=== PATIENT | male | born 1985 | race African-American/Black ===

== ENCOUNTER 2017-01-29 16:48 | Inpatient (IN) | payer MEDICAID, MEDICARE ==
[2017-01-29] MEDS ORDERED: HYDROcodone/Acetaminophen 10/325 mg Tablet ONE ×2 (17:14→18:02)
[2017-01-29] MEDS ORDERED: Promethazine HCl 25 MG/ML VIAL ONE (17:32)
--- NOTE | 2017-01-29 17:47 | RAD ---
CHEST PA AND LATERAL: HISTORY: A 31-year-old male with sickle cell crisis. COMPARISON: 12/22/2016. FINDINGS: Heart size is upper range of normal. Bronchovascular markings are slightly prominent bilaterally, b ut no confluent pneumonia, overt edema, pleural effusion, or other acute process. IMPRESSION: Borderline heart size and borderline vascular congestion. No other acute process. No evidence for pneumonia. POS: [facility]
[2017-01-29 18:17] LABS: ALT (SGPT) 20 U/L (8-55); AST (SGOT) 21 U/L (5-34); Alkaline Phosphatase 99 U/L (40-150); Anion Gap 11 mmol/L (10-20); BUN (Urea Nitrogen) 6 mg/dL (8.9-20.6); Bilirubin, Total 0.5 mg/dL (0.2-1.2); Calc. Creatinine Clearance 0 mL/min (70-130); Calcium 9.9 mg/dL (7.8-10.44); Carbon Dioxide 29 mmol/L (22-29); Chloride 107 mmol/L (98-107); Estimated GFR-MDRD Greater than 90; Globulin 3.9 g/dL (2.4-3.5); Protein, Total 8.1 g/dL (6.0-8.3)
[2017-01-29 18:32] LABS: IRF 0.192 Ratio (0.163-0.362)
[2017-01-29 18:45] LABS: Hematocrit 28.1 % (42.0-52.0); Red Blood Cell (RBC) Count 3.23 mill/uL (4.70-6.10)
[2017-01-29 19:11] LABS: Anisocytosis SLIGHT = 6-15 cells (100X) (0-5/hpf); Band 1 % (5-11); Neutrophil 57 % (42-75); Nucleated RBC 2 % (0); Polychromasia MODERATE = 3-4 cells (100X) (0-2/hpf); Reactive Lymphocytes 1 % (0-10); Target Cells MODERATE= 6-15 cells (100X) (0-1/hpf); Tear Drops SLIGHT = 2-5 cells (100X) (0-1/hpf); White Blood Cell (WBC) Count 15.1 thou/uL (4.8-10.8)
[2017-01-29] MEDS ORDERED: diphenhydrAMINE HCl 25 MG CAP ONE ×2 (19:48→20:41)
[2017-01-29] MEDS ORDERED: Ondansetron HCl/PF 4 MG/2 ML Vial ONE (20:40)
--- OUTSIDE RECORDS SUMMARY | 2017-01-29 20:51 | XMS | Clinical Summary ---
:1985 Author Organization [facility] Address [address] [place] [address] Phone Care Team Providers Name Role Phone Asked, No Primary Care Provider Unavailable Allergies Active Allergy Reactions Severity Noted Date Comments Fentanyl 10/23/2016 Morphine 10/30/2016 Metoclopramide Hcl 10/23/2016 Sulfa (Sulfonamide Antibiotics) 10/23/2016 Ketorolac 10/23/2016 Current Medications Prescription Sig. Disp. Refills Start Date End Date Status folic acid (FOLVITE) 1 Take 1 mg by mouth Active MG tablet daily. oxyCODone-acetaminophen Take 2 tablets by Active (PERCOCET) 10-325 mg per mouth every 4 (four) tablet hours as needed for moderate pain. hydroxyurea (HYDREA) 500 Take 500 mg by mouth Active mg capsule daily. Active Problems Problem Noted Date Sickle cell pain crisis 10/24/2016 Encounters Date Type Specialty Care Team Description 10/30/2016 - Hospital Encounter General Internal Brusatori, Sickle cell pain 11/03/2016 Medicine Krystyna Reddy MD crisis (Primary Dx) Kade Montejo DO Kosaraju, Nitish, MD 10/29/2016 Emergency Emergency Medicine No Hobbs Vomiting without MD Leena nausea, intractability of vomiting not specified, unspecified vomiting type (Primary Dx) from Last 3 Months Social History Tobacco Use Types Packs/Day Years Used Date Current Every Day Smoker Cigarettes 0.5 Tobacco Cessation:Ready to Quit: No Alcohol Use Drinks/Week oz/Week Comments No Sex Assigned at Date Recorded Not on file Last Filed Vital Signs Vital Sign Reading Time Taken Blood Pressure 93/51 11/03/2016 11:11 AM CDT Pulse 55 11/03/2016 11:11 AM CDT Temperature 36.2 C (97.1 F) 11/03/2016 11:11 AM CDT Respiratory Rate 18 11/03/2016 11:11 AM CDT Oxygen Saturation 95% 11/03/2016 11:11 AM CDT Inhaled Oxygen Concentration - - Weight 68 kg (150 lb) 10/30/2016 9:37 PM CDT Height 175.3 cm (5' 9") 10/30/2016 9:37 PM CDT Body Mass Index 22.15 10/30/2016 9:37 PM CDT Plan of Treatment Health Maintenance Due Date Last Done Comments INFLUENZA VACCINE 11/25/2016 04/30/2016 Results Estimated GFR (11/03/2016 4:10 AM)Only the most recent of4 resultswithin the time period is included. Component Value Ref Range GFR Non Af Amer >90 mL/min/1.73 m2 GFR Af Amer >90 mL/min/1.73 m2 Comment: Chronic kidney disease: <60 mL/min/1.73m2 Kidney failure: <15 mL/min/1.73m2 The estimated GFR is calculated from the IDMS-traceable Modification of Diet in Renal Disease Equation. The accuracy of the calculation is poor when the creatinine is normal. Calculated values >90 mL/min/1.73m2 are not reported. This equation has not been validated in children (<18 years), women, the elderly (>70 years), or ethnic groups other than Caucasians and Americans. Specimen Performing Laboratory Plasma specimen [facility] DEPARTMENT OF PATHOLOGY AND GENOMIC MEDICINE [address] [place] [address]. [address] [place] [address] CBC with platelet and differential (11/03/2016 4:10 AM)Only the most recent of5 resultswithin the time period is included. Component Value Ref Range WBC 9.6 4.5 - 11.0 k/uL RBC 3.50(L) 4.40 - 6.00 M/uL HGB 10.6(L) 14.0 - 18.0 g/dL HCT 28.3(L) 41.0 - 51.0 % MCV 80.9(L) 82.0 - 100.0 fL MCH 30.3 27.0 - 34.0 pg MCHC 37.5(H) 31.0 - 37.0 g/dL RDW - SD 42.3 37.0 - 55.0 fL MPV 9.3 8.8 - 13.2 fL Platelet count 375 150 - 400 K/uL Nucleated RBC 0.50 /100 WBC Neutrophils 46.7 39.0 - 69.0 % Lymphocytes 39.4 25.0 - 45.0 % Monocytes 11.1(H) 0.0 - 10.0 % Eosinophils 2.4 0.0 - 5.0 % Basophils 0.3 0.0 - 1.0 % Immature granulocytes 0.1Comment:"Immature granulocytes" 0.0 - 1.0 % (promyelocytes, myelocytes, metamyelocytes) Specimen Performing Laboratory Blood [facility] DEPARTMENT OF PATHOLOGY AND GENOMIC MEDICINE [address] [place] [address] Basic metabolic panel (11/03/2016 4:10 AM)Only the most recent of4 resultswithin the time period is included. Component Value Ref Range Sodium 139 135 - 148 mEq/L Potassium 4.3 3.5 - 5.0 mEq/L Chloride 99 99 - 109 mEq/L CO2 24 24 - 31 mEq/L Anion gap 16(H) 7 - 15 mEq/L Comment: Starting from July , anion gap calculation no longer incorporates potassium. Please note the change. BUN 9 8 - 24 mg/dL Creatinine 0.7 0.5 - 1.5 mg/dL Glucose 87 65 - 99 mg/dL Calcium 9.5 8.6 - 10.6 mg/dL Specimen Performing Laboratory Plasma specimen [facility] DEPARTMENT OF PATHOLOGY AND GENOMIC MEDICINE [address] [place] [address] Smear review (11/01/2016 3:25 AM)Only the most recent of3 resultswithin the time period is included. Component Value Ref Range Platelet slide review Adequate Schistocytes Slight(A) None Seen Target cells Marked(A) None seen Enlarged platelets Slight Folded RBCs Slight(A) None seen Specimen Performing Laboratory [facility] DEPARTMENT OF PATHOLOGY AND GENOMIC MEDICINE [address] [place] [id number] ECG ED Preliminary Interpretation - NOT AN ORDER (10/31/2016 5:13 AM) Lisa Huerta MD 10/31/20165:13 AM ECG ED Preliminary Interpretation - Not an Order Performed by: KRYSTYNA HUERTA Authorized by: KRYSTYNA HUERTA ECG reviewed by ED Physician in the absence of a ore crusher: yes Rate: ECG rate:59 ECG rate assessment: normal Rhythm: Rhythm: sinus rhythm Ectopy: Ectopy: none ST segments: ST segments:Non-specific T waves: T waves: inverted Inverted:V1 and aVR Comments: 22:23 Urinalysis screen and microscopy, with reflex to culture (10/30/2016 11:26 PM) Component Value Ref Range Specimen site Clean catch Color, UA Yellow YELLOW Appearance, UA Clear Clear Specific gravity, UA 1.015 1.005 - 1.030 pH, UA 6.0 5.0 - 8.0 Protein, UA Negative Negative Glucose, UA Negative Negative Ketones, UA Negative Negative Bilirubin, UA Negative Negative Blood, UA Negative Negative Nitrite, UA Negative NEGATIVE Urobilinogen, UA 2.0 <2.0 E.U./dL Leukocyte esterase, UA Negative Negative Epithelial cells, UA <1 0 - 15 /HPF WBC, UA <1 0 - 5 /Hpf RBC, UA 1 0 - 5 /HPF Bacteria, UA None seen None seen Yeast, UA None seen None Seen Yeast with pseudohyphae, UA None seen Specimen Performing Laboratory Urine [facility] DEPARTMENT OF PATHOLOGY AND GENOMIC MEDICINE [address] [place] [address]. [address] [place] [address] Urine drugs of abuse screen (10/30/2016 11:26 PM) Component Value Ref Range Amphetamine screen, urine Negative Barbiturate screen, urine Negative Benzodiazepine screen, urine Negative Cannabinoid screen, urine Positive(A) Cocaine screen, urine Negative Methadone metabolite (EDDP), urine Negative Opiates screen, urine Positive(A) Oxycodone screen, urine Positive(A) Phencyclidine screen, urine Negative Tricyclic screen, urine Negative Comment: Drug screen minimum concentration of detectability Achborrxdvvk8062 ng/mL Barbiturates 200 ng/mL Uxvxfwaityldqcy221 ng/mL Fiuirrm582 ng/mL Vnvsxwcyf101 ng/mL Oxqhjhz464 ng/mL Bstyqfcyj962 ng/mL Phencyclidine 25 ng/mL Hmgyrdgqmjfn82 ng/mL Bnmmuikdqn8630 ng/mL Negative test results indicates presumptive evidence of lack of clinically significant drug concentration in this urine specimen. Positive test results are presumptive evidence of clinically significant drug concentration in this urine specimen. Testing performed for medical purposes only. Specimen Performing Laboratory Urine [facility] DEPARTMENT OF PATHOLOGY AND GENOMIC MEDICINE [address] [place] [address]. [address] [place] [address] Urine culture (10/30/2016 11:26 PM) Component Value Ref Range Urine culture SEE COMMENTComment:Bacteriuria screen negative. Specimen Performing Laboratory [facility] DEPARTMENT OF PATHOLOGY AND GENOMIC MEDICINE [id number] [place], [place] [address]y. [address] [place] [address] XR Chest 1 Vw Portable (10/30/2016 10:46 PM) Specimen Performing Laboratory [facility] [address] [place] [address] Narrative Examination:XR CHEST 1 VW PORTABLE Clinical History:Respiratory abnormality Comparison: None. Technique: Single frontal view of the chest is obtained. Findings: The lungs are free of infiltrate. The heart size is normal. No pleural effusion is seen. Impression: No active cardiopulmonary disease identified. [id number] Procedure Note Interface, Radiology Results Incoming - 10/30/2016 10:50 PM CDT Examination: XR CHEST 1 VW PORTABLE Clinical History: Respiratory abnormality Comparison: None. Technique: Single frontal view of the chest is obtained. Findings: The lungs are free of infiltrate. The heart size is normal. No pleural effusion is seen. Impression: No active cardiopulmonary disease identified. [id number] ECG 12 lead (10/30/2016 10:23 PM) Component Value Ref Range Ventricular rate 59 Atrial rate 59 SC interval 110 QRSD interval 92 QT interval 422 QTC interval 417 P axis 1 86 QRS axis 1 50 T wave axis 48 EKG impression Sinus bradycardia with short SC-Otherwise normal ECG- Specimen Performing Laboratory [facility] [address] [place] [address] Reticulocyte count (10/30/2016 10:17 PM)Only the most recent of2 resultswithin the time period is included. Component Value Ref Range Retic %, auto 3.4(H) 0.5 - 2.1 % Retic absolute, auto 0.1197 0.0220 - 0.1260 m/uL Specimen Performing Laboratory Blood [facility] DEPARTMENT OF PATHOLOGY AND GENOMIC MEDICINE [address] [place], [place] [address]. [address] [place] [address] Hepatic function panel (10/30/2016 10:17 PM) Component Value Ref Range Albumin 4.4 3.5 - 5.0 g/dL Total bilirubin 0.5 0.2 - 1.2 mg/dL Bilirubin direct <0.2 0.0 - 0.4 mg/dL Alkaline phosphatase 81 30 - 115 U/L Protein 7.8 6.3 - 8.2 g/dL ALT 33 10 - 55 U/L AST 67(H) 15 - 46 U/L Specimen Performing Laboratory Plasma specimen [facility] DEPARTMENT OF PATHOLOGY AND GENOMIC MEDICINE [address] [facility] [address] [place] [address] XR Chest 2 Vw (10/29/2016 6:38 PM) Specimen Performing Laboratory [facility] [address] [place] [address] Narrative EXAMINATION: XR CHEST 2 VW CLINICAL HISTORY: sickle cell COMPARISON: PA and lateral chest, obtained on 09/04/2016. FINDINGS: Cardiac and mediastinal silhouettes are within normal limits. There is no vascular congestion, pleural fluid, infiltrate or pneumothorax. Calcified granulomas are again seen. Skeletal structures are normal. IMPRESSION: Normal chest. [id number] Procedure Note Interface, Radiology Results Incoming - 10/29/2016 6:42 PM CDT EXAMINATION: XR CHEST 2 VW CLINICAL HISTORY: sickle cell COMPARISON: PA and lateral chest, obtained on 09/04/2016. FINDINGS: Cardiac and mediastinal silhouettes are within normal limits. There is novascular congestion, pleural fluid, infiltrate or pneumothorax. Calcifiedgranulomas are again seen. Skeletal structures are normal. IMPRESSION: Normal chest. [id number] from Last 3 Months Insurance Payer Benefit Plan / Group Subscriber ID Type Phone Address MEDICARE MEDICARE PART A AND B [id number] Medicare [place], [place] MEDICAID MEDICAID [id number] Medicaid [facility] [id number] [facility]
[2017-01-29] MEDS ORDERED: Ondansetron HCl/PF 4 MG/2 ML Vial IVP PRN (22:13)
[2017-01-29] MEDS ORDERED: Ondansetron ODT 4 MG TAB SL PRN (22:13)
[2017-01-29 22:30] VITALS: BMI 22.1
[2017-01-29] MEDS ORDERED: Acetaminophen 325 MG TAB PO PRN (22:35)
[2017-01-29] MEDS ORDERED: Morphine Sulfate 2 MG/ML SYRINGE SLOW IVP PRN (22:38)
[2017-01-29] MEDS: Sodium Chloride 0.9% 1,000 ML IV SCH (23:17)
[2017-01-29] MEDS: HYDROcodone/Acetaminophen 10/325 mg Tablet PO PRN (23:32)
--- NOTE | 2017-01-29 23:45 | HP ---
DATE OF ADMISSION: 01/29/2017 CHIEF COMPLAINT: Sickle cell pain. HISTORY OF PRESENT ILLNESS: Mr. Overton is a 31-year-old -[place] male well known to our hospital for multiple recent admissions for sickle cell pain crisis. He presents to the Emergency Department for complaints today of 3-4 hours of bilateral arm and back pain typical for his sickle c risis. He take his [place], but \\\\"was not helping.\\\\" He has had nausea and vomiting x2 today. His son has been sick with upper respiratory tract infection for the last several days. The patient stated at home, he had a 101.8 fever. Prior to presentation, took some Motrin and has been down since. Denie s any current nausea, vomiting, no current fevers or shaking chills or rigors. No diarrhea or const ipation. Chest pain is present when he takes a deep breath. No shortness of breath. In the Emergency Department, he was given IV antibiotics and we were called for admission. PAST MEDICAL HISTORY: 1. Sickle cell disease. 2. Marijuana use. 3. Tobacco abuse. PAST SURGICAL HISTORY: None. MEDICATIONS: 1. Hydrocodone/APAP 10/325 two p.o. q.6 hours p.r.n. 2. Folic acid 1 mg daily. 3. Motrin as needed. ALLERGIES: To FENTANYL, TORADOL, SULFA, AND REGLAN. REGLAN causes blisters. SULFA caused him to h ave a low heart rate and FENTANYL made him feel like his throat was closing up. FAMILY HISTORY: Significant for both parents with sickle cell trait. He has a son with sickle cell trait. SOCIAL HISTORY: Significant for tobacco. He states only 2 cigarettes a day. Uses marijuana when h is pain is as bad and the medicine is not working. Denies any IV drug abuse. Lives at home with geovanny s and his son. REVIEW OF SYSTEMS: A 10-point review of systems was performed and negative for all other systems ex cept as stated as per HPI. PHYSICAL EXAMINATION: VITAL SIGNS: Temperature is 98.1, pulse 62, blood pressure 106/65, respiratory rate 16, satting 95% on room air. Pain on arrival to the ER was 8/10 with a pulse of 62. GENERAL: He is awake. He is alert. He is oriented x3. He is sleepy. A well-developed, well-nour ished -Cong[place]ese male. HEENT: Normocephalic, atraumatic. Pupils equal, round, react to light bilaterally, mucous membrane s moist, he has no visible lesions. No thrush. NECK: Supple with no lymphadenopathy, JVD or thyromegaly. LUNGS: Clear. No wheezes, no rales, no rhonchi. Good air movement and symmetrical chest excursion . CARDIOVASCULAR: Normal S1, S2, no S3, S4. No audible murmurs. ABDOMEN: Soft, nontender, nondistended, no mass, no organomegaly. He has no rebound, rigidity or g uarding with normoactive bowel sounds present in all 4 quadrants. EXTREMITIES: Showed no cyanosis, no clubbing, no edema, 2+ peripheral pulses. His extremities are warm with good cap refill. SKIN: Warm, moist, well perfused without any other rashes or lesions. MUSCULOSKELETAL: Normal to inspection. He has no inflamed joints and no palpable joint effusions. No hemarthrosis. NEUROLOGIC: Cranial nerves II-XII are grossly intact without any focal neurologic deficits. Normal speech. He is sleepy, but awake. LABORATORY DATA: His basic metabolic profile and liver functions are completely normal. White bloo d cell count elevated at 15.1, hemoglobin 9.9 which is improved from his last hospital discharge of 12/26 when it was 9.4, hemoglobin 28.1 and platelets are 500,000. Reticulocyte count was 4%. Calcium was 9.9. Chest x-ray showed no acute cardiopulmonary disease. ASSESSMENT AND PLAN: 1. Sickle cell pain crisis: Place the patient on 2 liters nasal cannula oxygen continuous, we will start him on Hydrea 300 mg p.o. b.i.d., which he has been on previously. We will continue with irina e p.o. [place] with IV morphine 2 mg q.4 hours p.r.n. breakthrough. The patient was requesting IV Wisam adryl, however, due to inability to keep down oral, I have offered him intramuscular and I will have that ordered. If he does not want that, then oral will have to suffice. 2. Polysubstance abuse and marijuana, tobacco, seems to be low level per history. No nicotine repl acement given. 3. Sepsis: Etiology unclear. He had 101.8 fever at home, possible bacterial infection given his h istory of sickle cell disease, white blood cell count of 15.1. I will place him on Levaquin once a day for respiratory coverage. He did have a sick contact in a son, but has no current symptoms of a viral respiratory illness. We will watch him closely. 4. Sickle cell anemia: Hemoglobin is 9.9 on admission. Expect to drop some with hydration. Retic ulocyte count is elevated which is a good sign. We will continue to monitor.
[2017-01-30] MEDS: HYDROcodone/Acetaminophen 10/325 mg Tablet PO PRN ×5 (04:06→21:05)
[2017-01-30] MEDS: Sodium Chloride 0.9% 1,000 ML IV SCH ×4 (05:12→21:04)
[2017-01-30] MEDS: diphenhydrAMINE HCl 50 MG/ML 1 ML VIAL IM PRN ×3 (05:16→21:49)
[2017-01-30 05:54] LABS: Anion Gap 12 mmol/L (10-20); BUN (Urea Nitrogen) 5 mg/dL (8.9-20.6); Calc. Creatinine Clearance 129 mL/min (70-130); Calcium 8.9 mg/dL (7.8-10.44); Carbon Dioxide 23 mmol/L (22-29); Chloride 109 mmol/L (98-107); Estimated GFR-MDRD Greater than 90
[2017-01-30 06:01] LABS: Hematocrit 26.6 % (42.0-52.0); Mean Platelet Volume 6.4 fL (7.4-10.4); Metamyelocyte 2 % (0-0); Neutrophil 45 % (42-75); Red Blood Cell (RBC) Count 3.04 mill/uL (4.70-6.10); White Blood Cell (WBC) Count 11.8 thou/uL (4.8-10.8)
[2017-01-30] MEDS ORDERED: Docusate 100 MG CAP PO PRN (07:46)
[2017-01-30] MEDS ORDERED: Chloraseptic Spray 180 ml Bottle PO PRN (07:46)
[2017-01-30] MEDS ORDERED: Eucerin (Mineral Oil/Petrolatum,White) 30 gm Jar TOP PRN (07:46)
[2017-01-30] MEDS ORDERED: Zolpidem Tartrate 5 MG TAB PO PRN (07:46)
[2017-01-30] MEDS ORDERED: Milk Of Magnesia 30 ML UDCUP PO PRN (07:46)
[2017-01-30] MEDS ORDERED: Loratadine 10 MG TAB PO PRN (07:46)
[2017-01-30] MEDS ORDERED: Artificial Tears 18 DROP/0.9 ML EA EYE PRN (07:46)
[2017-01-30] MEDS ORDERED: Loperamide HCl 2 MG CAP PO PRN (07:46)
[2017-01-30] MEDS ORDERED: Mag-Al 1200 mg/1200 mg/30 ML UDCUP PO PRN (07:46)
[2017-01-30] MEDS ORDERED: Diabetic Tussin 200 MG/10 ML UDCUP PO PRN (07:46)
[2017-01-30] MEDS ORDERED: Sodium Chloride 0.65% Nasal 44 ML BOT EA NARE PRN (07:46)
[2017-01-30] MEDS ORDERED: Bisacodyl 10 MG SUPP PR PRN (07:46)
[2017-01-30] MEDS: Famotidine 20 MG TAB PO SCH ×2 (08:02→20:17)
[2017-01-30] MEDS: Folic Acid 1 MG TAB PO SCH (08:02)
[2017-01-30] MEDS ORDERED: FLU VACC QS2017-18 36 mo. & older 0.5 ML SYRINGE IM ONE (09:00)
[2017-01-30] MEDS ORDERED: HYDROXYUREA 300 MG PO SCH (09:00)
--- NOTE | 2017-01-30 13:23 | PDOC.PN ---
- Subjective Encounter Start Date: 01/30/17 Encounter Start Time: 09:10 -: old records requested/rev pt's pain is not controlled, no fever, no chest pain, no cough - Objective MAR Reviewed: Yes Vital Signs & Weight: Vital Signs (12 hours) Temp Pulse Resp BP Pulse Ox 01/30/17 11:07 97.6 F 65 16 112/70 96 01/30/17 08:00 97.7 F 57 L 16 97 01/30/17 07:31 97.7 F 57 L 16 116/70 97 01/30/17 04:00 97.8 F 68 20 104/64 98 Weight Weight 150 lb I&O: 01/29/17 01/30/17 01/31/17 06:59 06:59 06:59 Intake Total 2385 Balance 2385 Result Diagrams: 01/30/17 04:41 01/30/17 04:41 Phys Exam - Physical Examination Constitutional: NAD HEENT: PERRLA, moist MMs, sclera anicteric Neck: no JVD, supple Respiratory: no wheezing, no rales, no rhonchi Cardiovascular: RRR, no significant murmur, no rub Gastrointestinal: soft, non-tender, no distention, positive bowel sounds Musculoskeletal: no edema, pulses present Neurological: non-focal, normal sensation, moves all 4 limbs Lymphatic: no nodes Psychiatric: normal affect, A&O x 3 Skin: no rash, normal turgor Dx/Plan (1) Sickle cell anemia with crisis Code(s): D57.00 - HB-SS DISEASE WITH CRISIS, UNSPECIFIED Status: Acute (2) Cannabis abuse Code(s): F12.10 - CANNABIS ABUSE, UNCOMPLICATED Status: Chronic (3) Tobacco abuse Code(s): Z72.0 - TOBACCO USE Status: Chronic - Plan cont current plan of care * continue IVF NS at 125 ml per hour * continue oxygen * will increase morphin to 4 mg IV q 4 hourly * [place] for breakthrough pain * medication reviewed as below * symptomatic treatment * add folic acid. Review of Systems - Review of Systems Constitutional: negative: Fever, Chills, Sweats, Weakness, Malaise, Other Respiratory: negative: Cough, Dry, Shortness of Breath, Hemoptysis, SOB with Excertion, Pleuritic Pain, Sputum, Wheezing Cardiovascular: negative: Chest Pain, Palpitations, Orthopnea, Paroxysmal Noc. Dyspnea, Edema, Light Headedness, Other Gastrointestinal: negative: Nausea, Vomiting, Abdominal Pain, Diarrhea, Constipation, Melena, Hematochezia, Other Genitourinary: negative: Dysuria, Frequency, Incontinence, Hematuria, Retention , Other Musculoskeletal: Arm Pain, Back Pain, Leg Pain. negative: Neck Pain, Shoulder Pain, Hand Pain, Foot Pain, Other Skin: negative: Rash, Lesions, Shahram, Bruising, Other - Medications/Allergies Allergies/Adverse Reactions: Allergies Allergy/AdvReac Type Severity Reaction Status Date / Time fentanyl Allergy Verified 12/23/16 02:11 ketorolac tromethamine Allergy Short of Verified 12/23/16 02:11 [From Toradol] Breath metoclopramide [From Reglan] Allergy Verified 01/29/17 22:25 Sulfa (Sulfonamide Allergy Verified 12/23/16 02:11 Antibiotics) Medications: Current Medications Acetaminophen (Tylenol) 650 mg PO Q4H PRN PRN Reason: Headache/Fever or Pain Hydrocodone Bitart/Acetaminophen ([place] 10/325) 2 tab PO Q4H PRN PRN Reason: Moderate to Severe Pain (6-10) Last Admin: 01/30/17 12:02 Dose: 2 tab Al Hydroxide/Mg Hydroxide (Maalox) 15 ml PO Q4H PRN PRN Reason: Heartburn or Indigestion Artificial Tears (Tears Naturale) 0 drop EA EYE PRN PRN PRN Reason: Dry Eyes Bisacodyl (Dulcolax) 10 mg NC DAILYPRN PRN PRN Reason: Constipation Diphenhydramine HCl (Benadryl) 12.5 mg IM Q8H PRN PRN Reason: Itching Last Admin: 01/30/17 13:09 Dose: 12.5 mg Docusate Sodium (Colace) 100 mg PO BIDPRN PRN PRN Reason: Constipation Famotidine (Pepcid) 20 mg PO BID [facility] Last Admin: 01/30/17 08:02 Dose: 20 mg Folic Acid (Folvite) 1 mg PO DAILY [facility] Last Admin: 01/30/17 08:02 Dose: 1 mg Guaifenesin (Robitussin Sf) 200 mg PO Q4H PRN PRN Reason: Cough Hydralazine HCl (Apresoline) 10 mg SLOW IVP Q4H PRN PRN Reason: Systolic BP > 180 Sodium Chloride (Normal Saline 0.9%) 1,000 mls @ 125 mls/hr IV .Q8H [facility] Last Admin: 01/30/17 12:05 Dose: 1,000 mls Levofloxacin (Levaquin) 500 mg PO Q24HR [facility] Last Admin: 01/30/17 05:14 Dose: 500 mg Loperamide HCl (Imodium) 2 mg PO PRN PRN PRN Reason: Diarrhea/Loose Stools Loratadine (Claritin) 10 mg PO DAILYPRN PRN PRN Reason: Sinus Symptoms Magnesium Hydroxide (Milk Of Magnesium) 30 ml PO DAILYPRN PRN PRN Reason: Constipation Mineral Oil/White Petrolatum (Eucerin Cream) 0 gm TOP BIDPRN PRN PRN Reason: Dry Skin Morphine Sulfate (Morphine Sulfate) 4 mg SLOW IVP Q4H PRN PRN Reason: breakthough pain Last Admin: 01/30/17 13:03 Dose: 4 mg Hydroxyurea [Droxia] (300 Mg) 0 each PO BID [facility] Phenol (Chloraseptic [place] 180 Ml Bot) 0 ml PO PRN PRN PRN Reason: Sore Throat Sodium Chloride (Flush - Normal Saline) 10 ml IVF Q12HR [facility] Last Admin: 01/30/17 09:23 Dose: Not Given Sodium Chloride (Flush - Normal Saline) 10 ml IVF PRN PRN PRN Reason: Saline Flush Sodium Chloride (Nye Nasal [place] 0.65%) 0 ml EA NARE QIDPRN PRN PRN Reason: Nasal Congestion Zolpidem Tartrate (Ambien) 5 mg PO HSPRN PRN PRN Reason: Insomnia
[2017-01-30] MEDS ORDERED: Ondansetron ODT 4 MG TAB PO PRN (20:18)
[2017-01-30] MEDS: Ondansetron HCl/PF 4 MG/2 ML Vial SLOW IVP PRN (21:04)
[2017-01-31] MEDS: HYDROcodone/Acetaminophen 10/325 mg Tablet PO PRN ×6 (01:13→21:26)
[2017-01-31] MEDS: hydrOXYzine 25 MG TAB PO PRN ×2 (01:14→17:14)
[2017-01-31] MEDS: Sodium Chloride 0.9% 1,000 ML IV SCH ×3 (05:15→22:43)
[2017-01-31] MEDS: Famotidine 20 MG TAB PO SCH ×2 (08:22→20:04)
[2017-01-31] MEDS: Folic Acid 1 MG TAB PO SCH (08:23)
[2017-01-31] MEDS: Ondansetron HCl/PF 4 MG/2 ML Vial SLOW IVP PRN (08:30)
[2017-01-31] MEDS: diphenhydrAMINE HCl 50 MG/ML 1 ML VIAL IM PRN ×2 (08:33→20:03)
--- NOTE | 2017-01-31 12:23 | EKG ---
Test Reason : Blood Pressure : / mmHG Vent. Rate : 069 BPM Atrial Rate : 069 BPM P-R Int : 106 ms QRS Dur : 086 ms QT Int : 400 ms P-R-T Axes : 087 054 041 degrees QTc Int : 428 ms Sinus rhythm with short FL Otherwise normal ECG No specific ST-T segment abnormalities Normal axis Confirmed by DEANN KLEIN ([id number]), dictionary editor RAMA HOSKINS ([id number]) on 01/31/2017 12:22:32 PM Referred By: Confirmed By:DEANN KLEIN
--- NOTE | 2017-01-31 13:34 | PDOC.PN ---
- Subjective Encounter Start Date: 01/31/17 Encounter Start Time: 11:00 Subjective: pain is better, no sob -: is amb in hallway - Objective MAR Reviewed: Yes Vital Signs & Weight: Vital Signs (12 hours) Temp Pulse Resp BP Pulse Ox 01/31/17 08:00 97.9 F 65 16 97 01/31/17 07:42 97.9 F 65 16 124/77 97 01/31/17 04:00 97.8 F 52 L 16 114/74 97 Weight Weight 150 lb I&O: 01/30/17 01/31/17 02/01/17 06:59 06:59 06:59 Intake Total 2385 2800 Balance 2385 2800 Result Diagrams: 01/30/17 04:41 01/30/17 04:41 Phys Exam - Physical Examination HEENT: PERRLA, moist MMs Neck: no JVD, supple Respiratory: no wheezing, no rales Cardiovascular: RRR, no significant murmur Gastrointestinal: soft, non-tender, positive bowel sounds Musculoskeletal: no edema, pulses present Neurological: non-focal, moves all 4 limbs Psychiatric: A&O x 3 Dx/Plan (1) Sickle cell anemia with crisis Code(s): D57.00 - HB-SS DISEASE WITH CRISIS, UNSPECIFIED Status: Acute (2) Cannabis abuse Code(s): F12.10 - CANNABIS ABUSE, UNCOMPLICATED Status: Chronic (3) Tobacco abuse Code(s): Z72.0 - TOBACCO USE Status: Chronic - Plan continue iv fluids -: morphine prn -: h/h stable * . Review of Systems - Medications/Allergies Allergies/Adverse Reactions: Allergies Allergy/AdvReac Type Severity Reaction Status Date / Time fentanyl Allergy Verified 12/23/16 02:11 ketorolac tromethamine Allergy Short of Verified 12/23/16 02:11 [From Toradol] Breath metoclopramide [From Reglan] Allergy Verified 01/29/17 22:25 Sulfa (Sulfonamide Allergy Verified 12/23/16 02:11 Antibiotics) Medications: Current Medications Acetaminophen (Tylenol) 650 mg PO Q4H PRN PRN Reason: Headache/Fever or Pain Hydrocodone Bitart/Acetaminophen ([place] 10/325) 2 tab PO Q4H PRN PRN Reason: Moderate to Severe Pain (6-10) Last Admin: 01/31/17 12:37 Dose: 2 tab Al Hydroxide/Mg Hydroxide (Maalox) 15 ml PO Q4H PRN PRN Reason: Heartburn or Indigestion Artificial Tears (Tears Naturale) 0 drop EA EYE PRN PRN PRN Reason: Dry Eyes Bisacodyl (Dulcolax) 10 mg [place] DAILYPRN PRN PRN Reason: Constipation Diphenhydramine HCl (Benadryl) 12.5 mg IM Q8H PRN PRN Reason: Itching Last Admin: 01/31/17 08:33 Dose: 12.5 mg Docusate Sodium (Colace) 100 mg PO BIDPRN PRN PRN Reason: Constipation Famotidine (Pepcid) 20 mg PO BID [facility] Last Admin: 01/31/17 08:22 Dose: 20 mg Folic Acid (Folvite) 1 mg PO DAILY [facility] Last Admin: 01/31/17 08:23 Dose: 1 mg Guaifenesin (Robitussin Sf) 200 mg PO Q4H PRN PRN Reason: Cough Hydralazine HCl (Apresoline) 10 mg SLOW IVP Q4H PRN PRN Reason: Systolic BP > 180 Hydroxyzine HCl (Atarax) 25 mg PO Q8H PRN PRN Reason: Itching Last Admin: 01/31/17 01:14 Dose: 25 mg Sodium Chloride (Normal Saline 0.9%) 1,000 mls @ 125 mls/hr IV .Q8H [facility] Last Admin: 01/31/17 05:15 Dose: 1,000 mls Levofloxacin (Levaquin) 500 mg PO Q24HR [facility] Last Admin: 01/31/17 05:16 Dose: 500 mg Loperamide HCl (Imodium) 2 mg PO PRN PRN PRN Reason: Diarrhea/Loose Stools Loratadine (Claritin) 10 mg PO DAILYPRN PRN PRN Reason: Sinus Symptoms Magnesium Hydroxide (Milk Of Magnesium) 30 ml PO DAILYPRN PRN PRN Reason: Constipation Mineral Oil/White Petrolatum (Eucerin Cream) 0 gm TOP BIDPRN PRN PRN Reason: Dry Skin Morphine Sulfate (Morphine Sulfate) 4 mg SLOW IVP Q4H PRN PRN Reason: breakthough pain Last Admin: 01/31/17 09:32 Dose: 4 mg Ondansetron HCl (Zofran Odt) 4 mg PO Q6H PRN PRN Reason: Nausea/Vomiting Ondansetron HCl (Zofran) 4 mg SLOW IVP Q6H PRN PRN Reason: Nausea/Vomiting Last Admin: 01/31/17 08:30 Dose: 4 mg Hydroxyurea [Droxia] (300 Mg) 0 each PO BID [facility] Phenol (Chloraseptic [place] 180 Ml Bot) 0 ml PO PRN PRN PRN Reason: Sore Throat Sodium Chloride (Flush - Normal Saline) 10 ml IVF Q12HR [facility] Last Admin: 01/31/17 08:23 Dose: Not Given Sodium Chloride (Flush - Normal Saline) 10 ml IVF PRN PRN PRN Reason: Saline Flush Sodium Chloride ([place] Nasal [place] 0.65%) 0 ml EA NARE QIDPRN PRN PRN Reason: Nasal Congestion Zolpidem Tartrate (Ambien) 5 mg PO HSPRN PRN PRN Reason: Insomnia
[2017-02-01] MEDS: HYDROcodone/Acetaminophen 10/325 mg Tablet PO PRN ×6 (01:59→23:30)
[2017-02-01 05:28] LABS: Hematocrit 25.5 % (42.0-52.0); Mean Platelet Volume 6.2 fL (7.4-10.4); Neutrophil 37 % (42-75); Nucleated RBC 2 % (0); Red Blood Cell (RBC) Count 2.94 mill/uL (4.70-6.10); White Blood Cell (WBC) Count 9.1 thou/uL (4.8-10.8)
[2017-02-01 05:46] LABS: Anion Gap 10 mmol/L (10-20); BUN (Urea Nitrogen) 5 mg/dL (8.9-20.6); Calc. Creatinine Clearance 142 mL/min (70-130); Calcium 8.9 mg/dL (7.8-10.44); Carbon Dioxide 27 mmol/L (22-29); Chloride 104 mmol/L (98-107); Estimated GFR-MDRD Greater than 90
[2017-02-01] MEDS: Folic Acid 1 MG TAB PO SCH (07:55)
[2017-02-01] MEDS: Famotidine 20 MG TAB PO SCH ×2 (07:56→20:15)
[2017-02-01] MEDS: diphenhydrAMINE HCl 50 MG/ML 1 ML VIAL IM PRN ×2 (07:59→16:43)
[2017-02-01] MEDS: Sodium Chloride 0.9% 1,000 ML IV SCH (10:32)
--- NOTE | 2017-02-01 13:57 | PDOC.PN ---
- Subjective Encounter Start Date: 02/01/17 Encounter Start Time: 12:15 Subjective: pain and aches are getting better - Objective MAR Reviewed: Yes Vital Signs & Weight: Vital Signs (12 hours) Temp Pulse Resp BP Pulse Ox 02/01/17 07:38 98.0 F 66 20 144/84 H 97 02/01/17 05:30 99 02/01/17 05:14 98.3 F 56 L 16 134/84 Weight Weight 150 lb I&O: 01/31/17 02/01/17 02/02/17 06:59 06:59 06:59 Intake Total 2800 3041 Balance 2800 3041 Result Diagrams: 02/01/17 04:26 02/01/17 04:26 Phys Exam - Physical Examination HEENT: PERRLA, moist MMs Neck: no JVD, supple Respiratory: no wheezing, no rales Cardiovascular: RRR, no significant murmur Gastrointestinal: soft, non-tender, positive bowel sounds Musculoskeletal: no edema, pulses present Neurological: non-focal, moves all 4 limbs Psychiatric: A&O x 3 Dx/Plan (1) Sickle cell anemia with crisis Code(s): D57.00 - HB-SS DISEASE WITH CRISIS, UNSPECIFIED Status: Acute (2) Cannabis abuse Code(s): F12.10 - CANNABIS ABUSE, UNCOMPLICATED Status: Chronic (3) Tobacco abuse Code(s): Z72.0 - TOBACCO USE Status: Chronic - Plan reduce iv fluids, has some pedal edema -: morphine prn -: dc plan in 24-36hrs -: to ambulate in hallway * . Review of Systems - Medications/Allergies Allergies/Adverse Reactions: Allergies Allergy/AdvReac Type Severity Reaction Status Date / Time fentanyl Allergy Verified 12/23/16 02:11 ketorolac tromethamine Allergy Short of Verified 12/23/16 02:11 [From Toradol] Breath metoclopramide [From Reglan] Allergy Verified 01/29/17 22:25 Sulfa (Sulfonamide Allergy Verified 12/23/16 02:11 Antibiotics) Medications: Current Medications Acetaminophen (Tylenol) 650 mg PO Q4H PRN PRN Reason: Headache/Fever or Pain Hydrocodone Bitart/Acetaminophen ([place] 10/325) 2 tab PO Q4H PRN PRN Reason: Moderate to Severe Pain (6-10) Last Admin: 02/01/17 10:31 Dose: 2 tab Al Hydroxide/Mg Hydroxide (Maalox) 15 ml PO Q4H PRN PRN Reason: Heartburn or Indigestion Artificial Tears (Tears Naturale) 0 drop EA EYE PRN PRN PRN Reason: Dry Eyes Bisacodyl (Dulcolax) 10 mg [place] DAILYPRN PRN PRN Reason: Constipation Diphenhydramine HCl (Benadryl) 12.5 mg IM Q8H PRN PRN Reason: Itching Last Admin: 02/01/17 07:59 Dose: 12.5 mg Docusate Sodium (Colace) 100 mg PO BIDPRN PRN PRN Reason: Constipation Famotidine (Pepcid) 20 mg PO BID [facility] Last Admin: 02/01/17 07:56 Dose: 20 mg Folic Acid (Folvite) 1 mg PO DAILY [facility] Last Admin: 02/01/17 07:55 Dose: 1 mg Guaifenesin (Robitussin Sf) 200 mg PO Q4H PRN PRN Reason: Cough Hydralazine HCl (Apresoline) 10 mg SLOW IVP Q4H PRN PRN Reason: Systolic BP > 180 Hydroxyzine HCl (Atarax) 25 mg PO Q8H PRN PRN Reason: Itching Last Admin: 01/31/17 17:14 Dose: 25 mg Sodium Chloride (Normal Saline 0.9%) 1,000 mls @ 50 mls/hr IV .Q20H [facility] Last Admin: 02/01/17 10:32 Dose: 1,000 mls Levofloxacin (Levaquin) 500 mg PO Q24HR [facility] Last Admin: 02/01/17 05:53 Dose: 500 mg Loperamide HCl (Imodium) 2 mg PO PRN PRN PRN Reason: Diarrhea/Loose Stools Loratadine (Claritin) 10 mg PO DAILYPRN PRN PRN Reason: Sinus Symptoms Magnesium Hydroxide (Milk Of Magnesium) 30 ml PO DAILYPRN PRN PRN Reason: Constipation Mineral Oil/White Petrolatum (Eucerin Cream) 0 gm TOP BIDPRN PRN PRN Reason: Dry Skin Morphine Sulfate (Morphine Sulfate) 4 mg SLOW IVP Q4H PRN PRN Reason: breakthough pain Last Admin: 02/01/17 12:21 Dose: 4 mg Ondansetron HCl (Zofran Odt) 4 mg PO Q6H PRN PRN Reason: Nausea/Vomiting Ondansetron HCl (Zofran) 4 mg SLOW IVP Q6H PRN PRN Reason: Nausea/Vomiting Last Admin: 01/31/17 08:30 Dose: 4 mg Hydroxyurea [Droxia] (300 Mg) 0 each PO BID [facility] Phenol (Chloraseptic [place] 180 Ml Bot) 0 ml PO PRN PRN PRN Reason: Sore Throat Sodium Chloride (Flush - Normal Saline) 10 ml IVF Q12HR [facility] Last Admin: 02/01/17 08:00 Dose: Not Given Sodium Chloride (Flush - Normal Saline) 10 ml IVF PRN PRN PRN Reason: Saline Flush Sodium Chloride ([place] Nasal [place] 0.65%) 0 ml EA NARE QIDPRN PRN PRN Reason: Nasal Congestion Zolpidem Tartrate (Ambien) 5 mg PO HSPRN PRN PRN Reason: Insomnia
[2017-02-01] MEDS: Ondansetron HCl/PF 4 MG/2 ML Vial SLOW IVP PRN (23:31)
[2017-02-02] MEDS: diphenhydrAMINE HCl 50 MG/ML 1 ML VIAL IM PRN (01:35)
[2017-02-02] MEDS: HYDROcodone/Acetaminophen 10/325 mg Tablet PO PRN ×3 (03:33→20:18)
[2017-02-02] MEDS: Sodium Chloride 0.9% 1,000 ML IV SCH (03:34)
[2017-02-02] MEDS: Famotidine 20 MG TAB PO SCH ×2 (07:35→20:15)
[2017-02-02] MEDS: Folic Acid 1 MG TAB PO SCH (07:35)
--- NOTE | 2017-02-02 10:09 | PQF ---
CLINICAL DOCUMENTATION IMPROVEMENT CLARIFICATION FORM: ICD-10 Updated PLEASE DO AN ADDENDUM TO THE PROGRESS NOTE WITH ANY DOCUMENTATION UPDATES OR ADDITIONS AND CARRY THROUGH TO DC SUMMARY. THANK YOU. DATE: 02/02/17 ATTN: Dr. Akins Please exercise your independent, professional judgment in responding to the clarification form. Clinical indicators are provided on the bottom of this form for your review Please check appropriate box(s) to clarify if the following diagnosis has been ruled in our ruled out:. SEPSIS in H&P. [ ] Ruled in diagnosis [ ] Continue to treat [ ] Resolved [ x ] Ruled out diagnosis [ ] Cannot rule out diagnosis [ ] Other diagnosis [ ] Unable to determine For continuity of documentation, please document condition throughout progress notes and discharge summary. Thank You. CLINICAL INDICATORS - SIGNS / SYMPTOMS / LABS H&P: SEPSIS: ETIOLOGY UNCLEAR. HE HAD 101.8 FEVER AT HOME, POSSIBLE BACTERIAL INFECTION GIVEN HIS HISTORY OF SICKLE CELL DISEASE, WBC 15.1 RISKS: H&P: HX SICKLE CELL DISEASE. TREATMENT: CPOE 01/29: LEVAQUIN 500MG PO Q 24 HR. (This form is maintained as a part of the permanent medical record) 2014 [employer] All Rights Reserved Kristin Velez RN, BSN [email or web address] Office: [phone] [facility]
--- NOTE | 2017-02-02 15:01 | PDOC.PN ---
- Subjective Encounter Start Date: 02/02/17 Encounter Start Time: 07:00 Subjective: feels better -: is amb in hallway - Objective MAR Reviewed: Yes Vital Signs & Weight: Vital Signs (12 hours) Temp Pulse Resp BP Pulse Ox 02/02/17 08:00 97.7 F 68 16 122/77 98 Weight Weight 150 lb I&O: 02/01/17 02/02/17 02/03/17 06:59 06:59 06:59 Intake Total 3041 2900 Balance 3041 2900 Result Diagrams: 02/01/17 04:26 02/01/17 04:26 Phys Exam - Physical Examination HEENT: PERRLA, moist MMs Neck: no JVD, supple Respiratory: no wheezing, no rales Cardiovascular: RRR, no significant murmur Gastrointestinal: soft, non-tender, positive bowel sounds Musculoskeletal: no edema, pulses present Neurological: non-focal, moves all 4 limbs Psychiatric: A&O x 3 Dx/Plan (1) Sickle cell anemia with crisis Code(s): D57.00 - HB-SS DISEASE WITH CRISIS, UNSPECIFIED Status: Acute (2) Cannabis abuse Code(s): F12.10 - CANNABIS ABUSE, UNCOMPLICATED Status: Chronic (3) Tobacco abuse Code(s): Z72.0 - TOBACCO USE Status: Chronic - Plan hemostable -: dc pt home -: to f/u with his pain mgmt doc in [place] -: to f/u with PCP in 1 week * .
--- NOTE | 2017-02-02 20:25 | DIS ---
DATE OF ADMISSION: 01/29/2017 DATE OF DISCHARGE: 02/02/2017 DISCHARGE DISPOSITION: To home. PRIMARY DISCHARGE DIAGNOSIS: Sickle cell crisis. SECONDARY DISCHARGE DIAGNOSES: Chronic sickle cell anemia, cannabis abuse, tobacco abuse. PROCEDURES DONE DURING HOSPITALIZATION: Chest x-ray done on the day of admission showed no acute in filtrate. There is mild cardiomegaly with pulmonary vascular congestion. White count of 15 on the day of admission with discharge numbers of 9. Discharge hemoglobin and hematocrit 8 and 25 with ming telet count of 436. Retic count was 4.0 on the day of admission. DISCHARGE MEDICATIONS: Folic acid 1 mg p.o. daily, Solo p.r.n. for pain, hydroxyurea 300 mg p.o. t wice daily, and Ultram p.r.n. for pain. ALLERGIES: Allergic to FENTANYL, KETOROLAC, REGLAN, and SULFA. DISCHARGE PLAN: Patient to follow up with his pain specialist in [place] and he also needs to follo w up with his primary care physician here in [facility] in 1 week. BRIEF COURSE DURING HOSPITALIZATION: The patient initially came to ER with complaints of bilateral arm and back pain. He apparently took his Solo at home which is not helping. He was essentially a dmitted for sickle cell crisis. He is well known to our service due to multiple hospitalizations he re for sickle cell crisis. Patient had elevated white count of 15 on the day of admission with init ial suspicion for possible infection and sepsis. At the time of discharge, this is deemed to be due to margination and dehydration. His sickle cell crisis has completely resolved. He is ambulating well and will be shortly discharged home. Please see a face to face documentation on [facility] for t he day of discharge.
[2017-02-03] MEDS: Sodium Chloride 0.9% 1,000 ML IV SCH (00:53)
[2017-02-03 07:05] VITALS: BP 122/74; TEMP 99.3
[2017-02-03] MEDS: Famotidine 20 MG TAB PO SCH (07:57)
[2017-02-03] MEDS: Folic Acid 1 MG TAB PO SCH (07:57)
--- NOTE | 2017-02-03 11:50 | PDOC.PN ---
- Subjective Encounter Start Date: 02/03/17 Encounter Start Time: 06:40 Subjective: no sob or weakness - Objective MAR Reviewed: Yes Vital Signs & Weight: Vital Signs (12 hours) Temp Pulse Resp BP Pulse Ox 02/03/17 07:11 99.3 F 86 16 02/03/17 07:02 99.3 F 86 16 122/74 97 Weight Weight 150 lb I&O: 02/02/17 02/03/17 02/04/17 06:59 06:59 06:59 Intake Total 2900 Balance 2900 Result Diagrams: 02/01/17 04:26 02/01/17 04:26 Phys Exam - Physical Examination HEENT: PERRLA, moist MMs Neck: no JVD, supple Respiratory: no wheezing, no rales Cardiovascular: RRR, no significant murmur Gastrointestinal: soft, non-tender, positive bowel sounds Musculoskeletal: no edema, pulses present Neurological: non-focal, moves all 4 limbs Psychiatric: A&O x 3 Dx/Plan (1) Sickle cell anemia with crisis Code(s): D57.00 - HB-SS DISEASE WITH CRISIS, UNSPECIFIED Status: Acute (2) Cannabis abuse Code(s): F12.10 - CANNABIS ABUSE, UNCOMPLICATED Status: Chronic (3) Tobacco abuse Code(s): Z72.0 - TOBACCO USE Status: Chronic - Plan pt did not get a ride to go home yesterday -: may dc anytime -: please see dc summary dictated yesterday -: hemostable * .
== END 2017-02-03 09:58 | disposition home or self-care (01) | DRG 812 ==
LOC: ERS 16:48 → T4-B 22:08
PROVIDERS: ADMIT Internal Medicine Infectious Disease; ATTEND Internal Medicine Infectious Disease
DX: D57.00 Hb-SS disease with crisis, unspecified (principal); F17.210 Nicotine dependence, cigarettes, uncomplicated; F12.10 Cannabis abuse, uncomplicated; F19.10 Other psychoactive substance abuse, uncomplicated; Z88.5 Allergy status to narcotic agent; Z88.2 Allergy status to sulfonamides; Z88.8 Allergy status to other drugs, medicaments and biological substances; Z83.2 Family history of diseases of the blood and blood-forming organs and certain disorders involving the immune mechanism
CPT/HCPCS: 36415; 71020; 80048; 80053; 85025; 85046; 93005; 96361; 96365; 96372; 96375; 96376; A4216; J1170; J1200; J2270; J2405; J2550

== ENCOUNTER 2017-02-03 10:05 | Emergency (ER) | payer MEDICARE ==
[2017-02-03 12:24] LABS: IRF 0.099 Ratio (0.163-0.362); Reticulocyte Count 4.1 % (0.5-1.5)
[2017-02-03] MEDS ORDERED: HYDROcodone/Acetaminophen 5/325 mg Tablet ONE (12:25)
[2017-02-03 12:40] LABS: ALT (SGPT) 28 U/L (8-55); AST (SGOT) 57 U/L (5-34); Alkaline Phosphatase 95 U/L (40-150); Anion Gap 14 mmol/L (10-20); BUN (Urea Nitrogen) 6 mg/dL (8.9-20.6); Bilirubin, Total 0.9 mg/dL (0.2-1.2); CK (CPK) 351 U/L (30-200); Calc. Creatinine Clearance 0 mL/min (70-130); Calcium 10.6 mg/dL (7.8-10.44); Carbon Dioxide 27 mmol/L (22-29); Chloride 100 mmol/L (98-107); Estimated GFR-MDRD Greater than 90; Globulin 4.7 g/dL (2.4-3.5); Protein, Total 9.1 g/dL (6.0-8.3)
[2017-02-03 12:41] LABS: Bilirubin Negative (Negative); Blood, Urine Negative (Negative); Glucose, Urine (Dipstick) Negative (Negative); Ketone, Urine Trace mg/dL (Negative); Nitrite Negative (Negative); Protein, Urine (Dipstick) Negative (Neg-Trace); Urobilinogen 0.2 mg/dL (0.2-1.0)
[2017-02-03 12:59] LABS: Hematocrit 35.6 % (42.0-52.0); Red Blood Cell (RBC) Count 4.16 mill/uL (4.70-6.10); White Blood Cell (WBC) Count 10.4 thou/uL (4.8-10.8)
[2017-02-03 13:00] LABS: Band 1 % (5-11); Hemoglobin C Crystals SLIGHT (None Seen); Metamyelocyte 1 % (0-0); Neutrophil 81 % (42-75); Nucleated RBC 1 % (0); Polychromasia MODERATE = 3-4 cells (100X) (0-2/hpf); Sickle Cells SLIGHT = 1-5 cells (100X) (None Seen); Target Cells MARKED = >16 cells (100X) (0-1/hpf)
--- NOTE | 2017-02-03 13:01 | CT ---
NONCONTRAST HEAD CT: HISTORY: Headache. Sickle cell crisis five days ago. COMPARISON: 02/14/2015 TECHNIQUE: A noncontrast head CT is performed from the skull base to the skull vertex. FINDINGS: Slightly limited evaluation due to motion degradation. No parenchymal hemorrhage. No extraaxial he matoma. No midline shift. Basilar cisterns are patent. Brain volume is age appropriate. Cortical mckeon white matter differentiation is preserved. The ventricles and sulci are patent and symmetric. The calvarium is intact. Adequate aeration of the sinuses and mastoid air cells. IMPRESSION: No acute intracranial process. POS: [facility]
== END 2017-02-03 14:29 | disposition home or self-care (01) ==
LOC: ERS 10:05
DX: D57.00 Hb-SS disease with crisis, unspecified (principal); I10 Essential (primary) hypertension; F17.210 Nicotine dependence, cigarettes, uncomplicated; Z79.899 Other long term (current) drug therapy
CPT/HCPCS: 36415; 70450; 80053; 81003; 82550; 85025; 85046

== ENCOUNTER 2017-02-23 10:52 | Inpatient (IN) | payer MEDICARE ==
--- NOTE | 2017-02-23 11:48 | RAD ---
PORTABLE UPRIGHT FRONTAL CHEST RADIOGRAPH 02/23/2017 COMPARISON: 03/12/2015 HISTORY: Sickle cell anemia, nausea/vomiting, vomiting blood. FINDINGS: No pneumothorax, pleural fluid, focal consolidation, or alveolar edema. Heart and mediastinal conto urs are unremarkable. IMPRESSION: No acute findings. POS: [facility]
--- OUTSIDE RECORDS SUMMARY | 2017-02-23 12:08 | XMS | Clinical Summary ---
:1985 Author Organization [facility] [employer] Address [address] [place] [address] Phone Care Team Providers Name Role Phone [...] Noted Date Sickle cell pain crisis 10/24/2016 Social History Tobacco Use Types Packs/Day Years [...] Done Comments INFLUENZA VACCINE 11/25/2016 04/30/2016 Results Not on filefrom Last 3 Months Insurance Payer Benefit Plan / Group Subscriber ID Type Phone Address MEDICARE MEDICARE PART A AND B [id number] Medicare [place], [place] MEDICAID MEDICAID [id number] Medicaid SUPERIOR - [facility] [id number] [facility]
[2017-02-23] MEDS ORDERED: Morphine 10 MG/ML VIAL ONE ×2 (12:21→14:17)
[2017-02-23] MEDS ORDERED: Ondansetron HCl/PF 4 MG/2 ML Vial ONE ×3 (12:21→15:46)
[2017-02-23 12:34] LABS: Reticulocyte Count 2.1 % (0.5-1.5)
[2017-02-23] MEDS ORDERED: Pantoprazole 80 MG, Admixture Fee 1 EACH in Sodium Chloride 0.9% 100 ML IVP SCH (12:45)
[2017-02-23 13:01] LABS: Hematocrit 36.2 % (42.0-52.0); Mean Platelet Volume 6.9 fL (7.4-10.4); Red Blood Cell (RBC) Count 4.34 mill/uL (4.70-6.10); White Blood Cell (WBC) Count 7.3 thou/uL (4.8-10.8)
[2017-02-23 13:02] LABS: Neutrophil 61 % (42-75)
[2017-02-23 13:03] LABS: Anisocytosis MODERATE=16-30 cells (100X) (0-5/hpf); Reactive Lymphocytes 1 % (0-10); Target Cells MARKED = >16 cells (100X) (0-1/hpf)
[2017-02-23 13:07] LABS: ALT (SGPT) 13 U/L (8-55); AST (SGOT) 36 U/L (5-34); Alkaline Phosphatase 79 U/L (40-150); Anion Gap 15 mmol/L (10-20); BUN (Urea Nitrogen) 5 mg/dL (8.9-20.6); Bilirubin, Total 0.8 mg/dL (0.2-1.2); Calc. Creatinine Clearance 0 mL/min (70-130); Calcium 10.6 mg/dL (7.8-10.44); Carbon Dioxide 23 mmol/L (22-29); Chloride 107 mmol/L (98-107); Estimated GFR-MDRD Greater than 90; Globulin 4.6 g/dL (2.4-3.5); Lipase 19 U/L (8-78); Protein, Total 9.2 g/dL (6.0-8.3)
[2017-02-23 13:13] LABS: Lactic Acid - Sepsis 1.3 mmol/L (0.5-2.2)
[2017-02-23] MEDS ORDERED: diphenhydrAMINE 50 MG CAP ONE (13:13)
[2017-02-23] MEDS ORDERED: diphenhydrAMINE 50 MG/ML VIAL ONE (13:13)
--- NOTE | 2017-02-23 13:24 | CT ---
ABDOMEN AND PELVIC CT SCAN WITH IV CONTRAST: Date: 02/23/17 HISTORY: 31-year-old male with epigastric abdominal pain for 4 days with nausea, vomiting, and diarrhea. Hist ory of sickle cell disease. FINDINGS: The lung bases are clear. The The liver, gallbladder, pancreas, and adrenal glands are unremarkable. 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 There is some air and fluid within minimally dilated small bowel loops, as well a s some air and fluid noted within the colon, evidence for nonspecific enterocolitis or possibly gene ralized ileus. No CT evidence for acute appendicitis. Minimal colonic diverticulosis without diverti culitis. No abscess or abnormal fluid collection. IMPRESSION: Some air and fluid within minimally dilated small bowel, as well as colon. Evidence for nonspecific enterocolitis or diffuse ileus. Very small spleen. No evidence for other significant acute process i n the abdomen or pelvis. POS: [facility]
[2017-02-23] MEDS ORDERED: Pantoprazole 40 MG VIAL ONE ×2 (14:12→14:14)
[2017-02-23] MEDS ORDERED: ISOVUE-370 76%-LOCM 1 ML ONE (15:41)
--- NOTE | 2017-02-23 15:45 | HP ---
PRIMARY CARE PHYSICIAN: City call admission. REASON FOR ADMISSION: Acute abdominal pain, sickle cell crisis. HISTORY OF PRESENT ILLNESS: A 31-year-old -Pakistani male who has sickle cell disease as well as various admission in our hospital for sickle cell crisis who came to the emergency room with inc reasing his pain. The patient reports that lately because of cold weather, he was having typical si ckle cell crisis. He was having diffuse pain in the joints including leg pain, but he was having mo re pain in his right upper extremity as well as right shoulder. He denies any swelling. He denies any trauma. He denies taking any NSAIDs. Patient was trying his own pain medication without any si gnificant relief. The patient also reports that for the last 4 days he was experiencing nausea and diarrhea which was liquid in nature without any pus. The patient was having several times diarrhea at home for the last 4 days and he was also having diffuse abdominal pain predominantly in the epiga stric region. Today, he had episode of vomiting which contained coffee ground vomitus and that is w hy he was concerned about it and decided to come to the emergency room for evaluation. Patient also reported that his pain medication was not taking care of his sickle cell pain and that is why he also came to emergency room for evaluation. In the emergency room, patient had CT of the abdomen and pelvis which showed air fluid level in the dilated small bowel as well as colon. The patient had routine blood test, which was unremarkable. At this point, we are admitting this patient for further evaluation and treatment. PAST MEDICAL HISTORY: Sickle cell anemia with frequent episode of painful crisis, history of cannab is abuse, tobacco dependence, narcotic tolerance. PAST SURGICAL HISTORY: Reviewed and negative. PAST PSYCHIATRIC HISTORY: Reviewed and negative. FAMILY HISTORY: Both parents have sickle cell trait. Patient's son also diagnosed with sickle cell trait. REVIEW OF SYSTEMS: The following complete review of systems was negative, unless otherwise mentione d in the HPI or below: Constitutional: Weight loss or gain, ability to conduct usual activities. Skin: Rash, itching. Eyes: Double vision, pain. ENT/Mouth: Nose bleeding, neck stiffness, pain, tenderness. Cardiovascular: Palpitations, dyspnea on exertion, orthopnea. Respiratory: Shortness of breath, wheezing, cough, hemoptysis, fever or night sweats. Gastrointestinal: Poor appetite, abdominal pain, heartburn, nausea, vomiting, constipation, or diar venessa. Genitourinary: Urgency, frequency, dysuria, nocturia. Musculoskeletal: Pain, swelling. Neurologic/Psychiatric: Anxiety, depression. Allergy/Immunologic: Skin rash, bleeding tendency. Please see my HPI for pertinent positive and negative. All other review of systems reviewed and neg ative except as mentioned in the HPI. SOCIAL HISTORY: Patient is smoking about half pack per day. He intermittently abuses marijuana. Chong byrd denies any alcohol abuse. He denies any other illicit drug abuse. He is and lives with nasreen umanzor. ALLERGIES: Patient is allergic to FENTANYL, TORADOL, REGLAN, SULFA DRUGS. CURRENT HOME MEDICATIONS: Folic acid 1 mg p.o. daily, [place] two tablets q.4 hourly p.r.n., folic ac id 1 mg p.o. daily, tramadol 50 mg t.i.d. p.r.n. EMERGENCY ROOM COURSE: Patient is receiving IV Protonix. Patient is given morphine, Benadryl, IV fl uid, and Zofran. PHYSICAL EXAMINATION: VITAL SIGNS: On arrival, blood pressure 106/69, pulse 69, respiratory rate 16, temperature 98.8, sa turation 100% on room air, and weight 70.7 kilograms. GENERAL: Patient is currently alert, awake, mild distress due to diffuse pain. HEAD: Normocephalic, atraumatic. EYES: Pupils round, reactive to light. Extraocular muscles intact. ENT: Oropharynx within normal limits. Moist mucous membranes. No oral lesions. No pharyngeal duran thema, no exudate. NECK: Supple. Range of motion is normal. No meningeal signs of irritation. LUNGS: Clear to auscultation without any rhonchi or rales. CARDIAC: S1 and S2 regular without any murmur. ABDOMEN: The patient does report diffuse tenderness on deep palpation, but no peritoneal sign. The patient does have voluntary guarding, but no rigidity, no rebound, no organomegaly, no mass, no sup rapubic tenderness. BACK: Examination unremarkable, no CVA tenderness. EXTREMITIES: Upper extremity passive movements of all joints are normal. Lower extremity; no edema . Good peripheral pulsation. SKIN: No skin rash. HEMATOLOGICAL SYSTEM: No lymphadenopathy. PSYCHIATRIC: Normal affect. NEUROLOGIC: Nonfocal examination. SIGNIFICANT LABORATORY DATA: 1. CBC: WBC 7.3, hemoglobin 11.6, platelets 481, reticulocyte count 2.1, ESR 13. 2. BMP: Sodium 140, potassium 4.5, chloride 107, carbon dioxide 23, anion gap 15, BUN 5, creatinin e 0.76, glucose 85, calcium 10.6, lactic acid 1.3. 3. LFT: AST 36, ALT 13, alkaline phosphatase 79, albumin 4.6, lipase 19. ASSESSMENT AND PLAN/IMPRESSION: 1. Acute abdominal pain. Patient has diffuse abdominal pain without any acute peritoneal sign. I am suspecting this patient most likely has underlying gastroenteritis. The patient has air fluid le chalo in both small bowel and colon. He may have underlying mild ileus. At this point, we will treat symptomatically and we will send stool for infection workup. We will give him Bentyl p.r.n. basis. We will also send stool for infection workup and continue with IV fluid. We will avoid antibiotic therapy at this point. 2. Coffee-ground emesis, suspected for upper gastrointestinal bleed. This patient does not have an y nonsteroidal antiinflammatory drug abuse. Etiology uncertain, but we will check stool for guaiac and we will also consult ferryboat ticket taker for upper endoscopic evaluation. Meanwhile, we will con tinue with Protonix 40 mg IV b.i.d. We will also use p.r.n. basis, Maalox and Tums. 3. Sickle cell crisis. This patient has sickle cell crisis that is precipitated by recent change i n cold weather. The patient's pain will be controlled with morphine 4 mg every 4 hourly p.r.n. one[place] g with [place] 10 one tablet q.6 hourly p.r.n. We will monitor clinical response. 4. Sickle cell anemia. Patient will continue folic acid 1 mg p.o. daily, hydroxyurea 500 mg p.o. d aily. 5. Deep venous thrombosis prophylaxis, we will avoid Lovenox because of coffee-ground emesis, only sequential compression device boots. 6. Gastrointestinal prophylaxis. Patient is already on Protonix therapy. 7. Code status: The patient is FULL CODE. The patient's is surrogate decision maker. Disposition plan based on clinical course. We are expecting patient's stay in hospital more than 2 midnights. Plan of care discussed with the patient in detail.
[2017-02-23] MEDS ORDERED: Zolpidem Tartrate 5 MG TAB PO PRN (16:28)
[2017-02-23] MEDS ORDERED: Sodium Chloride 0.65% Nasal 44 ML BOT EA NARE PRN (16:28)
[2017-02-23] MEDS ORDERED: Mag-Al 1200 mg/1200 mg/30 ML UDCUP PO PRN (16:28)
[2017-02-23] MEDS ORDERED: Morphine 4 MG/ML Carpuject SLOW IVP PRN (16:28)
[2017-02-23] MEDS ORDERED: hydrALAZINE 20 MG/ML VIAL SLOW IVP PRN (16:28)
[2017-02-23] MEDS ORDERED: Acetaminophen 325 MG TAB PO PRN (16:28)
[2017-02-23] MEDS ORDERED: Loperamide HCl 2 MG CAP PO PRN (16:28)
[2017-02-23] MEDS ORDERED: Ondansetron HCl/PF 4 MG/2 ML Vial IVP PRN (16:28)
[2017-02-23] MEDS ORDERED: Artificial Tears 18 DROP/0.9 ML EA EYE PRN (16:28)
[2017-02-23] MEDS ORDERED: Diabetic Tussin 200 MG/10 ML UDCUP PO PRN (16:28)
[2017-02-23] MEDS ORDERED: Eucerin (Mineral Oil/Petrolatum,White) 30 gm Jar TOP PRN (16:28)
[2017-02-23] MEDS ORDERED: Ondansetron ODT 4 MG TAB PO PRN (16:28)
[2017-02-23] MEDS ORDERED: Senokot 8.6 MG TAB PO PRN (16:28)
[2017-02-23] MEDS ORDERED: Calcium Carbonate 500 MG ChewTAB PO PRN (16:28)
[2017-02-23] MEDS ORDERED: Milk Of Magnesia 30 ML UDCUP PO PRN (16:28)
[2017-02-23 16:35] VITALS: BMI 23.0
[2017-02-23] MEDS: diphenhydrAMINE 50 MG/ML VIAL IVP PRN ×2 (17:37→22:21)
[2017-02-23] MEDS: Sodium Chloride 0.9% 1,000 ML IV SCH (17:50)
[2017-02-23] MEDS: Morphine 10 MG/ML VIAL SLOW IVP PRN (18:48)
--- NOTE | 2017-02-23 19:55 | CON ---
DATE OF CONSULTATION: 02/23/2017 GI INPATIENT CONSULTATION NOTE: REQUESTING PHYSICIAN: Dr. Gonsalez. REASON FOR CONSULTATION: Hematemesis. HISTORY OF PRESENT ILLNESS: Celso Overton is a 31-year-old -Algerian man who has sickle c ell disease and frequent hospital admissions for sickle cell pain crises. He was admitted to the [facility] this afternoon with worsening pain, but additional gastrointestinal symptoms as well. He sta trevor that typically during sickle cell crises. He will get epigastric burning and stabbing pain as w ell as pain in the arms bilaterally. Over the past 4 days he has been having worsening characterist ic pain, but in addition, he has been having nausea and vomiting as well as loose stools. He report s multiple episodes of generally clear emesis or emesis of recently ingested food, but today in filomena tion, he saw some bright red blood in his emesis. This happened twice. His bowel movements have re mained brown though loose. He has never had hematemesis before. He has never undergone upper or lo wer endoscopy. He does not take any acid suppression. He also denies any NSAID use. Upon admissio n, his hemoglobin is at or above baseline currently at 11.6 and BUN is only 5. Lipase and LFTs are essentially normal as well. He is hemodynamically stable. He was started on IV Protonix. He other you has no complaints at this time. PAST MEDICAL HISTORY: Sickle cell anemia with frequent episodes of pain crises, history of cannabis abuse, tobacco dependence and narcotic tolerance. PAST SURGICAL HISTORY: None. FAMILY HISTORY: Both parents have sickle cell trait. The patient's son was diagnosed with sickle c ell trait. The patient reports both of his parents have had peptic ulcer disease as well as a few g randparents with peptic ulcer disease. He also says his grandfather had gastric cancer. SOCIAL HISTORY: He smokes about half pack per day. He intermittently uses marijuana. No alcohol a buse or other drug abuse. ALLERGIES: FENTANYL, TORADOL, REGLAN, SULFA DRUGS. HOME MEDICATIONS: Folic acid 1 mg p.o. daily, Kathleen 2 tablets every 4 hours as needed, tramadol 50 mg t.i.d. p.r.n. PHYSICAL EXAMINATION: VITAL SIGNS: Temperature 98.1, pulse 81, blood pressure 111/66, 97% oxygen saturation on room air. GENERAL: A 31-year-old -Algerian man, lying in bed comfortably, in no acute distress. SKIN: He is a bit pale, no jaundice, no rash visible or palpable. EYES: No scleral icterus. Extraocular movements intact. ENT: Mucous membranes moist, no oral lesions. LYMPH: No submandibular, supraclavicular lymphadenopathy. THYROID: Nontender to palpation. HEART: Regular rate and rhythm. LUNGS: Clear to auscultation bilaterally. ABDOMEN: Bowel sounds are present, soft, diffuse tenderness to palpation, most prominent in the epi gastrium, but no guarding or rebound tenderness. No masses or organomegaly appreciated. EXTREMITIES: No peripheral edema. VESSELS: Radial pulses 2+ bilaterally. NEUROLOGICAL: Cranial nerves II-XII intact bilaterally. No focal deficits. LABORATORY STUDIES: Sodium 140, potassium 4.5, BUN only 5, creatinine 0.76. Lactic acid only 1.3, calcium 10.6, total bilirubin 0.8, alkaline phosphatase 79, AST 36, ALT 13. CRP 0.81. Lipase is on ly 19, albumin 4.6. WBC 7.3, hemoglobin 11.6, which is stable from last admission a couple of weeks ago, platelets 481. ESR 13. IMAGING STUDIES: The patient had a CT of the abdomen and pelvis performed on admission today. This shows some minimally dilated small bowel loops with some air fluid levels noted within the small berna wel loops in the colon, possibly consistent for nonspecific enterocolitis or generalized ileus. 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 There is no evidence of any other acute process. Chest x-ray shows no acute findings. ASSESSMENT AND PLAN: 1. Hematemesis. 2. Epigastric abdominal pain. 3. Acute gastroenteritis. 4. Sickle cell pain crisis. The patient's symptoms are generally all consistent with typical sickle cell pain crisis. However, this hematemesis is a new development. He has not had any hemodynamically significant bleeding and hemoglobin is at baseline. The patient's with sickle cell disease are indeed at increased risk for severe gastritis or peptic ulcer disease, and further investigation with the EGD is warranted. We w ill plan for EGD tomorrow. In the meantime, I agree with the IV PPI. Further recommendations follo wing endoscopy. Thank you for the consultation. Please call with questions or concerns.
[2017-02-24] MEDS: Sodium Chloride 0.9% 1,000 ML IV SCH ×3 (01:37→13:14)
[2017-02-24] MEDS: Morphine 10 MG/ML VIAL SLOW IVP PRN ×5 (02:24→23:51)
[2017-02-24] MEDS: diphenhydrAMINE 50 MG/ML VIAL IVP PRN ×5 (02:25→23:52)
[2017-02-24 06:12] LABS: Hemoglobin C Crystals SLIGHT (None Seen); Mean Platelet Volume 7.1 fL (7.4-10.4); Neutrophil 33 % (42-75); Reactive Lymphocytes 2 % (0-10); Red Blood Cell (RBC) Count 3.46 mill/uL (4.70-6.10); Target Cells MARKED = >16 cells (100X) (0-1/hpf)
[2017-02-24 06:21] LABS: ALT (SGPT) 7 U/L (8-55); AST (SGOT) 19 U/L (5-34); Alkaline Phosphatase 64 U/L (40-150); Anion Gap 11 mmol/L (10-20); BUN (Urea Nitrogen) 4 mg/dL (8.9-20.6); Bilirubin, Total 0.7 mg/dL (0.2-1.2); Calc. Creatinine Clearance 133 mL/min (70-130); Calcium 8.8 mg/dL (7.8-10.44); Carbon Dioxide 24 mmol/L (22-29); Chloride 105 mmol/L (98-107); Estimated GFR-MDRD Greater than 90; Globulin 3.3 g/dL (2.4-3.5); Protein, Total 6.9 g/dL (6.0-8.3)
[2017-02-24] MEDS: Hydroxyurea 500 MG CAP PO SCH (09:00)
[2017-02-24] MEDS: Folic Acid 1 MG TAB PO SCH (09:00)
[2017-02-24] MEDS: Pantoprazole 40 MG VIAL IVP SCH ×2 (09:05→19:48)
--- NOTE | 2017-02-24 11:15 | PDOC.PN ---
- Subjective Encounter Start Date: 02/24/17 Encounter Start Time: 07:00 -: old records requested/rev Patient seen and examined. No new complaints. No overnight events - Objective Resuscitation Status: Resuscitation Status FULL:Full Resuscitation MAR Reviewed: Yes Vital Signs & Weight: Vital Signs (12 hours) Temp Pulse Resp BP Pulse Ox 02/24/17 10:38 61 18 121/73 98 02/24/17 07:44 97.9 F 49 L 16 96/57 L 98 02/24/17 04:58 97.6 F 49 L 18 96/57 L 98 02/24/17 00:00 97.8 F 58 L 16 108/68 98 I&O: 02/23/17 02/24/17 02/25/17 06:59 06:59 06:59 Intake Total 720 Balance 720 Result Diagrams: 02/24/17 05:00 02/24/17 05:00 Phys Exam - Physical Examination Constitutional: NAD HEENT: PERRLA, moist MMs, sclera anicteric Neck: no nodes, no JVD, supple Respiratory: no wheezing, no rales, no rhonchi Cardiovascular: RRR, no significant murmur, no rub Gastrointestinal: soft, non-tender, no distention, positive bowel sounds Musculoskeletal: no edema, pulses present Neurological: non-focal, normal sensation Psychiatric: normal affect, A&O x 3 Skin: no rash, normal turgor Dx/Plan (1) Gastroenteritis Code(s): K52.9 - NONINFECTIVE GASTROENTERITIS AND COLITIS, UNSPECIFIED Status : Acute (2) Coffee ground emesis Code(s): K92.0 - HEMATEMESIS Status: Acute (3) Sickle cell anemia with crisis Code(s): D57.00 - HB-SS DISEASE WITH CRISIS, UNSPECIFIED Status: Acute (4) Cannabis abuse Code(s): F12.10 - CANNABIS ABUSE, UNCOMPLICATED Status: Chronic (5) Tobacco abuse Code(s): Z72.0 - TOBACCO USE Status: Chronic - Plan cont current plan of care * continue IVF * continue pain control with narcotics * continue protonix * today plan for EGD * medication reviewed as below * symptomatic treatment. Review of Systems - Review of Systems ENT: negative: Ear Pain, Ear Discharge, Nose Pain, Nose Discharge, Nose Congestion, Mouth Pain, Mouth Swelling, Throat Pain, Throat Swelling, Other Respiratory: negative: Cough, Dry, Shortness of Breath, Hemoptysis, SOB with Excertion, Pleuritic Pain, Sputum, Wheezing Cardiovascular: negative: Chest Pain, Palpitations, Orthopnea, Paroxysmal Noc. Dyspnea, Edema, Light Headedness, Other Gastrointestinal: negative: Nausea, Vomiting, Abdominal Pain, Diarrhea, Constipation, Melena, Hematochezia, Other Genitourinary: negative: Dysuria, Frequency, Incontinence, Hematuria, Retention , Other Musculoskeletal: negative: Neck Pain, Shoulder Pain, Arm Pain, Back Pain, Hand Pain, Leg Pain, Foot Pain, Other Skin: negative: Rash, Lesions, Shahram, Bruising, Other - Medications/Allergies Allergies/Adverse Reactions: Allergies Allergy/AdvReac Type Severity Reaction Status Date / Time fentanyl Allergy Verified 12/23/16 02:11 ketorolac tromethamine Allergy Short of Verified 12/23/16 02:11 [From Toradol] Breath metoclopramide [From Reglan] Allergy Verified 01/29/17 22:25 Sulfa (Sulfonamide Allergy Verified 12/23/16 02:11 Antibiotics) Medications: Current Medications Acetaminophen (Tylenol) 650 mg PO Q4H PRN PRN Reason: Headache/Fever or Pain Hydrocodone Bitart/Acetaminophen ([place] 10/325) 2 tab PO Q4H PRN PRN Reason: Severe Pain (7-10) Al Hydroxide/Mg Hydroxide (Maalox) 30 ml PO Q6H PRN PRN Reason: Heartburn or Indigestion Artificial Tears (Tears Naturale) 0 drop EA EYE PRN PRN PRN Reason: Dry Eyes Calcium Carbonate (Tums) 1,000 mg PO Q4H PRN PRN Reason: Heartburn or Indigestion Diphenhydramine HCl (Benadryl) 25 mg IVP Q4H PRN PRN Reason: Itching Last Admin: 02/24/17 10:36 Dose: 25 mg Folic Acid (Folvite) 1 mg PO DAILY [facility] Guaifenesin (Robitussin Sf) 200 mg PO Q4H PRN PRN Reason: Cough Hydralazine HCl (Apresoline) 10 mg SLOW IVP Q4H PRN PRN Reason: Systolic BP > 180 Hydroxyurea (Hydrea) 500 mg PO DAILY [facility] Sodium Chloride (Normal Saline 0.9%) 1,000 mls @ 125 mls/hr IV .Q8H [facility] Last Admin: 02/24/17 06:22 Dose: 1,000 mls Loperamide HCl (Imodium) 2 mg PO PRN PRN PRN Reason: Diarrhea/Loose Stools Magnesium Hydroxide (Milk Of Magnesium) 30 ml PO DAILYPRN PRN PRN Reason: Constipation Mineral Oil/White Petrolatum (Eucerin Cream) 0 gm TOP BIDPRN PRN PRN Reason: Dry Skin Morphine Sulfate (Morphine) 4 mg SLOW IVP Q4H PRN PRN Reason: Pain Last Admin: 02/24/17 10:37 Dose: 4 mg Ondansetron HCl (Zofran Odt) 4 mg PO Q6H PRN PRN Reason: Nausea/Vomiting Ondansetron HCl (Zofran) 4 mg IVP Q6H PRN PRN Reason: Nausea/Vomiting Pantoprazole Sodium (Protonix) 40 mg IVP BID [facility] Last Admin: 02/24/17 09:05 Dose: 40 mg Senna (Senokot) 2 tab PO HSPRN PRN PRN Reason: Constipation Sodium Chloride ([place] Nasal [place] 0.65%) 0 ml EA NARE QIDPRN PRN PRN Reason: Nasal Congestion Sodium Chloride (Flush - Normal Saline) 10 ml IVF Q12HR [facility] Last Admin: 02/24/17 09:06 Dose: 10 ml Sodium Chloride (Flush - Normal Saline) 10 ml IVF PRN PRN PRN Reason: Saline Flush Last Admin: 02/24/17 10:38 Dose: 10 ml Zolpidem Tartrate (Ambien) 5 mg PO HSPRN PRN PRN Reason: Insomnia
[2017-02-24] MEDS ORDERED: Morphine 4 MG/ML Carpuject ONE (15:11)
[2017-02-24] MEDS ORDERED: diphenhydrAMINE 25 MG CAP ONE (15:15)
[2017-02-24] MEDS ORDERED: diphenhydrAMINE 50 MG/ML VIAL ONE (15:15)
[2017-02-24] MEDS ORDERED: Propofol 200 MG/20 ML VIAL ONE (17:36)
--- NOTE | 2017-02-24 19:08 | OP ---
DATE OF PROCEDURE: 02/24/2017 PROCEDURE: Esophagogastroduodenoscopy with biopsy. PREOPERATIVE DIAGNOSES: Abdominal pain and hematemesis. OPERATIVE NOTE: Informed consent was obtained from the patient. He was sedated with total intraven ous anesthesia. The bite block was placed and the endoscope was advanced easily to the second porti on of the duodenum and retroflexion was performed in the stomach. The esophagus was normal. The GE junction was normal. The stomach had slight minimal gastritis in the antrum. Biopsies were obtain ed to rule out H. pylori. Retroflexed views in the stomach were normal. The pylorus and first and second portions of the duodenum were normal. Biopsies were obtained to rule out celiac disease and the air was suctioned from the stomach. The patient tolerated the procedure well. IMPRESSION: 1. Minimal nonerosive gastritis in the antrum of the stomach. Biopsies taken to rule out Helicobac ter pylori. 2. Otherwise normal esophagogastroduodenoscopy. Duodenal biopsies taken to rule out celiac disease . RECOMMENDATIONS: 1. Await histopathology. 2. Advance diet.
[2017-02-25] MEDS: Sodium Chloride 0.9% 1,000 ML IV SCH ×4 (00:28→17:46)
[2017-02-25] MEDS: diphenhydrAMINE 50 MG/ML VIAL IVP PRN ×4 (03:57→16:08)
[2017-02-25] MEDS: Morphine 10 MG/ML VIAL SLOW IVP PRN ×4 (03:57→16:09)
[2017-02-25] MEDS: Folic Acid 1 MG TAB PO SCH (08:06)
[2017-02-25] MEDS: Hydroxyurea 500 MG CAP PO SCH (08:06)
--- NOTE | 2017-02-25 13:22 | PDOC.PN ---
- Subjective Encounter Start Date: 02/25/17 Encounter Start Time: 10:30 Patient seen and examined. No new complaints. No overnight events - Objective Resuscitation Status: Resuscitation Status FULL:Full Resuscitation MAR Reviewed: Yes Vital Signs & Weight: Vital Signs (12 hours) Temp Pulse Resp BP Pulse Ox 02/25/17 08:00 97.8 F 67 18 67 L 02/25/17 07:33 97.8 F 67 18 114/71 97 Weight Admit Weight 156 lb Weight 156 lb I&O: 02/24/17 02/25/17 02/26/17 06:59 06:59 06:59 Intake Total 720 1500 Balance 720 1500 Result Diagrams: 02/24/17 05:00 02/24/17 05:00 Phys Exam - Physical Examination Constitutional: NAD HEENT: PERRLA, moist MMs, sclera anicteric Neck: no JVD, supple Respiratory: no wheezing, no rales, no rhonchi Cardiovascular: RRR, no significant murmur, no rub Gastrointestinal: soft, non-tender, no distention, positive bowel sounds Musculoskeletal: no edema, pulses present Neurological: non-focal, normal sensation Lymphatic: no nodes Psychiatric: normal affect, A&O x 3 Skin: no rash, normal turgor Dx/Plan (1) Gastroenteritis Code(s): K52.9 - NONINFECTIVE GASTROENTERITIS AND COLITIS, UNSPECIFIED Status : Resolved (2) Coffee ground emesis Code(s): K92.0 - HEMATEMESIS Status: Resolved (3) Sickle cell anemia with crisis Code(s): D57.00 - HB-SS DISEASE WITH CRISIS, UNSPECIFIED Status: Acute (4) Cannabis abuse Code(s): F12.10 - CANNABIS ABUSE, UNCOMPLICATED Status: Chronic (5) Tobacco abuse Code(s): Z72.0 - TOBACCO USE Status: Chronic - Plan cont current plan of care * change protonix Po * continue IVF * continue pain control * expecting discharge tomorrow * medication reviewed as below * symptomatic treatment. Review of Systems - Review of Systems ENT: negative: Ear Pain, Ear Discharge, Nose Pain, Nose Discharge, Nose Congestion, Mouth Pain, Mouth Swelling, Throat Pain, Throat Swelling, Other Respiratory: negative: Cough, Dry, Shortness of Breath, Hemoptysis, SOB with Excertion, Pleuritic Pain, Sputum, Wheezing Cardiovascular: negative: Chest Pain, Palpitations, Orthopnea, Paroxysmal Noc. Dyspnea, Edema, Light Headedness, Other Gastrointestinal: negative: Nausea, Vomiting, Abdominal Pain, Diarrhea, Constipation, Melena, Hematochezia, Other Genitourinary: negative: Dysuria, Frequency, Incontinence, Hematuria, Retention , Other Musculoskeletal: negative: Neck Pain, Shoulder Pain, Arm Pain, Back Pain, Hand Pain, Leg Pain, Foot Pain, Other - Medications/Allergies Allergies/Adverse Reactions: Allergies Allergy/AdvReac Type Severity Reaction Status Date / Time fentanyl Allergy Verified 12/23/16 02:11 ketorolac tromethamine Allergy Short of Verified 12/23/16 02:11 [From Toradol] Breath metoclopramide [From Reglan] Allergy Verified 01/29/17 22:25 Sulfa (Sulfonamide Allergy Verified 12/23/16 02:11 Antibiotics) Medications: Current Medications Acetaminophen (Tylenol) 650 mg PO Q4H PRN PRN Reason: Headache/Fever or Pain Hydrocodone Bitart/Acetaminophen ([place] 10/325) 2 tab PO Q4H PRN PRN Reason: Severe Pain (7-10) Al Hydroxide/Mg Hydroxide (Maalox) 30 ml PO Q6H PRN PRN Reason: Heartburn or Indigestion Artificial Tears (Tears Naturale) 0 drop EA EYE PRN PRN PRN Reason: Dry Eyes Calcium Carbonate (Tums) 1,000 mg PO Q4H PRN PRN Reason: Heartburn or Indigestion Diphenhydramine HCl (Benadryl) 25 mg IVP Q4H PRN PRN Reason: Itching Last Admin: 02/25/17 11:58 Dose: 25 mg Folic Acid (Folvite) 1 mg PO DAILY [facility] Last Admin: 02/25/17 08:06 Dose: 1 mg Guaifenesin (Robitussin Sf) 200 mg PO Q4H PRN PRN Reason: Cough Hydralazine HCl (Apresoline) 10 mg SLOW IVP Q4H PRN PRN Reason: Systolic BP > 180 Hydroxyurea (Hydrea) 500 mg PO DAILY [facility] Last Admin: 02/25/17 08:06 Dose: 500 mg Sodium Chloride (Normal Saline 0.9%) 1,000 mls @ 125 mls/hr IV .Q8H [facility] Last Admin: 02/25/17 11:58 Dose: 1,000 mls Loperamide HCl (Imodium) 2 mg PO PRN PRN PRN Reason: Diarrhea/Loose Stools Magnesium Hydroxide (Milk Of Magnesium) 30 ml PO DAILYPRN PRN PRN Reason: Constipation Mineral Oil/White Petrolatum (Eucerin Cream) 0 gm TOP BIDPRN PRN PRN Reason: Dry Skin Morphine Sulfate (Morphine) 4 mg SLOW IVP Q4H PRN PRN Reason: Pain Last Admin: 02/25/17 12:09 Dose: 4 mg Ondansetron HCl (Zofran Odt) 4 mg PO Q6H PRN PRN Reason: Nausea/Vomiting Ondansetron HCl (Zofran) 4 mg IVP Q6H PRN PRN Reason: Nausea/Vomiting Pantoprazole Sodium (Protonix) 40 mg PO DAILY [facility] Last Admin: 02/25/17 08:07 Dose: 40 mg Senna (Senokot) 2 tab PO HSPRN PRN PRN Reason: Constipation Sodium Chloride ([place] Nasal [place] 0.65%) 0 ml EA NARE QIDPRN PRN PRN Reason: Nasal Congestion Sodium Chloride (Flush - Normal Saline) 10 ml IVF Q12HR [facility] Last Admin: 02/25/17 08:07 Dose: Not Given Sodium Chloride (Flush - Normal Saline) 10 ml IVF PRN PRN PRN Reason: Saline Flush Last Admin: 02/24/17 10:38 Dose: 10 ml Zolpidem Tartrate (Ambien) 5 mg PO HSPRN PRN PRN Reason: Insomnia
--- NOTE | 2017-02-25 14:02 | PRG ---
GI INPATIENT DAILY PROGRESS NOTE DATE OF SERVICE: 02/25/2017 SUBJECTIVE: Mr. Overton is feeling a bit better today; some epigastric discomfort persists, but no further nausea at this time. He is tolerating his diet okay, currently eating lunch. No further hematemesis. OBJECTIVE: VITAL SIGNS: Temperature 97.8, pulse 67, blood pressure 114/71 and 97% oxygen saturation on room ai r. GENERAL: No acute distress. HEART: Regular rate and rhythm. LUNGS: Clear to auscultation bilaterally. ABDOMEN: Bowel sounds present. Soft. Some tenderness to palpation in the epigastrium. EXTREMITIES: No peripheral edema. LABORATORY STUDIES: No new labs from this morning. Labs from yesterday showed BUN only 4, creatini ne 0.80. Normal LFTs. Hemoglobin 9.9, WBC 8.0 and platelets 365. ASSESSMENT AND PLAN: 1. Hematemesis, resolved. 2. Epigastric abdominal pain, somewhat improved. 3. Sickle cell pain crisis. The patient's EGD yesterday was essentially normal. There was some mi ld gastric erythema, which is likely not significant. Biopsies are pending, but expect these will b e normal. I expect the patient probably had a small Carey-Small tear, which can often heal very q uickly. GI will sign off at this time, but please call back with any questions or concerns.
[2017-02-25] MEDS: HYDROcodone/Acetaminophen 10/325 mg Tablet PO PRN ×2 (18:43→22:49)
[2017-02-26] MEDS: HYDROcodone/Acetaminophen 10/325 mg Tablet PO PRN ×2 (02:45→07:15)
[2017-02-26 08:03] VITALS: BP 118/74; TEMP 98
[2017-02-26] MEDS: Hydroxyurea 500 MG CAP PO SCH (09:19)
[2017-02-26] MEDS: Folic Acid 1 MG TAB PO SCH (09:20)
--- NOTE | 2017-02-26 12:08 | DIS ---
DATE OF ADMISSION: 02/23/2017 DATE OF DISCHARGE: 02/26/2017 PRIMARY CARE PHYSICIAN: [facility]. DISCHARGE DISPOSITION: Home. PRIMARY DISCHARGE DIAGNOSES: 1. Coffee ground emesis, resolved. 2. Gastroenteritis, resolved. 3. Sickle cell anemia with crisis, resolved. SECONDARY DISCHARGE DIAGNOSES: Cannabis abuse, tobacco abuse, sickle cell anemia. PRIMARY PROCEDURE/OPERATION: Upper endoscopy, which showed mild gastritis. RADIOLOGICAL INVESTIGATION: Abdomen and pelvis CT scan and chest x-ray. SIGNIFICANT LABORATORY DATA: WBC 8.0, hemoglobin 9.9, platelets 365, creatinine 0.80. Stool for gu aiac negative. DISCHARGE MEDICATIONS: Protonix 40 mg p.o. daily, folic acid 1 mg p.o. daily, [place] 10 two tablets q.4 hourly p.r.n., hydroxyurea 500 mg p.o. b.i.d., tramadol 50 mg t.i.d. p.r.n. CONTRAINDICATIONS: None. CODE STATUS: FULL CODE. INPATIENT CONSULTANTS: Dr. Banegas was consulted while in hospital. ALLERGIES: FENTANYL, TORADOL, and REGLAN. DISCHARGE PLAN: Post hospital, the patient will follow up with primary care physician. HOSPITAL COURSE: This is a 31-year-old male, who has a sickle cell disease, who was admitted for ep igastric abdominal pain. He had 1 episode of scant coffee ground emesis and he was having diarrhea that is why we admitted him in the hospital. He had CT of the abdomen and pelvis, which showed peter roenteritis. He was admitted to medical floor. He was treated with IV fluids. His pain was contro lled with narcotics. We consulted GI and they did upper endoscopy. His upper endoscopy was unremar kable. Overall, this patient did very well. He did not have any further vomiting or diarrhea. His pain wa s controlled and he was tolerating p.o. well. He was ambulatory. PHYSICAL EXAMINATION: The patient is seen and examined at bedside today. VITAL SIGNS: Currently, temperature 98.0, pulse 73, respiratory rate 16, O2 saturation 98%, blood p ressure 118/74, weight 156 pounds. GENERAL: The patient is currently alert, awake, in no acute distress. HEAD: Normocephalic, atraumatic. LUNGS: Clear. CARDIAC: S1, S2 regular without any murmur. ABDOMEN: Soft and benign. EXTREMITIES: No edema. NEUROLOGIC: Nonfocal examination. The patient is medically stable for discharge today.
--- NOTE | 2017-02-26 13:09 | PDOC.PN ---
- Subjective Encounter Start Date: 02/26/17 Encounter Start Time: 11:15 Patient seen and examined. No new complaints. No overnight events - Objective Resuscitation Status: Resuscitation Status FULL:Full Resuscitation MAR Reviewed: Yes Vital Signs & Weight: Vital Signs (12 hours) Temp Pulse Resp BP Pulse Ox 02/26/17 08:00 98.0 F 73 16 118/74 98 02/26/17 04:00 97.7 F 64 16 103/63 97 Weight Admit Weight 156 lb Weight 156 lb I&O: 02/25/17 02/26/17 02/27/17 06:59 06:59 06:59 Intake Total 1500 3520 360 Balance 1500 3520 360 Result Diagrams: 02/24/17 05:00 02/24/17 05:00 Phys Exam - Physical Examination Constitutional: NAD HEENT: PERRLA, moist MMs, sclera anicteric Neck: no JVD, supple Respiratory: no wheezing, no rales, no rhonchi Cardiovascular: RRR, no significant murmur, no rub Gastrointestinal: soft, non-tender, no distention, positive bowel sounds Musculoskeletal: no edema, pulses present Neurological: non-focal, normal sensation, moves all 4 limbs Psychiatric: normal affect, A&O x 3 Skin: no rash, normal turgor Dx/Plan (1) Gastroenteritis Code(s): K52.9 - NONINFECTIVE GASTROENTERITIS AND COLITIS, UNSPECIFIED Status : Resolved (2) Coffee ground emesis Code(s): K92.0 - HEMATEMESIS Status: Resolved (3) Sickle cell anemia with crisis Code(s): D57.00 - HB-SS DISEASE WITH CRISIS, UNSPECIFIED Status: Resolved (4) Cannabis abuse Code(s): F12.10 - CANNABIS ABUSE, UNCOMPLICATED Status: Chronic (5) Tobacco abuse Code(s): Z72.0 - TOBACCO USE Status: Chronic - Plan cont current plan of care * medication reviewed as below * symptomatic treatment * stable for discharge * see discharge jerzy. Review of Systems - Review of Systems ENT: negative: Ear Pain, Ear Discharge, Nose Pain, Nose Discharge, Nose Congestion, Mouth Pain, Mouth Swelling, Throat Pain, Throat Swelling, Other Respiratory: negative: Cough, Dry, Shortness of Breath, Hemoptysis, SOB with Excertion, Pleuritic Pain, Sputum, Wheezing Cardiovascular: negative: Chest Pain, Palpitations, Orthopnea, Paroxysmal Noc. Dyspnea, Edema, Light Headedness, Other Gastrointestinal: negative: Nausea, Vomiting, Abdominal Pain, Diarrhea, Constipation, Melena, Hematochezia, Other Genitourinary: negative: Dysuria, Frequency, Incontinence, Hematuria, Retention , Other Musculoskeletal: negative: Neck Pain, Shoulder Pain, Arm Pain, Back Pain, Hand Pain, Leg Pain, Foot Pain, Other Skin: negative: Rash, Lesions, Shahram, Bruising, Other - Medications/Allergies Allergies/Adverse Reactions: Allergies Allergy/AdvReac Type Severity Reaction Status Date / Time fentanyl Allergy Verified 12/23/16 02:11 ketorolac tromethamine Allergy Short of Verified 12/23/16 02:11 [From Toradol] Breath metoclopramide [From Reglan] Allergy Verified 01/29/17 22:25 Sulfa (Sulfonamide Allergy Verified 12/23/16 02:11 Antibiotics) Medications: Current Medications Acetaminophen (Tylenol) 650 mg PO Q4H PRN PRN Reason: Headache/Fever or Pain Hydrocodone Bitart/Acetaminophen ([place] 10/325) 2 tab PO Q4H PRN PRN Reason: Severe Pain (7-10) Last Admin: 02/26/17 07:15 Dose: 2 tab Al Hydroxide/Mg Hydroxide (Maalox) 30 ml PO Q6H PRN PRN Reason: Heartburn or Indigestion Artificial Tears (Tears Naturale) 0 drop EA EYE PRN PRN PRN Reason: Dry Eyes Calcium Carbonate (Tums) 1,000 mg PO Q4H PRN PRN Reason: Heartburn or Indigestion Folic Acid (Folvite) 1 mg PO DAILY [facility] Last Admin: 02/26/17 09:20 Dose: 1 mg Guaifenesin (Robitussin Sf) 200 mg PO Q4H PRN PRN Reason: Cough Hydralazine HCl (Apresoline) 10 mg SLOW IVP Q4H PRN PRN Reason: Systolic BP > 180 Hydroxyurea (Hydrea) 500 mg PO DAILY [facility] Last Admin: 02/26/17 09:19 Dose: 500 mg Loperamide HCl (Imodium) 2 mg PO PRN PRN PRN Reason: Diarrhea/Loose Stools Magnesium Hydroxide (Milk Of Magnesium) 30 ml PO DAILYPRN PRN PRN Reason: Constipation Mineral Oil/White Petrolatum (Eucerin Cream) 0 gm TOP BIDPRN PRN PRN Reason: Dry Skin Ondansetron HCl (Zofran Odt) 4 mg PO Q6H PRN PRN Reason: Nausea/Vomiting Last Admin: 02/25/17 18:01 Dose: 4 mg Ondansetron HCl (Zofran) 4 mg IVP Q6H PRN PRN Reason: Nausea/Vomiting Pantoprazole Sodium (Protonix) 40 mg PO DAILY [facility] Last Admin: 02/26/17 09:20 Dose: 40 mg Senna (Senokot) 2 tab PO HSPRN PRN PRN Reason: Constipation Sodium Chloride ([place] Nasal [place] 0.65%) 0 ml EA NARE QIDPRN PRN PRN Reason: Nasal Congestion Sodium Chloride (Flush - Normal Saline) 10 ml IVF Q12HR [facility] Last Admin: 02/26/17 07:58 Dose: Not Given Sodium Chloride (Flush - Normal Saline) 10 ml IVF PRN PRN PRN Reason: Saline Flush Last Admin: 02/24/17 10:38 Dose: 10 ml Zolpidem Tartrate (Ambien) 5 mg PO HSPRN PRN PRN Reason: Insomnia
== END 2017-02-26 18:42 | disposition home or self-care (01) | DRG 391 ==
LOC: ERS 10:52 → T4-B 14:27
PROVIDERS: ADMIT Internal Medicine; ATTEND Internal Medicine
PROC: 0DB68ZX Excision of Stomach, Via Natural or Artificial Opening Endoscopic, Diagnostic (ICD-10-PCS; principal; 2017-02-24)
DX: K52.9 Noninfective gastroenteritis and colitis, unspecified (principal); D57.00 Hb-SS disease with crisis, unspecified; F17.210 Nicotine dependence, cigarettes, uncomplicated; F12.10 Cannabis abuse, uncomplicated; K29.70 Gastritis, unspecified, without bleeding
CPT/HCPCS: 36415; 71010; 74177; 80053; 82274; 83605; 83690; 85025; 85046; 85652; 86140; 86850; 86900; 86901; 88305; 88312; 96365; 96366; 96367; 96375; 96376; A4216; C9113; J1200; J2270; J2405; J2704; J7050; Q0162

== ENCOUNTER 2017-03-05 13:59 | Emergency (ER) | payer MEDICARE ==
[2017-03-05 15:22] LABS: IRF 0.126 Ratio (0.163-0.362); Reticulocyte Count 3.1 % (0.5-1.5)
[2017-03-05] MEDS ORDERED: HYDROcodone/Acetaminophen 5/325 mg Tablet ONE (15:35)
[2017-03-05 15:56] LABS: Hematocrit 34.9 % (42.0-52.0); Mean Platelet Volume 6.5 fL (7.4-10.4); Red Blood Cell (RBC) Count 4.16 mill/uL (4.70-6.10); White Blood Cell (WBC) Count 13.7 thou/uL (4.8-10.8)
[2017-03-05 16:21] LABS: Anisocytosis SLIGHT = 6-15 cells (100X) (0-5/hpf); Neutrophil 81 % (42-75); Polychromasia SLIGHT = 2-3 cells (100X) (0-2/hpf); Schistocytes SLIGHT = 2-5 cells (100X) (0-1/hpf); Target Cells SLIGHT = 2-5 cells (100X) (0-1/hpf)
--- NOTE | 2017-03-05 16:32 | RAD ---
AP VIEW OF CHEST: Date: 03/05/17 INDICATION: Chest pain. History of sickle cell crisis. FINDINGS: No parenchymal opacity is evident. Heart size is upper limits of normal. Pulmonary vasculature is wi thin normal limits. No acute osseous abnormality is evident. IMPRESSION: No acute cardiopulmonary abnormality. No appreciable change from comparison dated 02/23/17. POS: [facility]
== END 2017-03-05 19:38 | disposition home or self-care (01) ==
LOC: ERS 13:59
DX: D57.1 Sickle-cell disease without crisis (principal); I10 Essential (primary) hypertension; F17.210 Nicotine dependence, cigarettes, uncomplicated; Z79.899 Other long term (current) drug therapy
CPT/HCPCS: 71010; 85025; 85046; 99406

== ENCOUNTER 2017-03-19 10:48 | Emergency (ER) | payer MEDICAID, MEDICARE ==
[2017-03-19] MEDS ORDERED: Ondansetron HCl/PF 4 MG/2 ML Vial ONE (11:29)
[2017-03-19 11:58] LABS: Anisocytosis SLIGHT = 6-15 cells (100X) (0-5/hpf); Band 2 % (5-11); Hematocrit 36.1 % (42.0-52.0); Mean Platelet Volume 6.6 fL (7.4-10.4); Neutrophil 48 % (42-75); Polychromasia SLIGHT = 2-3 cells (100X) (0-2/hpf); Red Blood Cell (RBC) Count 4.21 mill/uL (4.70-6.10); Schistocytes SLIGHT = 2-5 cells (100X) (0-1/hpf); Target Cells MODERATE= 6-15 cells (100X) (0-1/hpf); White Blood Cell (WBC) Count 9.2 thou/uL (4.8-10.8)
[2017-03-19 11:59] LABS: ALT (SGPT) 16 U/L (8-55); AST (SGOT) 26 U/L (5-34); Alkaline Phosphatase 83 U/L (40-150); Anion Gap 16 mmol/L (10-20); BUN (Urea Nitrogen) 6 mg/dL (8.9-20.6); Bilirubin, Total 0.9 mg/dL (0.2-1.2); Calc. Creatinine Clearance 0 mL/min (70-130); Calcium 10.4 mg/dL (7.8-10.44); Carbon Dioxide 23 mmol/L (22-29); Chloride 107 mmol/L (98-107); Estimated GFR-MDRD Greater than 90; Globulin 4.4 g/dL (2.4-3.5); Protein, Total 9.3 g/dL (6.0-8.3)
[2017-03-19 12:03] LABS: Troponin I Less than 0.010 ng/mL (< 0.028)
--- NOTE | 2017-03-19 12:57 | RAD ---
CHEST: Date: 03/19/17 COMPARISON: 01/29/17. HISTORY: Sickle cell anemia, chest pain. FINDINGS: No pneumothorax, pleural fluid, lobar consolidation, or alveolar edema. Heart and mediastinal contour s are stable. IMPRESSION: No radiographic evidence of acute cardiopulmonary disease. POS: [facility]
[2017-03-19 13:59] LABS: IRF 0.142 Ratio (0.163-0.362)
[2017-03-19 14:02] LABS: Hemoglobin C Crystals SLIGHT (None Seen); Sickle Cells SLIGHT = 1-5 cells (100X) (None Seen)
[2017-03-19] MEDS ORDERED: HYDROcodone/Acetaminophen 10/325 mg Tablet ONE (15:29)
== END 2017-03-19 15:34 | disposition home or self-care (01) ==
LOC: ERS 10:48
DX: D57.00 Hb-SS disease with crisis, unspecified (principal); F17.210 Nicotine dependence, cigarettes, uncomplicated; Z79.891 Long term (current) use of opiate analgesic; Z79.899 Other long term (current) drug therapy
CPT/HCPCS: 36415; 71020; 80053; 82553; 84484; 85025; 85046; 93005; 96360; 96361; 96374; 99406; J2405

== ENCOUNTER 2017-05-01 05:05 | Emergency (ER) | payer MEDICARE, MEDICAID ==
[2017-05-01 06:09] LABS: Reticulocyte Count 3.5 % (0.5-1.5)
[2017-05-01 06:15] LABS: ALT (SGPT) 37 U/L (8-55); AST (SGOT) 29 U/L (5-34); Alkaline Phosphatase 77 U/L (40-150); Anion Gap 18 mmol/L (10-20); BUN (Urea Nitrogen) 7 mg/dL (8.9-20.6); Bilirubin, Total 1.3 mg/dL (0.2-1.2); Calc. Creatinine Clearance 0 mL/min (70-130); Carbon Dioxide 26 mmol/L (22-29); Chloride 96 mmol/L (98-107); Estimated GFR-MDRD Greater than 90; Globulin 4.5 g/dL (2.4-3.5); Glucose 103 mg/dL (70-105); Potassium 3.7 mmol/L (3.5-5.1); Protein, Total 9.5 g/dL (6.0-8.3); Sodium 136 mmol/L (136-145)
[2017-05-01 06:34] LABS: Hemoglobin 13.3 g/dL (14.0-18.0); Lymphocytes 15 % (21-51); MDiff Complete? YES; Mean Corpuscular HGB CONC 35.8 g/dL (32.0-36.0); Mean Corpuscular Volume 86.6 fl (80.0-94.0); Mean Platelet Volume 6.6 fL (7.4-10.4); Monocytes 13 % (0-10); Neutrophil 72 % (42-75); Platelet Count 468 thou/uL (130-400); RBC Distribution Width 16.7 % (11.5-14.5); Red Blood Cell (RBC) Count 4.28 mill/uL (4.70-6.10); Target Cells MODERATE= 6-15 cells (100X) (0-1/hpf); White Blood Cell (WBC) Count 13.4 thou/uL (4.8-10.8)
[2017-05-01] MEDS ORDERED: HYDROcodone/Acetaminophen 10/325 mg Tablet ONE (07:17)
[2017-05-01] MEDS ORDERED: Ondansetron ODT 4 MG TAB ONE (07:20)
--- NOTE | 2017-05-01 07:57 | RAD ---
RADIOGRAPH CHEST 1 VIEW: HISTORY: A 31-year-old male with chest pain. FINDINGS: The visualized lung cooper are clear. The cardiomediastinal silhouette and hilar shadows are normal. The lateral costophrenic angles are sharp. The osseous structures appear normal. There is no pneu mothorax. IMPRESSION: Negative. shira [] POS: [facility]
== END 2017-05-01 07:40 | disposition home or self-care (01) ==
LOC: ERS 05:05
DX: D57.00 Hb-SS disease with crisis, unspecified (principal); K08.89 Other specified disorders of teeth and supporting structures
CPT/HCPCS: 36415; 71045; 80053; 85025; 85046; 93005; Q0162

== ENCOUNTER 2017-06-04 17:11 | Inpatient (IN) | payer MEDICARE, MEDICAID ==
[2017-06-04] MEDS ORDERED: HYDROcodone/Acetaminophen 10/325 mg Tablet ONE (18:40)
[2017-06-04 18:42] LABS: Reticulocyte Count 4.5 % (0.5-1.5)
[2017-06-04 18:47] LABS: Hemoglobin 10.7 g/dL (14.0-18.0); Mean Corpuscular HGB CONC 34.4 g/dL (32.0-36.0); Mean Corpuscular Hemoglobin 30.5 pg (27.0-31.0); Mean Corpuscular Volume 88.6 fl (80.0-94.0); Mean Platelet Volume 6.5 fL (7.4-10.4); Platelet Count 469 thou/uL (130-400); RBC Distribution Width 16.8 % (11.5-14.5); Red Blood Cell (RBC) Count 3.52 mill/uL (4.70-6.10)
--- NOTE | 2017-06-04 18:56 | RAD ---
PORTABLE CHEST: 06/04/17 HISTORY: Chest pain. COMPARISON: 05/01/17. The lungs are clear. No evidence of infiltrate or vascular congestion. Heart and mediastinum unremark able. IMPRESSION: No acute finding or interval change. POS: [facility]
[2017-06-04 18:59] LABS: ALT (SGPT) 12 U/L (8-55); AST (SGOT) 15 U/L (5-34); Albumin 4.1 g/dL (3.5-5.0); Alkaline Phosphatase 76 U/L (40-150); Anion Gap 14 mmol/L (10-20); BUN (Urea Nitrogen) 6 mg/dL (8.9-20.6); Bilirubin, Total 0.7 mg/dL (0.2-1.2); Calc. Creatinine Clearance 0 mL/min (70-130); Calcium 9.4 mg/dL (7.8-10.44); Carbon Dioxide 22 mmol/L (22-29); Chloride 109 mmol/L (98-107); Estimated GFR-MDRD Greater than 90; Globulin 3.7 g/dL (2.4-3.5); Glucose 91 mg/dL (70-105); Potassium 3.8 mmol/L (3.5-5.1); Protein, Total 7.8 g/dL (6.0-8.3); Sodium 141 mmol/L (136-145)
[2017-06-04 19:00] LABS: White Blood Cell (WBC) Count 21.7 thou/uL (4.8-10.8)
[2017-06-04 19:01] LABS: Anisocytosis SLIGHT = 6-15 cells (100X) (0-5/hpf); Large Platelets SLIGHT; Lymphocytes 21 % (21-51); MDiff Complete? YES; Monocytes 8 % (0-10); Neutrophil 67 % (42-75); Ovalocytes SLIGHT = 2-5 cells (100X) (0-1/hpf); PLT Morphology Comment Appears Increased; Poikilocytosis SLIGHT = 6-15 cells (100X) (0-5/hpf); Polychromasia SLIGHT = 2-3 cells (100X) (0-2/hpf); Reactive Lymphocytes 3 % (0-10); Sickle Cells SLIGHT = 1-5 cells (100X) (None Seen); Target Cells SLIGHT = 2-5 cells (100X) (0-1/hpf); Tear Drops SLIGHT = 2-5 cells (100X) (0-1/hpf)
[2017-06-04] MEDS ORDERED: diphenhydrAMINE 12.5 MG/5 ML UDCUP ONE (19:53)
[2017-06-04] MEDS ORDERED: diphenhydrAMINE 50 MG/ML VIAL ONE (19:54)
[2017-06-04 20:40] LABS: CKMB 0.2 ng/mL (0-6.6); Troponin I Less than 0.010 ng/mL (< 0.028)
[2017-06-04] MEDS ORDERED: diphenhydrAMINE 25 MG CAP PO PRN (21:58)
[2017-06-04] MEDS ORDERED: Morphine 4 MG/ML Carpuject SLOW IVP PRN (21:58)
[2017-06-04 22:39] VITALS: BMI 20.6
[2017-06-04] MEDS: HYDROcodone/Acetaminophen 10/325 mg Tablet PO PRN (22:47)
[2017-06-04] MEDS: Sodium Chloride 0.9% 1,000 ML IV SCH (22:47)
[2017-06-04] MEDS ORDERED: FLU VACC QS2017-18 36 mo. & older 0.5 ML SYRINGE IM ONE (23:15)
[2017-06-05] MEDS: Morphine 5 MG/ML SYRINGE SLOW IVP PRN ×5 (00:18→20:08)
[2017-06-05] MEDS ORDERED: Nitroglycerin 0.4 MG TAB (25 Tab Bottle) PO PRN (00:40)
[2017-06-05] MEDS ORDERED: Ondansetron ODT 4 MG TAB PO PRN (00:40)
[2017-06-05] MEDS ORDERED: Bisacodyl 10 MG SUPP PR PRN (00:40)
[2017-06-05] MEDS ORDERED: Milk Of Magnesia 30 ML UDCUP PO PRN (00:40)
[2017-06-05] MEDS ORDERED: Senokot 8.6 MG TAB PO PRN (00:40)
[2017-06-05] MEDS ORDERED: Ondansetron HCl/PF 4 MG/2 ML Vial IVP PRN (00:40)
--- NOTE | 2017-06-05 02:13 | HP ---
DATE OF ADMISSION: 06/04/2017 The patient was seen and examined on 06/04/2017. CHIEF COMPLAINT: Generalized pain. HISTORY OF PRESENT ILLNESS: The patient is a 31-year-old -[place] male with sickle cell anem ia with multiple episodes of acute painful episodes, presented to the emergency room with generalized aches and pains that started yesterday morning. He also felt nauseous with one episode of vomiting. His vomitus was dark and he thinks it was bloody. He denies any abdominal pain. His pain was main ly in the joints. The pain was 10/10, throbbing, worse with movement. He denies any fevers, chills, chest pain, shortness of breath, or palpitations. He tried increasing his fluid intake as well as t aking his pain meds without much relief. He then presented to the emergency room. In the emergency room, initial vital signs showed temperature 99.6, respiration of 16, pulse rate of 88, blood pressure of 115/64 with O2 saturation of 100% on room air. His reticulocyte was 4.5 with W BC of 21.7. Troponin was negative. He received morphine 6 mg IV push with Benadryl, IV fluid, and N orco in the emergency room. His pain is somewhat improved with the above measures. PAST MEDICAL HISTORY: 1. Sickle cell anemia with several episodes of acute painful crisis. 2. History of cannabis abuse. 3. Tobacco dependence. PAST SURGICAL HISTORY: Reviewed with the patient and none. CURRENT HOME MEDICATIONS: Cymbalta 30 mg daily, Kirk as needed, tramadol as needed. SOCIAL HISTORY: Patient currently lives at home, continues to smoke on and off. Denies any other dr ug use. He has history of cannabis abuse with the recent urine drug screen positive for cannabis. FAMILY HISTORY: Both parents with sickle cell trait. He has a son with sickle cell trait. REVIEW OF SYSTEMS: The following complete review of systems was negative, unless otherwise mentioned in the HPI or below: Constitutional: Weight loss or gain, ability to conduct usual activities. Sk in: Rash, itching. Eyes: Double vision, pain. ENT/Mouth: Nose bleeding, neck stiffness, pain, te nderness. Cardiovascular: Palpitations, dyspnea on exertion, orthopnea. Respiratory: Shortness of breath, wheezing, cough, hemoptysis, fever or night sweats. Gastrointestinal: Poor appetite, abdom inal pain, heartburn, nausea, vomiting, constipation, or diarrhea. Genitourinary: Urgency, frequenc y, dysuria, nocturia. Musculoskeletal: Pain, swelling. Neurologic/Psychiatric: Anxiety, depressio n. Allergy/Immunologic: Skin rash, bleeding tendency. PHYSICAL EXAMINATION: VITAL SIGNS: As discussed above. GENERAL: A 31-year-old male in mild distress due to pain mainly in bilateral shoulders and knees. HEENT: Head: Atraumatic, normocephalic. Sclerae are anicteric. Moist mucous membranes. No oral l esion. NECK: Supple, no JVD appreciated. No carotid bruit. LUNGS: Essentially clear to auscultation bilaterally. No wheezing or rales. HEART: S1, S2 present. Regular rate and rhythm. No murmurs, rubs, or gallops appreciated. ABDOMEN: Soft, nontender, bowel sounds present. EXTREMITIES: No edema or calf tenderness. NEUROLOGIC: Grossly nonfocal, moves all four extremities. PSYCHIATRY: Alert, awake, oriented x3. MUSCULOSKELETAL: Generalize tenderness on joint palpation. Especially, the knees and shoulders with out any erythema. SKIN: Warm and dry. LYMPH NODES: No palpable lymph nodes in the neck. LABORATORY FINDINGS: As discussed above. Hemoglobin was 10.7, platelet count 469. Troponin was neg ative. Stool for occult blood was negative. Chest x-ray by my review was negative for infiltrate. IMPRESSION: 1. Sickle cell crisis/acute painful episode. Precipitant could be dehydration from nausea, vomiting . 2. Ongoing tobacco abuse. The patient was counseled. 3. History of cannabis abuse. Patient was counseled. 4. Depression without any suicidal ideation. PLAN: The patient is currently admitted to telemetry unit. We will continue IV fluids, oxygen, pain control. We will repeat reticulocyte in a.m. We will add folic acid. Acute chest syndrome has bee n ruled out. Disposition based his hospital course. Plan of care was discussed with the patient in detail. He stated understanding.
[2017-06-05] MEDS: HYDROcodone/Acetaminophen 10/325 mg Tablet PO PRN ×4 (02:57→22:29)
[2017-06-05] MEDS: Sodium Chloride 0.9% 1,000 ML IV SCH ×3 (04:39→20:09)
[2017-06-05 04:47] LABS: Reticulocyte Count 4.3 % (0.5-1.5)
[2017-06-05 04:55] LABS: Anion Gap 11 mmol/L (10-20); BUN (Urea Nitrogen) 5 mg/dL (8.9-20.6); Calc. Creatinine Clearance 138 mL/min (70-130); Calcium 8.6 mg/dL (7.8-10.44); Carbon Dioxide 24 mmol/L (22-29); Chloride 108 mmol/L (98-107); Estimated GFR-MDRD Greater than 90; Glucose 112 mg/dL (70-105); Potassium 3.6 mmol/L (3.5-5.1); Sodium 139 mmol/L (136-145)
[2017-06-05 05:00] LABS: Anisocytosis MODERATE=16-30 cells (100X) (0-5/hpf); Eosinophils 2 % (0-10); Hemoglobin 9.5 g/dL (14.0-18.0); Hemoglobin C Crystals SLIGHT (None Seen); Lymphocytes 50 % (21-51); MDiff Complete? YES; Mean Corpuscular HGB CONC 34.5 g/dL (32.0-36.0); Mean Corpuscular Hemoglobin 30.5 pg (27.0-31.0); Mean Corpuscular Volume 88.5 fl (80.0-94.0); Mean Platelet Volume 6.6 fL (7.4-10.4); Monocytes 7 % (0-10); Neutrophil 41 % (42-75); PLT Morphology Comment Appears Adequate; Platelet Count 395 thou/uL (130-400); Polychromasia SLIGHT = 2-3 cells (100X) (0-2/hpf); RBC Distribution Width 16.7 % (11.5-14.5); Red Blood Cell (RBC) Count 3.12 mill/uL (4.70-6.10); Schistocytes SLIGHT = 2-5 cells (100X) (0-1/hpf); Sickle Cells SLIGHT = 1-5 cells (100X) (None Seen); Target Cells SLIGHT = 2-5 cells (100X) (0-1/hpf); White Blood Cell (WBC) Count 11.4 thou/uL (4.8-10.8)
[2017-06-05 05:01] LABS: Spherocytes SLIGHT = 1-5 cells (100X) (None Seen)
[2017-06-05] MEDS ORDERED: Temazepam 15 MG CAP PO PRN (07:24)
[2017-06-05] MEDS ORDERED: Sodium Chloride 0.65% Nasal 44 ML BOT EA NARE PRN (07:24)
[2017-06-05] MEDS ORDERED: Diabetic Tussin 200 MG/10 ML UDCUP PO PRN (07:24)
[2017-06-05] MEDS ORDERED: diphenhydrAMINE 50 MG/ML VIAL IVP PRN (07:24)
[2017-06-05] MEDS ORDERED: Mag-Al 1200 mg/1200 mg/30 ML UDCUP PO PRN (07:24)
[2017-06-05] MEDS ORDERED: Acetaminophen 325 MG TAB PO PRN (07:24)
[2017-06-05] MEDS ORDERED: Artificial Tears 18 DROP/0.9 ML EA EYE PRN (07:24)
[2017-06-05] MEDS ORDERED: Eucerin (Mineral Oil/Petrolatum,White) 30 gm Jar TOP PRN (07:24)
[2017-06-05] MEDS ORDERED: Chloraseptic Spray 180 ml Bottle PO PRN (07:24)
[2017-06-05] MEDS ORDERED: hydrALAZINE 20 MG/ML VIAL SLOW IVP PRN (07:24)
[2017-06-05] MEDS ORDERED: FLU VACC QS2017-18 36 mo. & older 0.5 ML SYRINGE IM ONE (09:00)
--- NOTE | 2017-06-05 09:02 | PDOC.PN ---
- Subjective Encounter Start Date: 06/05/17 Encounter Start Time: 07:10 -: old records requested/rev pt has knee pain, leg pain, bodyache, no fever, feels sorethroat Patient seen and examined. No overnight events - Objective Resuscitation Status: Resuscitation Status FULL:Full Resuscitation MAR Reviewed: Yes Vital Signs & Weight: Vital Signs (12 hours) Temp Pulse Resp BP Pulse Ox 06/05/17 04:37 97.8 F 72 16 100/62 97 06/04/17 22:40 98.1 F 72 16 06/04/17 22:39 98.1 F 72 16 112/68 97 Weight Weight 139 lb 14.4 oz I&O: 06/04/17 06/05/17 06/06/17 06:59 06:59 06:59 Intake Total 1603 Output Total 300 Balance 1303 Result Diagrams: 06/05/17 04:18 06/05/17 04:18 Radiology Reviewed by me: Yes (Chest xray-normal) EKG Reviewed by me: Yes (NSR) Phys Exam - Physical Examination Constitutional: NAD HEENT: PERRLA, moist MMs, sclera anicteric Neck: no JVD, supple Respiratory: no wheezing, no rales, no rhonchi Cardiovascular: RRR, no significant murmur, no rub Gastrointestinal: soft, non-tender, no distention, positive bowel sounds Musculoskeletal: no edema, pulses present Neurological: non-focal, normal sensation Lymphatic: no nodes Psychiatric: normal affect Skin: no rash, normal turgor Dx/Plan (1) Sickle cell anemia with crisis Code(s): D57.00 - HB-SS DISEASE WITH CRISIS, UNSPECIFIED Status: Acute (2) Cannabis abuse Code(s): F12.10 - CANNABIS ABUSE, UNCOMPLICATED Status: Chronic (3) Tobacco abuse Code(s): Z72.0 - TOBACCO USE Status: Chronic - Plan cont current plan of care * continue his home medication * continue oxygen * continue IVF for hydration * pain control with narcotics * medication reviewed as below * symptomatic treatment. Review of Systems - Review of Systems Constitutional: negative: fever, chills, sweats, weakness, malaise, other Eyes: negative: Pain, Vision Change, Conjunctivae Inflammation, Eyelid Inflammation, Redness, Other ENT: Throat Pain. negative: Ear Pain, Ear Discharge, Nose Pain, Nose Discharge , Nose Congestion, Mouth Pain, Mouth Swelling, Throat Swelling, Other Respiratory: negative: Cough, Dry, Shortness of Breath, Hemoptysis, SOB with Excertion, Pleuritic Pain, Sputum, Wheezing Cardiovascular: negative: chest pain, palpitations, orthopnea, paroxysmal nocturnal dyspnea, edema, light headedness, other Gastrointestinal: negative: Nausea, Vomiting, Abdominal Pain, Diarrhea, Constipation, Melena, Hematochezia, Other Genitourinary: negative: Dysuria, Frequency, Incontinence, Hematuria, Retention , Other Musculoskeletal: Arm Pain, Back Pain, Leg Pain. negative: Neck Pain, Shoulder Pain, Hand Pain, Foot Pain, Other - Medications/Allergies Allergies/Adverse Reactions: Allergies Allergy/AdvReac Type Severity Reaction Status Date / Time fentanyl Allergy Verified 12/23/16 02:11 ketorolac tromethamine Allergy Short of Verified 12/23/16 02:11 [From Toradol] Breath metoclopramide [From Reglan] Allergy Verified 01/29/17 22:25 Sulfa (Sulfonamide Allergy Verified 12/23/16 02:11 Antibiotics) Medications: Current Medications Acetaminophen (Tylenol) 650 mg PO Q4H PRN PRN Reason: Headache/Fever or Mild Pain Hydrocodone Bitart/Acetaminophen ([place] 10/325) 1 tab PO Q4H PRN PRN Reason: Mild-Moderate Pain (1-5) Last Admin: 06/05/17 02:57 Dose: 1 tab Al Hydroxide/Mg Hydroxide (Maalox) 15 ml PO Q4H PRN PRN Reason: Heartburn or Indigestion Artificial Tears (Tears Naturale) 0 drop EA EYE PRN PRN PRN Reason: Dry Eyes Bisacodyl (Dulcolax) 10 mg [place] Q24H PRN PRN Reason: Constipation Cyanocobalamin (Vitamin B-12) 1,000 mcg PO DAILY [facility] Diphenhydramine HCl (Benadryl) 25 mg PO Q6H PRN PRN Reason: Itching & Insomnia Last Admin: 06/04/17 22:50 Dose: 25 mg Diphenhydramine HCl (Benadryl) 25 mg IVP Q4H PRN PRN Reason: Itching Docusate Sodium (Colace) 100 mg PO BID [facility] Duloxetine HCl (Cymbalta) 30 mg PO DAILY [facility] Famotidine (Pepcid) 20 mg PO BID [facility] Folic Acid (Folvite) 1 mg PO BID [facility] Guaifenesin (Robitussin Sf) 200 mg PO Q4H PRN PRN Reason: Cough Hydralazine HCl (Apresoline) 10 mg SLOW IVP Q4H PRN PRN Reason: Systolic BP > 180 Sodium Chloride (Normal Saline 0.9%) 1,000 mls @ 150 mls/hr IV .Q6H40M [facility] Last Admin: 06/05/17 04:39 Dose: 1,000 mls Lactulose (Lactulose) 20 gm PO DAILYPRN PRN PRN Reason: Constipation Magnesium Hydroxide (Milk Of Magnesium) 30 ml PO DAILYPRN PRN PRN Reason: Constipation Mineral Oil/White Petrolatum (Eucerin Cream) 0 gm TOP BIDPRN PRN PRN Reason: Dry Skin Morphine Sulfate (Morphine) 4 mg SLOW IVP Q4H PRN PRN Reason: Severe Pain (7-10) Stop: 06/05/17 10:00 Last Admin: 06/05/17 07:55 Dose: 4 mg Multivitamins (Theragran) 1 tab PO DAILY [facility] Ondansetron HCl (Zofran Odt) 4 mg PO Q6H PRN PRN Reason: Nausea/Vomiting Ondansetron HCl (Zofran) 4 mg IVP Q6H PRN PRN Reason: Nausea/Vomiting Phenol (Chloraseptic [place] 180 Ml Bot) 0 ml PO PRN PRN PRN Reason: Sore Throat Senna (Senokot) 2 tab PO HSPRN PRN PRN Reason: Constipation Sodium Chloride (Flush - Normal Saline) 10 ml IVF Q12HR [facility] Sodium Chloride (Flush - Normal Saline) 10 ml IVF PRN PRN PRN Reason: Saline Flush Sodium Chloride ([place] Nasal [place] 0.65%) 0 ml EA NARE QIDPRN PRN PRN Reason: Nasal Congestion Temazepam (Restoril) 15 mg PO HSPRN PRN PRN Reason: Insomnia
[2017-06-05] MEDS: Famotidine 20 MG TAB PO SCH ×2 (09:45→21:07)
[2017-06-05] MEDS: DULoxetine 30 MG CAP PO SCH (09:45)
[2017-06-05] MEDS: Cyanocobalamin (Vitamin B-12) 1,000 MCG TAB PO SCH (09:45)
[2017-06-05] MEDS: Docusate 100 MG CAP PO SCH ×2 (09:45→21:07)
[2017-06-05] MEDS: Folic Acid 1 MG TAB PO SCH ×2 (09:45→21:07)
[2017-06-05] MEDS: Multivit, Therapeutic 1 TAB PO SCH (09:45)
[2017-06-06] MEDS: Morphine 5 MG/ML SYRINGE SLOW IVP PRN ×6 (00:33→23:41)
[2017-06-06] MEDS: Sodium Chloride 0.9% 1,000 ML IV SCH ×4 (02:15→17:06)
[2017-06-06] MEDS: HYDROcodone/Acetaminophen 10/325 mg Tablet PO PRN ×5 (02:16→21:43)
[2017-06-06 05:39] LABS: Band 2 % (5-11); Hemoglobin 9.9 g/dL (14.0-18.0); Hypochromia SLIGHT = 6-15 cells (100X) (0-5/hpf); Lymphocytes 41 % (21-51); MDiff Complete? YES; Mean Corpuscular HGB CONC 34.7 g/dL (32.0-36.0); Mean Corpuscular Hemoglobin 30.9 pg (27.0-31.0); Mean Platelet Volume 6.6 fL (7.4-10.4); Microcytosis SLIGHT = 6-15 cells (100X) (0-5/hpf); Monocytes 6 % (0-10); Neutrophil 51 % (42-75); PLT Morphology Comment Appears Increased; Platelet Count 422 thou/uL (130-400); RBC Distribution Width 16.6 % (11.5-14.5); Target Cells SLIGHT = 2-5 cells (100X) (0-1/hpf); White Blood Cell (WBC) Count 8.2 thou/uL (4.8-10.8)
[2017-06-06 05:54] LABS: Anion Gap 9 mmol/L (10-20); BUN (Urea Nitrogen) 5 mg/dL (8.9-20.6); Calc. Creatinine Clearance 146 mL/min (70-130); Calcium 8.9 mg/dL (7.8-10.44); Carbon Dioxide 27 mmol/L (22-29); Chloride 107 mmol/L (98-107); Estimated GFR-MDRD Greater than 90; Glucose 76 mg/dL (70-105); Sodium 139 mmol/L (136-145)
[2017-06-06] MEDS: DULoxetine 30 MG CAP PO SCH (08:13)
[2017-06-06] MEDS: Multivit, Therapeutic 1 TAB PO SCH (08:13)
[2017-06-06] MEDS: Famotidine 20 MG TAB PO SCH ×2 (08:13→20:49)
[2017-06-06] MEDS: Folic Acid 1 MG TAB PO SCH ×2 (08:13→20:49)
[2017-06-06] MEDS: Docusate 100 MG CAP PO SCH ×2 (08:13→20:49)
[2017-06-06] MEDS: Cyanocobalamin (Vitamin B-12) 1,000 MCG TAB PO SCH (08:14)
[2017-06-06] MEDS ORDERED: diphenhydrAMINE 25 MG CAP PO PRN (16:52)
--- NOTE | 2017-06-06 16:56 | PDOC.PN ---
- Subjective Encounter Start Date: 06/06/17 Encounter Start Time: 09:30 Patient seen and examined. Joint pains 11/03. No overnight events - Objective Resuscitation Status: Resuscitation Status FULL:Full Resuscitation MAR Reviewed: Yes Vital Signs & Weight: Vital Signs (12 hours) Temp Pulse Resp BP Pulse Ox 06/06/17 16:00 97.8 F 64 18 100/54 L 99 06/06/17 11:27 98.2 F 62 16 111/68 97 06/06/17 08:00 98.3 F 77 20 96 06/06/17 07:34 98.3 F 77 20 123/80 96 Weight Weight 139 lb 14.4 oz I&O: 06/05/17 06/06/17 06/07/17 06:59 06:59 06:59 Intake Total 1603 3266 960 Output Total 300 2925 Balance 1303 341 960 Result Diagrams: 06/06/17 05:05 06/06/17 05:05 EKG Reviewed by me: Yes (Tele SR) Phys Exam - Physical Examination Constitutional: NAD Respiratory: no wheezing, no rhonchi Cardiovascular: RRR, no rub Gastrointestinal: soft, non-tender, positive bowel sounds Musculoskeletal: no edema Dx/Plan - Plan out of bed/ambulate, DVT proph w/SCDs IMPRESSION: 1. Sickle cell crisis/acute painful episode. 2. Ongoing tobacco abuse. The patient was counseled. 3. History of cannabis abuse. Patient was counseled. 4. Depression without any suicidal ideation. PLAN: * Still has significant pain. * Will reduce IVF * Cont current pain regimen. * Transfer to medical. * Possible DC in AM if stable. * WBC/Reti ct improving Review of Systems - Review of Systems Respiratory: negative: Cough, Dry, Shortness of Breath, Hemoptysis, SOB with Excertion, Pleuritic Pain, Sputum, Wheezing Cardiovascular: negative: chest pain, palpitations, orthopnea, paroxysmal nocturnal dyspnea, edema, light headedness - Medications/Allergies Allergies/Adverse Reactions: Allergies Allergy/AdvReac Type Severity Reaction Status Date / Time fentanyl Allergy Verified 12/23/16 02:11 ketorolac tromethamine Allergy Short of Verified 12/23/16 02:11 [From Toradol] Breath metoclopramide [From Reglan] Allergy Verified 01/29/17 22:25 Sulfa (Sulfonamide Allergy Verified 12/23/16 02:11 Antibiotics) Medications: Current Medications Acetaminophen (Tylenol) 650 mg PO Q4H PRN PRN Reason: Headache/Fever or Mild Pain Hydrocodone Bitart/Acetaminophen ([place] 10/325) 1 tab PO Q4H PRN PRN Reason: Mild-Moderate Pain (1-5) Last Admin: 06/06/17 13:21 Dose: 1 tab Al Hydroxide/Mg Hydroxide (Maalox) 15 ml PO Q4H PRN PRN Reason: Heartburn or Indigestion Artificial Tears (Tears Naturale) 0 drop EA EYE PRN PRN PRN Reason: Dry Eyes Bisacodyl (Dulcolax) 10 mg [place] Q24H PRN PRN Reason: Constipation Cyanocobalamin (Vitamin B-12) 1,000 mcg PO DAILY [facility] Last Admin: 06/06/17 08:14 Dose: 1,000 mcg Diphenhydramine HCl (Benadryl) 25 mg IVP Q4H PRN PRN Reason: Itching Diphenhydramine HCl (Benadryl) 25 mg PO Q4H PRN PRN Reason: Itching & Insomnia Docusate Sodium (Colace) 100 mg PO BID [facility] Last Admin: 06/06/17 08:13 Dose: 100 mg Duloxetine HCl (Cymbalta) 30 mg PO DAILY [facility] Last Admin: 06/06/17 08:13 Dose: 30 mg Famotidine (Pepcid) 20 mg PO BID [facility] Last Admin: 06/06/17 08:13 Dose: 20 mg Folic Acid (Folvite) 1 mg PO BID [facility] Last Admin: 06/06/17 08:13 Dose: 1 mg Guaifenesin (Robitussin Sf) 200 mg PO Q4H PRN PRN Reason: Cough Guaifenesin (Mucinex) 600 mg PO Q12HR [facility] Hydralazine HCl (Apresoline) 10 mg SLOW IVP Q4H PRN PRN Reason: Systolic BP > 180 Sodium Chloride (Normal Saline 0.9%) 1,000 mls @ 100 mls/hr IV .Q10H [facility] Lactulose (Lactulose) 20 gm PO DAILYPRN PRN PRN Reason: Constipation Magnesium Hydroxide (Milk Of Magnesium) 30 ml PO DAILYPRN PRN PRN Reason: Constipation Mineral Oil/White Petrolatum (Eucerin Cream) 0 gm TOP BIDPRN PRN PRN Reason: Dry Skin Morphine Sulfate (Morphine) 4 mg SLOW IVP Q4H PRN PRN Reason: Severe Pain (7-10) Last Admin: 06/06/17 14:45 Dose: 4 mg Multivitamins (Theragran) 1 tab PO DAILY [facility] Last Admin: 06/06/17 08:13 Dose: 1 tab Ondansetron HCl (Zofran Odt) 4 mg PO Q6H PRN PRN Reason: Nausea/Vomiting Ondansetron HCl (Zofran) 4 mg IVP Q6H PRN PRN Reason: Nausea/Vomiting Phenol (Chloraseptic [place] 180 Ml Bot) 0 ml PO PRN PRN PRN Reason: Sore Throat Last Admin: 06/05/17 12:38 Dose: 2 spray Senna (Senokot) 2 tab PO HSPRN PRN PRN Reason: Constipation Sodium Chloride (Flush - Normal Saline) 10 ml IVF Q12HR [facility] Last Admin: 06/06/17 08:15 Dose: Not Given Sodium Chloride (Flush - Normal Saline) 10 ml IVF PRN PRN PRN Reason: Saline Flush Sodium Chloride ([place] Nasal [place] 0.65%) 0 ml EA NARE QIDPRN PRN PRN Reason: Nasal Congestion Temazepam (Restoril) 15 mg PO HSPRN PRN PRN Reason: Insomnia
[2017-06-06] MEDS: guaiFENesin ER 600 MG TAB PO SCH (20:49)
[2017-06-07] MEDS: HYDROcodone/Acetaminophen 10/325 mg Tablet PO PRN ×5 (02:03→20:15)
[2017-06-07] MEDS: Sodium Chloride 0.9% 1,000 ML IV SCH ×3 (02:06→22:50)
[2017-06-07] MEDS: Morphine 5 MG/ML SYRINGE SLOW IVP PRN ×4 (04:18→17:03)
[2017-06-07] MEDS: Folic Acid 1 MG TAB PO SCH ×2 (08:43→20:16)
[2017-06-07] MEDS: Docusate 100 MG CAP PO SCH ×2 (08:43→20:16)
[2017-06-07] MEDS: Famotidine 20 MG TAB PO SCH ×2 (08:43→20:15)
[2017-06-07] MEDS: DULoxetine 30 MG CAP PO SCH (08:43)
[2017-06-07] MEDS: Cyanocobalamin (Vitamin B-12) 1,000 MCG TAB PO SCH (08:43)
[2017-06-07] MEDS: guaiFENesin ER 600 MG TAB PO SCH ×2 (08:43→20:15)
[2017-06-07] MEDS: Multivit, Therapeutic 1 TAB PO SCH (08:43)
[2017-06-07] MEDS ORDERED: Diabetic Tussin 200 MG/10 ML UDCUP PO PRN (11:52)
[2017-06-07] MEDS ORDERED: Cepastat Lozenges 1 LOZ PO PRN (11:52)
--- NOTE | 2017-06-07 21:41 | PDOC.PN ---
- Subjective Encounter Start Date: 06/07/17 Encounter Start Time: 10:00 Patient seen and examined. Still has significant pain - Pain controlled with current pain meds. No overnight events - Objective Resuscitation Status: Resuscitation Status FULL:Full Resuscitation MAR Reviewed: Yes Vital Signs & Weight: Vital Signs (12 hours) Temp Pulse Resp BP Pulse Ox 06/07/17 20:25 98.4 F 70 20 130/76 98 06/07/17 15:49 98.2 F 64 20 103/60 98 06/07/17 12:00 98.4 F 54 L 16 102/52 L 98 Weight Weight 139 lb 14.4 oz I&O: 06/06/17 06/07/17 06/08/17 06:59 06:59 06:59 Intake Total 3266 3178 Output Total 2921 1950 Balance 341 3178 -1950 Result Diagrams: 06/06/17 05:05 06/06/17 05:05 Phys Exam - Physical Examination Mild distress due to gen pain Respiratory: no wheezing, no rhonchi Cardiovascular: RRR, no rub Gastrointestinal: soft, non-tender, positive bowel sounds Musculoskeletal: no edema Neurological: moves all 4 limbs Dx/Plan - Plan DVT proph w/SCDs IMPRESSION: 1. Sickle cell crisis/acute painful episode. Still has significant pain. 2. Ongoing tobacco abuse. counseled. 3. History of cannabis abuse. counseled. 4. Depression without any suicidal ideation. PLAN: * CBC/Reti in AM * Cont IVF * Cont current pain regimen. * Possible DC in AM if stable. Review of Systems - Review of Systems Respiratory: negative: Cough, Dry, Shortness of Breath, Hemoptysis, SOB with Excertion, Pleuritic Pain, Sputum, Wheezing Cardiovascular: negative: chest pain, palpitations, orthopnea, paroxysmal nocturnal dyspnea, edema, light headedness - Medications/Allergies Allergies/Adverse Reactions: Allergies Allergy/AdvReac Type Severity Reaction Status Date / Time fentanyl Allergy Verified 12/23/16 02:11 ketorolac tromethamine Allergy Short of Verified 12/23/16 02:11 [From Toradol] Breath metoclopramide [From Reglan] Allergy Verified 01/29/17 22:25 Sulfa (Sulfonamide Allergy Verified 12/23/16 02:11 Antibiotics) Medications: Current Medications Acetaminophen (Tylenol) 650 mg PO Q4H PRN PRN Reason: Headache/Fever or Mild Pain Hydrocodone Bitart/Acetaminophen ([place] 10/325) 1 tab PO Q4H PRN PRN Reason: Mild-Moderate Pain (1-5) Last Admin: 06/07/17 20:15 Dose: 1 tab Al Hydroxide/Mg Hydroxide (Maalox) 15 ml PO Q4H PRN PRN Reason: Heartburn or Indigestion Artificial Tears (Tears Naturale) 0 drop EA EYE PRN PRN PRN Reason: Dry Eyes Bisacodyl (Dulcolax) 10 mg [place] Q24H PRN PRN Reason: Constipation Cyanocobalamin (Vitamin B-12) 1,000 mcg PO DAILY [facility] Last Admin: 06/07/17 08:43 Dose: 1,000 mcg Diphenhydramine HCl (Benadryl) 25 mg IVP Q4H PRN PRN Reason: Itching Diphenhydramine HCl (Benadryl) 25 mg PO Q4H PRN PRN Reason: Itching & Insomnia Docusate Sodium (Colace) 100 mg PO BID [facility] Last Admin: 06/07/17 20:16 Dose: 100 mg Duloxetine HCl (Cymbalta) 30 mg PO DAILY [facility] Last Admin: 06/07/17 08:43 Dose: 30 mg Famotidine (Pepcid) 20 mg PO BID [facility] Last Admin: 06/07/17 20:15 Dose: 20 mg Folic Acid (Folvite) 1 mg PO BID [facility] Last Admin: 06/07/17 20:16 Dose: 1 mg Guaifenesin (Mucinex) 600 mg PO Q12HR [facility] Last Admin: 06/07/17 20:15 Dose: 600 mg Guaifenesin (Robitussin Sf) 200 mg PO Q4H PRN PRN Reason: Cough Hydralazine HCl (Apresoline) 10 mg SLOW IVP Q4H PRN PRN Reason: Systolic BP > 180 Sodium Chloride (Normal Saline 0.9%) 1,000 mls @ 100 mls/hr IV .Q10H [facility] Last Admin: 06/07/17 12:19 Dose: 1,000 mls Lactulose (Lactulose) 20 gm PO DAILYPRN PRN PRN Reason: Constipation Magnesium Hydroxide (Milk Of Magnesium) 30 ml PO DAILYPRN PRN PRN Reason: Constipation Mineral Oil/White Petrolatum (Eucerin Cream) 0 gm TOP BIDPRN PRN PRN Reason: Dry Skin Morphine Sulfate (Morphine) 4 mg SLOW IVP Q4H PRN PRN Reason: Severe Pain (7-10) Last Admin: 06/07/17 17:03 Dose: 4 mg Multivitamins (Theragran) 1 tab PO DAILY [facility] Last Admin: 06/07/17 08:43 Dose: 1 tab Ondansetron HCl (Zofran Odt) 4 mg PO Q6H PRN PRN Reason: Nausea/Vomiting Ondansetron HCl (Zofran) 4 mg IVP Q6H PRN PRN Reason: Nausea/Vomiting Phenol (Chloraseptic [place] 180 Ml Bot) 0 ml PO PRN PRN PRN Reason: Sore Throat Last Admin: 06/05/17 12:38 Dose: 2 spray Senna (Senokot) 2 tab PO HSPRN PRN PRN Reason: Constipation Sodium Chloride (Flush - Normal Saline) 10 ml IVF Q12HR [facility] Last Admin: 06/07/17 20:16 Dose: Not Given Sodium Chloride (Flush - Normal Saline) 10 ml IVF PRN PRN PRN Reason: Saline Flush Sodium Chloride ([place] Nasal [place] 0.65%) 0 ml EA NARE QIDPRN PRN PRN Reason: Nasal Congestion Temazepam (Restoril) 15 mg PO HSPRN PRN PRN Reason: Insomnia Throat Lozenges (Cepastat Lozenges) 1 jose martin PO Q2H PRN PRN Reason: Sore Throat
[2017-06-08] MEDS: HYDROcodone/Acetaminophen 10/325 mg Tablet PO PRN ×2 (01:17→08:22)
[2017-06-08 06:03] LABS: Reticulocyte Count 2.2 % (0.5-1.5)
[2017-06-08 06:07] LABS: Eosinophils 5 % (0-10); Hemoglobin 10.4 g/dL (14.0-18.0); Lymphocytes 30 % (21-51); MDiff Complete? YES; Mean Corpuscular Hemoglobin 30.9 pg (27.0-31.0); Mean Corpuscular Volume 88.5 fl (80.0-94.0); Mean Platelet Volume 6.8 fL (7.4-10.4); Monocytes 1 % (0-10); Neutrophil 64 % (42-75); PLT Morphology Comment Appears Increased; Platelet Count 457 thou/uL (130-400); RBC Distribution Width 16.3 % (11.5-14.5); Red Blood Cell (RBC) Count 3.37 mill/uL (4.70-6.10); White Blood Cell (WBC) Count 9.4 thou/uL (4.8-10.8)
[2017-06-08] MEDS: Famotidine 20 MG TAB PO SCH (08:23)
[2017-06-08] MEDS: Cyanocobalamin (Vitamin B-12) 1,000 MCG TAB PO SCH (08:23)
[2017-06-08] MEDS: Multivit, Therapeutic 1 TAB PO SCH (08:23)
[2017-06-08] MEDS: Folic Acid 1 MG TAB PO SCH (08:23)
[2017-06-08] MEDS: Docusate 100 MG CAP PO SCH (08:24)
[2017-06-08] MEDS: guaiFENesin ER 600 MG TAB PO SCH (08:24)
[2017-06-08] MEDS: Sodium Chloride 0.9% 1,000 ML IV SCH (08:26)
[2017-06-08] MEDS: DULoxetine 30 MG CAP PO SCH (08:56)
[2017-06-08 11:50] VITALS: BP 121/62; TEMP 99.1
--- NOTE | 2017-06-08 15:02 | DIS ---
DATE OF DISCHARGE: 06/08/2017 DISCHARGE DISPOSITION: Home. FOLLOWUP: Follow up with primary care physician, Dr. Hernandez, at [facility] in 1 week. The patient was seen on the day of discharge. Denies any new complaints, generalized pain has improv ed. DISCHARGE MEDICATIONS: Folic acid 1 mg twice a day. Other home medications were resumed including Cymbalta, tramadol and Whitt. BRIEF HOSPITAL COURSE: The patient is a 31-year-old -[place] male with sickle cell anemia, w ho presented to the hospital with generalized aches and pains of 1-day duration. He also had nausea and vomiting on admission. Please refer to the history and physical dated 06/04/2017 for further det ails. The patient was admitted to the hospital with the diagnosis of sickle cell crisis/acute painful episo de. He showed good improvement with oxygen, IV fluids, and pain control. He was extensively insurance counsel ed to quit tobacco and cannabis. His reticulocyte on admission was 4.5, on the day of discharge is 2 .2. His hemoglobin is stable at 10.4. He appears stable for discharge. FINAL DIAGNOSES: 1. Sickle cell crisis/acute painful episode. 2. Ongoing tobacco abuse. 3. Cannabis abuse. 4. Depression without any suicidal ideation. 5. Chronic pain syndrome, on chronic narcotics. Plan of care was discussed with the patient and he stated understanding.
== END 2017-06-08 12:51 | disposition home or self-care (01) | DRG 812 ==
LOC: ERS 17:11 → 2SE 22:30 → ONC 06-08 08:01
PROVIDERS: ADMIT Internal Medicine; ATTEND Internal Medicine
DX: D57.00 Hb-SS disease with crisis, unspecified (principal); E86.0 Dehydration; F17.210 Nicotine dependence, cigarettes, uncomplicated; F12.10 Cannabis abuse, uncomplicated; F32.9 Major depressive disorder, single episode, unspecified; R11.2 Nausea with vomiting, unspecified; G89.4 Chronic pain syndrome; Z79.891 Long term (current) use of opiate analgesic
CPT/HCPCS: 36415; 71045; 80048; 80053; 82274; 82553; 84484; 85007; 85025; 85027; 85046; 90471; 90682; 93005; 94760; 96361; 96374; 96375; J2270; A4216; G0008; J1200; Q2036

== ENCOUNTER 2017-06-09 17:18 | Emergency (ER) | payer MEDICARE, MEDICAID ==
[2017-06-09 18:24] LABS: Reticulocyte Count 3.6 % (0.5-1.5)
[2017-06-09] MEDS ORDERED: HYDROcodone/Acetaminophen 10/325 mg Tablet ONE (18:27)
[2017-06-09] MEDS ORDERED: diphenhydrAMINE 12.5 MG/5 ML UDCUP ONE ×2 (18:27→19:37)
[2017-06-09] MEDS ORDERED: diphenhydrAMINE 50 MG/ML VIAL ONE ×2 (18:28→19:38)
[2017-06-09 18:31] LABS: Hemoglobin 11.8 g/dL (14.0-18.0); Mean Corpuscular HGB CONC 34.4 g/dL (32.0-36.0); Mean Corpuscular Hemoglobin 30.2 pg (27.0-31.0); Mean Platelet Volume 6.7 fL (7.4-10.4); Platelet Count 569 thou/uL (130-400); RBC Distribution Width 17.2 % (11.5-14.5); White Blood Cell (WBC) Count 10.9 thou/uL (4.8-10.8)
[2017-06-09 18:40] LABS: ALT (SGPT) 46 U/L (8-55); AST (SGOT) 74 U/L (5-34); Albumin 4.7 g/dL (3.5-5.0); Alkaline Phosphatase 78 U/L (40-150); Anion Gap 15 mmol/L (10-20); BUN (Urea Nitrogen) 11 mg/dL (8.9-20.6); Calc. Creatinine Clearance 0 mL/min (70-130); Calcium 10.2 mg/dL (7.8-10.44); Carbon Dioxide 25 mmol/L (22-29); Chloride 107 mmol/L (98-107); Estimated GFR-MDRD Greater than 90; Globulin 4.2 g/dL (2.4-3.5); Glucose 98 mg/dL (70-105); Protein, Total 8.9 g/dL (6.0-8.3); Sodium 143 mmol/L (136-145)
[2017-06-09 18:44] LABS: Anisocytosis SLIGHT = 6-15 cells (100X) (0-5/hpf); Lymphocytes 18 % (21-51); MDiff Complete? YES; Monocytes 4 % (0-10); Neutrophil 78 % (42-75); Nucleated RBC 2 % (0); Ovalocytes SLIGHT = 2-5 cells (100X) (0-1/hpf); PLT Morphology Comment Appears Increased; Pappenheimer Bodies SLIGHT = 1-2 cells (100X) (None Seen); Polychromasia SLIGHT = 2-3 cells (100X) (0-2/hpf); Sickle Cells SLIGHT = 1-5 cells (100X) (None Seen); Target Cells MODERATE= 6-15 cells (100X) (0-1/hpf)
--- NOTE | 2017-06-09 19:06 | RAD ---
PORTABLE AP CHEST X-RAY: 06/09/17 HISTORY: Knee pain, sickle cell crisis. COMPARISON: 06/04/17. FINDINGS: The cardiac silhouette and pulmonary vasculature are within normal limits. The lungs remain clear. Th ere has been no interval change from the prior exam. IMPRESSION: No acute cardiopulmonary process. POS: [facility]
== END 2017-06-09 20:04 | disposition home or self-care (01) ==
LOC: ERS 17:18
DX: D57.1 Sickle-cell disease without crisis (principal); F32.9 Major depressive disorder, single episode, unspecified; F17.210 Nicotine dependence, cigarettes, uncomplicated; Z79.899 Other long term (current) drug therapy
CPT/HCPCS: 71045; 80053; 85025; 85046; 85652; 93005; 94760; 96361; 96374; 96375; 96376; J1200; J2270

== ENCOUNTER 2017-06-26 19:27 | Inpatient (IN) | payer MEDICARE, MEDICAID ==
[2017-06-26 20:03] LABS: Albumin 2.3 g/dL (3.5-5.0); Calcium 9.6 mg/dL (7.8-10.44); Chloride 102 mmol/L (98-107); Sodium 135 mmol/L (136-145)
[2017-06-26 20:04] LABS: Protein, Total 5.3 g/dL (6.0-8.3)
[2017-06-26 20:05] LABS: Bilirubin, Total 9.4 mg/dL (0.2-1.2)
[2017-06-26 20:07] LABS: BUN (Urea Nitrogen) 75 mg/dL (8.9-20.6); Calc. Creatinine Clearance 0 mL/min (70-130); Estimated GFR-MDRD 26
[2017-06-26 20:08] LABS: Hemoglobin 12.3 g/dL (14.0-18.0); Mean Corpuscular HGB CONC 36.3 g/dL (32.0-36.0); Mean Corpuscular Volume 88.3 fl (80.0-94.0); Mean Platelet Volume 6.2 fL (7.4-10.4); Platelet Count 478 thou/uL (130-400); RBC Distribution Width 17.2 % (11.5-14.5); Red Blood Cell (RBC) Count 3.85 mill/uL (4.70-6.10); Reticulocyte Count 3.1 % (0.5-1.5); White Blood Cell (WBC) Count 8.9 thou/uL (4.8-10.8)
[2017-06-26 20:09] LABS: ALT (SGPT) 986 U/L (8-55)
--- NOTE | 2017-06-26 20:20 | RAD ---
PORTABLE AP CHEST X-RAY 06/26/17 HISTORY: Shortness of breath and chest pain with left arm pain. COMPARISON: 04/27/14. FINDINGS: The cardiac silhouette and pulmonary vasculature are within normal limits. The lungs are clear. There has been no interval change from prior exam. IMPRESSION: No acute cardiopulmonary process. POS: [facility]
[2017-06-26 20:24] LABS: Alkaline Phosphatase 576 U/L (40-150)
[2017-06-26 20:28] LABS: Potassium 3.9 mmol/L (3.5-5.1)
[2017-06-26 20:29] LABS: Glucose 87 mg/dL (70-105)
[2017-06-26 20:30] LABS: Anisocytosis SLIGHT = 6-15 cells (100X) (0-5/hpf); Eosinophils 2 % (0-10); Lymphocytes 19 % (21-51); MDiff Complete? YES; Monocytes 4 % (0-10); Neutrophil 75 % (42-75); PLT Morphology Comment Appears Increased; Target Cells SLIGHT = 2-5 cells (100X) (0-1/hpf)
[2017-06-26 20:30] LABS: Anion Gap 13 mmol/L (10-20); Carbon Dioxide 24 mmol/L (22-29)
[2017-06-26 20:34] LABS: AST (SGOT) 21 U/L (5-34)
[2017-06-26 22:30] LABS: Bilirubin Negative (Negative); Blood, Urine Negative (Negative); Clarity CLEAR (Clear); Glucose, Urine (Dipstick) Negative (Negative); Leukocyte Negative (Negative); Nitrite Negative (Negative); Protein, Urine (Dipstick) Negative (Neg-Trace); Specific Gravity, Urine 1.015 (1.002-1.036)
[2017-06-26] MEDS ORDERED: HYDROmorphone 0.5 MG/0.5 ML SYRINGE ONE (22:53)
[2017-06-26 23:33] LABS: LDH 293 U/L (125-220); Lipase 35 U/L (8-78)
[2017-06-26] MEDS ORDERED: diphenhydrAMINE 50 MG/ML VIAL ONE (23:35)
[2017-06-26 23:37] LABS: CKMB 0.2 ng/mL (0-6.6); Troponin I Less than 0.010 ng/mL (< 0.028)
--- NOTE | 2017-06-27 00:05 | CT ---
NONCONTRAST CT HEAD: 06/26/2017 HISTORY: The patient was inadvertently scanned in error. COMPARISON: 02/03/2017 FINDINGS: There is no evidence of a hemorrhage, acute infarction, mass effect, or midline shift. The ventricul ar system is normal in size, shape, and position. There is suggestion of low-lying cerebellar tonsil s, but this is stable when compared to multiple prior exams. The visualized paranasal sinuses and mastoid air cells are clear. Calvarial structures are intact. IMPRESSION: 1. No acute intracranial abnormality is demonstrated. 2. 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 Chiari I malformation could not be entirely excl uded, but these findings are stable when compared to multiple prior CTs of the head including the mos t recent study on 02/03/2017 as well as prior study on 06/03/2014. POS: [facility]
--- NOTE | 2017-06-27 00:13 | CT ---
NONCONTRAST CT ABDOMEN AND PELVIS: 06/26/2017 HISTORY: Left-sided abdominal pain and chest pain. Shortness of breath. Blood in stool. History of sickle c ell disease. COMPARISON: 02/23/2017 FINDINGS: Lack of intravenous contrast limits evaluation of the parenchymal organs. 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 This is a stable finding. There is minimal atelectasis at each lung base. The lung bases are otherwise clear. The liver, pancreas, bilateral adrenal glands, kidneys, and urinary bladder demonstrate a grossly no rmal non-enhanced CT appearance. No renal or ureteral calculi are seen bilaterally. The appendix is normal in caliber without evidence of appendicitis. There is fusion of the lateral masses of L5 and S1 on the right. This is a stable finding. No free fluid is seen on this non-enhanced CT scan exam. IMPRESSION: 1. Limited exam due to lack of intravenous contrast, but no acute findings are seen on this non-enhan raina CT scan of the abdomen and pelvis. 2. No renal or ureteral calculi are seen bilaterally. 3. No CT evidence of appendicitis. 4. Findings likely related to autosplenectomy. POS: KODAK
[2017-06-27] MEDS ORDERED: HYDROmorphone 0.5 MG/0.5 ML SYRINGE ONE (00:56)
[2017-06-27] MEDS ORDERED: Ondansetron HCl/PF 4 MG/2 ML Vial ONE (00:56)
[2017-06-27] MEDS ORDERED: diphenhydrAMINE 12.5 MG/5 ML UDCUP ONE (01:44)
[2017-06-27] MEDS ORDERED: Pantoprazole 40 MG VIAL ONE (01:44)
[2017-06-27] MEDS ORDERED: diphenhydrAMINE 50 MG/ML VIAL ONE (02:16)
[2017-06-27] MEDS ORDERED: Morphine 2 MG/ML SYRINGE SLOW IVP PRN (02:27)
[2017-06-27] MEDS ORDERED: Acetaminophen 325 MG TAB PO PRN ×2 (02:29→03:44)
[2017-06-27] MEDS ORDERED: Ondansetron HCl/PF 4 MG/2 ML Vial IVP PRN (02:29)
[2017-06-27] MEDS ORDERED: HYDROcodone/Acetaminophen 5/325 mg Tablet PO PRN ×2 (02:29)
[2017-06-27] MEDS ORDERED: Ondansetron ODT 4 MG TAB SL PRN (02:29)
[2017-06-27] MEDS ORDERED: Dextrose 5 %-0.45 % NaCl 1,000 ML IV SCH (02:30)
[2017-06-27 03:08] VITALS: BMI 20.6
[2017-06-27] MEDS ORDERED: Zolpidem Tartrate 5 MG TAB PO PRN (03:44)
[2017-06-27] MEDS ORDERED: Ondansetron ODT 4 MG TAB PO PRN (03:44)
[2017-06-27] MEDS ORDERED: Loperamide HCl 2 MG CAP PO PRN (03:44)
[2017-06-27] MEDS ORDERED: Milk Of Magnesia 30 ML UDCUP PO PRN (03:44)
[2017-06-27] MEDS ORDERED: HYDROcodone/Acetaminophen 10/325 mg Tablet PO PRN (03:44)
[2017-06-27] MEDS ORDERED: Senokot 8.6 MG TAB PO PRN (03:44)
[2017-06-27] MEDS ORDERED: Mag-Al 1200 mg/1200 mg/30 ML UDCUP PO PRN (03:44)
[2017-06-27] MEDS ORDERED: cefTRIAXone\\ROCEPHIN 1 GM in Sodium Chloride 0.9% 100 ML IVPB SCH (03:45)
--- NOTE | 2017-06-27 04:17 | HP ---
PRIMARY CARE PHYSICIAN: Jefe Hernandez M.D. REASON FOR ADMISSION: Acute kidney failure, dehydration, generalized body pain, sickle cell anemia w ith crisis. HISTORY OF PRESENT ILLNESS: A 31-year-old -[place] male who has history of sickle cell anemi a and he has multiple admissions in our hospital for sickle cell crisis, who came to emergency room w ith a complaint of diffuse abdominal pain. He has predominantly abdominal pain on the right side. H e denies any fever, but he does report poor appetite, nausea. He feels fullness in his stomach. He denies any hematemesis, melena, or hematochezia. He denies any constipation, diarrhea. For the last few days, the patient was not able to eat anything because of abdominal pain, which he d escribes as 10. Along with abdominal pain, he has diffuse bony pain as well and he attributes his routine sickle cell crisis. He denies any chest pain. He does feel mild shortness of breath. He denies any pleurisy. He denies any cough. He denies any sore throat, flu-like illness. He denies any hematemesis. He denies any melena. He denies any orthopnea, PND, or leg swelling. ALLERGIES: FENTANYL, TORADOL, REGLAN, SULFA DRUGS. CURRENT HOME MEDICATIONS: Percocet one tablet q.6 hourly p.r.n., folic acid 1 mg p.o. daily, [place] 1 0 one or two tablets q.6 hourly p.r.n., Cymbalta 20 mg p.o. daily. REVIEW OF SYSTEMS: The following complete review of systems was negative, unless otherwise mentioned in the HPI or below: Constitutional: Weight loss or gain, ability to conduct usual activities. Skin: Rash, itching. Eyes: Double vision, pain. ENT/Mouth: Nose bleeding, neck stiffness, pain, tenderness. Cardiovascular: Palpitations, dyspnea on exertion, orthopnea. Respiratory: Shortness of breath, wheezing, cough, hemoptysis, fever or night sweats. Gastrointestinal: Poor appetite, abdominal pain, heartburn, nausea, vomiting, constipation, or diarr hea. Genitourinary: Urgency, frequency, dysuria, nocturia. Musculoskeletal: Pain, swelling. Neurologic/Psychiatric: Anxiety, depression. Allergy/Immunologic: Skin rash, bleeding tendency. Please see my HPI for pertinent positive and negative. All other review of systems reviewed and nega tive except as mentioned in the HPI. PAST MEDICAL HISTORY: Sickle cell disease with multiple admissions for sickle cell pain crisis. PAST SURGICAL HISTORY: Reviewed and negative. PAST PSYCHIATRIC HISTORY: Anxiety and depression. SOCIAL HISTORY: Patient drinks alcohol socially. Patient smokes cigarette on a daily basis about torres lf pack per day. He also abuses marijuana periodically. He denies any other illicit drug abuse. FAMILY HISTORY: No strong family history of premature coronary artery disease, stroke or cancer. Marky th parents had sickle cell trait. His son also has sickle cell trait. EMERGENCY ROOM COURSE: Patient is given IV fluid 2 liter, Dilaudid 0.5 mg x2, Protonix 80 mg, Zofran 4 mg x2, Benadryl 25 mg x2. PHYSICAL EXAMINATION: VITAL SIGNS: On arrival, blood pressure 122/76, pulse 90, respiratory rate 16, temperature 99.6, sat uration 97% on room air, weight 68.04 kilograms. GENERAL: The patient is currently alert, awake, no obvious acute distress. HEAD: Normocephalic, atraumatic. EYES: Pupils round, reactive to light. Icterus present. No nystagmus. ENT: Oropharynx within normal limits. Moist mucous membranes. No oral lesion, no pharyngeal erythe ma, no exudate. NECK: Supple, no JVD, no thyromegaly, no carotid bruit, no jugular venous distention. LUNGS: Clear to auscultation without any rhonchi or rales. CARDIAC: S1, S2 regular. No murmur, no gallop, no rub. ABDOMEN: Soft, mild discomfort noted in the right epigastric region as well as right upper quadrant region. No peritoneal sign, no Grewal sign, no suprapubic tenderness. No organomegaly, no mass. Marky wel sounds present. BACK: Unremarkable, no CVA tenderness. EXTREMITIES: Upper extremity, passive movement of all joints are normal. Lower extremities, no rene a. Good peripheral pulsation. SKIN: No skin rash. HEMATOLOGICAL: No lymphadenopathy. PSYCHIATRIC: Normal affect. SIGNIFICANT LABS: CBC: WBC 8.9, hemoglobin 12.3, platelet 478. BMP: Sodium 135, potassium 3.9, chloride 102, carbon dioxide 24, anion gap 13, BUN 75, creatinine 3.36, glucose 87, calcium 9.6. LFT, total bilirubin 9.4 , AST 21, ALT 986, alkaline phosphatase 576, albumin 2.3, LDH 293. CK 70, CK-MB 0.2, troponin I less than 0.010. Lipase 35. Urinalysis unremarkable. Stool for guaiac negative. CT of the abdomen and pelvis showing atelectasis of lung base. CT brain based on my review, no acute intracranial process . Chest x-ray based on my review, no acute cardiopulmonary process. ASSESSMENT AND PLAN: 1. Acute kidney failure. The patient will need IV fluid with dextrose half NS at 125 mL per hour. We will repeat BMP tomorrow. Avoid nephrotoxin agent. 2. Abnormal liver function tests (obstructive jaundice, cholestatic pattern). The patient does have elevated alkaline phosphatase as well as ALT and bilirubin is very high given sickle cell anemia and recurrent crisis. He might have underlying cholelithiasis. This patient will need HIDA scan and if HIDA scan is positive, then we will consider General Surgery consultation during this admission for splenectomy. 3. Sickle cell disease with crisis. We will control his pain with morphine 4 mg q.4 hourly along [place] p.r.n. basis. 4. Tobacco abuse disorder. Smoking cessation counseling given. Healthy lifestyle measures discusse d with the patient. 5. Deep venous thrombosis prophylaxis, heparin 5000 units subcu twice daily. 6. Gastrointestinal prophylaxis. Pepcid 20 mg IV daily. 7. Code status: The patient is FULL CODE. The patient's is surrogate decision maker. Disposition and plan based on clinical course. We are expecting patient's stay in hospital more than 2 midnights. Plan of care discussed with the patient in detail.
[2017-06-27] MEDS: Dextrose 5 %-0.45 % NaCl 1,000 ML IV SCH ×3 (04:34→23:00)
[2017-06-27] MEDS: HYDROcodone/Acetaminophen 10/325 mg Tablet PO PRN ×3 (04:44→20:36)
[2017-06-27] MEDS: cefTRIAXone\\ROCEPHIN 1 GM, Syringe 0.4 ML in Sterile Water 9.6 ML SLOW IVP SCH (04:45)
[2017-06-27 05:06] LABS: Creatinine, Urine 142.72 mg/dL (63-166)
[2017-06-27] MEDS: Morphine 5 MG/ML SYRINGE SLOW IVP PRN ×4 (05:45→23:33)
[2017-06-27] MEDS: Ondansetron HCl/PF 4 MG/2 ML Vial IVP PRN ×2 (05:49→15:46)
[2017-06-27] MEDS: Heparin 5,000 UNITS/ML VIAL SC SCH ×2 (08:01→20:22)
[2017-06-27] MEDS: Famotidine/PF 20 mg/2ml Vial SLOW IVP SCH (08:01)
--- NOTE | 2017-06-27 08:24 | ULT ---
PRELIMINARY REPORT/[facility]/EMERGENCY AFTER HOURS PROCEDURE: EXAM: US Abdomen Limited, Right Upper Quadrant EXAM DATE/TIME: Exam ordered 06/27/2017 1:04 AM CLINICAL HISTORY: 72 years old, male; Pain; Other: Upper abd TECHNIQUE: Real-time ultrasound of the right upper quadrant with image documentation. COMPARISON: No relevant prior studies available. FINDINGS: Liver: Unremarkable. No mass. No intrahepatic bile duct dilation. Gallbladder: Unremarkable. No gallstones. Common bile duct: Unremarkable as visualized. No stones. No dilation. Pancreas: Unremarkable as visualized. Right kidney: Unremarkable. No stones. No solid mass. No hydronephrosis. IMPRESSION: Normal right upper quadrant ultrasound. Thank you for allowing us to participate in the care of your patient. Dictated and Authenticated by: Jm Soriano MD 06/27/2017 3:19 AM Central Time ([place] & [place]) FINAL REPORT EMERGENCY AFTER HOURS STUDY ULTRASOUND ABDOMEN LIMITED: (RIGHT UPPER QUADRANT) HISTORY: A 31-year-old male with upper abdominal pain. FINDINGS: The gallbladder has normal wall thickness and has no evidence of gallstones or sludge. The hepatic e chogenicity is normal. The right kidney has normal echogenicity and has no hydronephrosis. The panc reas is obscured by shadowing from bowel gas. There is no biliary dilation. The common duct caliber is 3 mm. This study was mistakenly scanned under Celso Overton, a 72 year old male, hence the wr buffy age in the history on the preliminary report by [facility]. This report otherwise agrees with prelimin jami report by [facility]. IMPRESSION: 1) No pathology identified. 2) Pancreas not visualized. shira [] POS: MAYKEL
[2017-06-27 08:31] LABS: Albumin 3.6 g/dL (3.5-5.0)
[2017-06-27 08:33] LABS: Calcium 8.8 mg/dL (7.8-10.44); Chloride 107 mmol/L (98-107); Sodium 137 mmol/L (136-145)
[2017-06-27 08:34] LABS: Globulin 2.9 g/dL (2.4-3.5); Glucose 117 mg/dL (70-105); Protein, Total 6.5 g/dL (6.0-8.3)
[2017-06-27 08:35] LABS: Anion Gap 12 mmol/L (10-20); Carbon Dioxide 22 mmol/L (22-29)
[2017-06-27 08:37] LABS: Alkaline Phosphatase 59 U/L (40-150)
[2017-06-27 08:38] LABS: BUN (Urea Nitrogen) 7 mg/dL (8.9-20.6)
[2017-06-27 08:39] LABS: AST (SGOT) 17 U/L (5-34); Bilirubin, Total 0.5 mg/dL (0.2-1.2); Calc. Creatinine Clearance 125 mL/min (70-130); Estimated GFR-MDRD Greater than 90
[2017-06-27 08:40] LABS: ALT (SGPT) 7 U/L (8-55)
--- NOTE | 2017-06-27 13:24 | PDOC.EVN ---
Event Note - Event Note Event Note: Chart reviewed, Pt seen. Awaiting HIDA. PRECIOUS has resolved. LFTs normal, ? passed gall stone.
--- NOTE | 2017-06-27 16:38 | NM ---
NUCLEAR MEDICINE HEPATOBILIARY SCAN: 06/27/17 HISTORY: 31-year-old male with elevated liver function tests, and upper abdominal pain. TECHNIQUE: [id number] dose: 5.0 mCi Ensure (fatty meal) dose: 8 oz. [id number] injected IV. Dynamic anterior scintigraphy of abdomen for 1 hour. Ensure administere d. Additional dynamic anterior scintigraphy of abdomen. Counts obtained over gallbladder. Time-activ ity curve generated. FINDINGS: There is normal uptake and washout of radiopharmaceutical agent from the liver. The gallbladder fill s normally. Bowel activity is visualized at an appropriate time. The gallbladder ejection fraction is normal: 70%. IMPRESSION: Normal. shira [] POS: MAYKEL
[2017-06-27] MEDS: diphenhydrAMINE 50 MG/ML VIAL IVP PRN (17:38)
[2017-06-28] MEDS: Morphine 5 MG/ML SYRINGE SLOW IVP PRN ×5 (03:01→22:16)
[2017-06-28] MEDS: diphenhydrAMINE 50 MG/ML VIAL IVP PRN ×3 (03:02→20:20)
[2017-06-28] MEDS: cefTRIAXone\\ROCEPHIN 1 GM, Syringe 0.4 ML in Sterile Water 9.6 ML SLOW IVP SCH (03:06)
[2017-06-28 06:08] LABS: Eosinophils 3 % (0-10); Hemoglobin 10.1 g/dL (14.0-18.0); Lymphocytes 54 % (21-51); MDiff Complete? YES; Mean Corpuscular HGB CONC 35.8 g/dL (32.0-36.0); Mean Corpuscular Hemoglobin 31.7 pg (27.0-31.0); Mean Corpuscular Volume 88.5 fl (80.0-94.0); Mean Platelet Volume 7.1 fL (7.4-10.4); Monocytes 10 % (0-10); Neutrophil 33 % (42-75); Platelet Count 320 thou/uL (130-400); RBC Distribution Width 17.1 % (11.5-14.5); Red Blood Cell (RBC) Count 3.17 mill/uL (4.70-6.10); Schistocytes SLIGHT = 2-5 cells (100X) (0-1/hpf); Target Cells SLIGHT = 2-5 cells (100X) (0-1/hpf); White Blood Cell (WBC) Count 9.7 thou/uL (4.8-10.8)
[2017-06-28] MEDS: Dextrose 5 %-0.45 % NaCl 1,000 ML IV SCH ×4 (06:11→18:08)
[2017-06-28] MEDS: Famotidine/PF 20 mg/2ml Vial SLOW IVP SCH (08:02)
[2017-06-28] MEDS: Heparin 5,000 UNITS/ML VIAL SC SCH ×2 (08:02→20:19)
[2017-06-28] MEDS: HYDROcodone/Acetaminophen 10/325 mg Tablet PO PRN ×2 (09:30→15:02)
--- NOTE | 2017-06-28 11:32 | PDOC.PN ---
- Subjective Encounter Start Date: 06/28/17 Encounter Start Time: 09:00 -: old records requested/rev Patient seen and examined. No new complaints. No overnight events still has his typical sickle cell pain - Objective Resuscitation Status: Resuscitation Status FULL:Full Resuscitation MAR Reviewed: Yes Vital Signs & Weight: Vital Signs (12 hours) Temp Pulse Resp BP Pulse Ox 06/28/17 08:00 97.8 F 63 16 100 06/28/17 04:00 97.8 F 63 16 110/68 100 Weight Weight 139 lb 8 oz I&O: 06/27/17 06/28/17 06/29/17 06:59 06:59 06:59 Intake Total 1345 4241 Output Total 675 700 Balance 670 3541 Result Diagrams: 06/28/17 03:39 06/27/17 07:23 Phys Exam - Physical Examination Constitutional: NAD HEENT: PERRLA, moist MMs, sclera anicteric Neck: no JVD, supple Respiratory: no wheezing, no rales, no rhonchi Cardiovascular: RRR, no significant murmur, no rub Gastrointestinal: soft, non-tender, no distention, positive bowel sounds Musculoskeletal: no edema, pulses present Neurological: non-focal, normal sensation, moves all 4 limbs Psychiatric: normal affect, A&O x 3 Skin: no rash, normal turgor Dx/Plan (1) Abnormal LFTs Code(s): R94.5 - ABNORMAL RESULTS OF LIVER FUNCTION STUDIES Status: Acute (2) Acute kidney failure Status: Acute (3) Anxiety and depression Code(s): F41.8 - OTHER SPECIFIED ANXIETY DISORDERS Status: Chronic (4) Tobacco abuse Code(s): Z72.0 - TOBACCO USE Status: Chronic (5) Sickle cell anemia with crisis Code(s): D57.00 - HB-SS DISEASE WITH CRISIS, UNSPECIFIED Status: Acute - Plan cont current plan of care, continue antibiotics * reduce IVF * continue rocephin today * continue pain control * resume selected home meds. * medication reviewed as below * symptomatic treatment Review of Systems - Review of Systems ENT: negative: Ear Pain, Ear Discharge, Nose Pain, Nose Discharge, Nose Congestion, Mouth Pain, Mouth Swelling, Throat Pain, Throat Swelling, Other Respiratory: negative: Cough, Dry, Shortness of Breath, Hemoptysis, SOB with Excertion, Pleuritic Pain, Sputum, Wheezing Cardiovascular: negative: chest pain, palpitations, orthopnea, paroxysmal nocturnal dyspnea, edema, light headedness, other Gastrointestinal: negative: Nausea, Vomiting, Abdominal Pain, Diarrhea, Constipation, Melena, Hematochezia, Other Genitourinary: negative: Dysuria, Frequency, Incontinence, Hematuria, Retention , Other Musculoskeletal: Leg Pain. negative: Neck Pain, Shoulder Pain, Arm Pain, Back Pain, Hand Pain, Foot Pain, Other Skin: negative: Rash, Lesions, Shahram, Bruising, Other - Medications/Allergies Allergies/Adverse Reactions: Allergies Allergy/AdvReac Type Severity Reaction Status Date / Time fentanyl Allergy Verified 06/27/17 03:48 ketorolac tromethamine Allergy Short of Verified 06/27/17 03:48 [From Toradol] Breath metoclopramide [From Reglan] Allergy Verified 06/27/17 03:48 Sulfa (Sulfonamide Allergy Verified 06/27/17 03:48 Antibiotics) Medications: Current Medications Acetaminophen (Tylenol) 650 mg PO Q4H PRN PRN Reason: Headache/Fever or Pain Hydrocodone Bitart/Acetaminophen ([place] 10/325) 1 tab PO Q4H PRN PRN Reason: Moderate Pain (4-6) Hydrocodone Bitart/Acetaminophen ([place] 10/325) 2 tab PO Q4H PRN PRN Reason: Severe Pain (7-10) Last Admin: 06/28/17 09:30 Dose: 2 tab Al Hydroxide/Mg Hydroxide (Maalox) 30 ml PO Q6H PRN PRN Reason: Heartburn or Indigestion Diphenhydramine HCl (Benadryl) 25 mg IVP Q8H PRN PRN Reason: Itching & Insomnia Last Admin: 06/28/17 03:02 Dose: 25 mg Duloxetine HCl (Cymbalta) 30 mg PO DAILY [facility] Folic Acid (Folvite) 1 mg PO BID [facility] Heparin Sodium (Porcine) (Heparin) 5,000 units SC BID [facility] Last Admin: 06/28/17 08:02 Dose: 5,000 units Ceftriaxone Sodium 1 gm/ (Syringe 0.4 ml/ Sterile Water) 10 mls @ 120 mls/hr SLOW IVP 0400 [facility] Last Admin: 06/28/17 03:06 Dose: 10 mls Dextrose/Sodium Chloride (D5 1/2 Ns) 1,000 mls @ 75 mls/hr IV .[id number] GRI[facility] Loperamide HCl (Imodium) 2 mg PO PRN PRN PRN Reason: Diarrhea/Loose Stools Magnesium Hydroxide (Milk Of Magnesium) 30 ml PO DAILYPRN PRN PRN Reason: Constipation Morphine Sulfate (Morphine) 4 mg SLOW IVP Q4H PRN PRN Reason: Pain Last Admin: 06/28/17 06:48 Dose: 4 mg Ondansetron HCl (Zofran Odt) 4 mg PO Q6H PRN PRN Reason: Nausea/Vomiting Ondansetron HCl (Zofran) 4 mg IVP Q6H PRN PRN Reason: Nausea/Vomiting Last Admin: 06/27/17 15:46 Dose: 4 mg Senna (Senokot) 2 tab PO HSPRN PRN PRN Reason: Constipation Zolpidem Tartrate (Ambien) 5 mg PO HSPRN PRN PRN Reason: Insomnia
[2017-06-28] MEDS: Ondansetron HCl/PF 4 MG/2 ML Vial IVP PRN (18:05)
[2017-06-28] MEDS: Folic Acid 1 MG TAB PO SCH (20:18)
[2017-06-29] MEDS: Morphine 5 MG/ML SYRINGE SLOW IVP PRN ×6 (02:06→23:05)
[2017-06-29] MEDS: diphenhydrAMINE 50 MG/ML VIAL IVP PRN ×3 (04:13→23:59)
[2017-06-29] MEDS: cefTRIAXone\\ROCEPHIN 1 GM, Syringe 0.4 ML in Sterile Water 9.6 ML SLOW IVP SCH (04:14)
[2017-06-29] MEDS: Folic Acid 1 MG TAB PO SCH ×2 (08:14→20:19)
[2017-06-29] MEDS: Dextrose 5 %-0.45 % NaCl 1,000 ML IV SCH ×2 (08:14→20:22)
[2017-06-29] MEDS: DULoxetine 30 MG CAP PO SCH (08:14)
[2017-06-29] MEDS: Heparin 5,000 UNITS/ML VIAL SC SCH ×2 (08:15→20:19)
--- NOTE | 2017-06-29 10:25 | PDOC.PN ---
- Subjective Encounter Start Date: 06/29/17 Encounter Start Time: 08:40 Patient seen and examined. No new complaints. No overnight events still pain has not controlled - Objective Resuscitation Status: Resuscitation Status FULL:Full Resuscitation MAR Reviewed: Yes Vital Signs & Weight: Vital Signs (12 hours) Temp Pulse Resp BP Pulse Ox 06/29/17 08:00 98.2 F 63 16 98 06/29/17 07:57 98.2 F 63 16 102/57 L 98 06/29/17 04:00 98.4 F 90 16 92/50 L 97 06/29/17 00:00 98.6 F 88 16 105/61 97 Weight Weight 139 lb 8 oz I&O: 06/28/17 06/29/17 06/30/17 06:59 06:59 06:59 Intake Total 4241 4351 Output Total 700 1375 Balance 3541 2976 Result Diagrams: 06/28/17 03:39 06/27/17 07:23 Phys Exam - Physical Examination Constitutional: NAD HEENT: PERRLA, moist MMs, sclera anicteric Neck: no JVD, supple Respiratory: no wheezing, no rales, no rhonchi Cardiovascular: RRR, no significant murmur, no rub Gastrointestinal: soft, non-tender, no distention, positive bowel sounds Musculoskeletal: no edema, pulses present Neurological: non-focal, normal sensation, moves all 4 limbs Psychiatric: normal affect, A&O x 3 Skin: no rash, normal turgor Dx/Plan (1) Abnormal LFTs Code(s): R94.5 - ABNORMAL RESULTS OF LIVER FUNCTION STUDIES Status: Acute (2) Acute kidney failure Status: Acute (3) Anxiety and depression Code(s): F41.8 - OTHER SPECIFIED ANXIETY DISORDERS Status: Chronic (4) Tobacco abuse Code(s): Z72.0 - TOBACCO USE Status: Chronic (5) Sickle cell anemia with crisis Code(s): D57.00 - HB-SS DISEASE WITH CRISIS, UNSPECIFIED Status: Acute - Plan cont current plan of care * medication reviewed as below * Symptomatic treatment * continue IVF * continue pain control with morphin * expecting discharge by tomorrow. Review of Systems - Review of Systems Constitutional: negative: fever, chills, sweats, weakness, malaise, other ENT: negative: Ear Pain, Ear Discharge, Nose Pain, Nose Discharge, Nose Congestion, Mouth Pain, Mouth Swelling, Throat Pain, Throat Swelling, Other Respiratory: negative: Cough, Dry, Shortness of Breath, Hemoptysis, SOB with Excertion, Pleuritic Pain, Sputum, Wheezing Cardiovascular: negative: chest pain, palpitations, orthopnea, paroxysmal nocturnal dyspnea, edema, light headedness, other Gastrointestinal: negative: Nausea, Vomiting, Abdominal Pain, Diarrhea, Constipation, Melena, Hematochezia, Other Genitourinary: negative: Dysuria, Frequency, Incontinence, Hematuria, Retention , Other Skin: negative: Rash, Lesions, Shahram, Bruising, Other Neurological: negative: Weakness, Numbness, Incoordination, Change in Speech, Confusion, Seizures, Other - Medications/Allergies Allergies/Adverse Reactions: Allergies Allergy/AdvReac Type Severity Reaction Status Date / Time fentanyl Allergy Verified 06/27/17 03:48 ketorolac tromethamine Allergy Short of Verified 06/27/17 03:48 [From Toradol] Breath metoclopramide [From Reglan] Allergy Verified 06/27/17 03:48 Sulfa (Sulfonamide Allergy Verified 06/27/17 03:48 Antibiotics) Medications: Current Medications Acetaminophen (Tylenol) 650 mg PO Q4H PRN PRN Reason: Headache/Fever or Pain Hydrocodone Bitart/Acetaminophen ([place] 10/325) 1 tab PO Q4H PRN PRN Reason: Moderate Pain (4-6) Hydrocodone Bitart/Acetaminophen ([place] 10/325) 2 tab PO Q4H PRN PRN Reason: Severe Pain (7-10) Last Admin: 06/28/17 15:02 Dose: 2 tab Al Hydroxide/Mg Hydroxide (Maalox) 30 ml PO Q6H PRN PRN Reason: Heartburn or Indigestion Diphenhydramine HCl (Benadryl) 25 mg IVP Q8H PRN PRN Reason: Itching & Insomnia Last Admin: 06/29/17 04:13 Dose: 25 mg Duloxetine HCl (Cymbalta) 30 mg PO DAILY [facility] Last Admin: 06/29/17 08:14 Dose: 30 mg Folic Acid (Folvite) 1 mg PO BID [facility] Last Admin: 06/29/17 08:14 Dose: 1 mg Heparin Sodium (Porcine) (Heparin) 5,000 units SC BID [facility] Last Admin: 06/29/17 08:15 Dose: 5,000 units Ceftriaxone Sodium 1 gm/ (Syringe 0.4 ml/ Sterile Water) 10 mls @ 120 mls/hr SLOW IVP 0400 [facility] Last Admin: 06/29/17 04:14 Dose: 10 mls Dextrose/Sodium Chloride (D5 1/2 Ns) 1,000 mls @ 75 mls/hr IV .[id number] [facility] Last Admin: 06/29/17 08:14 Dose: 1,000 mls Loperamide HCl (Imodium) 2 mg PO PRN PRN PRN Reason: Diarrhea/Loose Stools Magnesium Hydroxide (Milk Of Magnesium) 30 ml PO DAILYPRN PRN PRN Reason: Constipation Morphine Sulfate (Morphine) 4 mg SLOW IVP Q4H PRN PRN Reason: Pain Last Admin: 06/29/17 06:04 Dose: 4 mg Ondansetron HCl (Zofran Odt) 4 mg PO Q6H PRN PRN Reason: Nausea/Vomiting Ondansetron HCl (Zofran) 4 mg IVP Q6H PRN PRN Reason: Nausea/Vomiting Last Admin: 06/28/17 18:05 Dose: 4 mg Senna (Senokot) 2 tab PO HSPRN PRN PRN Reason: Constipation Zolpidem Tartrate (Ambien) 5 mg PO HSPRN PRN PRN Reason: Insomnia
[2017-06-29] MEDS: Ondansetron HCl/PF 4 MG/2 ML Vial IVP PRN (14:28)
[2017-06-30] MEDS: Morphine 5 MG/ML SYRINGE SLOW IVP PRN ×6 (03:06→23:53)
[2017-06-30] MEDS: cefTRIAXone\\ROCEPHIN 1 GM, Syringe 0.4 ML in Sterile Water 9.6 ML SLOW IVP SCH (04:22)
[2017-06-30] MEDS: Folic Acid 1 MG TAB PO SCH ×2 (07:02→19:36)
[2017-06-30] MEDS: Heparin 5,000 UNITS/ML VIAL SC SCH ×2 (07:02→19:36)
[2017-06-30] MEDS: DULoxetine 30 MG CAP PO SCH (07:02)
--- NOTE | 2017-06-30 11:44 | PDOC.PN ---
- Subjective Encounter Start Date: 06/30/17 Encounter Start Time: 07:45 Patient seen and examined. No new complaints. No overnight events still pt does not feel to go home with this pain - Objective Resuscitation Status: Resuscitation Status FULL:Full Resuscitation MAR Reviewed: Yes Vital Signs & Weight: Vital Signs (12 hours) Temp Pulse Resp BP Pulse Ox 06/30/17 11:35 98.4 F 76 18 99/64 99 06/30/17 08:00 98.0 F 58 L 14 100/54 L 98 06/30/17 07:25 98.0 F 57 L 18 06/30/17 05:27 98.4 F 55 L 18 100/62 97 06/30/17 01:19 98.6 F 60 18 106/63 96 Weight Weight 139 lb 8 oz I&O: 06/29/17 06/30/17 07/01/17 06:59 06:59 06:59 Intake Total 4351 660 Output Total 1375 2255 Balance 2976 -1595 Result Diagrams: 06/28/17 03:39 06/27/17 07:23 Phys Exam - Physical Examination Constitutional: NAD HEENT: PERRLA, moist MMs, sclera anicteric Neck: no JVD, supple Respiratory: no wheezing, no rales, no rhonchi Cardiovascular: RRR, no significant murmur, no rub Gastrointestinal: soft, non-tender, no distention, positive bowel sounds Musculoskeletal: no edema, pulses present Neurological: non-focal, normal sensation Psychiatric: normal affect, A&O x 3 Skin: no rash, normal turgor Dx/Plan (1) Abnormal LFTs Code(s): R94.5 - ABNORMAL RESULTS OF LIVER FUNCTION STUDIES Status: Acute (2) Acute kidney failure Status: Acute (3) Anxiety and depression Code(s): F41.8 - OTHER SPECIFIED ANXIETY DISORDERS Status: Chronic (4) Tobacco abuse Code(s): Z72.0 - TOBACCO USE Status: Chronic (5) Sickle cell anemia with crisis Code(s): D57.00 - HB-SS DISEASE WITH CRISIS, UNSPECIFIED Status: Acute - Plan cont current plan of care * medication reviewed as below * symptomatic treatment * continue pain control. Review of Systems - Review of Systems ENT: negative: Ear Pain, Ear Discharge, Nose Pain, Nose Discharge, Nose Congestion, Mouth Pain, Mouth Swelling, Throat Pain, Throat Swelling, Other Respiratory: negative: Cough, Dry, Shortness of Breath, Hemoptysis, SOB with Excertion, Pleuritic Pain, Sputum, Wheezing Cardiovascular: negative: chest pain, palpitations, orthopnea, paroxysmal nocturnal dyspnea, edema, light headedness, other Gastrointestinal: negative: Nausea, Vomiting, Abdominal Pain, Diarrhea, Constipation, Melena, Hematochezia, Other Genitourinary: negative: Dysuria, Frequency, Incontinence, Hematuria, Retention , Other Skin: negative: Rash, Lesions, Shahram, Bruising, Other - Medications/Allergies Allergies/Adverse Reactions: Allergies Allergy/AdvReac Type Severity Reaction Status Date / Time fentanyl Allergy Verified 06/27/17 03:48 ketorolac tromethamine Allergy Short of Verified 06/27/17 03:48 [From Toradol] Breath metoclopramide [From Reglan] Allergy Verified 06/27/17 03:48 Sulfa (Sulfonamide Allergy Verified 06/27/17 03:48 Antibiotics) Medications: Current Medications Acetaminophen (Tylenol) 650 mg PO Q4H PRN PRN Reason: Headache/Fever or Pain Hydrocodone Bitart/Acetaminophen ([place] 10/325) 1 tab PO Q4H PRN PRN Reason: Moderate Pain (4-6) Hydrocodone Bitart/Acetaminophen ([place] 10/325) 2 tab PO Q4H PRN PRN Reason: Severe Pain (7-10) Last Admin: 06/28/17 15:02 Dose: 2 tab Al Hydroxide/Mg Hydroxide (Maalox) 30 ml PO Q6H PRN PRN Reason: Heartburn or Indigestion Diphenhydramine HCl (Benadryl) 25 mg IVP Q8H PRN PRN Reason: Itching & Insomnia Last Admin: 06/29/17 23:59 Dose: 25 mg Duloxetine HCl (Cymbalta) 30 mg PO DAILY [facility] Last Admin: 06/30/17 07:02 Dose: 30 mg Folic Acid (Folvite) 1 mg PO BID [facility] Last Admin: 06/30/17 07:02 Dose: 1 mg Heparin Sodium (Porcine) (Heparin) 5,000 units SC BID [facility] Last Admin: 06/30/17 07:02 Dose: 5,000 units Ceftriaxone Sodium 1 gm/ (Syringe 0.4 ml/ Sterile Water) 10 mls @ 120 mls/hr SLOW IVP 0400 [facility] Last Admin: 06/30/17 04:22 Dose: 10 mls Dextrose/Sodium Chloride (D5 1/2 Ns) 1,000 mls @ 75 mls/hr IV .[id number] [facility] Last Admin: 06/29/17 20:22 Dose: 1,000 mls Loperamide HCl (Imodium) 2 mg PO PRN PRN PRN Reason: Diarrhea/Loose Stools Magnesium Hydroxide (Milk Of Magnesium) 30 ml PO DAILYPRN PRN PRN Reason: Constipation Morphine Sulfate (Morphine) 4 mg SLOW IVP Q4H PRN PRN Reason: Pain Last Admin: 06/30/17 11:20 Dose: 4 mg Ondansetron HCl (Zofran Odt) 4 mg PO Q6H PRN PRN Reason: Nausea/Vomiting Ondansetron HCl (Zofran) 4 mg IVP Q6H PRN PRN Reason: Nausea/Vomiting Last Admin: 06/29/17 14:28 Dose: 4 mg Senna (Senokot) 2 tab PO HSPRN PRN PRN Reason: Constipation Zolpidem Tartrate (Ambien) 5 mg PO HSPRN PRN PRN Reason: Insomnia
[2017-06-30] MEDS: Ondansetron HCl/PF 4 MG/2 ML Vial IVP PRN (12:40)
[2017-06-30] MEDS: diphenhydrAMINE 50 MG/ML VIAL IVP PRN ×2 (12:40→23:53)
[2017-06-30] MEDS: Dextrose 5 %-0.45 % NaCl 1,000 ML IV SCH ×2 (15:38→22:17)
[2017-07-01] MEDS: Morphine 5 MG/ML SYRINGE SLOW IVP PRN ×4 (04:03→16:50)
[2017-07-01] MEDS: cefTRIAXone\\ROCEPHIN 1 GM, Syringe 0.4 ML in Sterile Water 9.6 ML SLOW IVP SCH (04:03)
[2017-07-01] MEDS: Heparin 5,000 UNITS/ML VIAL SC SCH (08:26)
[2017-07-01] MEDS: Folic Acid 1 MG TAB PO SCH (08:26)
[2017-07-01] MEDS: diphenhydrAMINE 50 MG/ML VIAL IVP PRN ×2 (08:27→16:50)
[2017-07-01] MEDS: DULoxetine 30 MG CAP PO SCH (08:27)
--- NOTE | 2017-07-01 10:42 | PDOC.PN ---
- Subjective Encounter Start Date: 07/01/17 Encounter Start Time: 08:30 Patient seen and examined. No new complaints. No overnight events pt is comfortable, resting well, he always gives some excuse to stay in hospital , this he is doing for last 2 days I do not feel or see any evidence of his acute pain but he has baseline chronic pain and seeks meds - Objective Resuscitation Status: Resuscitation Status FULL:Full Resuscitation MAR Reviewed: Yes Vital Signs & Weight: Vital Signs (12 hours) Temp Pulse Resp BP Pulse Ox 07/01/17 08:01 98.4 F 60 16 94/56 L 98 07/01/17 08:00 98.4 F 60 16 94/56 L 98 Weight Weight 139 lb 8 oz I&O: 06/30/17 07/01/17 07/02/17 06:59 06:59 06:59 Intake Total 660 1860 Output Total 2255 1450 Balance -1595 410 Result Diagrams: 06/28/17 03:39 06/27/17 07:23 Phys Exam - Physical Examination Constitutional: NAD HEENT: PERRLA, moist MMs, sclera anicteric Neck: no JVD, supple Respiratory: no wheezing, no rales, no rhonchi, clear to auscultation bilateral Cardiovascular: RRR, no significant murmur, no rub Gastrointestinal: soft, non-tender, no distention, positive bowel sounds Musculoskeletal: no edema, pulses present Neurological: non-focal, normal sensation, moves all 4 limbs Psychiatric: normal affect, A&O x 3 Skin: no rash, normal turgor Dx/Plan (1) Abnormal LFTs Code(s): R94.5 - ABNORMAL RESULTS OF LIVER FUNCTION STUDIES Status: Acute (2) Acute kidney failure Status: Acute (3) Anxiety and depression Code(s): F41.8 - OTHER SPECIFIED ANXIETY DISORDERS Status: Chronic (4) Tobacco abuse Code(s): Z72.0 - TOBACCO USE Status: Chronic (5) Sickle cell anemia with crisis Code(s): D57.00 - HB-SS DISEASE WITH CRISIS, UNSPECIFIED Status: Acute - Plan cont current plan of care * medication reviewed as below * symptomatic treatment * he is medically stable for discharge * his pain crises is resolved. Review of Systems - Review of Systems Eyes: negative: Pain, Vision Change, Conjunctivae Inflammation, Eyelid Inflammation, Redness, Other ENT: negative: Ear Pain, Ear Discharge, Nose Pain, Nose Discharge, Nose Congestion, Mouth Pain, Mouth Swelling, Throat Pain, Throat Swelling, Other Respiratory: negative: Cough, Dry, Shortness of Breath, Hemoptysis, SOB with Excertion, Pleuritic Pain, Sputum, Wheezing Cardiovascular: negative: chest pain, palpitations, orthopnea, paroxysmal nocturnal dyspnea, edema, light headedness, other Gastrointestinal: negative: Nausea, Vomiting, Abdominal Pain, Diarrhea, Constipation, Melena, Hematochezia, Other Genitourinary: negative: Dysuria, Frequency, Incontinence, Hematuria, Retention , Other Musculoskeletal: negative: Neck Pain, Shoulder Pain, Arm Pain, Back Pain, Hand Pain, Leg Pain, Foot Pain, Other Skin: negative: Rash, Lesions, Shahram, Bruising, Other - Medications/Allergies Allergies/Adverse Reactions: Allergies Allergy/AdvReac Type Severity Reaction Status Date / Time fentanyl Allergy Verified 06/27/17 03:48 ketorolac tromethamine Allergy Short of Verified 06/27/17 03:48 [From Toradol] Breath metoclopramide [From Reglan] Allergy Verified 06/27/17 03:48 Sulfa (Sulfonamide Allergy Verified 06/27/17 03:48 Antibiotics) Medications: Current Medications Acetaminophen (Tylenol) 650 mg PO Q4H PRN PRN Reason: Headache/Fever or Pain Hydrocodone Bitart/Acetaminophen ([place] 10/325) 1 tab PO Q4H PRN PRN Reason: Moderate Pain (4-6) Hydrocodone Bitart/Acetaminophen ([place] 10/325) 2 tab PO Q4H PRN PRN Reason: Severe Pain (7-10) Last Admin: 06/28/17 15:02 Dose: 2 tab Al Hydroxide/Mg Hydroxide (Maalox) 30 ml PO Q6H PRN PRN Reason: Heartburn or Indigestion Diphenhydramine HCl (Benadryl) 25 mg IVP Q8H PRN PRN Reason: Itching & Insomnia Last Admin: 07/01/17 08:27 Dose: 25 mg Duloxetine HCl (Cymbalta) 30 mg PO DAILY [facility] Last Admin: 07/01/17 08:27 Dose: 30 mg Folic Acid (Folvite) 1 mg PO BID [facility] Last Admin: 07/01/17 08:26 Dose: 1 mg Heparin Sodium (Porcine) (Heparin) 5,000 units SC BID [facility] Last Admin: 07/01/17 08:26 Dose: 5,000 units Ceftriaxone Sodium 1 gm/ (Syringe 0.4 ml/ Sterile Water) 10 mls @ 120 mls/hr SLOW IVP 0400 [facility] Last Admin: 07/01/17 04:03 Dose: 10 mls Dextrose/Sodium Chloride (D5 1/2 Ns) 1,000 mls @ 75 mls/hr IV .[id number] [facility] Last Admin: 06/30/17 22:17 Dose: 1,000 mls Loperamide HCl (Imodium) 2 mg PO PRN PRN PRN Reason: Diarrhea/Loose Stools Magnesium Hydroxide (Milk Of Magnesium) 30 ml PO DAILYPRN PRN PRN Reason: Constipation Morphine Sulfate (Morphine) 4 mg SLOW IVP Q4H PRN PRN Reason: Pain Last Admin: 07/01/17 08:28 Dose: 4 mg Ondansetron HCl (Zofran Odt) 4 mg PO Q6H PRN PRN Reason: Nausea/Vomiting Ondansetron HCl (Zofran) 4 mg IVP Q6H PRN PRN Reason: Nausea/Vomiting Last Admin: 06/30/17 12:40 Dose: 4 mg Senna (Senokot) 2 tab PO HSPRN PRN PRN Reason: Constipation Zolpidem Tartrate (Ambien) 5 mg PO HSPRN PRN PRN Reason: Insomnia
--- NOTE | 2017-07-01 11:09 | DIS ---
DATE OF ADMISSION: 06/27/2017 DATE OF DISCHARGE: 07/01/2017 PRIMARY CARE PHYSICIAN: Jefe Hernandez M.D. DISCHARGE DISPOSITION: Home. PRIMARY DISCHARGE DIAGNOSES: 1. Sickle cell crisis with painful crisis, resolved. 2. Acute kidney failure, improved. 3. Abnormal liver function tests, improved. SECONDARY DISCHARGE DIAGNOSES: Sickle cell anemia, tobacco abuse disorder, anxiety and depression, n arcotic dependence. PRIMARY PROCEDURES/OPERATIONS: None. RADIOLOGICAL INVESTIGATION: Chest, abdomen, and pelvis CT scan was unremarkable. CT brain was ye l. Chest x-ray was normal. Abdomen ultrasound was also unremarkable. HIDA scan was normal. SIGNIFICANT LABORATORY DATA: WBC 9.7, hemoglobin 10.1, platelet 320. Sodium 137, creatinine 0.76. LFT normal. Cardiac enzymes negative. Urinalysis normal. Stool for guaiac negative. DISCHARGE MEDICATIONS: Cymbalta 30 mg p.o. daily, folic acid 1 mg p.o. b.i.d., [place] 10 one tablet q .4 hourly p.r.n., tramadol 50 mg 1 or 2 tablets q.8 hourly p.r.n. CONTRAINDICATIONS: None. CODE STATUS: FULL CODE. INPATIENT CONSULTANTS: None. ALLERGIES: FENTANYL, TORADOL, REGLAN. DISCHARGE PLAN: Post hospital, patient is instructed to follow with primary care physician. HOSPITAL COURSE: A 31-year-old -[place] male with a sickle cell trait who has multiple admis sions in our hospital for sickle cell painful crises. This patient was admitted for painful crises. At the same time when he had routine blood test in the emergency room, he was found with acute kidne y failure with creatinine 3.36 and abnormal LFT. The patient had IV fluid and with the IV fluid, his renal function improved. Regarding abnormal LFT, we did abdomen and pelvis CT scan which was unrema rkable. Subsequently, we did abdominal ultrasound which was also normal, and patient also had HIDA s can that also came back normal. Surprisingly, his kidney function and liver function completely impr virgilio to normal. This patient was always trying to get excuse to stay in hospital, but based on my me dical assessment, this patient is completely comfortable to go home. He should continue all his prev ious medication and he is hemodynamically stable, tolerating p.o. well, ambulatory and saturating nor mal. The patient is seen and examined at bedside today. Please see my progress note from today for furthe r detail.
[2017-07-01] MEDS: Dextrose 5 %-0.45 % NaCl 1,000 ML IV SCH ×2 (12:31→17:54)
[2017-07-01] MEDS: Ondansetron HCl/PF 4 MG/2 ML Vial IVP PRN (13:23)
[2017-07-01 16:57] VITALS: BP 100/60; TEMP 99.1
--- NOTE | 2017-07-04 15:13 | EKG ---
Test Reason : Blood Pressure : / mmHG Vent. Rate : 078 BPM Atrial Rate : 078 BPM P-R Int : 116 ms QRS Dur : 084 ms QT Int : 372 ms P-R-T Axes : 063 059 038 degrees QTc Int : 424 ms Normal sinus rhythm Normal ECG Confirmed by HILLARY GIBBONS ([id number]), department editor ELI DOMINGUEZ ([id number]) on 07/04/2017 3:12:44 PM Referred By: Confirmed By:HILLARY GIBBONS
== END 2017-07-01 18:46 | disposition home or self-care (01) | DRG 682 ==
LOC: ERS 19:27 → T4-A 06-27 01:17
PROVIDERS: ADMIT Internal Medicine; ATTEND Internal Medicine
DX: N17.9 Acute kidney failure, unspecified (principal); D57.00 Hb-SS disease with crisis, unspecified; E86.0 Dehydration; F32.9 Major depressive disorder, single episode, unspecified; F41.9 Anxiety disorder, unspecified; F17.210 Nicotine dependence, cigarettes, uncomplicated; F12.10 Cannabis abuse, uncomplicated; Z79.891 Long term (current) use of opiate analgesic; R79.89 Other specified abnormal findings of blood chemistry
CPT/HCPCS: 36415; 70450; 71045; 74176; 76705; 78227; 80053; 81003; 82274; 82550; 82553; 82570; 83010; 83605; 83615; 83690; 84300; 84484; 85025; 85046; 93005; 96361; 96374; 96375; 96376; J2270; A4216; A9537; C9113; J0696; J1170; J1200; J1644; J2405; Q0162; S0028

== ENCOUNTER 2017-07-02 13:52 | Emergency (ER) | payer MEDICARE, OTHER ==
[2017-07-02] MEDS ORDERED: HYDROcodone/Acetaminophen 10/325 mg Tablet ONE (14:14)
[2017-07-02 14:46] LABS: Reticulocyte Count 4.7 % (0.5-1.5)
[2017-07-02 14:47] LABS: Hemoglobin 12.8 g/dL (14.0-18.0); Mean Corpuscular HGB CONC 35.8 g/dL (32.0-36.0); Mean Corpuscular Hemoglobin 31.4 pg (27.0-31.0); Mean Corpuscular Volume 87.8 fl (80.0-94.0); Mean Platelet Volume 6.5 fL (7.4-10.4); Platelet Count 514 thou/uL (130-400); Red Blood Cell (RBC) Count 4.09 mill/uL (4.70-6.10)
[2017-07-02 15:00] LABS: ALT (SGPT) 33 U/L (8-55); AST (SGOT) 38 U/L (5-34); Albumin 4.9 g/dL (3.5-5.0); Alkaline Phosphatase 88 U/L (40-150); Anion Gap 15 mmol/L (10-20); BUN (Urea Nitrogen) 8 mg/dL (8.9-20.6); Calc. Creatinine Clearance 0 mL/min (70-130); Calcium 10.8 mg/dL (7.8-10.44); Carbon Dioxide 25 mmol/L (22-29); Chloride 101 mmol/L (98-107); Estimated GFR-MDRD Greater than 90; Globulin 4.5 g/dL (2.4-3.5); Glucose 79 mg/dL (70-105); Potassium 4.1 mmol/L (3.5-5.1); Protein, Total 9.4 g/dL (6.0-8.3); Sodium 137 mmol/L (136-145)
[2017-07-02 15:06] LABS: #Eosinphils 0.1 thou/uL (0.0-0.7); #Neutrophils 7.7 thou/uL (1.40-6.50); %Basophils 0.1 % (0.0-1.0); %Eosinophils 0.8 % (0.0-10.0); %Lymphocytes 18.1 % (21.0-51.0); %Monocytes 9.7 % (0.0-10.0); %Neutrophils 71.4 % (42.0-75.0); Anisocytosis SLIGHT = 6-15 cells (100X) (0-5/hpf); MDiff Complete? YES; PLT Morphology Comment Appears Increased; Pappenheimer Bodies SLIGHT = 1-2 cells (100X) (None Seen); Polychromasia SLIGHT = 2-3 cells (100X) (0-2/hpf); Sickle Cells SLIGHT = 1-5 cells (100X) (None Seen); Target Cells MODERATE= 6-15 cells (100X) (0-1/hpf); Tear Drops SLIGHT = 2-5 cells (100X) (0-1/hpf); White Blood Cell (WBC) Count 10.8 thou/uL (4.8-10.8)
--- NOTE | 2017-07-02 15:14 | RAD ---
CHEST 1 VIEW: HISTORY: Chest pain. COMPARISON: 06/09/17. FINDINGS: Cardiac silhouette is magnified by projection. Pulmonary vasculature is unremarkable. Mediastinum i s midline. There is no lobar consolidation or evidence of pneumothorax. library monitor leads overl ie the chest. IMPRESSION: No active cardiopulmonary abnormalities are demonstrated. POS: [facility]
--- NOTE | 2017-07-04 17:35 | EKG ---
Test Reason : Blood Pressure : / mmHG Vent. Rate : 088 BPM Atrial Rate : 088 BPM P-R Int : 108 ms QRS Dur : 088 ms QT Int : 358 ms P-R-T Axes : 040 055 031 degrees QTc Int : 433 ms Sinus rhythm with short VA Nonspecific T wave abnormality Abnormal ECG Confirmed by SHYANNE KAYE, BRI ([id number]), multimedia editor ELI DOMINGUEZ ([id number]) on 07/04/2017 5:33:53 PM Referred By: Confirmed By:BRI KIMBLE MD
== END 2017-07-02 15:45 | disposition home or self-care (01) ==
LOC: ERS 13:52
DX: D57.20 Sickle-cell/Hb-C disease without crisis (principal); F32.9 Major depressive disorder, single episode, unspecified; Z87.891 Personal history of nicotine dependence; Z79.899 Other long term (current) drug therapy
CPT/HCPCS: 36415; 71045; 80053; 85025; 85046; 93005

== ENCOUNTER 2017-07-02 16:05 | Emergency (ER) | payer MEDICARE, MEDICAID ==
[2017-07-02 19:21] LABS: #Eosinphils 0.1 thou/uL (0.0-0.7); #Lymphocytes 3.2 thou/uL (1.20-3.40); #Monocytes 1.2 thou/uL (0.11-0.59); #Neutrophils 6.4 thou/uL (1.40-6.50); %Basophils 0.4 % (0.0-1.0); %Eosinophils 0.8 % (0.0-10.0); %Neutrophils 58.8 % (42.0-75.0); Hemoglobin 12.2 g/dL (14.0-18.0); Mean Corpuscular HGB CONC 35.3 g/dL (32.0-36.0); Mean Corpuscular Hemoglobin 31.9 pg (27.0-31.0); Mean Corpuscular Volume 90.3 fl (80.0-94.0); Mean Platelet Volume 6.7 fL (7.4-10.4); Platelet Count 487 thou/uL (130-400); Red Blood Cell (RBC) Count 3.83 mill/uL (4.70-6.10); White Blood Cell (WBC) Count 10.9 thou/uL (4.8-10.8)
[2017-07-02 19:22] LABS: Reticulocyte Count 4.5 % (0.5-1.5)
--- NOTE | 2017-07-02 19:28 | RAD ---
CHEST ONE VIEW 07/02/17 HISTORY: Bloody emesis. COMPARISON: None. FINDINGS: The lungs are clear. No pneumothorax or effusion. The cardiac silhouette and mediastinal contours ar e within normal limits. IMPRESSION: No acute intrathoracic abnormality. POS: [facility]
[2017-07-02 19:43] LABS: ALT (SGPT) 35 U/L (8-55); AST (SGOT) 41 U/L (5-34); Albumin 4.8 g/dL (3.5-5.0); Alkaline Phosphatase 87 U/L (40-150); Anion Gap 17 mmol/L (10-20); BUN (Urea Nitrogen) 8 mg/dL (8.9-20.6); Bilirubin, Total 0.9 mg/dL (0.2-1.2); Calc. Creatinine Clearance 0 mL/min (70-130); Calcium 10.5 mg/dL (7.8-10.44); Carbon Dioxide 24 mmol/L (22-29); Chloride 101 mmol/L (98-107); Estimated GFR-MDRD Greater than 90; Glucose 73 mg/dL (70-105); Potassium 4.4 mmol/L (3.5-5.1); Protein, Total 8.8 g/dL (6.0-8.3); Sodium 138 mmol/L (136-145)
[2017-07-02 19:46] LABS: CKMB 0.2 ng/mL (0-6.6); Troponin I Less than 0.010 ng/mL (< 0.028)
[2017-07-02] MEDS ORDERED: Ondansetron HCl/PF 4 MG/2 ML Vial ONE (20:18)
[2017-07-02] MEDS ORDERED: diphenhydrAMINE 50 MG/ML VIAL ONE (20:18)
[2017-07-02] MEDS ORDERED: HYDROmorphone 0.5 MG/0.5 ML SYRINGE ONE (21:30)
--- NOTE | 2017-07-02 21:42 | CT ---
CT ABDOMEN AND PELVIS WITH CONTRAST 07/02/17 HISTORY: Upper abdominal pain, left chest pain, vomiting feculent material. COMPARISON: CT stone protocol, 06/26/17. Without contrast. FINDINGS: Lung bases are clear. No pericardial effusion. Contrast is seen throughout the larger and small bowel. There is mild mucosal thickening of the jejun um. The appendix is visualized as normal. No hydroureteronephrosis or nephroureterolithiasis. The pancreas is unremarkable. The gallbladder and liver also appear unremarkable. There is a streak artifact at the first portion of the duodenum of u nknown reason. Aortoiliac contour is normal. Pancreas and adrenal glands are also normal. IMPRESSION: 1. Somewhat rectangular shaped radiolucency within a second portion of the duodenum creating a a rtifact. This has density greater than air although much less than ingested contrast and soft tissue. 2. Normal appendix. 3. Mildly thickened proximal small bowel loops can be seen with enteritis. Code CR - Dr. Lehman 9:05 p.m. POS: [facility]
--- NOTE | 2017-07-02 22:02 | RAD ---
ABDOMEN ONE VIEW 07/02/17 HISTORY: Foreign body. COMPARISON: CT same day. FINDINGS: Contrast is seen throughout the small and large bowel. There is contrast within the renal collecting systems and urinary bladder. IMPRESSION: No foreign body seen on this examination. POS: [facility]
== END 2017-07-02 22:16 | disposition home or self-care (01) ==
LOC: ERS 16:05
DX: R10.10 Upper abdominal pain, unspecified (principal); F32.9 Major depressive disorder, single episode, unspecified; F17.210 Nicotine dependence, cigarettes, uncomplicated
CPT/HCPCS: 36415; 71045; 74018; 74177; 80053; 82553; 84484; 85025; 85046; 93005; 96361; 96374; 96375; J1170; J1200; J2405

== ENCOUNTER 2017-07-07 04:29 | Emergency (ER) | payer MEDICARE, MEDICAID ==
[2017-07-07] MEDS ORDERED: Acetaminophen 500 MG TAB ONE (04:59)
[2017-07-07 05:13] LABS: ALT (SGPT) 20 U/L (8-55); AST (SGOT) 29 U/L (5-34); Albumin 4.4 g/dL (3.5-5.0); Alkaline Phosphatase 76 U/L (40-150); Anion Gap 13 mmol/L (10-20); BUN (Urea Nitrogen) 9 mg/dL (8.9-20.6); Bilirubin, Total 0.5 mg/dL (0.2-1.2); Calc. Creatinine Clearance 0 mL/min (70-130); Carbon Dioxide 24 mmol/L (22-29); Chloride 105 mmol/L (98-107); Estimated GFR-MDRD Greater than 90; Globulin 3.8 g/dL (2.4-3.5); Glucose 90 mg/dL (70-105); Lipase 48 U/L (8-78); Potassium 3.8 mmol/L (3.5-5.1); Protein, Total 8.2 g/dL (6.0-8.3); Sodium 138 mmol/L (136-145)
[2017-07-07 05:37] LABS: Anisocytosis MODERATE=16-30 cells (100X) (0-5/hpf); Band 1 % (5-11); Eosinophils 1 % (0-10); Hemoglobin 11.2 g/dL (14.0-18.0); Lymphocytes 49 % (21-51); MDiff Complete? YES; Mean Corpuscular HGB CONC 35.2 g/dL (32.0-36.0); Mean Corpuscular Hemoglobin 31.9 pg (27.0-31.0); Mean Corpuscular Volume 90.5 fl (80.0-94.0); Mean Platelet Volume 6.5 fL (7.4-10.4); Metamyelocyte 1 % (0-0); Monocytes 9 % (0-10); Neutrophil 35 % (42-75); PLT Morphology Comment Appears Increased; Platelet Count 495 thou/uL (130-400); Reactive Lymphocytes 4 % (0-10); Red Blood Cell (RBC) Count 3.52 mill/uL (4.70-6.10); Spherocytes SLIGHT = 1-5 cells (100X) (None Seen); Target Cells SLIGHT = 2-5 cells (100X) (0-1/hpf); White Blood Cell (WBC) Count 8.8 thou/uL (4.8-10.8)
[2017-07-07 05:42] LABS: Reticulocyte Count 4.4 % (0.5-1.5)
[2017-07-07] MEDS ORDERED: Ondansetron ODT 4 MG TAB ONE (06:08)
--- NOTE | 2017-07-07 08:05 | RAD ---
CHEST ONE VIEW: History: Chest pain. Comparison: 07-02-17 FINDINGS: Cardiac silhouette is magnified by projection. Pulmonary vasculature is unremarkable. Mediastinum is midline. There is no lobar consolidation or evidence of pneumothorax. court monitor leads overlie t he chest. IMPRESSION: No active cardiopulmonary abnormalities are demonstrated. POS: [facility]
--- NOTE | 2017-08-20 15:03 | EKG ---
Test Reason : Blood Pressure : / mmHG Vent. Rate : 073 BPM Atrial Rate : 073 BPM P-R Int : 112 ms QRS Dur : 090 ms QT Int : 382 ms P-R-T Axes : 048 049 036 degrees QTc Int : 420 ms Normal sinus rhythm with sinus arrhythmia Normal ECG Confirmed by SRIKANTH PATEL ([id number]), general expeditor ELI DOMINGUEZ ([id number]) on 08/20/2017 3:03:23 PM Referred By: Confirmed By:SRIKANTH PATEL
== END 2017-07-07 07:30 | disposition home or self-care (01) ==
LOC: ERS 04:29
DX: D57.00 Hb-SS disease with crisis, unspecified (principal); F17.210 Nicotine dependence, cigarettes, uncomplicated; Z79.899 Other long term (current) drug therapy
CPT/HCPCS: 36415; 71045; 80053; 83690; 85025; 85046; 85652; 93005; 96360; 96361; 99406; Q0162

== ENCOUNTER 2017-07-17 16:33 | Emergency (ER) | payer MEDICARE, MEDICAID ==
--- NOTE | 2017-07-17 17:55 | RAD ---
PA AND LATERAL CHEST X-RAY: 07/17/17 HISTORY: Chest pain COMPARISON: 03/19/17 FINDINGS: The cardiac silhouette and pulmonary vasculature are within normal limits. The lungs remain clear. Th ere has been no interval change compared to the prior exam. IMPRESSION: No acute cardiopulmonary process. POS: [facility]
[2017-07-17 18:15] LABS: Hemoglobin 12.5 g/dL (14.0-18.0); Mean Corpuscular HGB CONC 35.5 g/dL (32.0-36.0); Mean Corpuscular Volume 87.3 fl (80.0-94.0); Platelet Count 572 thou/uL (130-400); RBC Distribution Width 16.3 % (11.5-14.5); Red Blood Cell (RBC) Count 4.04 mill/uL (4.70-6.10)
[2017-07-17 18:27] LABS: ALT (SGPT) 14 U/L (8-55); AST (SGOT) 25 U/L (5-34); Albumin 4.9 g/dL (3.5-5.0); Alkaline Phosphatase 85 U/L (40-150); Anion Gap 14 mmol/L (10-20); BUN (Urea Nitrogen) 6 mg/dL (8.9-20.6); Bilirubin, Total 0.7 mg/dL (0.2-1.2); CK (CPK) 115 U/L (30-200); Calc. Creatinine Clearance 0 mL/min (70-130); Calcium 10.6 mg/dL (7.8-10.44); Carbon Dioxide 23 mmol/L (22-29); Chloride 109 mmol/L (98-107); Estimated GFR-MDRD Greater than 90; Globulin 3.9 g/dL (2.4-3.5); Glucose 94 mg/dL (70-105); Potassium 4.6 mmol/L (3.5-5.1); Protein, Total 8.8 g/dL (6.0-8.3); Sodium 141 mmol/L (136-145)
[2017-07-17] MEDS ORDERED: HYDROcodone/Acetaminophen 5/325 mg Tablet ONE ×2 (18:38→20:15)
[2017-07-17 18:39] LABS: CKMB 0.3 ng/mL (0-6.6); Troponin I Less than 0.010 ng/mL (< 0.028)
[2017-07-17 18:54] LABS: Reticulocyte Count 3.3 % (0.5-1.5)
[2017-07-17 19:00] LABS: White Blood Cell (WBC) Count 16.3 thou/uL (4.8-10.8)
[2017-07-17 19:02] LABS: Anisocytosis SLIGHT = 6-15 cells (100X) (0-5/hpf); Band 1 % (5-11); Eosinophils 2 % (0-10); Large Platelets SLIGHT; Lymphocytes 14 % (21-51); MDiff Complete? YES; Monocytes 5 % (0-10); Neutrophil 76 % (42-75); PLT Morphology Comment Appears Increased; Polychromasia SLIGHT = 2-3 cells (100X) (0-2/hpf); Reactive Lymphocytes 2 % (0-10); Sickle Cells SLIGHT = 1-5 cells (100X) (None Seen); Target Cells MODERATE= 6-15 cells (100X) (0-1/hpf)
== END 2017-07-17 20:53 | disposition home or self-care (01) ==
LOC: ERS 16:33
DX: D57.00 Hb-SS disease with crisis, unspecified (principal); F17.210 Nicotine dependence, cigarettes, uncomplicated; Z71.6 Tobacco abuse counseling; Z79.899 Other long term (current) drug therapy
CPT/HCPCS: 36415; 71046; 80053; 82553; 84484; 85025; 85046; 93005; 96360; 96361; 99406

== ENCOUNTER 2017-07-31 20:30 | Emergency (ER) | payer MEDICARE, OTHER ==
--- NOTE | 2017-07-31 21:11 | RAD ---
PA AND LATERAL CHEST X-RAY: 07/31/17 HISTORY: Sickle cell disease. Patient has chest and neck pain. COMPARISON: 07/17/17 FINDINGS: Cardiac silhouette and pulmonary vasculature are within normal limits. Lungs remain clear. There has been no interval change from prior study. IMPRESSION: No acute cardiopulmonary process. POS: [facility]
[2017-07-31] MEDS ORDERED: Mag-Al 1200 mg/1200 mg/30 ML UDCUP ONE (21:16)
[2017-07-31] MEDS ORDERED: Pantoprazole 40 MG VIAL ONE (21:16)
[2017-07-31] MEDS ORDERED: Lidocaine Viscous Sol 2% 15 ml UD Cup ONE (21:16)
[2017-07-31 21:19] LABS: Reticulocyte Count 3.4 % (0.5-1.5)
[2017-07-31 21:24] LABS: INR-International Normal Ratio 1.1; PTT 32.1 SEC (22.9-36.1); Prothrombin Time 13.9 SEC (12.0-14.7)
[2017-07-31 21:28] LABS: ALT (SGPT) 13 U/L (8-55); AST (SGOT) 30 U/L (5-34); Albumin 4.9 g/dL (3.5-5.0); Alkaline Phosphatase 81 U/L (40-150); Anion Gap 18 mmol/L (10-20); BUN (Urea Nitrogen) 8 mg/dL (8.9-20.6); Bilirubin, Total 0.7 mg/dL (0.2-1.2); CK (CPK) 204 U/L (30-200); Calc. Creatinine Clearance 0 mL/min (70-130); Calcium 10.3 mg/dL (7.8-10.44); Carbon Dioxide 23 mmol/L (22-29); Chloride 101 mmol/L (98-107); Estimated GFR-MDRD Greater than 90; Globulin 4.6 g/dL (2.4-3.5); Glucose 78 mg/dL (70-105); Lipase 14 U/L (8-78); Potassium 3.9 mmol/L (3.5-5.1); Protein, Total 9.5 g/dL (6.0-8.3); Sodium 138 mmol/L (136-145)
[2017-07-31] MEDS ORDERED: Sucralfate 1 GM TAB PO SCH (21:30)
[2017-07-31 21:33] LABS: CKMB 0.3 ng/mL (0-6.6); Troponin I Less than 0.010 ng/mL (< 0.028)
[2017-07-31 21:44] LABS: Eosinophils 1 % (0-10); Hemoglobin 12.3 g/dL (14.0-18.0); Lymphocytes 39 % (21-51); MDiff Complete? YES; Mean Corpuscular HGB CONC 35.4 g/dL (32.0-36.0); Mean Corpuscular Volume 87.5 fl (80.0-94.0); Mean Platelet Volume 6.4 fL (7.4-10.4); Monocytes 13 % (0-10); Neutrophil 47 % (42-75); PLT Morphology Comment Appears Increased; Platelet Count 491 thou/uL (130-400); RBC Distribution Width 15.9 % (11.5-14.5); Red Blood Cell (RBC) Count 3.97 mill/uL (4.70-6.10); White Blood Cell (WBC) Count 9.4 thou/uL (4.8-10.8)
[2017-07-31] MEDS ORDERED: Ondansetron ODT 4 MG TAB ONE (22:15)
== END 2017-07-31 23:10 | disposition home or self-care (01) ==
LOC: ERS 20:30
DX: K22.6 Gastro-esophageal laceration-hemorrhage syndrome (principal); R07.9 Chest pain, unspecified; Z79.899 Other long term (current) drug therapy; D57.20 Sickle-cell/Hb-C disease without crisis
CPT/HCPCS: 71046; 80053; 82274; 82553; 83690; 84484; 85025; 85046; 85610; 85730; 93005; 94760; 96361; 96374; 99406; C9113; Q0162

== ENCOUNTER 2017-08-22 14:01 | Emergency (ER) | payer MEDICARE, MEDICAID ==
[2017-08-22] MEDS ORDERED: HYDROcodone/Acetaminophen 10/325 mg Tablet ONE (14:15)
[2017-08-22 14:41] LABS: Hemoglobin 10.8 g/dL (14.0-18.0); Mean Corpuscular HGB CONC 37.1 g/dL (32.0-36.0); Mean Corpuscular Hemoglobin 32.4 pg (27.0-31.0); Mean Corpuscular Volume 87.3 fl (80.0-94.0); Mean Platelet Volume 6.1 fL (7.4-10.4); Platelet Count 401 thou/uL (130-400); RBC Distribution Width 15.9 % (11.5-14.5); Red Blood Cell (RBC) Count 3.32 mill/uL (4.70-6.10)
[2017-08-22 14:42] LABS: Reticulocyte Count 3.6 % (0.5-1.5)
[2017-08-22 14:52] LABS: Anion Gap 13 mmol/L (10-20); BUN (Urea Nitrogen) 6 mg/dL (8.9-20.6); Calc. Creatinine Clearance 0 mL/min (70-130); Calcium 9.1 mg/dL (7.8-10.44); Carbon Dioxide 22 mmol/L (22-29); Chloride 107 mmol/L (98-107); Estimated GFR-MDRD Greater than 90; Glucose 109 mg/dL (70-105); Potassium 3.7 mmol/L (3.5-5.1); Sodium 138 mmol/L (136-145)
[2017-08-22 15:17] LABS: Anisocytosis SLIGHT = 6-15 cells (100X) (0-5/hpf); Lymphocytes 25 % (21-51); MDiff Complete? YES; Monocytes 7 % (0-10); Neutrophil 68 % (42-75); PLT Morphology Comment Appears Increased; Target Cells SLIGHT = 2-5 cells (100X) (0-1/hpf)
--- NOTE | 2017-08-22 16:19 | RAD ---
PORTABLE CHEST 08/22/17 PROVIDED CLINICAL HISTORY: Chest pain. FINDINGS: Comparison 07/31/17. Cardiac and mediastinal silhouette is within normal limits. The lungs appear clear. No pleural fluid or pneumothorax apparent. IMPRESSION: No evidence for an acute cardiopulmonary process. POS: [facility]
== END 2017-08-22 16:58 | disposition home or self-care (01) ==
LOC: EEVIPCON 14:01 → ERS 14:01
DX: D57.00 Hb-SS disease with crisis, unspecified (principal); G35 Multiple sclerosis; F17.210 Nicotine dependence, cigarettes, uncomplicated; Z79.891 Long term (current) use of opiate analgesic; Z79.899 Other long term (current) drug therapy
CPT/HCPCS: 36415; 71045; 80048; 85025; 85046; 93005

== ENCOUNTER 2017-09-18 16:10 | Emergency (ER) | payer MEDICARE, MEDICAID ==
[2017-09-18 16:57] LABS: Hemoglobin 12.3 g/dL (14.0-18.0); Mean Corpuscular HGB CONC 35.3 g/dL (32.0-36.0); Mean Corpuscular Hemoglobin 31.3 pg (27.0-31.0); Mean Corpuscular Volume 88.8 fl (80.0-94.0); Mean Platelet Volume 6.5 fL (7.4-10.4); Platelet Count 403 thou/uL (130-400); RBC Distribution Width 16.3 % (11.5-14.5); Red Blood Cell (RBC) Count 3.93 mill/uL (4.70-6.10); Reticulocyte Count 4.5 % (0.5-1.5)
[2017-09-18 17:11] LABS: Anisocytosis SLIGHT = 6-15 cells (100X) (0-5/hpf); Band 1 % (5-11); Lymphocytes 33 % (21-51); MDiff Complete? YES; Monocytes 7 % (0-10); Neutrophil 59 % (42-75); PLT Morphology Comment Appears Increased; Target Cells SLIGHT = 2-5 cells (100X) (0-1/hpf); White Blood Cell (WBC) Count 11.2 thou/uL (4.8-10.8)
[2017-09-18 17:15] LABS: ALT (SGPT) 8 U/L (8-55); AST (SGOT) 28 U/L (5-34); Alkaline Phosphatase 81 U/L (40-150); Anion Gap 16 mmol/L (10-20); BUN (Urea Nitrogen) 7 mg/dL (8.9-20.6); Bilirubin, Total 1.6 mg/dL (0.2-1.2); Calc. Creatinine Clearance 0 mL/min (70-130); Calcium 10.4 mg/dL (7.8-10.44); Carbon Dioxide 22 mmol/L (22-29); Chloride 105 mmol/L (98-107); Estimated GFR-MDRD Greater than 90; Globulin 4.6 g/dL (2.4-3.5); Glucose 93 mg/dL (70-105); Potassium 6.2 mmol/L (3.5-5.1); Protein, Total 9.6 g/dL (6.0-8.3); Sodium 137 mmol/L (136-145)
[2017-09-18] MEDS ORDERED: HYDROcodone/Acetaminophen 10/325 mg Tablet ONE (18:20)
--- NOTE | 2017-09-18 18:54 | RAD ---
LUMBAR SPINE THREE VIEW SERIES: INDICATIONS: Posttraumatic back pain. COMPARISON: Reference made to a 10/05/2014 exam. FINDINGS: The lumbar spine vertebral body heights are maintained without evidence of subluxation. Disk space h eights are preserved. IMPRESSION: No acute osseous abnormality of the lumbar spine. POS: [facility]
== END 2017-09-18 18:50 | disposition home or self-care (01) ==
LOC: ERS 16:10
DX: M79.1 Myalgia (principal); R53.83 Other fatigue; F17.210 Nicotine dependence, cigarettes, uncomplicated; Z71.6 Tobacco abuse counseling
CPT/HCPCS: 36415; 72100; 80053; 85025; 85046; 93005; 99406

== ENCOUNTER 2017-09-21 14:23 | Inpatient (IN) | payer MEDICARE, MEDICAID ==
[2017-09-21 15:37] LABS: Reticulocyte Count 3.1 % (0.5-1.5)
[2017-09-21 15:46] LABS: Hemoglobin 10.8 g/dL (14.0-18.0); Mean Corpuscular HGB CONC 36.4 g/dL (32.0-36.0); Mean Corpuscular Hemoglobin 31.9 pg (27.0-31.0); Mean Corpuscular Volume 87.5 fl (80.0-94.0); Mean Platelet Volume 6.3 fL (7.4-10.4); Platelet Count 375 thou/uL (130-400); RBC Distribution Width 15.9 % (11.5-14.5)
[2017-09-21] MEDS ORDERED: HYDROcodone/Acetaminophen 10/325 mg Tablet ONE (15:46)
[2017-09-21 15:58] LABS: ALT (SGPT) 15 U/L (8-55); AST (SGOT) 26 U/L (5-34); Albumin 4.5 g/dL (3.5-5.0); Alkaline Phosphatase 66 U/L (40-150); Anion Gap 13 mmol/L (10-20); BUN (Urea Nitrogen) 6 mg/dL (8.9-20.6); Bilirubin, Total 1.2 mg/dL (0.2-1.2); Calc. Creatinine Clearance 0 mL/min (70-130); Calcium 9.8 mg/dL (7.8-10.44); Carbon Dioxide 24 mmol/L (22-29); Chloride 105 mmol/L (98-107); Estimated GFR-MDRD Greater than 90; Globulin 3.7 g/dL (2.4-3.5); Glucose 79 mg/dL (70-105); Potassium 3.8 mmol/L (3.5-5.1); Protein, Total 8.2 g/dL (6.0-8.3); Sodium 138 mmol/L (136-145)
[2017-09-21 16:05] LABS: Anisocytosis SLIGHT = 6-15 cells (100X) (0-5/hpf); Band 4 % (5-11); Lymphocytes 7 % (21-51); MDiff Complete? YES; Monocytes 6 % (0-10); Neutrophil 83 % (42-75); PLT Morphology Comment Appears Adequate; Poikilocytosis SLIGHT = 6-15 cells (100X) (0-5/hpf); Sickle Cells SLIGHT = 1-5 cells (100X) (None Seen); White Blood Cell (WBC) Count 10.5 thou/uL (4.8-10.8)
--- NOTE | 2017-09-21 16:25 | RAD ---
CHEST 2 VIEWS: History Pain. COMPARISON: 07/31/17. FINDINGS: Normal cardiac silhouette. Pulmonary vessels and hilum are normal. Costophrenic angles are clear. No consolidation or mass. No pneumothorax or osseous abnormalities. IMPRESSION: No acute cardiopulmonary process. POS: [facility]
[2017-09-21 17:28] LABS: Bilirubin Negative (Negative); Blood, Urine Negative (Negative); Clarity CLEAR (Clear); Glucose, Urine (Dipstick) Negative (Negative); Leukocyte Negative (Negative); Nitrite Negative (Negative); Protein, Urine (Dipstick) Negative (Neg-Trace); Urobilinogen 0.2 mg/dL (0.2-1.0)
[2017-09-21] MEDS ORDERED: SODIUM CHLORIDE 0.9% IVPB ONE (17:30)
[2017-09-21] MEDS ORDERED: HYDROMORPHONE IVPB ONE (17:30)
[2017-09-21] MEDS ORDERED: diphenhydrAMINE 50 MG/ML VIAL ONE (18:53)
[2017-09-21] MEDS ORDERED: Ondansetron ODT 4 MG TAB SL PRN (21:33)
[2017-09-21] MEDS ORDERED: HYDROcodone/Acetaminophen 5/325 mg Tablet PO PRN ×2 (21:33)
[2017-09-21] MEDS ORDERED: Acetaminophen 325 MG TAB PO PRN (21:33)
[2017-09-21] MEDS ORDERED: Ondansetron HCl/PF 4 MG/2 ML Vial IVP PRN (21:33)
[2017-09-21] MEDS ORDERED: diphenhydrAMINE 25 MG CAP PO PRN (22:05)
[2017-09-21] MEDS: Morphine 4 MG/ML VIAL SLOW IVP PRN (22:32)
[2017-09-21] MEDS ORDERED: Calcium Carbonate 500 MG ChewTAB PO PRN (22:36)
[2017-09-21] MEDS ORDERED: Guaifenesin DM 100-10/5 ML UDCUP PO PRN (22:36)
[2017-09-21] MEDS ORDERED: Mag-Al 1200 mg/1200 mg/30 ML UDCUP PO PRN (22:36)
[2017-09-21] MEDS ORDERED: diphenhydrAMINE 25 MG in Sodium Chloride 0.9% 50 ML IVPB SCH (22:45)
[2017-09-21 23:34] VITALS: BMI 20.7
[2017-09-21] MEDS: Levofloxacin 750 mg/D5W 500 MG in Premix Bag 1 BAG IVPB SCH (23:45)
[2017-09-21] MEDS: Sodium Chloride 0.9% 1,000 ML IV SCH (23:45)
[2017-09-22] MEDS: Morphine 4 MG/ML VIAL SLOW IVP PRN ×6 (02:21→22:48)
--- NOTE | 2017-09-22 06:04 | HP ---
REASON FOR ADMISSION: Sickle cell crisis with pain, acute bronchitis. HISTORY OF PRESENT ILLNESS: The patient gives history of left lower back pain, bilateral elbow pain and both knee pains. He says he has got his sickle cell crisis back. The patient also complains of throat pain with expectoration of dark green colored sputum. He had a fever of 100 degrees in the ER. The patient says he has gotten all these symptoms from yesterday evening. PAST MEDICAL AND SURGICAL HISTORY: History of sickle cell disease with anemia, chronic tobacco abuse, chronic pain syndrome. CURRENT MEDICATIONS: The patient takes folic acid 1 mg p.o. daily, [place] 10/ 325 mg p.o. q.6 hourly p.r.n., Ultram p.r.n. for pain. ALLERGIES: FENTANYL, REGLAN, SULFA and TORADOL. PERSONAL HISTORY: Patient smokes 1-2 cigarettes a day, does not abuse alcohol or drugs. FAMILY HISTORY: Both parents have sickle cell trait and his son has sickle cell trait as well. REVIEW OF SYSTEMS: The following complete review of systems was negative, unless otherwise mentioned in the HPI or below: Constitutional: Weight loss or gain, ability to conduct usual activities. Skin: Rash, itching. Eyes: Double vision, pain. ENT/Mouth: Nose bleeding, neck stiffness, pain, tenderness. Cardiovascular: Palpitations, dyspnea on exertion, orthopnea. Respiratory: Shortness of breath, wheezing, cough, hemoptysis, fever or night sweats. Gastrointestinal: Poor appetite, abdominal pain, heartburn, nausea, vomiting, constipation, or diarrhea. Genitourinary: Urgency, frequency, dysuria, nocturia. Musculoskeletal: Pain, swelling. Neurologic/Psychiatric: Anxiety, depression. Allergy/Immunologic: Skin rash, bleeding tendency. PHYSICAL EXAMINATION: GENERAL: The patient is a 31-year-old male who is in moderate distress from aches and pains. VITAL SIGNS: Blood pressure 114/62, pulse 90 per minute, respiratory rate 20 per minute, temperature 100.4 degrees Fahrenheit, saturating 97% on room air. NECK: Supple, no elevated JVD. HEENT: Eyes; extraocular muscles intact. Pupils reacting to light. Oral cavity, mucous membranes are dry. No exudates or congestion. CARDIOVASCULAR: S1, S2 heard. Regular rhythm. RESPIRATORY: Air entry 1+ bilateral. No scattered rhonchi plus no wheezes. ABDOMEN: Soft, bowel sounds heard. No tenderness, rigidity or guarding. EXTREMITIES: No peripheral edema or calf tenderness. VASCULAR SYSTEM: Peripheral pulses 1+ bilateral, no ischemic ulcerations or gangrene. CENTRAL NERVOUS SYSTEM: No gross focal deficits seen. The patient is alert, awake, oriented well. PSYCHIATRIC: The patient's mood is euthymic. No hallucinations or delusions. LABORATORY AND X-RAY FINDINGS: EKG done shows normal sinus rhythm at 83 beats per minute. There are signs of LVH seen. Urinalysis shows no evidence of UTI. Chest x-ray done shows no acute cardiopulmonary process. Electrolytes stable. BUN 6, creatinine 0.8, glucose 79, albumin 4.5. Liver enzymes within normal limits. White count of 10, H&H 10 and 29, platelet count 375 with 83% neutrophils. Retic count is 3.1. CLINICAL IMPRESSION AND PLAN: The patient will be admitted to medical floor for sickle cell crisis and acute bronchitis. We will obtain sputum cultures. The patient will be on normal saline at 100 mL per hour. Morphine for pain relief. We will place him empirically on Levaquin. He will also be on DuoNebs q.6 hourly p.r.n. The patient is requesting Benadryl and will be closely monitored for respiratory depression. We will continue to closely monitor him. He has had blood and urine cultures obtained in the ER. We will follow up on that. Code status was discussed with patient and he is a full code. Please note I have seen and examined patient on 09/21/2017. TREY
[2017-09-22] MEDS: diphenhydrAMINE 25 MG CAP PO PRN ×2 (06:17→19:57)
[2017-09-22 07:33] LABS: Hemoglobin 9.6 g/dL (14.0-18.0); Mean Corpuscular HGB CONC 36.5 g/dL (32.0-36.0); Mean Corpuscular Volume 87.8 fl (80.0-94.0); Mean Platelet Volume 6.4 fL (7.4-10.4); Platelet Count 321 thou/uL (130-400); Red Blood Cell (RBC) Count 2.99 mill/uL (4.70-6.10); White Blood Cell (WBC) Count 9.8 thou/uL (4.8-10.8)
[2017-09-22 07:40] LABS: Anion Gap 12 mmol/L (10-20); BUN (Urea Nitrogen) 6 mg/dL (8.9-20.6); Calc. Creatinine Clearance 119 mL/min (70-130); Calcium 8.7 mg/dL (7.8-10.44); Carbon Dioxide 22 mmol/L (22-29); Chloride 105 mmol/L (98-107); Estimated GFR-MDRD Greater than 90; Glucose 136 mg/dL (70-105); Potassium 4.4 mmol/L (3.5-5.1); Sodium 135 mmol/L (136-145)
[2017-09-22 08:14] LABS: Band 8 % (5-11); Eosinophils 1 % (0-10); Hemoglobin C Crystals MODERATE (None Seen); Lymphocytes 40 % (21-51); MDiff Complete? YES; Monocytes 12 % (0-10); Neutrophil 32 % (42-75); Polychromasia MODERATE = 3-4 cells (100X) (0-2/hpf); Reactive Lymphocytes 7 % (0-10); Reflex for Review?? NO; Target Cells SLIGHT = 2-5 cells (100X) (0-1/hpf)
[2017-09-22] MEDS: Enoxaparin Sodium 40 MG/0.4 ML SYRINGE SC SCH (08:15)
[2017-09-22] MEDS: Docusate 100 MG CAP PO SCH ×2 (08:15→20:52)
[2017-09-22] MEDS: Famotidine 20 MG TAB PO SCH ×2 (08:15→20:52)
[2017-09-22] MEDS: Sodium Chloride 0.9% 1,000 ML IV SCH ×2 (08:16→17:51)
[2017-09-22] MEDS: Acetaminophen 325 MG TAB PO PRN ×3 (10:41→23:00)
[2017-09-22] MEDS: HYDROcodone/Acetaminophen 10/325 mg Tablet PO PRN ×3 (12:19→20:52)
--- NOTE | 2017-09-22 13:23 | PDOC.PN ---
- Subjective Encounter Start Date: 09/22/17 Encounter Start Time: 12:00 States he continues to have pain. He requests something for pain in between the morphine doses. He also requests IV Benadryl rather than p.o. Continues to have some cough. - Objective Resuscitation Status: Resuscitation Status FULL:Full Resuscitation Vital Signs & Weight: Vital Signs (12 hours) Temp Pulse Resp BP BP Pulse Ox 09/22/17 11:47 100.9 F H 85 16 101/63 95 09/22/17 10:37 101.2 F H 93 14 97 09/22/17 08:00 99.5 F 105 H 16 97 09/22/17 07:21 99.5 F 105 H 16 98/57 L 97 09/22/17 07:15 96.9 F L 87 16 105/73 96 09/22/17 06:55 80 12 09/22/17 04:00 99.8 F H 89 20 97/64 94 L Weight Weight 139 lb 15.896 oz I&O: 09/21/17 09/22/17 09/23/17 06:59 06:59 06:59 Intake Total 3200 Balance 3200 Result Diagrams: 09/22/17 07:11 09/22/17 07:11 Phys Exam - Physical Examination Constitutional: NAD HEENT: PERRLA, moist MMs, oral pharynx no lesions Neck: no nodes, no JVD Respiratory: clear to auscultation bilateral Cardiovascular: RRR, no significant murmur Gastrointestinal: soft, non-tender, no distention Musculoskeletal: no edema Psychiatric: normal affect Dx/Plan (1) Sickle cell anemia with crisis Code(s): D57.00 - HB-SS DISEASE WITH CRISIS, UNSPECIFIED Status: Acute Plan: Continue with Oxygen, hydration, pain management. His retic count is elevated, but not terribly high. His hemoglobin level in fairly high though. May be a candidate for hydroxyurea given the repeated occurences, but his counts are pretty good. (2) Bronchitis Code(s): J40 - BRONCHITIS, NOT SPECIFIED ACUTE OR CHRONIC Status: Acute Plan: On Levaquin to treat the bronchitis simply because it may be a trigger for the pain crisis. - Plan * Continue with current meds. He is tolerating po's and no indication to change the benadryl to IV.
[2017-09-22] MEDS: Ondansetron HCl/PF 4 MG/2 ML Vial IVP PRN ×2 (14:28→18:24)
[2017-09-22] MEDS: Levofloxacin 750 mg/D5W 500 MG in Premix Bag 1 BAG IVPB SCH (22:50)
[2017-09-23] MEDS: HYDROcodone/Acetaminophen 10/325 mg Tablet PO PRN ×2 (01:10→17:50)
[2017-09-23] MEDS: Acetaminophen 325 MG TAB PO PRN (04:29)
[2017-09-23] MEDS: Morphine 4 MG/ML VIAL SLOW IVP PRN ×4 (04:36→20:33)
[2017-09-23] MEDS ORDERED: Ibuprofen 200 MG TAB PO SCH (04:41)
[2017-09-23 05:04] LABS: Band 4 % (5-11); Hemoglobin C Crystals MODERATE (None Seen); Lymphocytes 38 % (21-51); MDiff Complete? YES; Mean Corpuscular HGB CONC 36.3 g/dL (32.0-36.0); Mean Corpuscular Hemoglobin 31.6 pg (27.0-31.0); Mean Corpuscular Volume 87.1 fl (80.0-94.0); Mean Platelet Volume 6.7 fL (7.4-10.4); Monocytes 17 % (0-10); Neutrophil 41 % (42-75); Platelet Count 337 thou/uL (130-400); RBC Distribution Width 16.4 % (11.5-14.5); Red Blood Cell (RBC) Count 3.15 mill/uL (4.70-6.10); Target Cells SLIGHT = 2-5 cells (100X) (0-1/hpf); White Blood Cell (WBC) Count 7.9 thou/uL (4.8-10.8)
[2017-09-23] MEDS: Sodium Chloride 0.9% 1,000 ML IV SCH ×3 (06:40→22:31)
[2017-09-23] MEDS: Docusate 100 MG CAP PO SCH ×2 (08:53→22:31)
[2017-09-23] MEDS: Saccharomyces boulardii 250 MG CAP PO SCH (08:55)
[2017-09-23] MEDS: Famotidine 20 MG TAB PO SCH ×2 (08:55→22:31)
[2017-09-23] MEDS: Enoxaparin Sodium 40 MG/0.4 ML SYRINGE SC SCH (08:56)
--- NOTE | 2017-09-23 11:20 | PDOC.PN ---
- Subjective Encounter Start Date: 09/23/17 Encounter Start Time: 11:18 Continues to have some pain. Primarily right elbow and right knee. Still has a bit of a cough and minimal ARORA. Denies any other problems. - Objective Resuscitation Status: Resuscitation Status FULL:Full Resuscitation Vital Signs & Weight: Vital Signs (12 hours) Temp Pulse Resp BP BP Pulse Ox 09/23/17 11:00 98.0 F 78 18 97/58 L 98 09/23/17 08:00 98.1 F 71 16 83/51 L 95 09/23/17 06:55 98.8 F 09/23/17 05:52 101.5 F H 09/23/17 04:14 102.9 F H 95 16 101/61 95 09/23/17 02:30 100.4 F H 09/23/17 00:09 90 18 96 09/23/17 00:00 100.4 F H 104 H 20 101/62 95 Weight Weight 139 lb 15.896 oz I&O: 09/22/17 09/23/17 09/24/17 06:59 06:59 06:59 Intake Total 3200 4310 Output Total 4150 Balance 3200 160 Result Diagrams: 09/23/17 03:43 09/22/17 07:11 Phys Exam - Physical Examination Constitutional: NAD HEENT: PERRLA, moist MMs, oral pharynx no lesions Neck: no nodes Respiratory: no wheezing, no rales, no rhonchi, clear to auscultation bilateral Cardiovascular: RRR 2/6 Murmur Gastrointestinal: soft, no distention Resistant to exam and flexes, but denies TTP Musculoskeletal: no edema, pulses present Symptomatic joints appear normal with no inflam. Neurological: non-focal Psychiatric: normal affect Skin: no rash Deviation from normal: No lesions suggestive of infection. Dx/Plan (1) Sickle cell anemia with crisis Code(s): D57.00 - HB-SS DISEASE WITH CRISIS, UNSPECIFIED Status: Acute Plan: Continue pain management with morphine. Maintain oral benadryl. Patient is non -compliant with oxygen. Encouraged use. Continue hydration. (2) Bronchitis Code(s): J40 - BRONCHITIS, NOT SPECIFIED ACUTE OR CHRONIC Status: Acute Plan: Had significant fever. Greater than 102. Repeat CXR. Exam is normal. Continue Levaquin. (3) Fever Code(s): R50.9 - FEVER, UNSPECIFIED Status: Acute Plan: Fairly high for SSC or bronchitis. Will repeat CXR, check UA. No evidence of infection on exam. All cultures negative. - Plan * Above.
--- NOTE | 2017-09-23 13:17 | RAD ---
CHEST TWO VIEWS: HISTORY: Cough. Fever. Sickle cell pain. FINDINGS: Normal cardiac silhouette. Pulmonary vessels and hilum are normal. Costophrenic angles are clear. No consolidation or mass. No pneumothorax or osseous abnormalities. IMPRESSION: No acute cardiopulmonary process. POS: [facility]
[2017-09-23] MEDS ORDERED: Ibuprofen 200 MG TAB PO PRN (18:24)
[2017-09-23 18:28] LABS: Bilirubin Negative (Negative); Blood, Urine Negative (Negative); Clarity CLEAR (Clear); Glucose, Urine (Dipstick) Negative (Negative); Leukocyte Negative (Negative); Nitrite Negative (Negative); Protein, Urine (Dipstick) Negative (Neg-Trace); Specific Gravity, Urine 1.006 (1.002-1.036); pH, Urine 7.5 (5.0-9.0)
--- NOTE | 2017-09-23 19:42 | CON ---
DATE OF CONSULTATION: 09/23/2017 REASON FOR CONSULTATION: Sickle cell crisis with concern for infection. HISTORY OF PRESENT ILLNESS: A 31-year-old who has had numerous admissions for management of sickle cell crisis and is admitted with new onset of pain in the limbs and chest, some diarrhea, temperature 100.4, some dyspnea, some headaches , no sore throat, odynophagia, dysphagia, no toothache, no back pain, no genitourinary symptoms or diarrhea, no bleeding. PAST MEDICAL HISTORY: Sickle cell C disease with numerous admissions for management, has had numerous blood cultures and other cultures always have been negative. No surgical treatment in the past. SOCIAL HISTORY: Drinks occasionally, smokes daily. No IV drug use. FAMILY HISTORY: Noncontributory except for sickle cell trait. ALLERGIES: FENTANYL with hives, REGLAN and reaction to HYDROXYUREA with headaches. MEDICATIONS: Folic acid, Percocet, [place], tramadol. PHYSICAL EXAMINATION: VITAL SIGNS: T-max 102.9 today at 4:00 a.m. He is afebrile at this time. BP 111/65, pulse 77, respirations 14-18, O2 sat 98%. GENERAL: Appears in some distress, being treated with nebulization. SKIN: Not remarkable. Peripheral IV access noted. No Downey catheter. No lymphadenopathy. HEENT: Ocular movements are conjugate. Sclerae white. Pupils are equal. Oral cavity moist, quite a few teeth in place, some missing, some periodontal disease. NECK: Supple, jugular vein distention. LUNGS: With symmetric air entry, few faint crackles in scattered areas. HEART: S1, S2, regular rate without murmurs. ABDOMEN: Soft, not distended. No ascites. No bladder distention, some pain in the appendicular structures, shoulders, knees, but no evidence of knee inflammatory process or shoulder inflammatory process. Pulses 1+ in dorsalis pedis. He is able to move extremities, but he assumes antalgic positioning and tries not to move too much. NEUROLOGIC: Cognitive function appears to be intact. LABORATORY DATA: White cell count 10.5 and 7.9, hemoglobin 10, MCV 87, platelets 337, 41% neutrophils, 4% bands, 70% monocytes. Sodium 135, creatinine 0.82. Liver profile normal, globulin 3.7. Urinalysis normal. Microbiology with 4 sets of blood cultures thus far negative. Urine culture negative. Chest x-ray with no infiltrates. ASSESSMENT: Sickle cell/C disease with what appears to be another episode of crisis with associated fever, probably due to sickling and areas of necrosis with cytokine production in bone. No evidence to suggest acute lung syndrome at this point in time. We will submit respiratory virus PCR panel from nasopharyngeal secretions. If the blood cultures remain negative, then I would discontinue antimicrobial therapy and manage as a sickle cell crisis alone. MTDD
[2017-09-23] MEDS: Levofloxacin 750 mg/D5W 500 MG in Premix Bag 1 BAG IVPB SCH (23:30)
[2017-09-24] MEDS: HYDROcodone/Acetaminophen 10/325 mg Tablet PO PRN ×3 (02:38→17:28)
[2017-09-24] MEDS: Morphine 4 MG/ML VIAL SLOW IVP PRN ×4 (04:23→18:28)
[2017-09-24 05:05] LABS: Eosinophils 1 % (0-10); Hemoglobin 9.5 g/dL (14.0-18.0); Lymphocytes 64 % (21-51); MDiff Complete? YES; Mean Corpuscular HGB CONC 35.5 g/dL (32.0-36.0); Mean Corpuscular Hemoglobin 31.1 pg (27.0-31.0); Mean Corpuscular Volume 87.6 fl (80.0-94.0); Mean Platelet Volume 6.8 fL (7.4-10.4); Monocytes 12 % (0-10); Neutrophil 23 % (42-75); Nucleated RBC 5 % (0); PLT Morphology Comment Appears Adequate; Platelet Count 347 thou/uL (130-400); RBC Distribution Width 16.6 % (11.5-14.5); Red Blood Cell (RBC) Count 3.05 mill/uL (4.70-6.10); Target Cells SLIGHT = 2-5 cells (100X) (0-1/hpf); White Blood Cell (WBC) Count 4.5 thou/uL (4.8-10.8)
[2017-09-24] MEDS: Enoxaparin Sodium 40 MG/0.4 ML SYRINGE SC SCH (08:56)
[2017-09-24] MEDS: Saccharomyces boulardii 250 MG CAP PO SCH (08:57)
[2017-09-24] MEDS: Docusate 100 MG CAP PO SCH ×2 (08:57→20:41)
[2017-09-24] MEDS: Famotidine 20 MG TAB PO SCH ×2 (08:58→20:40)
[2017-09-24] MEDS: Sodium Chloride 0.9% 1,000 ML IV SCH ×2 (12:04→20:44)
--- NOTE | 2017-09-24 14:02 | PDOC.PN ---
- Subjective Encounter Start Date: 09/24/17 Encounter Start Time: 13:45 Patient reports continued pain. Developed right lower chest pain last evening. Denies respiratory symptoms. - Objective Resuscitation Status: Resuscitation Status FULL:Full Resuscitation Vital Signs & Weight: Vital Signs (12 hours) Temp Pulse Resp BP Pulse Ox 09/24/17 11:00 98.8 F 75 18 95/53 L 96 09/24/17 08:00 98.8 F 75 18 107/64 98 09/24/17 07:53 66 12 09/24/17 05:15 98.3 F 66 18 95/58 L 95 09/24/17 03:56 103/66 Weight Weight 139 lb 15.896 oz I&O: 09/23/17 09/24/17 09/25/17 06:59 06:59 06:59 Intake Total 4310 1919 1500 Output Total 4150 1300 900 Balance 160 619 600 Result Diagrams: 09/24/17 04:14 09/22/17 07:11 Phys Exam - Physical Examination Crying in discomfort. HEENT: oral pharynx no lesions Respiratory: no wheezing, no rales, no rhonchi, clear to auscultation bilateral Cardiovascular: RRR, no significant murmur Gastrointestinal: soft, non-tender, no distention TTP over the right chest area. 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 Continue with fluids and pain meds. Strongly encouraged him to wear his oxygen as instructed. He has not been wearing it at any point when I have entered his room. 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 This is consistent with hemoglobin C disease which is often inherited with the SS gene. This increases the risk for bone infarction. This also explains the lesser degree of anemia and the preponderance of target cells. (3) Bronchitis Code(s): J40 - BRONCHITIS, NOT SPECIFIED ACUTE OR CHRONIC Status: Acute Plan: Minimal symptoms. Sputum culture negative. Will DC the antibiotics. (4) Chest pain Code(s): R07.9 - CHEST PAIN, UNSPECIFIED Status: Acute Plan: TTP in the chest wall are and he is not reporting any pulmonary symptoms. I have asked the Fermentation Operator to see him as well, but I think the likelihood of chest syndrome is fairly low. (5) Fever Code(s): R50.9 - FEVER, UNSPECIFIED Status: Acute Plan: Likely related to bone infarct. Has been seen by ID and no evidence of infection exists. - Plan * .
[2017-09-24] MEDS: Morphine 10 MG/ML VIAL SLOW IVP PRN (23:20)
[2017-09-25] MEDS: HYDROcodone/Acetaminophen 10/325 mg Tablet PO PRN ×5 (01:32→21:56)
[2017-09-25] MEDS: Morphine 10 MG/ML VIAL SLOW IVP PRN ×6 (03:54→23:59)
[2017-09-25 06:17] LABS: Anisocytosis SLIGHT = 6-15 cells (100X) (0-5/hpf); Eosinophils 2 % (0-10); Hemoglobin 9.6 g/dL (14.0-18.0); Hemoglobin C Crystals MODERATE (None Seen); Lymphocytes 62 % (21-51); MDiff Complete? YES; Mean Corpuscular HGB CONC 35.8 g/dL (32.0-36.0); Mean Corpuscular Volume 86.7 fl (80.0-94.0); Monocytes 4 % (0-10); Neutrophil 31 % (42-75); Nucleated RBC 2 % (0); PLT Morphology Comment Appears Adequate; Platelet Count 333 thou/uL (130-400); Polychromasia SLIGHT = 2-3 cells (100X) (0-2/hpf); RBC Distribution Width 16.5 % (11.5-14.5); Reactive Lymphocytes 1 % (0-10); Red Blood Cell (RBC) Count 3.11 mill/uL (4.70-6.10); Schistocytes SLIGHT = 2-5 cells (100X) (0-1/hpf); Sickle Cells SLIGHT = 1-5 cells (100X) (None Seen); White Blood Cell (WBC) Count 6.1 thou/uL (4.8-10.8)
[2017-09-25] MEDS: Enoxaparin Sodium 40 MG/0.4 ML SYRINGE SC SCH (08:22)
[2017-09-25] MEDS: Famotidine 20 MG TAB PO SCH ×2 (08:22→20:06)
[2017-09-25] MEDS: Saccharomyces boulardii 250 MG CAP PO SCH (08:22)
[2017-09-25] MEDS: Docusate 100 MG CAP PO SCH ×2 (08:27→20:06)
[2017-09-25] MEDS: Sodium Chloride 0.9% 1,000 ML IV SCH ×2 (08:28→17:25)
--- NOTE | 2017-09-25 15:15 | PDOC.PN ---
- Subjective Encounter Start Date: 09/25/17 Encounter Start Time: 01:15 Still having some pain in the right elbow, knee and chest. Feels a little better today. - Objective Resuscitation Status: Resuscitation Status FULL:Full Resuscitation MAR Reviewed: Yes Vital Signs & Weight: Vital Signs (12 hours) Temp Pulse Resp BP Pulse Ox 09/25/17 12:47 70 12 09/25/17 11:39 115/67 09/25/17 08:00 97.9 F 72 16 98 09/25/17 07:27 97.9 F 72 16 98/55 L 98 09/25/17 06:56 70 12 09/25/17 04:00 98.0 F 76 16 108/70 97 Weight Weight 139 lb 15.896 oz I&O: 09/24/17 09/25/17 09/26/17 06:59 06:59 06:59 Intake Total 1919 1500 Output Total 1300 900 Balance 619 600 Result Diagrams: 09/25/17 03:57 09/22/17 07:11 Phys Exam - Physical Examination Constitutional: NAD HEENT: PERRLA, moist MMs, oral pharynx no lesions Neck: no nodes, no JVD Respiratory: no wheezing, no rales, no rhonchi, clear to auscultation bilateral Cardiovascular: RRR, no significant murmur, no rub Gastrointestinal: soft, non-tender, no distention TTP in right ribs, elbow. No erythema. 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 He had significant pain and fevers. ID did not feel there was any infection and the fever was due to probable bone infarction. Continue to manage with IVF, oxygen and pain management. 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 Stable VS and no pulmonary symptoms to suggest such. Likely bone. (5) Fever Code(s): R50.9 - FEVER, UNSPECIFIED Status: Resolved - Plan * As above. * Looks like he may be starting to get some relief of the bone pain.
[2017-09-25] MEDS: diphenhydrAMINE 25 MG CAP PO PRN (20:06)
--- NOTE | 2017-09-25 21:10 | PRG ---
DATE OF SERVICE: 09/25/2017 SERVICE: PULMONARY MEDICINE. REASON FOR CONSULT: Possible acute chest syndrome. HISTORY OF PRESENT ILLNESS: The patient is a 31-year-old -Al[place] male. He did carries this diagnosis of sickle cell disease. That being said, we have never done a hemoglobin electrophoresis on him. His hemoglobins are typically around 10. He has only required one transfusion in his life. He presented to the hospital with pain in his chest. He indicates having a little bit of shortness of breath, but was refusing to wear his oxygen for a significant duration of his hospital stay. He does not have any nausea, vomiting, or diarrhea. He is tolerating p.o. just fine. He is able to get up and walk around the unit. PAST MEDICAL HISTORY: 1. Abnormal hemoglobin, possible sickle cell disease versus SC disease or some other combination. 2. Chronic tobacco abuse. 3. Chronic pain. PAST SURGICAL HISTORY: None. ALLERGIES: FENTANYL, REGLAN, SULFA, TORADOL. MEDICATIONS: List of his inpatient medications were reviewed. No specific updates were made. FAMILY HISTORY: Both parents have sickle cell trait apparently. His son has sickle cell trait as well. Otherwise, noncontributory. SOCIAL HISTORY: Negative for alcohol or illicit drug use. He smokes a couple of cigarettes on a daily basis. He denies any exposure to chemicals, dust asbestos or tuberculosis. He does not currently work. REVIEW OF SYSTEMS: General head, ears, eyes, nose, throat, cardiovascular, respiratory, GI, , musculoskeletal, neurologic and skin is negative except as mentioned in the HPI. PHYSICAL EXAMINATION: VITAL SIGNS: Afebrile, pulse 72, blood pressure 115/67, respirations 16, and saturation 98% on room air. GENERAL: The patient is awake, alert, no apparent distress. LUNGS: Excellent air entry. There is no prolonged expiratory phase, wheezing, rhonchi, or crackles present. HEART: Normal rate, regular. ABDOMEN: Soft, nontender, nondistended. Bowel sounds are positive. MUSCULOSKELETAL: No cyanosis or clubbing. No pitting in the bilateral lower extremities. NEUROLOGIC: Grossly nonfocal. LABORATORY DATA: WBC 6.1, hemoglobin 9.6, platelets 333,000. Neutrophils are 31%, lymphocytes 62%. Retic fraction is only 3% with an immature retic fraction is 0.099. MCV is always normal. Basic metabolic profile, liver function studies are completely unremarkable. Urinalysis is negative x2. Blood cultures x4, urine culture, respiratory culture are all unremarkable. IMAGING: Chest x-ray demonstrates no acute cardiopulmonary abnormality. He had a previous chest x-ray that was also unremarkable. ASSESSMENT: 1. Hemoglobinopathy. 3. Chronic pain syndrome. PLAN: The patient does not appear to have any onset of acute chest syndrome. Furthermore, he really does not behave like sick, I will send hemoglobin electrophoresis, so we can confirm his underlying pathology. At this point, he has no further requirements for inpatient Pulmonary or Critical Care opinion. If he develops increasing hypoxemia, or increasing shortness of breath, please give us a phone call. From a purely lung perspective, the patient is stable for transition out of the hospital once his pain is under control. 70 minutes have been devoted to this patient in various activities. I personally reviewed all imaging studies and laboratory data noted within this document. For fifty percent of this time, I was interacting with the patient at the bedside or coordinating care with the care team. For the remainder of the time I was immediately available to the patient in the hospital unit. TREY
[2017-09-26] MEDS: HYDROcodone/Acetaminophen 10/325 mg Tablet PO PRN ×6 (01:47→23:04)
[2017-09-26] MEDS: Sodium Chloride 0.9% 1,000 ML IV SCH ×3 (01:51→21:41)
[2017-09-26] MEDS: Morphine 10 MG/ML VIAL SLOW IVP PRN ×3 (03:59→13:44)
[2017-09-26] MEDS: Docusate 100 MG CAP PO SCH ×2 (09:33→20:16)
[2017-09-26] MEDS: Enoxaparin Sodium 40 MG/0.4 ML SYRINGE SC SCH (09:33)
[2017-09-26] MEDS: Famotidine 20 MG TAB PO SCH ×2 (09:33→20:19)
[2017-09-26] MEDS: diphenhydrAMINE 25 MG CAP PO PRN ×2 (11:52→16:23)
[2017-09-26] MEDS: Morphine 4 MG/ML VIAL SLOW IVP PRN ×2 (17:46→21:38)
--- NOTE | 2017-09-26 22:54 | PDOC.PN ---
- Subjective Encounter Start Date: 09/26/17 Encounter Start Time: 09:00 Patient seen and examined for sickle cell crisis. No new complaints. No overnight events. Pain controlled on current meds. - Objective Resuscitation Status: Resuscitation Status FULL:Full Resuscitation MAR Reviewed: Yes Vital Signs & Weight: Vital Signs (12 hours) Temp Pulse Resp BP Pulse Ox 09/26/17 19:49 97.8 F 76 16 150/75 H 96 09/26/17 18:14 66 18 97 Weight Weight 139 lb 15.896 oz I&O: 09/25/17 09/26/17 09/27/17 06:59 06:59 06:59 Intake Total 1500 3579 2113 Output Total 900 2550 500 Balance 600 1029 1613 Result Diagrams: 09/27/17 03:29 09/27/17 03:29 Phys Exam - Physical Examination Constitutional: NAD Respiratory: no wheezing, no rhonchi Cardiovascular: RRR, no rub Gastrointestinal: soft, non-tender, positive bowel sounds Musculoskeletal: no edema Neurological: moves all 4 limbs Dx/Plan (1) Sickle cell anemia with crisis Code(s): D57.00 - HB-SS DISEASE WITH CRISIS, UNSPECIFIED Status: Acute (2) Fever Code(s): R50.9 - FEVER, UNSPECIFIED Status: Acute Comment: prob due to URTI ?viral (3) Anxiety and depression Code(s): F41.8 - OTHER SPECIFIED ANXIETY DISORDERS Status: Chronic (4) Tobacco abuse Code(s): Z72.0 - TOBACCO USE Status: Chronic - Plan cont current plan of care, out of bed/ambulate, DVT proph w/SCDs Cont IVF/pain meds/O2. Check AM labs. DC Lovenox - Patient is ambulating. -: Prob dc in AM if afebrile -: Add folic acid Review of Systems - Review of Systems Respiratory: negative: Cough, Dry, Shortness of Breath, Hemoptysis, SOB with Excertion, Pleuritic Pain, Sputum, Wheezing Cardiovascular: negative: chest pain, palpitations, orthopnea, paroxysmal nocturnal dyspnea, edema, light headedness, other Gastrointestinal: negative: Nausea, Vomiting, Abdominal Pain, Diarrhea, Constipation, Melena, Hematochezia, Other - Medications/Allergies Allergies/Adverse Reactions: Allergies Allergy/AdvReac Type Severity Reaction Status Date / Time fentanyl Allergy Verified 06/27/17 03:48 ketorolac tromethamine Allergy Short of Verified 06/27/17 03:48 [From Toradol] Breath metoclopramide [From Reglan] Allergy Verified 06/27/17 03:48 Sulfa (Sulfonamide Allergy Verified 06/27/17 03:48 Antibiotics) Medications: Current Medications Acetaminophen (Tylenol) 650 mg PO Q4H PRN PRN Reason: Headache/Fever or Pain 1-3 Last Admin: 09/23/17 04:29 Dose: 650 mg Hydrocodone Bitart/Acetaminophen ([place] 10/325) 1 tab PO Q4H PRN PRN Reason: Moderate Pain (4-6) Last Admin: 09/26/17 18:39 Dose: 1 tab Al Hydroxide/Mg Hydroxide (Maalox) 30 ml PO Q6H PRN PRN Reason: Heartburn or Indigestion Albuterol/Ipratropium (Duoneb) 3 ml NEB [id number]-CO [facility] Last Admin: 09/26/17 18:14 Dose: 3 ml Calcium Carbonate (Tums) 1,000 mg PO Q4H PRN PRN Reason: Heartburn or Indigestion Diphenhydramine HCl (Benadryl) 25 mg PO Q4H PRN PRN Reason: Itching & Insomnia Last Admin: 09/26/17 16:23 Dose: 25 mg Docusate Sodium (Colace) 100 mg PO BID [facility] Last Admin: 09/26/17 20:16 Dose: Not Given Famotidine (Pepcid) 20 mg PO BID [facility] Last Admin: 09/26/17 20:19 Dose: 20 mg Guaifenesin/Dextromethorphan (Robitussin Dm) 15 ml PO Q4H PRN PRN Reason: Cough Sodium Chloride (Normal Saline 0.9%) 1,000 mls @ 100 mls/hr IV .Q10H [facility] Last Admin: 09/26/17 21:41 Dose: 1,000 mls Ibuprofen (Motrin) 400 mg PO Q6H PRN PRN Reason: breakthrough fever Last Admin: 09/23/17 18:46 Dose: 400 mg Morphine Sulfate (Morphine) 4 mg SLOW IVP Q4H PRN PRN Reason: FOR PAIN 7-10 Last Admin: 09/26/17 21:38 Dose: 4 mg Ondansetron HCl (Zofran) 4 mg IVP Q4H PRN PRN Reason: Nausea/Vomiting Last Admin: 09/22/17 18:24 Dose: 4 mg Sodium Chloride (Flush - Normal Saline) 10 ml IVF Q12HR [facility] Last Admin: 09/26/17 20:21 Dose: Not Given Sodium Chloride (Flush - Normal Saline) 10 ml IVF PRN PRN PRN Reason: Saline Flush
[2017-09-27] MEDS: Morphine 4 MG/ML VIAL SLOW IVP PRN ×5 (01:43→17:52)
[2017-09-27 04:29] LABS: Anion Gap 9 mmol/L (10-20); BUN (Urea Nitrogen) 7 mg/dL (8.9-20.6); Calc. Creatinine Clearance 140 mL/min (70-130); Calcium 8.9 mg/dL (7.8-10.44); Carbon Dioxide 27 mmol/L (22-29); Chloride 106 mmol/L (98-107); Estimated GFR-MDRD Greater than 90; Glucose 111 mg/dL (70-105); Sodium 138 mmol/L (136-145)
[2017-09-27 04:46] LABS: Acanthocytes SLIGHT = 1-5 cells (100X) (None Seen); Anisocytosis SLIGHT = 6-15 cells (100X) (0-5/hpf); Hemoglobin 9.1 g/dL (14.0-18.0); Lymphocytes 58 % (21-51); MDiff Complete? YES; Mean Corpuscular HGB CONC 35.4 g/dL (32.0-36.0); Mean Corpuscular Hemoglobin 30.8 pg (27.0-31.0); Mean Corpuscular Volume 87.2 fl (80.0-94.0); Mean Platelet Volume 6.8 fL (7.4-10.4); Monocytes 12 % (0-10); Neutrophil 29 % (42-75); Nucleated RBC 1 % (0); PLT Morphology Comment Appears Adequate; Platelet Count 339 thou/uL (130-400); Polychromasia SLIGHT = 2-3 cells (100X) (0-2/hpf); RBC Distribution Width 16.3 % (11.5-14.5); Reactive Lymphocytes 1 % (0-10); Red Blood Cell (RBC) Count 2.94 mill/uL (4.70-6.10); Sickle Cells SLIGHT = 1-5 cells (100X) (None Seen); Target Cells MODERATE= 6-15 cells (100X) (0-1/hpf); White Blood Cell (WBC) Count 9.7 thou/uL (4.8-10.8)
[2017-09-27] MEDS: HYDROcodone/Acetaminophen 10/325 mg Tablet PO PRN ×4 (05:05→20:24)
[2017-09-27] MEDS: Famotidine 20 MG TAB PO SCH ×2 (08:13→20:24)
[2017-09-27] MEDS: Docusate 100 MG CAP PO SCH ×2 (08:13→20:24)
[2017-09-27] MEDS: Folic Acid 1 MG TAB PO SCH ×2 (08:13→20:24)
--- NOTE | 2017-09-27 21:52 | PDOC.PN ---
- Subjective Encounter Start Date: 09/27/17 Encounter Start Time: 11:30 Patient seen and examined for sickle cell crisis. Still has generalized pain . No febrile No overnight events - Objective Resuscitation Status: Resuscitation Status FULL:Full Resuscitation MAR Reviewed: Yes Vital Signs & Weight: Vital Signs (12 hours) Temp Pulse Resp BP BP Pulse Ox 09/27/17 20:39 98.0 F 75 20 97 09/27/17 20:01 98.0 F 75 20 107/65 97 09/27/17 17:56 81 20 110/63 95 09/27/17 14:23 76 20 97 Weight Weight 139 lb 15.896 oz I&O: 09/26/17 09/27/17 09/28/17 06:59 06:59 06:59 Intake Total 3579 3913 900 Output Total 2550 500 Balance 1029 3413 900 Result Diagrams: 09/27/17 03:29 09/27/17 03:29 Phys Exam - Physical Examination Constitutional: NAD Respiratory: no wheezing, no rhonchi Cardiovascular: RRR, no rub Gastrointestinal: soft, non-tender, positive bowel sounds Musculoskeletal: no edema Dx/Plan (1) Sickle cell anemia with crisis Code(s): D57.00 - HB-SS DISEASE WITH CRISIS, UNSPECIFIED Status: Acute (2) Fever Code(s): R50.9 - FEVER, UNSPECIFIED Status: Acute Comment: prob due to URTI ?viral, Afebrile, Cultures negative (3) Anxiety and depression Code(s): F41.8 - OTHER SPECIFIED ANXIETY DISORDERS Status: Chronic (4) Tobacco abuse Code(s): Z72.0 - TOBACCO USE Status: Chronic Comment: Counselled. - Plan DVT proph w/SCDs Reduce IV Morphine dose -: Cont [place] PRN for pain -: Cont IVF/O2/Folic acid -: Prob dc in AM if pain controlled. Review of Systems - Review of Systems Respiratory: negative: Cough, Dry, Shortness of Breath, Hemoptysis, SOB with Excertion, Pleuritic Pain, Sputum, Wheezing Cardiovascular: negative: chest pain, palpitations, orthopnea, paroxysmal nocturnal dyspnea, edema, light headedness, other - Medications/Allergies Allergies/Adverse Reactions: Allergies Allergy/AdvReac Type Severity Reaction Status Date / Time fentanyl Allergy Verified 06/27/17 03:48 ketorolac tromethamine Allergy Short of Verified 06/27/17 03:48 [From Toradol] Breath metoclopramide [From Reglan] Allergy Verified 06/27/17 03:48 Sulfa (Sulfonamide Allergy Verified 06/27/17 03:48 Antibiotics) Medications: Current Medications Acetaminophen (Tylenol) 650 mg PO Q4H PRN PRN Reason: Headache/Fever or Pain 1-3 Last Admin: 09/23/17 04:29 Dose: 650 mg Hydrocodone Bitart/Acetaminophen ([place] 10/325) 1 tab PO Q4H PRN PRN Reason: Moderate Pain (4-6) Last Admin: 09/27/17 20:24 Dose: 1 tab Al Hydroxide/Mg Hydroxide (Maalox) 30 ml PO Q6H PRN PRN Reason: Heartburn or Indigestion Albuterol/Ipratropium (Duoneb) 3 ml NEB [id number] [facility] Last Admin: 09/27/17 19:05 Dose: Not Given Calcium Carbonate (Tums) 1,000 mg PO Q4H PRN PRN Reason: Heartburn or Indigestion Diphenhydramine HCl (Benadryl) 25 mg PO Q4H PRN PRN Reason: Itching & Insomnia Last Admin: 09/26/17 16:23 Dose: 25 mg Docusate Sodium (Colace) 100 mg PO BID [facility] Last Admin: 09/27/17 20:24 Dose: Not Given Famotidine (Pepcid) 20 mg PO BID [facility] Last Admin: 09/27/17 20:24 Dose: 20 mg Folic Acid (Folvite) 1 mg PO BID [facility] Last Admin: 09/27/17 20:24 Dose: 1 mg Guaifenesin/Dextromethorphan (Robitussin Dm) 15 ml PO Q4H PRN PRN Reason: Cough Ibuprofen (Motrin) 400 mg PO Q6H PRN PRN Reason: breakthrough fever Last Admin: 09/23/17 18:46 Dose: 400 mg Morphine Sulfate (Morphine) 2 mg SLOW IVP Q4H PRN PRN Reason: Pain Stop: 09/28/17 21:50 Ondansetron HCl (Zofran) 4 mg IVP Q4H PRN PRN Reason: Nausea/Vomiting Last Admin: 09/22/17 18:24 Dose: 4 mg Sodium Chloride (Flush - Normal Saline) 10 ml IVF Q12HR [facility] Last Admin: 09/27/17 20:26 Dose: 10 ml Sodium Chloride (Flush - Normal Saline) 10 ml IVF PRN PRN PRN Reason: Saline Flush
[2017-09-28] MEDS: HYDROcodone/Acetaminophen 10/325 mg Tablet PO PRN ×4 (01:53→20:01)
--- NOTE | 2017-09-28 03:23 | PRG ---
DATE OF SERVICE: 09/27/2017 SUBJECTIVE: Mr. Overton is still with pain in the appendicular structures and some chest pain. No abdominal pain or diarrhea. No genitourinary symptoms. OBJECTIVE: VITAL SIGNS: His temperature has been normal with T-max of 98.4. Other vital signs with blood pressure 97/53, pulse 76, O2 sat 97% on 2 liters nasal cannula. GENERAL: Awake, alert, oriented. LUNGS: Clear. CARDIOVASCULAR: S1, S2, regular rate. ABDOMEN: Soft and not distended. EXTREMITIES: Moves all extremities equally. LABORATORY DATA: White cell count at 9.7, hemoglobin 9.1, MCV 87, platelets 329 , neutrophils 29%, lymphocytes 58% and creatinine 0.68. Microbiology with all cultures negative. No new reports. ASSESSMENT AND DISCUSSION: Sickle cell/C disease with another crisis improving , low-grade fever probably secondary to sickling and cytokine production. Likely early necrosis of bone. Probably another 2 or 3 days before the patient can be discharged home. MTDD
[2017-09-28] MEDS: Famotidine 20 MG TAB PO SCH ×2 (08:27→20:00)
[2017-09-28] MEDS: Docusate 100 MG CAP PO SCH ×2 (08:27→20:02)
[2017-09-28] MEDS: Folic Acid 1 MG TAB PO SCH ×2 (08:27→20:00)
--- NOTE | 2017-09-28 16:02 | PRG ---
DATE OF SERVICE: 09/28/2017 SERVICE: Pulmonary Medicine. INTERVAL HISTORY: Patient is doing fine from a respiratory standpoint. He does not have any difficu lty with breathing. Otherwise, he is resting comfortably. Denies any chest pain, nausea, vomiting, fevers or chills. PHYSICAL EXAMINATION: VITAL SIGNS: Afebrile, pulse 73, blood pressure 112/68, respirations 20, saturation 98% on room air. GENERAL: Patient is awake, alert, no apparent distress. LUNGS: Excellent air entry with no prolonged expiratory phase, wheezing, rhonchi or crackles. HEART: Normal rate, regular. ABDOMEN: Soft, nontender, nondistended. Bowel sounds are positive. MUSCULOSKELETAL: No cyanosis or clubbing. There is no pitting in the bilateral lower extremities. NEUROLOGIC: Grossly nonfocal. ASSESSMENT: 1. Hemoglobinopathy. 2. Chronic pain syndrome. PLAN: At this point, the patient is not demonstrating any features consistent with acute chest syndr ome. If oxygen requirements go up, or he develops a pulmonary infiltrate, please give me a phone reginald l. At this point, however, he has no further requirements for inpatient Pulmonary Critical Care opin ion and I will sign off.
--- NOTE | 2017-09-28 23:35 | PDOC.PN ---
- Subjective Encounter Start Date: 09/28/17 Encounter Start Time: 12:00 Patient seen and examined for sickler cell crisis. Still has 9/10 generalized pain. No fever. No overnight events - Objective Resuscitation Status: Resuscitation Status FULL:Full Resuscitation MAR Reviewed: Yes Vital Signs & Weight: Vital Signs (12 hours) Temp Pulse Resp BP Pulse Ox 09/28/17 20:00 98.3 F 74 18 117/56 L 98 09/28/17 19:25 98.3 F 80 18 98 09/28/17 18:38 80 20 108/62 99 09/28/17 13:40 73 20 112/68 99 09/28/17 11:48 69 14 96 Weight Weight 139 lb 15.896 oz I&O: 09/27/17 09/28/17 09/29/17 06:59 06:59 06:59 Intake Total 3913 1600 750 Output Total 500 Balance 3413 1600 750 Result Diagrams: 09/27/17 03:29 09/27/17 03:29 Phys Exam - Physical Examination Mild distress due to pain Respiratory: no wheezing, no rales, no rhonchi Cardiovascular: RRR, no rub Gastrointestinal: soft, non-tender, positive bowel sounds Musculoskeletal: no edema Neurological: moves all 4 limbs Dx/Plan (1) Sickle cell anemia with crisis Code(s): D57.00 - HB-SS DISEASE WITH CRISIS, UNSPECIFIED Status: Acute (2) Fever Code(s): R50.9 - FEVER, UNSPECIFIED Status: Acute Comment: prob due to URTI ?viral, Afebrile, Cultures negative (3) Anxiety and depression Code(s): F41.8 - OTHER SPECIFIED ANXIETY DISORDERS Status: Chronic (4) Tobacco abuse Code(s): Z72.0 - TOBACCO USE Status: Chronic Comment: Counselled. - Plan out of bed/ambulate, DVT proph w/SCDs Monitor for 1-2 days per ID recom -: Cont pain meds/O2/IVF -: Cont current meds as below -: AM labs * . Review of Systems - Review of Systems Cardiovascular: negative: chest pain, palpitations, orthopnea, paroxysmal nocturnal dyspnea, edema, light headedness, other Gastrointestinal: negative: Nausea, Vomiting, Abdominal Pain, Diarrhea, Constipation, Melena, Hematochezia, Other - Medications/Allergies Allergies/Adverse Reactions: Allergies Allergy/AdvReac Type Severity Reaction Status Date / Time fentanyl Allergy Verified 06/27/17 03:48 ketorolac tromethamine Allergy Short of Verified 06/27/17 03:48 [From Toradol] Breath metoclopramide [From Reglan] Allergy Verified 06/27/17 03:48 Sulfa (Sulfonamide Allergy Verified 06/27/17 03:48 Antibiotics) Medications: Current Medications Acetaminophen (Tylenol) 650 mg PO Q4H PRN PRN Reason: Headache/Fever or Pain 1-3 Last Admin: 09/23/17 04:29 Dose: 650 mg Hydrocodone Bitart/Acetaminophen ([place] 10/325) 1 tab PO Q4H PRN PRN Reason: Moderate Pain (4-6) Last Admin: 09/28/17 01:53 Dose: 1 tab Hydrocodone Bitart/Acetaminophen ([place] 10/325) 2 tab PO Q4H PRN PRN Reason: Severe Pain (7-10) Last Admin: 09/28/17 20:01 Dose: 2 tab Al Hydroxide/Mg Hydroxide (Maalox) 30 ml PO Q6H PRN PRN Reason: Heartburn or Indigestion Albuterol/Ipratropium (Duoneb) 3 ml NEB [id number] [facility] Last Admin: 09/28/17 20:02 Dose: Not Given Calcium Carbonate (Tums) 1,000 mg PO Q4H PRN PRN Reason: Heartburn or Indigestion Diphenhydramine HCl (Benadryl) 25 mg PO Q4H PRN PRN Reason: Itching & Insomnia Last Admin: 09/26/17 16:23 Dose: 25 mg Docusate Sodium (Colace) 100 mg PO BID [facility] Last Admin: 09/28/17 20:02 Dose: Not Given Famotidine (Pepcid) 20 mg PO BID [facility] Last Admin: 09/28/17 20:00 Dose: 20 mg Folic Acid (Folvite) 1 mg PO BID [facility] Last Admin: 09/28/17 20:00 Dose: 1 mg Guaifenesin/Dextromethorphan (Robitussin Dm) 15 ml PO Q4H PRN PRN Reason: Cough Ibuprofen (Motrin) 400 mg PO Q6H PRN PRN Reason: breakthrough fever Last Admin: 09/23/17 18:46 Dose: 400 mg Ondansetron HCl (Zofran) 4 mg IVP Q4H PRN PRN Reason: Nausea/Vomiting Last Admin: 09/22/17 18:24 Dose: 4 mg Sodium Chloride (Flush - Normal Saline) 10 ml IVF Q12HR [facility] Last Admin: 09/28/17 20:05 Dose: 10 ml Sodium Chloride (Flush - Normal Saline) 10 ml IVF PRN PRN PRN Reason: Saline Flush
[2017-09-29] MEDS: HYDROcodone/Acetaminophen 10/325 mg Tablet PO PRN ×6 (00:48→22:28)
[2017-09-29 07:33] LABS: Reticulocyte Count 4.6 % (0.5-1.5)
[2017-09-29 07:59] LABS: Anion Gap 11 mmol/L (10-20); BUN (Urea Nitrogen) 8 mg/dL (8.9-20.6); Calc. Creatinine Clearance 142 mL/min (70-130); Calcium 9.3 mg/dL (7.8-10.44); Carbon Dioxide 26 mmol/L (22-29); Chloride 104 mmol/L (98-107); Estimated GFR-MDRD Greater than 90; Glucose 108 mg/dL (70-105); Potassium 3.7 mmol/L (3.5-5.1); Sodium 137 mmol/L (136-145)
[2017-09-29 09:15] LABS: Anisocytosis SLIGHT = 6-15 cells (100X) (0-5/hpf); Eosinophils 4 % (0-10); Hemoglobin 9.5 g/dL (14.0-18.0); Hemoglobin C Crystals SLIGHT (None Seen); Lymphocytes 32 % (21-51); MDiff Complete? YES; Mean Corpuscular HGB CONC 34.4 g/dL (32.0-36.0); Mean Corpuscular Hemoglobin 30.2 pg (27.0-31.0); Mean Corpuscular Volume 87.8 fl (80.0-94.0); Mean Platelet Volume 6.5 fL (7.4-10.4); Monocytes 15 % (0-10); Neutrophil 40 % (42-75); Nucleated RBC 2 % (0); PLT Morphology Comment Appears Increased; Platelet Count 413 thou/uL (130-400); Polychromasia MODERATE = 3-4 cells (100X) (0-2/hpf); RBC Distribution Width 16.5 % (11.5-14.5); Reactive Lymphocytes 9 % (0-10); Red Blood Cell (RBC) Count 3.13 mill/uL (4.70-6.10); Target Cells MODERATE= 6-15 cells (100X) (0-1/hpf); White Blood Cell (WBC) Count 11.8 thou/uL (4.8-10.8)
[2017-09-29] MEDS: Famotidine 20 MG TAB PO SCH ×2 (09:24→20:09)
[2017-09-29] MEDS: Folic Acid 1 MG TAB PO SCH ×2 (09:25→20:09)
[2017-09-29] MEDS: Docusate 100 MG CAP PO SCH ×2 (09:27→20:11)
[2017-09-29] MEDS: Sodium Chloride 0.9% 1,000 ML IV SCH ×2 (11:09→17:53)
--- NOTE | 2017-09-29 11:31 | RAD ---
TWO VIEWS OF THE CHEST: DATE: 09/29/17. COMPARISON: 09/23/17. HISTORY: Sickle cell crisis, chest pain, assess for pneumonia. FINDINGS: Here is no pneumothorax or pleural fluid. No focal consolidation or alveolar edema. Heart and media stinal contours are unremarkable. IMPRESSION: No acute findings. POS: [facility]
[2017-09-29 15:24] LABS: Hemoglobin A 0 % (96.4-98.8); Hemoglobin A2 4.2 % (1.8-3.2); Hemoglobin F 0.6 % (0.0-2.0); Hemoglobin S 49.8 % (0.0); Hemoglonin C Window 45.4 % (0.0); Interpretation Note: (.)
--- NOTE | 2017-09-29 23:13 | PDOC.PN ---
- Subjective Encounter Start Date: 09/29/17 Encounter Start Time: 10:30 Patient seen and examined for sickle cell crisis. Pain still uncontrolled. No overnight events - Objective Resuscitation Status: Resuscitation Status FULL:Full Resuscitation MAR Reviewed: Yes Vital Signs & Weight: Vital Signs (12 hours) Temp Pulse Resp BP Pulse Ox 09/29/17 20:00 98.2 F 84 16 110/60 99 09/29/17 15:50 68 16 101/55 L 98 09/29/17 13:18 97.9 F 64 16 95/55 L 97 Weight Weight 139 lb 15.896 oz I&O: 09/28/17 09/29/17 09/30/17 06:59 06:59 06:59 Intake Total 4020 405 6703 Balance 6010 948 0224 Result Diagrams: 09/30/17 03:51 09/30/17 03:51 Phys Exam - Physical Examination Constitutional: NAD Respiratory: no wheezing, no rhonchi Cardiovascular: RRR, no rub Gastrointestinal: soft, non-tender Musculoskeletal: no edema Neurological: moves all 4 limbs Dx/Plan (1) Sickle cell anemia with crisis Code(s): D57.00 - HB-SS DISEASE WITH CRISIS, UNSPECIFIED Status: Acute Comment: uncontrolled. Reticulocyte elevated (2) Fever Code(s): R50.9 - FEVER, UNSPECIFIED Status: Acute Comment: prob due to URTI ?viral, Afebrile, Cultures negative (3) Anxiety and depression Code(s): F41.8 - OTHER SPECIFIED ANXIETY DISORDERS Status: Chronic (4) Tobacco abuse Code(s): Z72.0 - TOBACCO USE Status: Chronic Comment: Counselled. - Plan DVT proph w/SCDs Increase IVF to 125 ml/hr -: Cont Morphine alternating with [place] for pain -: O2/Folic acid -: CXR today -: Probably dc in 1-2 days if reticulocyte improves Review of Systems - Review of Systems Respiratory: SOB with Excertion, Pleuritic Pain (left) Cardiovascular: negative: chest pain, palpitations, orthopnea, paroxysmal nocturnal dyspnea, edema, light headedness, other - Medications/Allergies Allergies/Adverse Reactions: Allergies Allergy/AdvReac Type Severity Reaction Status Date / Time fentanyl Allergy Verified 06/27/17 03:48 ketorolac tromethamine Allergy Short of Verified 06/27/17 03:48 [From Toradol] Breath metoclopramide [From Reglan] Allergy Verified 06/27/17 03:48 Sulfa (Sulfonamide Allergy Verified 06/27/17 03:48 Antibiotics) Medications: Current Medications Acetaminophen (Tylenol) 650 mg PO Q4H PRN PRN Reason: Headache/Fever or Pain 1-3 Last Admin: 09/23/17 04:29 Dose: 650 mg Hydrocodone Bitart/Acetaminophen ([place] 10/325) 1 tab PO Q4H PRN PRN Reason: Moderate Pain (4-6) Last Admin: 09/29/17 09:25 Dose: 1 tab Hydrocodone Bitart/Acetaminophen ([place] 10/325) 2 tab PO Q4H PRN PRN Reason: Severe Pain (7-10) Last Admin: 09/29/17 22:28 Dose: 2 tab Al Hydroxide/Mg Hydroxide (Maalox) 30 ml PO Q6H PRN PRN Reason: Heartburn or Indigestion Albuterol/Ipratropium (Duoneb) 3 ml NEB [id number] PRN PRN Reason: SOB &/or Wheezing Calcium Carbonate (Tums) 1,000 mg PO Q4H PRN PRN Reason: Heartburn or Indigestion Diphenhydramine HCl (Benadryl) 25 mg PO Q4H PRN PRN Reason: Itching & Insomnia Last Admin: 09/26/17 16:23 Dose: 25 mg Docusate Sodium (Colace) 100 mg PO BID [facility] Last Admin: 09/29/17 20:11 Dose: Not Given Famotidine (Pepcid) 20 mg PO BID [facility] Last Admin: 09/29/17 20:09 Dose: 20 mg Folic Acid (Folvite) 1 mg PO BID [facility] Last Admin: 09/29/17 20:09 Dose: 1 mg Guaifenesin/Dextromethorphan (Robitussin Dm) 15 ml PO Q4H PRN PRN Reason: Cough Sodium Chloride (Normal Saline 0.9%) 1,000 mls @ 125 mls/hr IV .Q8H [facility] Last Admin: 09/29/17 17:53 Dose: 1,000 mls Ibuprofen (Motrin) 400 mg PO Q6H PRN PRN Reason: breakthrough fever Last Admin: 09/23/17 18:46 Dose: 400 mg Morphine Sulfate (Morphine) 2 mg SLOW IVP Q4H PRN PRN Reason: severe breakthrough pain Stop: 10/01/17 10:16 Last Admin: 09/29/17 20:08 Dose: 2 mg Ondansetron HCl (Zofran) 4 mg IVP Q4H PRN PRN Reason: Nausea/Vomiting Last Admin: 09/22/17 18:24 Dose: 4 mg Sodium Chloride (Flush - Normal Saline) 10 ml IVF Q12HR [facility] Last Admin: 09/29/17 20:08 Dose: 10 ml Sodium Chloride (Flush - Normal Saline) 10 ml IVF PRN PRN PRN Reason: Saline Flush
[2017-09-30] MEDS: Sodium Chloride 0.9% 1,000 ML IV SCH ×5 (02:38→23:56)
[2017-09-30] MEDS: HYDROcodone/Acetaminophen 10/325 mg Tablet PO PRN ×4 (04:41→20:29)
[2017-09-30 05:14] LABS: Reticulocyte Count 5.1 % (0.5-1.5)
[2017-09-30 05:20] LABS: Anion Gap 13 mmol/L (10-20); BUN (Urea Nitrogen) 6 mg/dL (8.9-20.6); Calc. Creatinine Clearance 129 mL/min (70-130); Calcium 9.1 mg/dL (7.8-10.44); Carbon Dioxide 24 mmol/L (22-29); Chloride 107 mmol/L (98-107); Estimated GFR-MDRD Greater than 90; Glucose 93 mg/dL (70-105); Potassium 4.3 mmol/L (3.5-5.1); Sodium 140 mmol/L (136-145)
[2017-09-30 05:24] LABS: Eosinophils 2 % (0-10); Hemoglobin 8.8 g/dL (14.0-18.0); Lymphocytes 51 % (21-51); MDiff Complete? YES; Mean Corpuscular HGB CONC 35.9 g/dL (32.0-36.0); Mean Corpuscular Hemoglobin 32.2 pg (27.0-31.0); Mean Corpuscular Volume 89.7 fl (80.0-94.0); Mean Platelet Volume 6.9 fL (7.4-10.4); Microcytosis SLIGHT = 6-15 cells (100X) (0-5/hpf); Monocytes 10 % (0-10); Neutrophil 37 % (42-75); Nucleated RBC 1 % (0); PLT Morphology Comment Appears Increased; Platelet Count 414 thou/uL (130-400); RBC Distribution Width 16.6 % (11.5-14.5); Red Blood Cell (RBC) Count 2.74 mill/uL (4.70-6.10); Target Cells SLIGHT = 2-5 cells (100X) (0-1/hpf); White Blood Cell (WBC) Count 11.5 thou/uL (4.8-10.8)
[2017-09-30] MEDS: Folic Acid 1 MG TAB PO SCH ×2 (08:52→20:29)
[2017-09-30] MEDS: Famotidine 20 MG TAB PO SCH ×2 (08:52→20:29)
[2017-09-30] MEDS: Docusate 100 MG CAP PO SCH ×2 (08:52→20:31)
--- NOTE | 2017-09-30 16:28 | PDOC.PN ---
- Subjective Encounter Start Date: 09/30/17 Encounter Start Time: 11:30 Patient seen and examined for sickle cell crisis. Pain still uncontrolled. No new complaints. No overnight events - Objective Resuscitation Status: Resuscitation Status FULL:Full Resuscitation MAR Reviewed: Yes Vital Signs & Weight: Vital Signs (12 hours) Temp Pulse Resp BP BP Pulse Ox 09/30/17 11:00 97.6 F 78 18 119/71 99 09/30/17 08:50 98.1 F 78 20 98 09/30/17 07:55 98.1 F 78 20 94/59 L 98 Weight Weight 139 lb 15.896 oz I&O: 09/29/17 09/30/17 10/01/17 06:59 06:59 06:59 Intake Total 750 2500 Balance 750 2500 Result Diagrams: 09/30/17 03:51 09/30/17 03:51 Additional Labs: Laboratory Tests 09/30/17 03:51 Retic Count 5.1 H Phys Exam - Physical Examination Pt in mild distress due to pain Respiratory: no wheezing, no rhonchi Cardiovascular: RRR, no rub Gastrointestinal: soft, non-tender, positive bowel sounds Musculoskeletal: no edema Neurological: moves all 4 limbs Dx/Plan (1) Sickle cell anemia with crisis Code(s): D57.00 - HB-SS DISEASE WITH CRISIS, UNSPECIFIED Status: Acute Comment: uncontrolled. Reticulocyte elevated (2) Fever Code(s): R50.9 - FEVER, UNSPECIFIED Status: Acute Comment: prob due to URTI ?viral, Afebrile, Cultures negative (3) Anxiety and depression Code(s): F41.8 - OTHER SPECIFIED ANXIETY DISORDERS Status: Chronic (4) Tobacco abuse Code(s): Z72.0 - TOBACCO USE Status: Chronic Comment: Counselled. - Plan DVT proph w/SCDs CBC/Reti count in AM -: Increase IV fluid to 150 ml/hr -: Cont Morpine/[place] for pain control -: Prob dc in AM if reti ct & pain controlled. Review of Systems - Review of Systems Respiratory: negative: Cough, Dry, Shortness of Breath, Hemoptysis, SOB with Excertion, Pleuritic Pain, Sputum, Wheezing Cardiovascular: negative: chest pain, palpitations, orthopnea, paroxysmal nocturnal dyspnea, edema, light headedness, other - Medications/Allergies Allergies/Adverse Reactions: Allergies Allergy/AdvReac Type Severity Reaction Status Date / Time fentanyl Allergy Verified 06/27/17 03:48 ketorolac tromethamine Allergy Short of Verified 06/27/17 03:48 [From Toradol] Breath metoclopramide [From Reglan] Allergy Verified 06/27/17 03:48 Sulfa (Sulfonamide Allergy Verified 06/27/17 03:48 Antibiotics) Medications: Current Medications Acetaminophen (Tylenol) 650 mg PO Q4H PRN PRN Reason: Headache/Fever or Pain 1-3 Last Admin: 09/23/17 04:29 Dose: 650 mg Hydrocodone Bitart/Acetaminophen ([place] 10/325) 1 tab PO Q4H PRN PRN Reason: Moderate Pain (4-6) Last Admin: 09/29/17 09:25 Dose: 1 tab Hydrocodone Bitart/Acetaminophen ([place] 10/325) 2 tab PO Q4H PRN PRN Reason: Severe Pain (7-10) Last Admin: 09/30/17 16:18 Dose: 2 tab Al Hydroxide/Mg Hydroxide (Maalox) 30 ml PO Q6H PRN PRN Reason: Heartburn or Indigestion Albuterol/Ipratropium (Duoneb) 3 ml NEB [id number] PRN PRN Reason: SOB &/or Wheezing Calcium Carbonate (Tums) 1,000 mg PO Q4H PRN PRN Reason: Heartburn or Indigestion Diphenhydramine HCl (Benadryl) 25 mg PO Q4H PRN PRN Reason: Itching & Insomnia Last Admin: 09/26/17 16:23 Dose: 25 mg Docusate Sodium (Colace) 100 mg PO BID [facility] Last Admin: 09/30/17 08:52 Dose: Not Given Famotidine (Pepcid) 20 mg PO BID [facility] Last Admin: 09/30/17 08:52 Dose: 20 mg Folic Acid (Folvite) 1 mg PO BID [facility] Last Admin: 09/30/17 08:52 Dose: 1 mg Guaifenesin/Dextromethorphan (Robitussin Dm) 15 ml PO Q4H PRN PRN Reason: Cough Sodium Chloride (Normal Saline 0.9%) 1,000 mls @ 150 mls/hr IV .Q6H40M [facility] Last Admin: 09/30/17 10:33 Dose: 1,000 mls Ibuprofen (Motrin) 400 mg PO Q6H PRN PRN Reason: breakthrough fever Last Admin: 09/23/17 18:46 Dose: 400 mg Morphine Sulfate (Morphine) 2 mg SLOW IVP Q4H PRN PRN Reason: severe breakthrough pain Stop: 10/01/17 10:16 Last Admin: 09/30/17 12:56 Dose: 2 mg Ondansetron HCl (Zofran) 4 mg IVP Q4H PRN PRN Reason: Nausea/Vomiting Last Admin: 09/22/17 18:24 Dose: 4 mg Sodium Chloride (Flush - Normal Saline) 10 ml IVF Q12HR [facility] Last Admin: 09/30/17 08:54 Dose: Not Given Sodium Chloride (Flush - Normal Saline) 10 ml IVF PRN PRN PRN Reason: Saline Flush
[2017-10-01] MEDS: HYDROcodone/Acetaminophen 10/325 mg Tablet PO PRN ×3 (00:43→09:09)
[2017-10-01] MEDS: Sodium Chloride 0.9% 1,000 ML IV SCH ×3 (04:25→13:31)
[2017-10-01 06:04] LABS: Anisocytosis SLIGHT = 6-15 cells (100X) (0-5/hpf); Eosinophils 2 % (0-10); Hemoglobin 8.6 g/dL (14.0-18.0); Lymphocytes 48 % (21-51); MDiff Complete? YES; Mean Corpuscular HGB CONC 34.1 g/dL (32.0-36.0); Mean Corpuscular Hemoglobin 30.3 pg (27.0-31.0); Mean Corpuscular Volume 88.9 fl (80.0-94.0); Mean Platelet Volume 7.1 fL (7.4-10.4); Monocytes 20 % (0-10); Neutrophil 30 % (42-75); Nucleated RBC 1 % (0); Platelet Count 423 thou/uL (130-400); RBC Distribution Width 16.3 % (11.5-14.5); Red Blood Cell (RBC) Count 2.85 mill/uL (4.70-6.10); Target Cells SLIGHT = 2-5 cells (100X) (0-1/hpf); White Blood Cell (WBC) Count 10.6 thou/uL (4.8-10.8)
[2017-10-01 06:22] LABS: Reticulocyte Count 5.3 % (0.5-1.5)
[2017-10-01] MEDS: Famotidine 20 MG TAB PO SCH ×2 (07:00→20:39)
[2017-10-01] MEDS: Folic Acid 1 MG TAB PO SCH ×2 (07:00→20:39)
[2017-10-01] MEDS: Docusate 100 MG CAP PO SCH ×2 (07:36→20:39)
--- NOTE | 2017-10-01 13:44 | PDOC.PN ---
- Subjective Encounter Start Date: 10/01/17 Encounter Start Time: 11:00 Subjective: pt up in bed complains of pain to his left elbow - Objective Resuscitation Status: Resuscitation Status FULL:Full Resuscitation Vital Signs & Weight: Vital Signs (12 hours) Temp Pulse Resp BP BP Pulse Ox 10/01/17 08:00 98.1 F 66 14 10/01/17 07:49 98.1 F 66 14 109/61 97 10/01/17 04:52 98.2 F 61 20 105/67 99 Weight Weight 139 lb 15.896 oz I&O: 09/30/17 10/01/17 10/02/17 06:59 06:59 06:59 Intake Total 2500 4152 Balance 2500 4152 Result Diagrams: 10/01/17 04:07 09/30/17 03:51 Phys Exam - Physical Examination HEENT: PERRLA, moist MMs, sclera anicteric, TM's clear, oral pharynx no lesions , 2+ tonsils Neck: no nodes, no JVD, supple, full ROM Respiratory: no wheezing, no rales, no rhonchi, wheezing present, clear to auscultation bilateral Cardiovascular: RRR, no significant murmur, no rub, gallop, irregular Gastrointestinal: soft, non-tender, no distention, positive bowel sounds bilateral elbow joint are warm to touch,no erythema noted Dx/Plan (1) Sickle cell anemia with crisis Code(s): D57.00 - HB-SS DISEASE WITH CRISIS, UNSPECIFIED Status: Acute Comment: uncontrolled. Reticulocyte elevated (2) Fever Code(s): R50.9 - FEVER, UNSPECIFIED Status: Acute Comment: prob due to URTI ?viral, Afebrile, Cultures negative (3) Anxiety and depression Code(s): F41.8 - OTHER SPECIFIED ANXIETY DISORDERS Status: Chronic - Plan * . plan: pt states that he moved from [place] to [place] and now back to [place]. He does not take hydroxyurea since he gets headaches. Encouraged ambulation. will change pt's po from norco to percocet which he takes at home. will discontinue iv morphine in anticipation of discharge. Pt has not had a fever all cx negative. possible discharge in 24-48hr. Review of Systems - Review of Systems ENT: negative: Ear Pain, Ear Discharge, Nose Pain, Nose Discharge, Nose Congestion, Mouth Pain, Mouth Swelling, Throat Pain, Throat Swelling, Other Cardiovascular: negative: chest pain, palpitations, orthopnea, paroxysmal nocturnal dyspnea, edema, light headedness, other Gastrointestinal: negative: Nausea, Vomiting, Abdominal Pain, Diarrhea, Constipation, Melena, Hematochezia, Other Genitourinary: negative: Dysuria, Frequency, Incontinence, Hematuria, Retention , Other Musculoskeletal: Arm Pain - Medications/Allergies Allergies/Adverse Reactions: Allergies Allergy/AdvReac Type Severity Reaction Status Date / Time fentanyl Allergy Verified 06/27/17 03:48 ketorolac tromethamine Allergy Short of Verified 06/27/17 03:48 [From Toradol] Breath metoclopramide [From Reglan] Allergy Verified 06/27/17 03:48 Sulfa (Sulfonamide Allergy Verified 06/27/17 03:48 Antibiotics) Medications: Current Medications Acetaminophen (Tylenol) 650 mg PO Q4H PRN PRN Reason: Headache/Fever or Pain 1-3 Last Admin: 09/23/17 04:29 Dose: 650 mg Al Hydroxide/Mg Hydroxide (Maalox) 30 ml PO Q6H PRN PRN Reason: Heartburn or Indigestion Albuterol/Ipratropium (Duoneb) 3 ml NEB [id number]-SH PRN PRN Reason: SOB &/or Wheezing Calcium Carbonate (Tums) 1,000 mg PO Q4H PRN PRN Reason: Heartburn or Indigestion Diphenhydramine HCl (Benadryl) 25 mg PO Q4H PRN PRN Reason: Itching & Insomnia Last Admin: 09/26/17 16:23 Dose: 25 mg Docusate Sodium (Colace) 100 mg PO BID [facility] Last Admin: 10/01/17 07:36 Dose: Not Given Famotidine (Pepcid) 20 mg PO BID [facility] Last Admin: 10/01/17 07:00 Dose: 20 mg Folic Acid (Folvite) 1 mg PO BID [facility] Last Admin: 10/01/17 07:00 Dose: 1 mg Guaifenesin/Dextromethorphan (Robitussin Dm) 15 ml PO Q4H PRN PRN Reason: Cough Sodium Chloride (Normal Saline 0.9%) 1,000 mls @ 75 mls/hr IV .[id number] [facility] Last Admin: 10/01/17 13:31 Dose: 1,000 mls Ibuprofen (Motrin) 400 mg PO Q6H PRN PRN Reason: breakthrough fever Last Admin: 09/23/17 18:46 Dose: 400 mg Morphine Sulfate (Morphine) 2 mg SLOW IVP ONE PRN PRN Reason: . NEEDED Stop: 10/02/17 12:56 Last Admin: 10/01/17 13:29 Dose: 2 mg Ondansetron HCl (Zofran) 4 mg IVP Q4H PRN PRN Reason: Nausea/Vomiting Last Admin: 09/22/17 18:24 Dose: 4 mg Oxycodone/Acetaminophen (Percocet 5/325) 2 tab PO Q4H PRN PRN Reason: Pain 4TH LINE Sodium Chloride (Flush - Normal Saline) 10 ml IVF Q12HR [facility] Last Admin: 10/01/17 07:36 Dose: Not Given Sodium Chloride (Flush - Normal Saline) 10 ml IVF PRN PRN PRN Reason: Saline Flush
[2017-10-01] MEDS: oxyCODONE/Acetaminophen 5 mg/325 mg Tablet PO PRN ×3 (15:29→23:43)
[2017-10-02] MEDS: Sodium Chloride 0.9% 1,000 ML IV SCH (01:45)
[2017-10-02] MEDS: oxyCODONE/Acetaminophen 5 mg/325 mg Tablet PO PRN ×5 (03:23→20:12)
[2017-10-02 04:59] LABS: Reticulocyte Count 5.2 % (0.5-1.5)
[2017-10-02 05:11] LABS: Anion Gap 8 mmol/L (10-20); BUN (Urea Nitrogen) 6 mg/dL (8.9-20.6); Calc. Creatinine Clearance 138 mL/min (70-130); Calcium 9.3 mg/dL (7.8-10.44); Carbon Dioxide 30 mmol/L (22-29); Chloride 106 mmol/L (98-107); Estimated GFR-MDRD Greater than 90; Glucose 81 mg/dL (70-105); Potassium 4.2 mmol/L (3.5-5.1); Sodium 140 mmol/L (136-145)
[2017-10-02 05:38] LABS: Anisocytosis SLIGHT = 6-15 cells (100X) (0-5/hpf); Eosinophils 1 % (0-10); Hemoglobin 8.8 g/dL (14.0-18.0); Hemoglobin C Crystals SLIGHT (None Seen); Lymphocytes 39 % (21-51); MDiff Complete? YES; Mean Corpuscular HGB CONC 34.9 g/dL (32.0-36.0); Mean Corpuscular Hemoglobin 31.2 pg (27.0-31.0); Mean Corpuscular Volume 89.4 fl (80.0-94.0); Mean Platelet Volume 6.6 fL (7.4-10.4); Monocytes 17 % (0-10); Neutrophil 43 % (42-75); Nucleated RBC 2 % (0); Platelet Count 429 thou/uL (130-400); Polychromasia SLIGHT = 2-3 cells (100X) (0-2/hpf); RBC Distribution Width 16.2 % (11.5-14.5); Sickle Cells SLIGHT = 1-5 cells (100X) (None Seen); Target Cells MODERATE= 6-15 cells (100X) (0-1/hpf); White Blood Cell (WBC) Count 10.1 thou/uL (4.8-10.8)
[2017-10-02] MEDS: Docusate 100 MG CAP PO SCH ×2 (08:30→20:13)
[2017-10-02] MEDS: Famotidine 20 MG TAB PO SCH ×2 (08:30→20:12)
[2017-10-02] MEDS: Folic Acid 1 MG TAB PO SCH ×2 (08:30→20:12)
--- NOTE | 2017-10-02 09:49 | PDOC.PN ---
- Subjective Encounter Start Date: 10/02/17 Encounter Start Time: 07:50 -: old records requested/rev Patient seen and examined for sickle cell crises. No new complaints. No overnight events - Objective Resuscitation Status: Resuscitation Status FULL:Full Resuscitation MAR Reviewed: Yes Vital Signs & Weight: Vital Signs (12 hours) Temp Pulse Resp BP BP Pulse Ox 10/02/17 08:04 98.2 F 56 L 12 99/60 98 10/02/17 08:00 98.2 F 56 L 12 98 10/02/17 04:50 97.9 F 57 L 20 93/57 L 98 10/02/17 00:29 98.2 F 61 20 105/68 100 Weight Admit Weight 139 lb 15.896 oz Weight 139 lb 15.896 oz I&O: 10/01/17 10/02/17 10/03/17 06:59 06:59 06:59 Intake Total 4152 1000 Balance 4152 1000 Result Diagrams: 10/02/17 04:30 10/02/17 04:30 Phys Exam - Physical Examination Constitutional: NAD HEENT: PERRLA, moist MMs, sclera anicteric Neck: no JVD, supple Respiratory: no wheezing, no rales, no rhonchi Cardiovascular: RRR, no significant murmur, no rub Gastrointestinal: soft, non-tender, no distention, positive bowel sounds Musculoskeletal: no edema, pulses present Neurological: non-focal, normal sensation, moves all 4 limbs Psychiatric: normal affect, A&O x 3 Skin: no rash, normal turgor Dx/Plan (1) Fever Code(s): R50.9 - FEVER, UNSPECIFIED Status: Resolved Comment: prob due to URTI ?viral, Afebrile, Cultures negative (2) Sickle cell anemia with crisis Code(s): D57.00 - HB-SS DISEASE WITH CRISIS, UNSPECIFIED Status: Acute Comment: uncontrolled. Reticulocyte elevated (3) Anxiety and depression Code(s): F41.8 - OTHER SPECIFIED ANXIETY DISORDERS Status: Chronic (4) Chronic pain disorder Code(s): G89.4 - CHRONIC PAIN SYNDROME Status: Chronic (5) Tobacco abuse Code(s): Z72.0 - TOBACCO USE Status: Chronic Comment: Counselled. - Plan cont current plan of care, plan discussed w/ family * medication reviewed as below * symptomatic treatment * will try to control pain with oral medication * expecting discharge tomorrow * DC IVF. Review of Systems - Review of Systems Eyes: negative: Pain, Vision Change, Conjunctivae Inflammation, Eyelid Inflammation, Redness, Other ENT: negative: Ear Pain, Ear Discharge, Nose Pain, Nose Discharge, Nose Congestion, Mouth Pain, Mouth Swelling, Throat Pain, Throat Swelling, Other Respiratory: negative: Cough, Dry, Shortness of Breath, Hemoptysis, SOB with Excertion, Pleuritic Pain, Sputum, Wheezing Cardiovascular: negative: chest pain, palpitations, orthopnea, paroxysmal nocturnal dyspnea, edema, light headedness, other Gastrointestinal: negative: Nausea, Vomiting, Abdominal Pain, Diarrhea, Constipation, Melena, Hematochezia, Other Genitourinary: negative: Dysuria, Frequency, Incontinence, Hematuria, Retention , Other Musculoskeletal: negative: Neck Pain, Shoulder Pain, Arm Pain, Back Pain, Hand Pain, Leg Pain, Foot Pain, Other Skin: negative: Rash, Lesions, Shahram, Bruising, Other - Medications/Allergies Allergies/Adverse Reactions: Allergies Allergy/AdvReac Type Severity Reaction Status Date / Time fentanyl Allergy Verified 06/27/17 03:48 ketorolac tromethamine Allergy Short of Verified 06/27/17 03:48 [From Toradol] Breath metoclopramide [From Reglan] Allergy Verified 06/27/17 03:48 Sulfa (Sulfonamide Allergy Verified 06/27/17 03:48 Antibiotics) Medications: Current Medications Acetaminophen (Tylenol) 650 mg PO Q4H PRN PRN Reason: Headache/Fever or Pain 1-3 Last Admin: 09/23/17 04:29 Dose: 650 mg Al Hydroxide/Mg Hydroxide (Maalox) 30 ml PO Q6H PRN PRN Reason: Heartburn or Indigestion Albuterol/Ipratropium (Duoneb) 3 ml NEB [id number] PRN PRN Reason: SOB &/or Wheezing Calcium Carbonate (Tums) 1,000 mg PO Q4H PRN PRN Reason: Heartburn or Indigestion Diphenhydramine HCl (Benadryl) 25 mg PO Q4H PRN PRN Reason: Itching & Insomnia Last Admin: 09/26/17 16:23 Dose: 25 mg Docusate Sodium (Colace) 100 mg PO BID [facility] Last Admin: 10/02/17 08:30 Dose: Not Given Famotidine (Pepcid) 20 mg PO BID [facility] Last Admin: 10/02/17 08:30 Dose: 20 mg Folic Acid (Folvite) 1 mg PO BID [facility] Last Admin: 10/02/17 08:30 Dose: 1 mg Guaifenesin/Dextromethorphan (Robitussin Dm) 15 ml PO Q4H PRN PRN Reason: Cough Sodium Chloride (Normal Saline 0.9%) 1,000 mls @ 75 mls/hr IV .[id number] [facility] Last Admin: 10/02/17 01:45 Dose: 1,000 mls Ibuprofen (Motrin) 400 mg PO Q6H PRN PRN Reason: breakthrough fever Last Admin: 09/23/17 18:46 Dose: 400 mg Morphine Sulfate (Morphine) 2 mg SLOW IVP ONE PRN PRN Reason: . NEEDED Stop: 10/02/17 12:56 Last Admin: 10/01/17 13:29 Dose: 2 mg Ondansetron HCl (Zofran) 4 mg IVP Q4H PRN PRN Reason: Nausea/Vomiting Last Admin: 09/22/17 18:24 Dose: 4 mg Oxycodone/Acetaminophen (Percocet 5/325) 2 tab PO Q4H PRN PRN Reason: Pain 4TH LINE Last Admin: 10/02/17 08:34 Dose: 2 tab Sodium Chloride (Flush - Normal Saline) 10 ml IVF Q12HR [facility] Last Admin: 10/02/17 08:31 Dose: Not Given Sodium Chloride (Flush - Normal Saline) 10 ml IVF PRN PRN PRN Reason: Saline Flush
[2017-10-03] MEDS: oxyCODONE/Acetaminophen 5 mg/325 mg Tablet PO PRN ×3 (00:16→09:15)
[2017-10-03] MEDS: Folic Acid 1 MG TAB PO SCH (09:13)
[2017-10-03] MEDS: Docusate 100 MG CAP PO SCH (09:14)
[2017-10-03] MEDS: Famotidine 20 MG TAB PO SCH (09:14)
--- NOTE | 2017-10-03 09:36 | PDOC.PN ---
- Subjective Encounter Start Date: 10/03/17 Encounter Start Time: 08:40 pt is resting in bed with his and entire family, he is pretending to have pain in chest, he is stable and when I entered he was comfortable - Objective Resuscitation Status: Resuscitation Status FULL:Full Resuscitation MAR Reviewed: Yes Vital Signs & Weight: Vital Signs (12 hours) Temp Pulse Resp BP Pulse Ox 10/03/17 08:00 98.0 F 59 L 16 100/58 L 97 Weight Admit Weight 139 lb 15.896 oz Weight 139 lb 15.896 oz I&O: 10/02/17 10/03/17 10/04/17 06:59 06:59 06:59 Intake Total 1000 3700 Balance 1000 3700 Result Diagrams: 10/02/17 04:30 10/02/17 04:30 Phys Exam - Physical Examination Constitutional: NAD HEENT: PERRLA, moist MMs, sclera anicteric Neck: no JVD, supple Respiratory: no wheezing, no rales, no rhonchi Cardiovascular: RRR, no significant murmur, no rub Gastrointestinal: soft, non-tender, no distention, positive bowel sounds Musculoskeletal: no edema, pulses present Neurological: non-focal, normal sensation, moves all 4 limbs Lymphatic: no nodes Psychiatric: normal affect, A&O x 3 Skin: no rash, normal turgor Dx/Plan (1) Sickle cell anemia with crisis Code(s): D57.00 - HB-SS DISEASE WITH CRISIS, UNSPECIFIED Status: Acute Comment: uncontrolled. Reticulocyte elevated (2) Anxiety and depression Code(s): F41.8 - OTHER SPECIFIED ANXIETY DISORDERS Status: Chronic (3) Chronic pain disorder Code(s): G89.4 - CHRONIC PAIN SYNDROME Status: Chronic (4) Tobacco abuse Code(s): Z72.0 - TOBACCO USE Status: Chronic Comment: Counselled. (5) Fever Code(s): R50.9 - FEVER, UNSPECIFIED Status: Resolved Comment: prob due to URTI ?viral, Afebrile, Cultures negative - Plan cont current plan of care * I think he is ok for discharge as he will never say that he has no pain, and he never says that he is ready for discharge based on his previous visit * he stayed this time more than expected in hospital * he is at his baseline * medication reviewed as below * symptomatic treatment Review of Systems - Review of Systems Eyes: negative: Pain, Vision Change, Conjunctivae Inflammation, Eyelid Inflammation, Redness, Other ENT: negative: Ear Pain, Ear Discharge, Nose Pain, Nose Discharge, Nose Congestion, Mouth Pain, Mouth Swelling, Throat Pain, Throat Swelling, Other Respiratory: negative: Cough, Dry, Shortness of Breath, Hemoptysis, SOB with Excertion, Pleuritic Pain, Sputum, Wheezing Cardiovascular: negative: chest pain, palpitations, orthopnea, paroxysmal nocturnal dyspnea, edema, light headedness, other Gastrointestinal: negative: Nausea, Vomiting, Abdominal Pain, Diarrhea, Constipation, Melena, Hematochezia, Other Genitourinary: negative: Dysuria, Frequency, Incontinence, Hematuria, Retention , Other Musculoskeletal: negative: Neck Pain, Shoulder Pain, Arm Pain, Back Pain, Hand Pain, Leg Pain, Foot Pain, Other Skin: negative: Rash, Lesions, Shahram, Bruising, Other - Medications/Allergies Allergies/Adverse Reactions: Allergies Allergy/AdvReac Type Severity Reaction Status Date / Time fentanyl Allergy Verified 06/27/17 03:48 ketorolac tromethamine Allergy Short of Verified 06/27/17 03:48 [From Toradol] Breath metoclopramide [From Reglan] Allergy Verified 06/27/17 03:48 Sulfa (Sulfonamide Allergy Verified 06/27/17 03:48 Antibiotics) Medications: Current Medications Acetaminophen (Tylenol) 650 mg PO Q4H PRN PRN Reason: Headache/Fever or Pain 1-3 Last Admin: 09/23/17 04:29 Dose: 650 mg Al Hydroxide/Mg Hydroxide (Maalox) 30 ml PO Q6H PRN PRN Reason: Heartburn or Indigestion Albuterol/Ipratropium (Duoneb) 3 ml NEB [id number] PRN PRN Reason: SOB &/or Wheezing Calcium Carbonate (Tums) 1,000 mg PO Q4H PRN PRN Reason: Heartburn or Indigestion Diphenhydramine HCl (Benadryl) 25 mg PO Q4H PRN PRN Reason: Itching & Insomnia Last Admin: 09/26/17 16:23 Dose: 25 mg Docusate Sodium (Colace) 100 mg PO BID [facility] Last Admin: 10/03/17 09:14 Dose: Not Given Famotidine (Pepcid) 20 mg PO BID [facility] Last Admin: 10/03/17 09:14 Dose: 20 mg Folic Acid (Folvite) 1 mg PO BID [facility] Last Admin: 10/03/17 09:13 Dose: 1 mg Guaifenesin/Dextromethorphan (Robitussin Dm) 15 ml PO Q4H PRN PRN Reason: Cough Ibuprofen (Motrin) 400 mg PO Q6H PRN PRN Reason: breakthrough fever Last Admin: 09/23/17 18:46 Dose: 400 mg Ondansetron HCl (Zofran) 4 mg IVP Q4H PRN PRN Reason: Nausea/Vomiting Last Admin: 09/22/17 18:24 Dose: 4 mg Oxycodone/Acetaminophen (Percocet 5/325) 2 tab PO Q4H PRN PRN Reason: Pain 4TH LINE Last Admin: 10/03/17 09:15 Dose: 2 tab Sodium Chloride (Flush - Normal Saline) 10 ml IVF Q12HR [facility] Last Admin: 10/03/17 09:14 Dose: 10 ml Sodium Chloride (Flush - Normal Saline) 10 ml IVF PRN PRN PRN Reason: Saline Flush
--- NOTE | 2017-10-03 10:50 | DIS ---
DATE OF ADMISSION: 09/21/2017 DATE OF DISCHARGE: 10/03/2017 PRIMARY CARE PHYSICIAN: None. DISCHARGE DISPOSITION: Home. PRIMARY DISCHARGE DIAGNOSES: Sickle cell anemia with painful crises, acute febrile illness, resolved . SECONDARY DISCHARGE DIAGNOSES: Tobacco abuse disorder, chronic pain disorder, anxiety and depression , sickle cell anemia. PRIMARY PROCEDURE AND OPERATION: None. RADIOLOGICAL INVESTIGATION: Chest x-ray was normal. SIGNIFICANT LABORATORY DATA: WBC 10.1, hemoglobin 8.8, platelet 429. Sodium 140, potassium 4.2, BUN 6, creatinine 0.69, calcium 9.3. Urinalysis normal. Blood culture, urine culture negative. Respir atory culture negative. DISCHARGE MEDICATIONS: Cymbalta 30 mg p.o. daily, folic acid 1 mg p.o. b.i.d., [place] 10 one tablet q .4 hourly p.r.n., tramadol 50 mg 1 or 2 tablets q.8 hourly p.r.n. CONTRAINDICATIONS: None. CODE STATUS: FULL CODE. INPATIENT CONSULTANTS: Dr. Lopes was consulted while in hospital. Dr. Bach was consulted while i hospital. TEST RESULTS PENDING ON DISCHARGE: None. ALLERGIES: FENTANYL, TORADOL, REGLAN. DISCHARGE PLAN: Post hospital, the patient will follow up with primary care physician as instructed. HOSPITAL COURSE: A 31-year-old male who was admitted by Dr. Akins on 09/22/2017. Please see h is H&P for further details. On admission, he was having sickle cell painful crisis as well as acute febrile illness. He was evaluated during this admission by Dr. Lopes. The patient was suspected for bronchitis. His respiratory virus panel came back negative. All cultures remain negative. He did not have any further fever while in hospital. He stayed in hospital for his painful crisis subsequen tly. This patient has chronic pain disorder and he appears to be baseline status. He always has ten dency for drug seeking behavior. Today, he was completely comfortable and he was in his room with hi s entire family sleeping in bed. He is also ambulatory while in hospital, tolerating p.o. well. At this point, he is completely hemodynamically stable for discharge and he will continue his chronic pa in medication for his chronic pain control. The patient is seen and examined at bedside today. Please see my progress note from today for furthe r detail.
[2017-10-03 12:32] VITALS: BP 108/67; TEMP 98.1
== END 2017-10-03 12:05 | disposition home or self-care (01) | DRG 812 ==
LOC: ERS 14:23 → T4-B 20:02
PROVIDERS: ADMIT Emergency Medicine; ATTEND Emergency Medicine
DX: D57.00 Hb-SS disease with crisis, unspecified (principal); R50.9 Fever, unspecified; G89.4 Chronic pain syndrome; F17.210 Nicotine dependence, cigarettes, uncomplicated; F32.9 Major depressive disorder, single episode, unspecified; F41.9 Anxiety disorder, unspecified; Z88.5 Allergy status to narcotic agent; Z88.2 Allergy status to sulfonamides; Z88.8 Allergy status to other drugs, medicaments and biological substances; Z79.891 Long term (current) use of opiate analgesic; Z79.899 Other long term (current) drug therapy
CPT/HCPCS: 36415; 71046; 72100; 80048; 80053; 81003; 83021; 85007; 85025; 85027; 85046; 87040; 87070; 87086; 87205; 93005; 94640; 96361; 96365; 96366; 96375; 99406; A4216; J1170; J1200; J1650; J1956; J2270; J2405; J7050; J7620

== ENCOUNTER 2017-10-03 21:36 | Observation (INO) | payer MEDICARE, MEDICAID ==
[2017-10-03 22:22] LABS: Hemoglobin 10.9 g/dL (14.0-18.0); Mean Corpuscular HGB CONC 35.6 g/dL (32.0-36.0); Mean Corpuscular Hemoglobin 31.8 pg (27.0-31.0); Mean Corpuscular Volume 89.5 fl (80.0-94.0); Mean Platelet Volume 6.9 fL (7.4-10.4); Platelet Count 515 thou/uL (130-400); Red Blood Cell (RBC) Count 3.41 mill/uL (4.70-6.10); White Blood Cell (WBC) Count 10.3 thou/uL (4.8-10.8)
--- NOTE | 2017-10-03 22:25 | RAD ---
CHEST ONE VIEW: 10/03/17 HISTORY: Chest pain. COMPARISON: Radiograph 09/29/17. FINDINGS: The lungs are clear. No pneumothorax or effusion. The cardiac silhouette and mediastinal contours are within normal limits. IMPRESSION: No acute intrathoracic abnormality. POS: [facility]
[2017-10-03 22:26] LABS: Band 1 % (5-11); Hemoglobin C Crystals SLIGHT (None Seen); Lymphocytes 33 % (21-51); MDiff Complete? YES; Monocytes 18 % (0-10); Neutrophil 48 % (42-75); Nucleated RBC 1 % (0); Target Cells MODERATE= 6-15 cells (100X) (0-1/hpf)
[2017-10-03 22:32] LABS: CKMB 0.1 ng/mL (0-6.6); Troponin I Less than 0.010 ng/mL (< 0.028)
[2017-10-03 23:04] LABS: Reticulocyte Count 5.8 % (0.5-1.5)
[2017-10-03] MEDS ORDERED: diphenhydrAMINE 25 MG CAP ONE (23:05)
[2017-10-03] MEDS ORDERED: Ondansetron ODT 4 MG TAB ONE (23:05)
[2017-10-03 23:46] LABS: Albumin 4.2 g/dL (3.5-5.0)
[2017-10-03 23:47] LABS: Chloride 105 mmol/L (98-107); Potassium 3.9 mmol/L (3.5-5.1); Sodium 139 mmol/L (136-145)
[2017-10-03 23:48] LABS: Calcium 9.8 mg/dL (7.8-10.44)
[2017-10-03 23:49] LABS: Globulin 3.8 g/dL (2.4-3.5); Glucose 84 mg/dL (70-105)
[2017-10-03 23:50] LABS: Anion Gap 15 mmol/L (10-20); Carbon Dioxide 23 mmol/L (22-29)
[2017-10-03 23:51] LABS: Bilirubin, Total 0.8 mg/dL (0.2-1.2)
[2017-10-03 23:52] LABS: Alkaline Phosphatase 80 U/L (40-150); Calc. Creatinine Clearance 0 mL/min (70-130); Estimated GFR-MDRD Greater than 90
[2017-10-03 23:53] LABS: BUN (Urea Nitrogen) 7 mg/dL (8.9-20.6)
[2017-10-03 23:54] LABS: AST (SGOT) 25 U/L (5-34)
[2017-10-03 23:55] LABS: ALT (SGPT) 23 U/L (8-55)
[2017-10-04] MEDS ORDERED: Sodium Chloride 0.9% 1,000 ML IV SCH ×2 (00:45→03:00)
[2017-10-04 02:36] VITALS: BMI 20.5
[2017-10-04 05:01] LABS: Reticulocyte Count 5.4 % (0.5-1.5)
[2017-10-04 05:13] LABS: Anion Gap 13 mmol/L (10-20); BUN (Urea Nitrogen) 6 mg/dL (8.9-20.6); Calc. Creatinine Clearance 146 mL/min (70-130); Calcium 9.1 mg/dL (7.8-10.44); Carbon Dioxide 24 mmol/L (22-29); Chloride 108 mmol/L (98-107); Estimated GFR-MDRD Greater than 90; Glucose 97 mg/dL (70-105); Potassium 3.9 mmol/L (3.5-5.1); Sodium 141 mmol/L (136-145)
[2017-10-04 05:52] LABS: Hemoglobin 8.8 g/dL (14.0-18.0); Hemoglobin C Crystals SLIGHT (None Seen); Lymphocytes 37 % (21-51); MDiff Complete? YES; Mean Corpuscular HGB CONC 36.1 g/dL (32.0-36.0); Mean Corpuscular Volume 88.7 fl (80.0-94.0); Mean Platelet Volume 6.7 fL (7.4-10.4); Monocytes 12 % (0-10); Neutrophil 51 % (42-75); Nucleated RBC 1 % (0); PLT Morphology Comment Appears Increased; Platelet Count 435 thou/uL (130-400); RBC Distribution Width 16.3 % (11.5-14.5); Red Blood Cell (RBC) Count 2.74 mill/uL (4.70-6.10); Target Cells MODERATE= 6-15 cells (100X) (0-1/hpf); White Blood Cell (WBC) Count 11.5 thou/uL (4.8-10.8)
[2017-10-04] MEDS ORDERED: Acetaminophen 325 MG TAB PO PRN (07:27)
[2017-10-04] MEDS ORDERED: Ondansetron ODT 4 MG TAB PO PRN (07:27)
[2017-10-04] MEDS: diphenhydrAMINE 25 MG CAP PO PRN (07:59)
[2017-10-04] MEDS: Folic Acid 1 MG TAB PO SCH (07:59)
[2017-10-04] MEDS: NS 0.9% w/ 20 MEQ KCL 1,000 ML/1,000 ML BAG IV SCH ×2 (08:41→17:13)
[2017-10-04] MEDS: Nicotine 7 MG PATCH TD SCH (08:41)
[2017-10-04] MEDS ORDERED: Folic Acid 1 MG TAB PO SCH (09:00)
[2017-10-04] MEDS ORDERED: Venlafaxine XR 37.5 MG CAP PO SCH (09:00)
--- NOTE | 2017-10-04 09:12 | HP ---
DATE OF SERVICE: 10/04/2017 CHIEF COMPLAINT: Pain. HISTORY OF PRESENT ILLNESS: This is a 31-year-old male with known sickle cell disease. He was hospitalized here from 09/21/2017, discharged yesterday, who returns to the hospital with intractable pain. The patient reports about 50% of the time he is pain free, when he does have pain, he rates it a 3 out of 10 in severity and states that it is managed either with Percocet or hydrocodone at home. He reports discharge around noon yesterday and states around 7:30 that he had an increase in overall pain specifically in his chest. He denies any precipitants of this, reports some nausea, but no vomiting. About an hour prior to this, he does report a temperature of 101.8. He noted that with taking deeper breaths that the pain worsened and he felt short of breath, although was able to breathe. He was unable to eat, overall felt weak and itchy , and 911 was called by his uncle. There were no relieving factors at home. In the emergency room, the patient received 4 mg morphine x3, 25 mg of oral Benadryl, 4 mg of oral Zofran, 1 liter of normal saline and hospitalist called for admission. PAST MEDICAL HISTORY: 1. Sickle cell disease with pain crises, patient reports he is hospitalized on average every 4-6 months. 2. Tobacco abuse. 3. Chronic pain. PAST SURGICAL HISTORY: Denies. MEDICATIONS: Reconciled with the patient, 1. Folic acid 1 mg daily. 2. [place] 10/325 1-2 tablets every 6 hours as needed. 3. Percocet 10/325 two tablets every 4 hours as needed. He reports Percocet is his first choice for pain, and hydrocodone is his second choice. ALLERGIES TO MEDICATIONS: 1. FENTANYL. 2. REGLAN. 3. SULFA. 4. TORADOL. SOCIAL HISTORY: The patient lives with his and son, his Janine is his surrogate decision maker. He smokes 1-2 cigarettes per day. FAMILY HISTORY: Significant for sickle cell trait. REVIEW OF SYSTEMS: Positive for a cough productive of dark green fluid, chills , diarrhea 3-4 loose stools yesterday. All remaining review of systems are reviewed and negative. PHYSICAL EXAMINATION: VITAL SIGNS: Blood pressure 89/54, of note, in the emergency room, it was 121/ 80 at 21:39 last night, pulse 63, respirations 16, saturation 98% on room air, temperature 98.4, and afebrile as recorded here. GENERAL: Awake, alert, responsive, answering questions appropriately. Appears uncomfortable, especially with changing positions, in no acute distress. HEENT: His pupils are equal and round. No scleral icterus. Oral mucosa is pink. NECK: Supple, nontender. LYMPHATICS: No palpable cervical or supraclavicular lymphadenopathy. LUNGS: Clear to auscultation bilateral. No audible wheezing, rhonchi or rales. HEART: Normal S1, S2, regular rate and rhythm, no audible murmurs. ABDOMEN: Soft. Present bowel sounds. Tenderness to palpation. No focal abnormalities, no rebound or guarding. SKIN: No rashes. EXTREMITIES: No edema. Pulses 2+ dorsalis pedis pulses. NEUROLOGIC: No focal deficits noted. PSYCHIATRIC: Mood is congruent with situation, alert and responsive x4. LABORATORY DATA AND X-RAY FINDINGS: Reviewed. 1. CBC: 11.5, 8.8, 23.4, 435, and baseline hemoglobin for the patient ranges from 8-12. 2. Chemistry: 141, 3.9, 108, 24, 6, 0.65, 97, calcium 9.1. Lactate dehydrogenase 266. 3. LFTs are normal. 4. Chest x-ray is personally reviewed, no acute process. 5. EKG personally reviewed, sinus rhythm, normal axis, normal intervals, no ST changes. IMPRESSION: 1. Sickle cell pain crisis, no precipitants noted. 2. Recent hospitalization with antibiotics, and reported diarrhea. 3. Chronic anemia secondary to sickle cell disease. 4. Productive cough. 5. Tobacco abuse. 6. Chronic pain. PLAN: 1. Patient's blood pressure is low, we will bolus some IV fluids and continue maintenance rate IV fluids. 2. Manage pain. We will use morphine as long as his blood pressure can tolerate it, otherwise, we will use oral medications. The patient has been in the hospital for quite some time, may need a pain medicine consult to look for other ways to manage pain. 3. We will request stool studies and sputum culture to evaluate for infection. 4. We will monitor on telemetry for 24 hours to ensure that the patient remains normal. Given the IV narcotics, we will be on alert for over sedation. 5. Manage itching with Benadryl, oral for now, IV so long as mental status and hemodynamics are normal. 6. Nicotine patch 7. Deep venous thrombosis prophylaxis. Encourage ambulation and sequential compression devices. We will have patient on fall precautions for now given the slightly lower blood pressure. 8. Gastrointestinal prophylaxis not indicated, liquid diet as tolerated and advance as tolerated. CODE STATUS: FULL. Surrogate decision maker is his . The patient is at high risk given current presentation. I reviewed the plan of care with the patient. No questions or further needs at end of evaluation. MTDD
--- NOTE | 2017-10-04 09:52 | PDOC.EVN ---
Event Note - Event Note Event Note: pt c/o pain being unrelieved with morphine - current systolic pressure 115. Will add 1 tab of percocet and monitor.
[2017-10-04] MEDS: oxyCODONE/Acetaminophen 5 mg/325 mg Tablet PO PRN ×4 (10:10→22:27)
[2017-10-04] MEDS: diphenhydrAMINE 25 MG in Sodium Chloride 0.9% 50 ML IVPB PRN ×2 (12:52→19:06)
[2017-10-05] MEDS: NS 0.9% w/ 20 MEQ KCL 1,000 ML/1,000 ML BAG IV SCH ×3 (01:19→15:51)
[2017-10-05] MEDS: diphenhydrAMINE 25 MG in Sodium Chloride 0.9% 50 ML IVPB PRN ×3 (01:19→17:44)
[2017-10-05] MEDS: oxyCODONE/Acetaminophen 5 mg/325 mg Tablet PO PRN ×6 (02:30→22:58)
[2017-10-05 05:04] LABS: Anion Gap 9 mmol/L (10-20); BUN (Urea Nitrogen) 4 mg/dL (8.9-20.6); Calc. Creatinine Clearance 148 mL/min (70-130); Calcium 8.9 mg/dL (7.8-10.44); Carbon Dioxide 25 mmol/L (22-29); Chloride 107 mmol/L (98-107); Estimated GFR-MDRD Greater than 90; Glucose 82 mg/dL (70-105); Potassium 4.3 mmol/L (3.5-5.1); Sodium 137 mmol/L (136-145)
[2017-10-05 07:07] LABS: Anisocytosis SLIGHT = 6-15 cells (100X) (0-5/hpf); Band 1 % (5-11); Eosinophils 2 % (0-10); Hemoglobin 8.5 g/dL (14.0-18.0); Hemoglobin C Crystals SLIGHT (None Seen); Lymphocytes 57 % (21-51); MDiff Complete? YES; Mean Corpuscular HGB CONC 35.5 g/dL (32.0-36.0); Mean Corpuscular Hemoglobin 31.4 pg (27.0-31.0); Mean Corpuscular Volume 88.2 fl (80.0-94.0); Mean Platelet Volume 6.8 fL (7.4-10.4); Neutrophil 40 % (42-75); PLT Morphology Comment Appears Adequate; Platelet Count 446 thou/uL (130-400); Polychromasia SLIGHT = 2-3 cells (100X) (0-2/hpf); RBC Distribution Width 15.8 % (11.5-14.5); Red Blood Cell (RBC) Count 2.71 mill/uL (4.70-6.10); Target Cells SLIGHT = 2-5 cells (100X) (0-1/hpf); White Blood Cell (WBC) Count 12.5 thou/uL (4.8-10.8)
--- NOTE | 2017-10-05 08:17 | PDOC.PN ---
- Subjective Encounter Start Date: 10/05/17 Encounter Start Time: 08:18 Patient seen and examined today. Readmitted for sickle cell pain crisis. Still complains of generalized aches today but feels better. No acute events overnight. - Objective Resuscitation Status: Resuscitation Status FULL:Full Resuscitation MAR Reviewed: Yes Vital Signs & Weight: Vital Signs (12 hours) Temp Pulse Resp BP Pulse Ox 10/05/17 07:20 98.1 F 57 L 18 115/73 100 10/05/17 03:56 98.2 F 66 16 105/57 L 98 10/04/17 23:06 98.4 F 73 16 119/61 98 Weight Weight 145 lb 14.4 oz I&O: 10/04/17 10/05/17 10/06/17 06:59 06:59 06:59 Intake Total 1032 4792 Output Total 2525 Balance 1032 2267 Result Diagrams: 10/05/17 03:56 10/05/17 03:56 Phys Exam - Physical Examination Constitutional: NAD HEENT: PERRLA, moist MMs, sclera anicteric, oral pharynx no lesions Neck: supple, full ROM Respiratory: no wheezing, no rales, no rhonchi, clear to auscultation bilateral Cardiovascular: RRR, no significant murmur, no rub Gastrointestinal: soft, non-tender, no distention, positive bowel sounds Musculoskeletal: no edema, pulses present Neurological: non-focal, moves all 4 limbs Psychiatric: normal affect, A&O x 3 Skin: no rash, normal turgor Dx/Plan (1) Sickle cell anemia with crisis Code(s): D57.00 - HB-SS DISEASE WITH CRISIS, UNSPECIFIED Status: Acute Comment: uncontrolled. Reticulocyte elevated (2) Anxiety and depression Code(s): F41.8 - OTHER SPECIFIED ANXIETY DISORDERS Status: Chronic (3) Chronic pain disorder Code(s): G89.4 - CHRONIC PAIN SYNDROME Status: Chronic (4) Tobacco abuse Code(s): Z72.0 - TOBACCO USE Status: Chronic Comment: Counselled on cessation. - Plan cont current plan of care, plan discussed w/ family, incentive spirometry, out of bed/ambulate Patient improved. Will continue IV fluids and pain regimen for today. Likely discharge tomorrow. Encouraged to follow up with PCP in clinic this week. Review of Systems - Review of Systems Constitutional: malaise - Medications/Allergies Allergies/Adverse Reactions: Allergies Allergy/AdvReac Type Severity Reaction Status Date / Time fentanyl Allergy Verified 10/04/17 02:27 ketorolac tromethamine Allergy Short of Verified 10/04/17 02:27 [From Toradol] Breath metoclopramide [From Reglan] Allergy Verified 10/04/17 02:27 Sulfa (Sulfonamide Allergy Verified 10/04/17 02:27 Antibiotics) Medications: Current Medications Acetaminophen (Tylenol) 650 mg PO Q4H PRN PRN Reason: Headache/Fever or Pain Diphenhydramine HCl (Benadryl) 25 mg PO Q4H PRN PRN Reason: Itching Last Admin: 10/04/17 07:59 Dose: 25 mg Folic Acid (Folvite) 1 mg PO DAILY [facility] Last Admin: 10/04/17 07:59 Dose: 1 mg Diphenhydramine HCl 25 mg/ (Sodium Chloride) 50.5 mls @ 150 mls/hr IVPB Q6H PRN PRN Reason: Itching Last Admin: 10/05/17 01:19 Dose: 50.5 mls Potassium Chloride/Sodium Chloride (Ns 0.9% W/ 20 Meq Kcl) 1,000 ml in 1,000 mls @ 125 mls/hr IV .Q8H [facility] Last Admin: 10/05/17 01:19 Dose: 1,000 mls Morphine Sulfate (Morphine) 2 mg SLOW IVP Q4H PRN PRN Reason: Moderate Pain (4-6) Morphine Sulfate (Morphine) 4 mg SLOW IVP Q4H PRN PRN Reason: Severe Pain (7-10) Last Admin: 10/05/17 05:16 Dose: 4 mg Nicotine (Nicoderm Patch) 7 mg TD Q24HR [facility] Last Admin: 10/04/17 08:41 Dose: 7 mg Ondansetron HCl (Zofran Odt) 4 mg PO Q6H PRN PRN Reason: Nausea/Vomiting Oxycodone/Acetaminophen (Percocet 5/325) 1 tab PO Q4H PRN PRN Reason: Pain Last Admin: 10/05/17 06:30 Dose: 1 tab Sodium Chloride (Flush - Normal Saline) 10 ml IVF Q12HR [facility] Last Admin: 10/04/17 19:59 Dose: Not Given Sodium Chloride (Flush - Normal Saline) 10 ml IVF PRN PRN PRN Reason: Saline Flush
[2017-10-05] MEDS: Folic Acid 1 MG TAB PO SCH (08:53)
[2017-10-05] MEDS: Nicotine 7 MG PATCH TD SCH (11:00)
[2017-10-06] MEDS: NS 0.9% w/ 20 MEQ KCL 1,000 ML/1,000 ML BAG IV SCH ×2 (00:03→08:24)
[2017-10-06] MEDS: diphenhydrAMINE 25 MG in Sodium Chloride 0.9% 50 ML IVPB PRN (01:01)
[2017-10-06] MEDS: oxyCODONE/Acetaminophen 5 mg/325 mg Tablet PO PRN ×2 (02:56→06:59)
[2017-10-06 07:35] VITALS: BP 100/55; TEMP 98.4
[2017-10-06] MEDS: diphenhydrAMINE 25 MG CAP PO PRN (08:36)
[2017-10-06] MEDS: Folic Acid 1 MG TAB PO SCH (08:36)
[2017-10-06] MEDS: Nicotine 7 MG PATCH TD SCH (08:36)
--- NOTE | 2017-10-06 13:49 | DIS ---
DATE OF ADMISSION: 10/04/2017 DATE OF DISCHARGE: 10/06/2017 DISCHARGE DIAGNOSES: Sickle cell pain crisis, chronic anemia, tobacco abuse. HISTORY OF PRESENT ILLNESS AND HOSPITAL COURSE: A 31-year-old male with recent admission for sickle cell crisis who came back into the hospital the same day after discharge complaining of pain in the e mergency room. He states he has intractable pain and 50% of the time he is pain free and when he carlos s have pain, he has 3/10 pain and managed with either Percocet or hydrocodone at home. He was romulo t to the emergency room due to increased pain, some nausea, but no vomiting and was found to have a t emperature of 101.8. At the emergency room, he received 4 mg of morphine x3, 25 mg of Benadryl, 4 mg of Zofran, a liter of normal saline and was admitted for further care. By the second day, he was re latively pain free with IV fluids and pain regimen. Initially, it was thought he might have had some GI issues, but he had no diarrhea and cultures have been collected. The patient was discharged and then told to follow up with his primary care physician this week for continued pain control on an out patient basis. He reports he has an appointment in the next 48 hours with his primary care physician . DISCHARGE MEDICATIONS: Hydrocodone 1 tablet every 4 hours as needed, folic acid 1 mg twice a day, ve nlafaxine 37.5 mg daily. PHYSICAL EXAMINATION: He was examined on the day of discharge. VITAL SIGNS: Blood pressure 100/55, oxygen saturation 98% on room air, respiratory rate 16, heart ra te 62, temperature 98.4 degrees Fahrenheit. GENERAL: Not in acute distress. He is lying comfortably in bed. HEENT: Moist mucous membrane, not pale, anicteric. NECK: Supple, full range of movement. RESPIRATORY: No wheezes, rales or rhonchi. Vesicular breath sounds bilaterally. CARDIOVASCULAR: S1 and S2 only with regular rate and rhythm. No murmurs, rubs or gallops. GASTROINTESTINAL: Soft, nontender, nondistended. Bowel sounds normoactive. MUSCULOSKELETAL: No edema. NEUROLOGIC: Alert and oriented. No focal deficits. PSYCHIATRIC: Normal mood and affect. SKIN: Warm, dry and well perfused. No rashes or lesions. LABORATORY DATA: WBC 12.5, hemoglobin 8.5, platelet count 446,000. Sodium 137, potassium 4.3, chlor jam 107, carbon dioxide 25, BUN 4, creatinine 0.67. IMAGES: None. PROCEDURES: None. CONSULTS: None. DIET: Regular. CONDITION AT DISCHARGE: Stable and improved. CARE GOALS: To follow up with his primary care physician within 1 week of discharge. ACTIVITY: To resume as tolerated. DISCHARGE TIME: 65 minutes including chart review and documentation.
== END 2017-10-06 12:58 | disposition home or self-care (01) ==
LOC: ERS 21:36 → 2SW 10-04 00:35
PROVIDERS: ADMIT Internal Medicine; ATTEND Internal Medicine
DX: D57.00 Hb-SS disease with crisis, unspecified (principal); F41.8 Other specified anxiety disorders; Z88.5 Allergy status to narcotic agent; G89.4 Chronic pain syndrome; F17.210 Nicotine dependence, cigarettes, uncomplicated; Z79.899 Other long term (current) drug therapy; Z88.2 Allergy status to sulfonamides
CPT/HCPCS: 71045; 80048 ×2; 80053; 82553; 83010; 83615; 84484; 85025 ×3; 85046 ×2; 87070; 87205; 93005; 96361 ×4; 96365; 96366 ×3; 96374; 96375; 96376 ×4; 99285; G0378 ×2; 36415; A4216; J1200; J2270; J7050; Q0162

== ENCOUNTER 2017-10-17 10:25 | Inpatient (IN) | payer MEDICARE, MEDICAID ==
--- NOTE | 2017-10-17 11:09 | RAD ---
PA AND LATERAL CHEST XRAY: DATE: 10/17/17. HISTORY: Sharp chest pain worse with inspiration and movement. COMPARISON: 09/29/17. FINDINGS: Cardiac silhouette and pulmonary vasculature are within normal limits. The lungs are clear. There h as been no interval change from prior exam. IMPRESSION: No acute cardiopulmonary process. POS: [facility]
[2017-10-17 12:20] LABS: Reticulocyte Count 4.4 % (0.5-1.5)
[2017-10-17 12:25] LABS: Hemoglobin 11.2 g/dL (14.0-18.0); Mean Corpuscular HGB CONC 34.1 g/dL (32.0-36.0); Mean Corpuscular Hemoglobin 29.6 pg (27.0-31.0); Platelet Count 573 thou/uL (130-400); RBC Distribution Width 15.6 % (11.5-14.5); Red Blood Cell (RBC) Count 3.79 mill/uL (4.70-6.10); White Blood Cell (WBC) Count 10.1 thou/uL (4.8-10.8)
[2017-10-17 12:37] LABS: Anion Gap 17 mmol/L (10-20); BUN (Urea Nitrogen) 6 mg/dL (8.9-20.6); Calc. Creatinine Clearance 0 mL/min (70-130); Calcium 10.5 mg/dL (7.8-10.44); Carbon Dioxide 21 mmol/L (22-29); Chloride 104 mmol/L (98-107); Estimated GFR-MDRD Greater than 90; Glucose 71 mg/dL (70-105); Potassium 4.1 mmol/L (3.5-5.1); Sodium 138 mmol/L (136-145)
[2017-10-17 12:41] LABS: Troponin I Less than 0.010 ng/mL (< 0.028)
[2017-10-17 12:54] LABS: Anisocytosis SLIGHT = 6-15 cells (100X) (0-5/hpf); Lymphocytes 32 % (21-51); MDiff Complete? YES; Monocytes 4 % (0-10); Neutrophil 64 % (42-75); PLT Morphology Comment Appears Increased; Target Cells SLIGHT = 2-5 cells (100X) (0-1/hpf)
[2017-10-17] MEDS ORDERED: diphenhydrAMINE 50 MG/ML VIAL ONE (13:49)
[2017-10-17] MEDS ORDERED: Ondansetron ODT 4 MG TAB ONE (15:06)
[2017-10-17] MEDS ORDERED: diphenhydrAMINE 25 MG CAP ONE (15:30)
[2017-10-17] MEDS ORDERED: cefTRIAXone\\ROCEPHIN 1 GM VIAL ONE (15:30)
[2017-10-17] MEDS ORDERED: Azithromycin 500 MG VIAL ONE (16:04)
--- NOTE | 2017-10-17 16:09 | HP ---
PRIMARY CARE PHYSICIAN: [facility] call admission/[facility]. REASON FOR ADMISSION: Acute bronchitis, acute painful sickle cell crisis. HISTORY OF PRESENT ILLNESS: A 31-year-old male who has sickle cell anemia, who has multiple admissions in our hospital for sickle cell painful crises with the most recent admission in our hospital on 10/04/2017, and he was discharged home on 10/06/2017. He returned to the emergency r oom again today with the complaint of pain in his chest and leg. He reports that his pain is not und er control with his oral pain medication. He was having cough with green sputum. He was having feve r yesterday at home and today in the emergency room. He has low grade fever. His pain was not contr olled with emergency room treatment and that is why ER physician decided to keep him in hospital for pain control. He denies any UTI symptoms. He denies any constipation, diarrhea, melena, or hematoch ezia. He denies any hemoptysis. He denies any headache. He describes his pain intensity 8/10, which is constant. He feels that because of fever, his pain cr franklin is precipitated. REVIEW OF SYSTEMS: Please see my HPI for pertinent positive and negative. All other review of syste ms reviewed and negative except as mentioned in the HPI. The patient also reports that he has sore t hroat with eating and drinking. He feels difficulty swallowing and pain. Constitutional: Weight loss or gain, ability to conduct usual activities. Skin: Rash, itching. Eyes: Double vision, pain. ENT/Mouth: Nose bleeding, neck stiffness, pain, tenderness. Cardiovascular: Palpitations, dyspnea on exertion, orthopnea. Respiratory: Shortness of breath, wheezing, cough, hemoptysis, fever or night sweats. Gastrointestinal: Poor appetite, abdominal pain, heartburn, nausea, vomiting, constipation, or diarrhea. Genitourinary: Urgency, frequency, dysuria, nocturia. Musculoskeletal: Pain, swelling. Neurologic/Psychiatric: Anxiety, depression. Allergy/Immunologic: Skin rash, bleeding tendency. PAST MEDICAL HISTORY: Sickle cell disease, narcotic tolerance, sickle cell anemia, narcotic dependen ce, multiple admissions for sickle cell crisis in hospital. PAST SURGICAL HISTORY: Reviewed and negative. PAST PSYCHIATRIC HISTORY: Anxiety and depression. SOCIAL HISTORY: The patient drinks alcohol socially. He smokes cigar at half pack per day. He abus es marijuana periodically. He denies any other illicit drug abuse. FAMILY HISTORY: No strong family history of premature coronary artery disease, stroke, or cancer. B oth parents had sickle cell trait. His son also has sickle cell trait. ALLERGIES: FENTANYL, TORADOL, REGLAN, SULFA DRUGS. CURRENT HOME MEDICATIONS: Folic acid 1 mg p.o. daily, [place] 1 tablet q.4 hourly p.r.n., venlafaxine 37.5 mg p.o. daily. EMERGENCY ROOM COURSE: The patient is given Benadryl 25 mg, azithromycin 500 mg, Rocephin 1 gram, mo rphine 4 mg, Zofran 4 mg, Benadryl 25 mg, morphine 8 mg, IV fluid. PHYSICAL EXAMINATION: VITAL SIGNS: Currently, blood pressure 119/68, pulse 88, respiratory rate 15, temperature 99.3, satu ration 98% on room air, weight 66.2 kilograms. GENERAL: The patient is currently alert, awake, no obvious acute distress. HEAD: Normocephalic, atraumatic. Eyes: Pupils round, reactive to light. Extraocular muscle intact . ENT: Oropharynx within normal limits. No pharyngeal erythema, no exudate. NECK: Supple, no JVD, no thyromegaly, no carotid bruit, no jugular venous distention. LUNGS: Clear to auscultation, few end expiratory wheezing heard, no rales. CARDIAC: S1, S2 regular. No murmur, no gallop, no rub. ABDOMEN: Soft, bowel sounds present, nontender, nondistended. No organomegaly, no mass, no suprapub ic tenderness. BACK: Unremarkable, no CVA tenderness. EXTREMITIES: Upper extremity: Passive movement of all joints are normal. The patient does have bon e pain in left elbow and distal humerus. No overlying skin problem noted. Lower extremity: No rene a. Good peripheral pulsation. SKIN: No skin rash. HEMATOLOGICAL: No lymphadenopathy. PSYCHIATRIC: Normal affect. SIGNIFICANT LABORATORY DATA: EKG showing normal sinus rhythm, sinus arrhythmia. Chest x-ray based o n my review, no acute cardiopulmonary process. CBC: WBC 10.1, hemoglobin 11.2, platelet 573. Retic ulocyte count 4.4. BMP: Sodium 138, potassium 4.1, chloride 104, carbon dioxide 21, anion gap 17, B UN 6, creatinine 0.79, glucose 71, calcium 10.5. Lactic acid 1.7. Cardiac enzymes negative. ASSESSMENT: 1. Acute and recurrent sickle cell painful crises. 2. Acute bronchitis. 3. Sickle cell anemia. 4. Anxiety and depression. 5. Narcotic dependence and tolerance. 6. Tobacco abuse disorder. 7. Cannabis abuse. 8. Sore throat, rule out strep pharyngitis. PLAN: 1. Check streptococcal screen, IV fluid NS at 100 mL per hour, morphine 4 mg IV q.4 hourly p.r.n., o xygen, hydration with IV fluid NS 100 mL per hour. Resume folic acid and multivitamin therapy. 2. Deep venous thrombosis prophylaxis. Lovenox 30 mg subcutaneously daily. 3. Gastrointestinal prophylaxis, Pepcid 20 mg p.o. b.i.d. 4. Code status: The patient is FULL CODE. The patient is making decision by himself. Disposition plan based on clinical course. We are expecting patient's stay in hospital more than 2 m idnights. Plan of care discussed with the patient in detail.
[2017-10-17] MEDS ORDERED: HYDROcodone/Acetaminophen 5/325 mg Tablet PO PRN ×2 (16:47)
[2017-10-17] MEDS ORDERED: Sodium Chloride 0.65% Nasal 44 ML BOT EA NARE PRN (16:54)
[2017-10-17] MEDS ORDERED: Senokot 8.6 MG TAB PO PRN (16:54)
[2017-10-17] MEDS ORDERED: Ondansetron ODT 4 MG TAB PO PRN (16:54)
[2017-10-17] MEDS ORDERED: Milk Of Magnesia 30 ML UDCUP PO PRN (16:54)
[2017-10-17] MEDS ORDERED: Bisacodyl 10 MG SUPP PR PRN (16:54)
[2017-10-17] MEDS ORDERED: Artificial Tears 18 DROP/0.9 ML EA EYE PRN (16:54)
[2017-10-17] MEDS ORDERED: Diabetic Tussin 200 MG/10 ML UDCUP PO PRN (16:54)
[2017-10-17] MEDS ORDERED: Zolpidem Tartrate 5 MG TAB PO PRN (16:54)
[2017-10-17] MEDS ORDERED: Mag-Al 1200 mg/1200 mg/30 ML UDCUP PO PRN (16:54)
[2017-10-17] MEDS ORDERED: Eucerin (Mineral Oil/Petrolatum,White) 30 gm Jar TOP PRN (16:54)
[2017-10-17] MEDS ORDERED: Chloraseptic Spray 180 ml Bottle PO PRN (16:54)
[2017-10-17] MEDS ORDERED: hydrALAZINE 20 MG/ML VIAL SLOW IVP PRN (16:54)
[2017-10-17] MEDS ORDERED: Ondansetron HCl/PF 4 MG/2 ML Vial IVP PRN (16:54)
[2017-10-17] MEDS ORDERED: Acetaminophen 325 MG TAB PO PRN (16:54)
[2017-10-17] MEDS ORDERED: Albuterol Sulfate 2.5 mg/3 ml Neb NEB PRN (16:54)
[2017-10-17] MEDS ORDERED: Loperamide HCl 2 MG CAP PO PRN (16:54)
[2017-10-17] MEDS: HYDROcodone/Acetaminophen 10/325 mg Tablet PO PRN ×2 (17:42→23:59)
[2017-10-17] MEDS: Sodium Chloride 0.45% 1,000 ML IV SCH (17:44)
[2017-10-17] MEDS: diphenhydrAMINE 50 MG/ML VIAL IVP PRN ×2 (17:46→22:00)
[2017-10-17 17:59] VITALS: BMI 21.8
[2017-10-17] MEDS: Sodium Chloride 0.9% 1,000 ML IV SCH (18:08)
[2017-10-17] MEDS: Famotidine 20 MG TAB PO SCH (20:54)
[2017-10-17] MEDS: guaiFENesin ER 600 MG TAB PO SCH (20:54)
[2017-10-17] MEDS: Docusate 100 MG CAP PO SCH (20:54)
[2017-10-18] MEDS: diphenhydrAMINE 50 MG/ML VIAL IVP PRN ×6 (01:58→22:00)
[2017-10-18] MEDS: Sodium Chloride 0.45% 1,000 ML IV SCH (02:01)
[2017-10-18] MEDS: HYDROcodone/Acetaminophen 10/325 mg Tablet PO PRN ×5 (04:19→20:51)
[2017-10-18] MEDS: Sodium Chloride 0.9% 1,000 ML IV SCH ×2 (04:21→14:10)
[2017-10-18 05:21] LABS: Anion Gap 11 mmol/L (10-20); BUN (Urea Nitrogen) 6 mg/dL (8.9-20.6); Calc. Creatinine Clearance 129 mL/min (70-130); Calcium 8.9 mg/dL (7.8-10.44); Carbon Dioxide 25 mmol/L (22-29); Chloride 104 mmol/L (98-107); Estimated GFR-MDRD Greater than 90; Glucose 107 mg/dL (70-105); Potassium 3.9 mmol/L (3.5-5.1); Sodium 136 mmol/L (136-145)
[2017-10-18 06:26] LABS: Anisocytosis SLIGHT = 6-15 cells (100X) (0-5/hpf); Eosinophils 2 % (0-10); Hemoglobin 9.6 g/dL (14.0-18.0); Lymphocytes 43 % (21-51); MDiff Complete? YES; Mean Corpuscular Hemoglobin 31.5 pg (27.0-31.0); Mean Corpuscular Volume 87.4 fL (78.0-98.0); Monocytes 10 % (0-10); Neutrophil 45 % (42-75); PLT Morphology Comment Appears Increased; Platelet Count 426 thou/uL (130-400); RBC Distribution Width 15.4 % (11.5-14.5); Red Blood Cell (RBC) Count 3.06 mill/uL (4.70-6.10); White Blood Cell (WBC) Count 8.3 thou/uL (4.8-10.8)
[2017-10-18] MEDS: Folic Acid 1 MG TAB PO SCH (08:10)
[2017-10-18] MEDS: Multivitamin W/ Minerals 1 TAB PO SCH (08:10)
[2017-10-18] MEDS: Famotidine 20 MG TAB PO SCH ×2 (08:10→20:51)
[2017-10-18] MEDS: guaiFENesin ER 600 MG TAB PO SCH ×2 (08:10→20:51)
[2017-10-18] MEDS: Docusate 100 MG CAP PO SCH ×2 (08:11→20:50)
[2017-10-18] MEDS: Enoxaparin Sodium 30 MG/0.3 ML SYRINGE SC SCH (08:12)
--- NOTE | 2017-10-18 10:24 | PDOC.PN ---
- Subjective Encounter Start Date: 10/18/17 Encounter Start Time: 09:00 -: old records requested/rev I saw him walking with IVF in parking lot, he always c/o that he is in pain but I am not by with that as how any one in pain will walk comfortably in parking lot and once he is in room pretend to have pain no fever - Objective Resuscitation Status: Resuscitation Status FULL:Full Resuscitation MAR Reviewed: Yes Vital Signs & Weight: Vital Signs (12 hours) Temp Pulse Resp BP Pulse Ox 10/18/17 08:00 98.1 F 63 18 10/18/17 07:40 98.1 F 63 18 107/68 97 10/18/17 04:00 97.7 F 61 16 97/55 L 98 10/18/17 00:00 97.8 F 77 16 98/62 96 I&O: 10/17/17 10/18/17 10/19/17 06:59 06:59 06:59 Intake Total 800 Output Total 850 Balance -850 800 Result Diagrams: 10/18/17 04:07 10/18/17 04:07 Phys Exam - Physical Examination Constitutional: NAD HEENT: PERRLA, moist MMs, sclera anicteric Neck: no JVD, supple Respiratory: no wheezing, no rales, no rhonchi Cardiovascular: RRR, no significant murmur, no rub Gastrointestinal: soft, non-tender, no distention, positive bowel sounds Musculoskeletal: no edema, pulses present Neurological: non-focal, normal sensation, moves all 4 limbs Lymphatic: no nodes Psychiatric: normal affect, A&O x 3 Skin: no rash, normal turgor Dx/Plan (1) Sickle cell pain crisis Code(s): D57.00 - HB-SS DISEASE WITH CRISIS, UNSPECIFIED Status: Acute (2) Anxiety and depression Code(s): F41.8 - OTHER SPECIFIED ANXIETY DISORDERS Status: Chronic (3) Chronic pain disorder Code(s): G89.4 - CHRONIC PAIN SYNDROME Status: Chronic (4) Sickle cell anemia Code(s): D57.1 - SICKLE-CELL DISEASE WITHOUT CRISIS Status: Chronic (5) Tobacco abuse Code(s): Z72.0 - TOBACCO USE Status: Chronic Comment: - Plan cont current plan of care, continue antibiotics * will continue morphin today and see how his pain remains * tomorrow will plan for discharge * he has multiple admission in hospital and he has just drug seeking behaviour and he has tolerance with narcotics * medication reviewed as below * symptomatic treatment. Review of Systems - Review of Systems ENT: negative: Ear Pain, Ear Discharge, Nose Pain, Nose Discharge, Nose Congestion, Mouth Pain, Mouth Swelling, Throat Pain, Throat Swelling, Other Respiratory: negative: Cough, Dry, Shortness of Breath, Hemoptysis, SOB with Excertion, Pleuritic Pain, Sputum, Wheezing Cardiovascular: negative: chest pain, palpitations, orthopnea, paroxysmal nocturnal dyspnea, edema, light headedness, other Gastrointestinal: negative: Nausea, Vomiting, Abdominal Pain, Diarrhea, Constipation, Melena, Hematochezia, Other Genitourinary: negative: Dysuria, Frequency, Incontinence, Hematuria, Retention , Other Musculoskeletal: negative: Neck Pain, Shoulder Pain, Arm Pain, Back Pain, Hand Pain, Leg Pain, Foot Pain, Other - Medications/Allergies Allergies/Adverse Reactions: Allergies Allergy/AdvReac Type Severity Reaction Status Date / Time fentanyl Allergy Verified 10/17/17 16:47 ketorolac tromethamine Allergy Short of Verified 10/17/17 16:48 [From Toradol] Breath metoclopramide [From Reglan] Allergy Verified 10/04/17 02:27 Sulfa (Sulfonamide Allergy Verified 10/17/17 16:48 Antibiotics) Medications: Current Medications Acetaminophen (Tylenol) 650 mg PO Q4H PRN PRN Reason: Headache/Fever or Pain Hydrocodone Bitart/Acetaminophen ([place] 5/325) 1 tab PO Q6H PRN PRN Reason: Mild-Moderate Pain (1-5) Hydrocodone Bitart/Acetaminophen ([place] 5/325) 2 tab PO Q6H PRN PRN Reason: Moderate to Severe Pain (6-10) Hydrocodone Bitart/Acetaminophen ([place] 10/325) 1 tab PO Q4H PRN PRN Reason: Moderate Pain (4-6) Last Admin: 10/18/17 08:11 Dose: 1 tab Al Hydroxide/Mg Hydroxide (Maalox) 30 ml PO Q6H PRN PRN Reason: Heartburn or Indigestion Albuterol Sulfate (Ventolin) 2.5 mg NEB [id number] PRN PRN Reason: Wheezing Artificial Tears (Tears Naturale) 0 drop EA EYE PRN PRN PRN Reason: Dry Eyes Bisacodyl (Dulcolax) 10 mg [place] Q24H PRN PRN Reason: Constipation Diphenhydramine HCl (Benadryl) 25 mg IVP Q4H PRN PRN Reason: Itching Last Admin: 10/18/17 10:04 Dose: 25 mg Docusate Sodium (Colace) 100 mg PO BID [facility] Last Admin: 10/18/17 08:11 Dose: 100 mg Enoxaparin Sodium (Lovenox) 30 mg SC 0900 [facility] Last Admin: 10/18/17 08:12 Dose: Not Given Famotidine (Pepcid) 20 mg PO BID [facility] Last Admin: 10/18/17 08:10 Dose: 20 mg Folic Acid (Folvite) 1 mg PO DAILY [facility] Last Admin: 10/18/17 08:10 Dose: 1 mg Guaifenesin (Robitussin Sf) 200 mg PO Q4H PRN PRN Reason: Cough Guaifenesin (Mucinex) 600 mg PO Q12HR [facility] Last Admin: 10/18/17 08:10 Dose: 600 mg Hydralazine HCl (Apresoline) 10 mg SLOW IVP Q4H PRN PRN Reason: Systolic BP > 180 Levofloxacin 500 mg/ Device 100 mls @ 100 mls/hr IVPB Q24HR [facility] Last Admin: 10/17/17 18:09 Dose: 100 mls Sodium Chloride (Normal Saline 0.9%) 1,000 mls @ 100 mls/hr IV .Q10H [facility] Last Admin: 10/18/17 04:21 Dose: 1,000 mls Iron/Minerals/Multivitamins (Theragran M) 1 tab PO DAILY [facility] Last Admin: 10/18/17 08:10 Dose: 1 tab Loperamide HCl (Imodium) 2 mg PO PRN PRN PRN Reason: Diarrhea/Loose Stools Magnesium Hydroxide (Milk Of Magnesium) 30 ml PO DAILYPRN PRN PRN Reason: Constipation Mineral Oil/White Petrolatum (Eucerin Cream) 0 gm TOP BIDPRN PRN PRN Reason: Dry Skin Morphine Sulfate (Morphine Sulfate) 4 mg SLOW IVP Q4H PRN PRN Reason: Pain Last Admin: 10/18/17 10:08 Dose: 4 mg Ondansetron HCl (Zofran Odt) 4 mg PO Q6H PRN PRN Reason: Nausea/Vomiting Ondansetron HCl (Zofran) 4 mg IVP Q6H PRN PRN Reason: Nausea/Vomiting Phenol (Chloraseptic [place] 180 Ml Bot) 0 ml PO PRN PRN PRN Reason: Sore Throat Senna (Senokot) 2 tab PO HSPRN PRN PRN Reason: Constipation Sodium Chloride (Flush - Normal Saline) 10 ml IVF PRN PRN PRN Reason: Saline Flush Sodium Chloride ([place] Nasal [place] 0.65%) 0 ml EA NARE QIDPRN PRN PRN Reason: Nasal Congestion Zolpidem Tartrate (Ambien) 5 mg PO HSPRN PRN PRN Reason: Insomnia
[2017-10-18] MEDS ORDERED: diphenhydrAMINE 50 MG/ML VIAL IVP PRN (10:26)
[2017-10-19] MEDS: HYDROcodone/Acetaminophen 10/325 mg Tablet PO PRN ×4 (00:43→17:41)
[2017-10-19] MEDS: Sodium Chloride 0.9% 1,000 ML IV SCH ×3 (00:43→10:49)
[2017-10-19] MEDS: diphenhydrAMINE 50 MG/ML VIAL IVP PRN ×4 (01:51→22:03)
[2017-10-19] MEDS: guaiFENesin ER 600 MG TAB PO SCH ×2 (08:39→20:02)
[2017-10-19] MEDS: Enoxaparin Sodium 30 MG/0.3 ML SYRINGE SC SCH (08:39)
[2017-10-19] MEDS: Folic Acid 1 MG TAB PO SCH (08:39)
[2017-10-19] MEDS: Multivitamin W/ Minerals 1 TAB PO SCH (08:39)
[2017-10-19] MEDS: Docusate 100 MG CAP PO SCH ×2 (08:39→20:02)
[2017-10-19] MEDS: Famotidine 20 MG TAB PO SCH ×2 (08:39→20:02)
--- NOTE | 2017-10-19 09:35 | PDOC.PN ---
- Subjective Encounter Start Date: 10/19/17 Encounter Start Time: 08:50 Patient seen and examined for sickle cell crises. No new complaints. No overnight events - Objective Resuscitation Status: Resuscitation Status FULL:Full Resuscitation MAR Reviewed: Yes Vital Signs & Weight: Vital Signs (12 hours) Temp Pulse Resp BP Pulse Ox 10/19/17 07:51 98.1 F 95 18 103/65 97 I&O: 10/18/17 10/19/17 10/20/17 06:59 06:59 06:59 Intake Total 3390 Output Total 850 1750 Balance -850 1640 Result Diagrams: 10/18/17 04:07 10/18/17 04:07 Phys Exam - Physical Examination Constitutional: NAD HEENT: PERRLA, moist MMs, sclera anicteric Neck: no JVD, supple Respiratory: no wheezing, no rales, no rhonchi Cardiovascular: RRR, no significant murmur, no rub Gastrointestinal: soft, non-tender, no distention, positive bowel sounds Musculoskeletal: no edema, pulses present Neurological: non-focal, normal sensation, moves all 4 limbs Psychiatric: normal affect, A&O x 3 Skin: no rash, normal turgor Dx/Plan (1) Sickle cell pain crisis Code(s): D57.00 - HB-SS DISEASE WITH CRISIS, UNSPECIFIED Status: Acute (2) Anxiety and depression Code(s): F41.8 - OTHER SPECIFIED ANXIETY DISORDERS Status: Chronic (3) Chronic pain disorder Code(s): G89.4 - CHRONIC PAIN SYNDROME Status: Chronic (4) Sickle cell anemia Code(s): D57.1 - SICKLE-CELL DISEASE WITHOUT CRISIS Status: Chronic (5) Tobacco abuse Code(s): Z72.0 - TOBACCO USE Status: Chronic Comment: - Plan cont current plan of care * will reduce morphin and benadryl q 8 hourly today * continue norco * if do well, will discharge tomorrow * medication reviewed as below * symptomatic treatment. Review of Systems - Review of Systems Eyes: negative: Pain, Vision Change, Conjunctivae Inflammation, Eyelid Inflammation, Redness, Other ENT: negative: Ear Pain, Ear Discharge, Nose Pain, Nose Discharge, Nose Congestion, Mouth Pain, Mouth Swelling, Throat Pain, Throat Swelling, Other Respiratory: negative: Cough, Dry, Shortness of Breath, Hemoptysis, SOB with Excertion, Pleuritic Pain, Sputum, Wheezing Cardiovascular: negative: chest pain, palpitations, orthopnea, paroxysmal nocturnal dyspnea, edema, light headedness, other Gastrointestinal: negative: Nausea, Vomiting, Abdominal Pain, Diarrhea, Constipation, Melena, Hematochezia, Other Genitourinary: negative: Dysuria, Frequency, Incontinence, Hematuria, Retention , Other Musculoskeletal: negative: Neck Pain, Shoulder Pain, Arm Pain, Back Pain, Hand Pain, Leg Pain, Foot Pain, Other - Medications/Allergies Allergies/Adverse Reactions: Allergies Allergy/AdvReac Type Severity Reaction Status Date / Time fentanyl Allergy Verified 10/17/17 16:47 ketorolac tromethamine Allergy Short of Verified 10/17/17 16:48 [From Toradol] Breath metoclopramide [From Reglan] Allergy Verified 10/04/17 02:27 Sulfa (Sulfonamide Allergy Verified 10/17/17 16:48 Antibiotics) Medications: Current Medications Acetaminophen (Tylenol) 650 mg PO Q4H PRN PRN Reason: Headache/Fever or Pain Hydrocodone Bitart/Acetaminophen ([place] 5/325) 1 tab PO Q6H PRN PRN Reason: Mild-Moderate Pain (1-5) Hydrocodone Bitart/Acetaminophen ([place] 5/325) 2 tab PO Q6H PRN PRN Reason: Moderate to Severe Pain (6-10) Hydrocodone Bitart/Acetaminophen ([place] 10/325) 1 tab PO Q4H PRN PRN Reason: Moderate Pain (4-6) Last Admin: 10/19/17 08:39 Dose: 1 tab Al Hydroxide/Mg Hydroxide (Maalox) 30 ml PO Q6H PRN PRN Reason: Heartburn or Indigestion Albuterol Sulfate (Ventolin) 2.5 mg NEB [id number] PRN PRN Reason: Wheezing Artificial Tears (Tears Naturale) 0 drop EA EYE PRN PRN PRN Reason: Dry Eyes Bisacodyl (Dulcolax) 10 mg [place] Q24H PRN PRN Reason: Constipation Diphenhydramine HCl (Benadryl) 25 mg IVP Q4H PRN PRN Reason: Itching Last Admin: 10/19/17 05:58 Dose: 25 mg Docusate Sodium (Colace) 100 mg PO BID [facility] Last Admin: 10/19/17 08:39 Dose: Not Given Enoxaparin Sodium (Lovenox) 30 mg SC 0900 [facility] Last Admin: 10/19/17 08:39 Dose: Not Given Famotidine (Pepcid) 20 mg PO BID [facility] Last Admin: 10/19/17 08:39 Dose: 20 mg Folic Acid (Folvite) 1 mg PO DAILY [facility] Last Admin: 10/19/17 08:39 Dose: 1 mg Guaifenesin (Robitussin Sf) 200 mg PO Q4H PRN PRN Reason: Cough Guaifenesin (Mucinex) 600 mg PO Q12HR [facility] Last Admin: 10/19/17 08:39 Dose: 600 mg Hydralazine HCl (Apresoline) 10 mg SLOW IVP Q4H PRN PRN Reason: Systolic BP > 180 Levofloxacin 500 mg/ Device 100 mls @ 100 mls/hr IVPB Q24HR [facility] Last Admin: 10/18/17 16:29 Dose: 100 mls Sodium Chloride (Normal Saline 0.9%) 1,000 mls @ 100 mls/hr IV .Q10H [facility] Last Admin: 10/19/17 00:43 Dose: 1,000 mls Iron/Minerals/Multivitamins (Theragran M) 1 tab PO DAILY [facility] Last Admin: 10/19/17 08:39 Dose: 1 tab Loperamide HCl (Imodium) 2 mg PO PRN PRN PRN Reason: Diarrhea/Loose Stools Magnesium Hydroxide (Milk Of Magnesium) 30 ml PO DAILYPRN PRN PRN Reason: Constipation Mineral Oil/White Petrolatum (Eucerin Cream) 0 gm TOP BIDPRN PRN PRN Reason: Dry Skin Morphine Sulfate (Morphine Sulfate) 4 mg SLOW IVP Q4H PRN PRN Reason: Pain Last Admin: 10/19/17 05:58 Dose: 4 mg Ondansetron HCl (Zofran Odt) 4 mg PO Q6H PRN PRN Reason: Nausea/Vomiting Ondansetron HCl (Zofran) 4 mg IVP Q6H PRN PRN Reason: Nausea/Vomiting Phenol (Chloraseptic [place] 180 Ml Bot) 0 ml PO PRN PRN PRN Reason: Sore Throat Senna (Senokot) 2 tab PO HSPRN PRN PRN Reason: Constipation Sodium Chloride (Flush - Normal Saline) 10 ml IVF PRN PRN PRN Reason: Saline Flush Sodium Chloride ([place] Nasal [place] 0.65%) 0 ml EA NARE QIDPRN PRN PRN Reason: Nasal Congestion Zolpidem Tartrate (Ambien) 5 mg PO HSPRN PRN PRN Reason: Insomnia
[2017-10-19] MEDS ORDERED: HYDROcodone/Acetaminophen 10/325 mg Tablet PO SCH (19:45)
[2017-10-20] MEDS: HYDROcodone/Acetaminophen 10/325 mg Tablet PO PRN ×2 (01:10→16:27)
[2017-10-20] MEDS: Sodium Chloride 0.9% 1,000 ML IV SCH ×2 (01:12→13:13)
[2017-10-20] MEDS: diphenhydrAMINE 50 MG/ML VIAL IVP PRN (06:03)
[2017-10-20] MEDS: Multivitamin W/ Minerals 1 TAB PO SCH (08:00)
[2017-10-20] MEDS: Docusate 100 MG CAP PO SCH (08:00)
[2017-10-20] MEDS: Famotidine 20 MG TAB PO SCH (08:00)
[2017-10-20] MEDS: guaiFENesin ER 600 MG TAB PO SCH (08:00)
[2017-10-20] MEDS: Enoxaparin Sodium 30 MG/0.3 ML SYRINGE SC SCH (08:01)
[2017-10-20] MEDS: Folic Acid 1 MG TAB PO SCH (08:01)
--- NOTE | 2017-10-20 10:46 | PDOC.PN ---
- Subjective Encounter Start Date: 10/20/17 Encounter Start Time: 08:10 Patient seen and examined. No new complaints. No overnight events - Objective Resuscitation Status: Resuscitation Status FULL:Full Resuscitation MAR Reviewed: Yes Vital Signs & Weight: Vital Signs (12 hours) Temp Pulse Resp BP Pulse Ox 10/20/17 08:00 98.3 F 63 16 97 10/20/17 07:16 98.3 F 63 16 109/70 97 I&O: 10/19/17 10/20/17 10/21/17 06:59 06:59 06:59 Intake Total 3390 Output Total 1750 Balance 1640 Result Diagrams: 10/18/17 04:07 10/18/17 04:07 EKG Reviewed by me: Yes Phys Exam - Physical Examination Constitutional: NAD HEENT: PERRLA, moist MMs, sclera anicteric Neck: no JVD, supple Respiratory: no wheezing, no rales, no rhonchi Cardiovascular: RRR, no significant murmur, no rub Gastrointestinal: soft, non-tender, no distention, positive bowel sounds Musculoskeletal: no edema, pulses present Neurological: non-focal, normal sensation, moves all 4 limbs Psychiatric: normal affect, A&O x 3 Skin: normal turgor Dx/Plan (1) Sickle cell pain crisis Code(s): D57.00 - HB-SS DISEASE WITH CRISIS, UNSPECIFIED Status: Acute (2) Anxiety and depression Code(s): F41.8 - OTHER SPECIFIED ANXIETY DISORDERS Status: Chronic (3) Chronic pain disorder Code(s): G89.4 - CHRONIC PAIN SYNDROME Status: Chronic (4) Sickle cell anemia Code(s): D57.1 - SICKLE-CELL DISEASE WITHOUT CRISIS Status: Chronic (5) Tobacco abuse Code(s): Z72.0 - TOBACCO USE Status: Chronic Comment: - Plan cont current plan of care * medication reviewed as below * symptomatic treatment * see discharge jerzy. Review of Systems - Review of Systems ENT: negative: Ear Pain, Ear Discharge, Nose Pain, Nose Discharge, Nose Congestion, Mouth Pain, Mouth Swelling, Throat Pain, Throat Swelling, Other Respiratory: negative: Cough, Dry, Shortness of Breath, Hemoptysis, SOB with Excertion, Pleuritic Pain, Sputum, Wheezing Cardiovascular: negative: chest pain, palpitations, orthopnea, paroxysmal nocturnal dyspnea, edema, light headedness, other Gastrointestinal: negative: Nausea, Vomiting, Abdominal Pain, Diarrhea, Constipation, Melena, Hematochezia, Other Genitourinary: negative: Dysuria, Frequency, Incontinence, Hematuria, Retention , Other Musculoskeletal: negative: Neck Pain, Shoulder Pain, Arm Pain, Back Pain, Hand Pain, Leg Pain, Foot Pain, Other Skin: negative: Rash, Lesions, Shahram, Bruising, Other - Medications/Allergies Allergies/Adverse Reactions: Allergies Allergy/AdvReac Type Severity Reaction Status Date / Time fentanyl Allergy Verified 10/17/17 16:47 ketorolac tromethamine Allergy Short of Verified 10/17/17 16:48 [From Toradol] Breath metoclopramide [From Reglan] Allergy Verified 10/04/17 02:27 Sulfa (Sulfonamide Allergy Verified 10/17/17 16:48 Antibiotics) Medications: Current Medications Acetaminophen (Tylenol) 650 mg PO Q4H PRN PRN Reason: Headache/Fever or Pain Hydrocodone Bitart/Acetaminophen ([place] 10/325) 1 tab PO Q4H PRN PRN Reason: Moderate Pain (4-6) Last Admin: 10/20/17 01:10 Dose: 1 tab Al Hydroxide/Mg Hydroxide (Maalox) 30 ml PO Q6H PRN PRN Reason: Heartburn or Indigestion Albuterol Sulfate (Ventolin) 2.5 mg NEB [id number] PRN PRN Reason: Wheezing Artificial Tears (Tears Naturale) 0 drop EA EYE PRN PRN PRN Reason: Dry Eyes Bisacodyl (Dulcolax) 10 mg [place] Q24H PRN PRN Reason: Constipation Diphenhydramine HCl (Benadryl) 25 mg IVP Q8H PRN PRN Reason: Itching Last Admin: 10/20/17 06:03 Dose: 25 mg Docusate Sodium (Colace) 100 mg PO BID [facility] Last Admin: 10/20/17 08:00 Dose: Not Given Enoxaparin Sodium (Lovenox) 30 mg SC 0900 [facility] Last Admin: 10/20/17 08:01 Dose: 30 mg Famotidine (Pepcid) 20 mg PO BID [facility] Last Admin: 10/20/17 08:00 Dose: 20 mg Folic Acid (Folvite) 1 mg PO DAILY [facility] [place] Last Admin: 10/20/17 08:01 Dose: 1 mg Guaifenesin (Robitussin Sf) 200 mg PO Q4H PRN PRN Reason: Cough Guaifenesin (Mucinex) 600 mg PO Q12HR [facility] [place] Last Admin: 10/20/17 08:00 Dose: 600 mg Hydralazine HCl (Apresoline) 10 mg SLOW IVP Q4H PRN PRN Reason: Systolic BP > 180 Sodium Chloride (Normal Saline 0.9%) 1,000 mls @ 70 mls/hr IV .[id number] [facility] [place] Last Admin: 10/20/17 01:12 Dose: 1,000 mls Iron/Minerals/Multivitamins (Theragran M) 1 tab PO DAILY [facility] Last Admin: 10/20/17 08:00 Dose: 1 tab Levofloxacin (Levaquin) 500 mg PO 0600 [facility] Last Admin: 10/20/17 06:03 Dose: 500 mg Loperamide HCl (Imodium) 2 mg PO PRN PRN PRN Reason: Diarrhea/Loose Stools Magnesium Hydroxide (Milk Of Magnesium) 30 ml PO DAILYPRN PRN PRN Reason: Constipation Mineral Oil/White Petrolatum (Eucerin Cream) 0 gm TOP BIDPRN PRN PRN Reason: Dry Skin Morphine Sulfate (Morphine Sulfate) 4 mg SLOW IVP Q8H PRN PRN Reason: Severe Pain (7-10) Last Admin: 10/20/17 06:03 Dose: 4 mg Ondansetron HCl (Zofran Odt) 4 mg PO Q6H PRN PRN Reason: Nausea/Vomiting Ondansetron HCl (Zofran) 4 mg IVP Q6H PRN PRN Reason: Nausea/Vomiting Phenol (Chloraseptic [place] 180 Ml Bot) 0 ml PO PRN PRN PRN Reason: Sore Throat Senna (Senokot) 2 tab PO HSPRN PRN PRN Reason: Constipation Sodium Chloride (Flush - Normal Saline) 10 ml IVF PRN PRN PRN Reason: Saline Flush Last Admin: 10/20/17 08:01 Dose: 10 ml Sodium Chloride ([place] Nasal [place] 0.65%) 0 ml EA NARE QIDPRN PRN PRN Reason: Nasal Congestion Zolpidem Tartrate (Ambien) 5 mg PO HSPRN PRN PRN Reason: Insomnia
--- NOTE | 2017-10-20 11:55 | DIS ---
DATE OF ADMISSION: 10/17/2017 DATE OF DISCHARGE: 10/20/2017 PRIMARY CARE PHYSICIAN: [facility] call admission. DISCHARGE DISPOSITION: Home. PRIMARY DISCHARGE DIAGNOSES: Sickle cell painful crisis, acute bronchitis. SECONDARY DISCHARGE DIAGNOSES: Anxiety and depression, chronic pain disorder, sickle cell anemia, to bacco abuse disorder. PRIMARY PROCEDURE/OPERATION: None. RADIOLOGICAL INVESTIGATION: Chest x-ray normal. SIGNIFICANT LABORATORY DATA: Hemoglobin 9.6, creatinine 0.78. DISCHARGE MEDICATIONS: The patient will continue all his previous home medications. Folic acid 1 mg p.o. b.i.d., Mucinex 600 mg twice daily, Desha 10 one tablet q.4 hourly p.r.n., venlafaxine ER 37.5 mg p.o. daily, Levaquin 500 mg p.o. daily for 5 days. CONTRAINDICATIONS: None. CODE STATUS: FULL CODE. INPATIENT CONSULTANTS: None. ALLERGIES: FENTANYL, TORADOL, REGLAN. DISCHARGE PLAN: Post hospital, the patient will follow up with primary care physician in 1 week. HOSPITAL COURSE: A 31-year-old male who was admitted by me. Please see my HPI for further detail. He has recurrent admission for sickle cell painful crisis. At this time, he was admitted for same pr oblem, sickle cell painful crisis, which was controlled with narcotics. He was given IV fluid and ox ygen. He was also having some lower respiratory tract infection and that is why we suspected bronchi tis, which we treated with levofloxacin and Mucinex while in hospital. The patient's pain is appropr iately controlled. He will continue his all home medication upon discharge. The patient is seen and examined at bedside today. Please see my progress note from today for furthe r detail. Note, this patient after admission goes to [id number] [facility] and he remains comfortable. He pertain s to come to ER for sickle cell painful crisis, but clinically whenever we are admitting this patient , he does not behave like he will have a real sickle cell painful crisis.
[2017-10-20 15:58] VITALS: BP 116/70; TEMP 98.8
== END 2017-10-20 18:50 | disposition home or self-care (01) | DRG 812 ==
LOC: ERS 10:25 → T4-A 16:33
PROVIDERS: ADMIT Internal Medicine; ATTEND Internal Medicine
DX: D57.00 Hb-SS disease with crisis, unspecified (principal); J20.9 Acute bronchitis, unspecified; Z79.899 Other long term (current) drug therapy; Z79.891 Long term (current) use of opiate analgesic; Z88.8 Allergy status to other drugs, medicaments and biological substances; Z88.2 Allergy status to sulfonamides; F17.210 Nicotine dependence, cigarettes, uncomplicated; F12.10 Cannabis abuse, uncomplicated; F32.9 Major depressive disorder, single episode, unspecified; F41.9 Anxiety disorder, unspecified
CPT/HCPCS: 36415; 71046; 80048; 83605; 84484; 85025; 85046; 87040; 87081; 87430; 93005; 96361; 96365; 96375; 96376; J0456; J0696; J1200; J1650; J1956; J2270; Q0162

== ENCOUNTER 2017-10-20 19:39 | Observation (INO) | payer MEDICARE, MEDICAID ==
[2017-10-20 20:57] LABS: Mean Corpuscular HGB CONC 35.2 g/dL (32.0-36.0); Mean Corpuscular Hemoglobin 31.4 pg (27.0-31.0); Mean Corpuscular Volume 89.2 fL (78.0-98.0); Mean Platelet Volume 6.3 fL (7.4-10.4); Platelet Count 464 thou/uL (130-400); RBC Distribution Width 15.5 % (11.5-14.5); Red Blood Cell (RBC) Count 3.49 mill/uL (4.70-6.10)
[2017-10-20 21:02] LABS: INR-International Normal Ratio 1.1; Prothrombin Time 13.9 SEC (12.0-14.7)
[2017-10-20 21:02] LABS: Reticulocyte Count 4.2 % (0.5-1.5)
[2017-10-20 21:11] LABS: Band 1 % (5-11); Eosinophils 1 % (0-10); Hemoglobin C Crystals SLIGHT (None Seen); Lymphocytes 37 % (21-51); MDiff Complete? YES; Monocytes 9 % (0-10); Neutrophil 52 % (42-75); PLT Morphology Comment Appears Increased; Target Cells MODERATE= 6-15 cells (100X) (0-1/hpf); White Blood Cell (WBC) Count 8.5 thou/uL (4.8-10.8)
--- NOTE | 2017-10-20 21:15 | CT ---
CT ABDOMEN NONCONTRAST CT PELVIS NONCONTRAST: (urolithiasis protocol) DATE: 10/20/17 TIME: 8:46 p.m. HISTORY: 31-year-old male, sickle cell patient presents with generalized abdominal pain and bloody emesis. COMPARISON: Contrast enhanced CT of 07/02/17. TECHNIQUE: IV injection of iodinated contrast media: none Oral contrast media: none FINDINGS: Other than for urolithiasis, the lack of IV and oral contrast limits the evaluation. There is a new finding of an approximately 0.7 x 0.9 x 1.2 cm pulmonary nodule in the left lower lobe , abutting the posterior pleural surface. Much more inferiorly, there is a new 1 x 0.7 x 0.2 cm pulmonary nodule broadly abutting the left gosia diaphragmatic surface. Posterior to that, there are new streaky pulmonary densities in the basilar segments of left lower lo be consistent with subsegmental atelectasis. No pleural effusion. Right lung base is clear. Spleen is small, similar to prior CT. No renal, ureteral, or bladder calculi. No hydronephrosis. Within the limitations of a noncontrast sc an, no abnormality identified involving the appendix, abdominal aorta, kidneys, adrenals, pancreas, o r liver. No signs of acute diverticulitis. Normal appearance of urinary bladder. No small bowel dilat ion. No pneumoperitoneum or ascites. Other than the dense streak artifact and mixture of air density and contrast density in the duodenum mentioned on the previous report, there is no interval change. IMPRESSION: 1. Nonspecific two new left lower lobe pulmonary nodules. 2. No urolithiasis or obstructive uropathy. 3. Status post autosplenectomy. 4. No acute findings within the abdominal cavity or pelvic cavity, within the limitations of a n oncontrast scan. OBDULIA R POS: [facility]
[2017-10-20 21:17] LABS: ALT (SGPT) 18 U/L (8-55); AST (SGOT) 37 U/L (5-34); Albumin 4.3 g/dL (3.5-5.0); Alkaline Phosphatase 79 U/L (40-150); Anion Gap 15 mmol/L (10-20); BUN (Urea Nitrogen) 8 mg/dL (8.9-20.6); Bilirubin, Total 0.6 mg/dL (0.2-1.2); Calc. Creatinine Clearance 0 mL/min (70-130); Calcium 9.9 mg/dL (7.8-10.44); Carbon Dioxide 24 mmol/L (22-29); Chloride 104 mmol/L (98-107); Estimated GFR-MDRD Greater than 90; Globulin 4.2 g/dL (2.4-3.5); Glucose 89 mg/dL (70-105); Lipase 17 U/L (8-78); Potassium 4.9 mmol/L (3.5-5.1); Protein, Total 8.5 g/dL (6.0-8.3); Sodium 138 mmol/L (136-145)
[2017-10-20] MEDS ORDERED: cefTRIAXone\\ROCEPHIN 1 GM VIAL ONE (21:21)
[2017-10-20] MEDS ORDERED: HYDROcodone/Acetaminophen 10/325 mg Tablet ONE (21:25)
--- NOTE | 2017-10-20 22:35 | RAD ---
RADIOGRAPH CHEST 2 VIEWS: 10/20/17 HISTORY: 31-year-old male with fever. History of sickle cell disease. FINDINGS: There is no air space density, pulmonary edema, pleural effusion, pneumothorax, or cardiomegaly. IMPRESSION: No acute cardiopulmonary findings. jn [] POS: [facility]
[2017-10-20] MEDS ORDERED: Morphine 10 MG/ML VIAL ONE ×2 (22:46→23:50)
[2017-10-20] MEDS ORDERED: diphenhydrAMINE 50 MG/ML VIAL ONE ×2 (22:58→23:50)
[2017-10-21] MEDS ORDERED: Ondansetron HCl/PF 4 MG/2 ML Vial IVP PRN (00:27)
[2017-10-21] MEDS ORDERED: Ondansetron ODT 4 MG TAB SL PRN (00:27)
[2017-10-21] MEDS ORDERED: Acetaminophen 325 MG TAB PO PRN ×2 (00:27→01:23)
[2017-10-21] MEDS ORDERED: Bisacodyl 5 MG TAB PO PRN (01:23)
--- NOTE | 2017-10-21 02:14 | HP ---
PRIMARY CARE PHYSICIAN: None. CHIEF COMPLAINT: Abdominal pain. HISTORY OF PRESENT ILLNESS: Mr. Overton is a pleasant 31-year-old gentleman who was seen at [facility] on 10/21/2017. He was hospitalized at this facility from 10/17/2017 to 10/20/2017 of this year and was discharged home yesterday. Please refer to Dr. Gonsalez's history and physical as well as discharge summary reports for further information. He reports that after going home, he developed a new type of abdominal pain. He reports having pain while he was in the hospital . However, it appears to have changed his nature. Now it is dull, radiating into the ribs, 10/10 at its worst, accompanied by nausea, no known aggravating or relieving factors. It is also accompanied by vomiting. He also reports vomiting blood at home. He also reports that at home, he had a temper ature of 100.6 degrees Fahrenheit. He denies any lightheadedness. He denies any chest pain at this time. REVIEW OF SYSTEMS: All other systems reviewed and found to be negative. PAST MEDICAL HISTORY: Sickle cell disease. PAST SURGICAL HISTORY: None. PSYCHIATRIC HISTORY: Anxiety and depression. SOCIAL HISTORY: The patient is a current smoker. He drinks alcohol occasionally. He uses marijuana occasionally. FAMILY HISTORY: Both parents had sickle-cell trait. ALLERGIES: FENTANYL, TORADOL, REGLAN, SULFA. CURRENT MEDICATIONS: Folic acid 1 mg 2 times a day, Mucinex 600 mg 2 times a day, Bourg p.r.n., venl afaxine ER 37.5 mg daily, and Levaquin 500 mg daily. PHYSICAL EXAMINATION: GENERAL: Mr. Overton is awake and alert, in mild distress. VITAL SIGNS: Blood pressure is 110/69, pulse is 68. He is breathing at rate of 18, and saturating 9 8% on room air. He is afebrile. EYES: No scleral icterus, no conjunctival pallor. ENT: Moist mucosal membranes, no oropharyngeal erythema or exudates. NECK: Supple, nontender, normal range of movement, trachea is midline. RESPIRATORY: Accessory muscles of breathing are not active. Chest wall movements are symmetric bila terally. Lungs are clear to auscultation without wheeze, rhonchi, or crepitations. CARDIOVASCULAR: S1 and S2 are heard, regular. Peripheral pulses palpable. No carotid bruit, no per icardial rub. ABDOMEN: Mild epigastric tenderness, no guarding or rigidity, bowel sounds are heard, no hepatomegal y, no splenomegaly. NEUROLOGIC: Cranial nerves II-XII intact. Deep tendon reflexes are 2+. MUSCULOSKELETAL: Power is 5/5 in all 4 extremities. SKIN: No rashes or subcutaneous nodules. LYMPHATIC: No cervical lymphadenopathy. PSYCHIATRIC: Patient appears to be anxious, oriented to person, place, and time. LABORATORY DATA: Mr. Overton's labs and investigations were reviewed. He had a chest x-ray, whic h did not show any pulmonary infiltrates. He also had CT scan of abdomen and pelvis, which showed no nspecific to new left lower lobe pulmonary nodules, no urolithiasis or obstructive uropathy, status p ost autosplenectomy and no acute findings within the abdominal cavity or pelvic cavity, within the li mitations of a noncontrast scan, according to the radiologist. He has normal electrolytes, normal cr eatinine, mildly elevated AST of 37, normal ALT, normal total bilirubin, normal alkaline phosphatase, normal lipase, INR 1.1, normal white count, normocytic anemia with hemoglobin 11, and elevated plate let count of 464,000, last known platelet count 426,000 on 10/18/2017. Retic count is elevated at 4. 2. ASSESSMENT AND PLAN: Mr. Overton is a pleasant 31-year-old gentleman who was seen at [facility] on 10/21/2017. His problem list includes: 1. Abdominal pain: The etiology is unclear at this time. Patient will be admitted to the hospital for further management, including pain medications. 2. Hematemesis: Patient reports having hematemesis at home. His hemoglobin is stable, 11 today, up from 9.6 on 10/18/2017. We will monitor him in the hospital setting and recheck his hemoglobin. GI service is being consulted by emergency room physician. 3. Sickle cell anemia: Abdominal pain could be secondary to sickle cell crisis. I will monitor cou nts and treat symptoms as needed. 4. Tobacco abuse: Patient has been counseled regarding tobacco cessation. We will start him on amanda otine-replacement therapy. LEVEL OF RISK: Moderate. LEVEL OF COMPLEXITY: Moderate.
[2017-10-21] MEDS: Nicotine 21 MG PATCH TD SCH (02:18)
[2017-10-21] MEDS: diphenhydrAMINE 50 MG/ML VIAL IVP PRN ×3 (04:09→20:22)
[2017-10-21 06:07] LABS: Anion Gap 13 mmol/L (10-20); BUN (Urea Nitrogen) 7 mg/dL (8.9-20.6); Calc. Creatinine Clearance 132 mL/min (70-130); Calcium 9.6 mg/dL (7.8-10.44); Carbon Dioxide 27 mmol/L (22-29); Chloride 101 mmol/L (98-107); Estimated GFR-MDRD Greater than 90; Glucose 83 mg/dL (70-105); Potassium 4.9 mmol/L (3.5-5.1); Sodium 136 mmol/L (136-145)
[2017-10-21 07:02] LABS: Eosinophils 3 % (0-10); Hemoglobin 9.5 g/dL (14.0-18.0); Hemoglobin C Crystals SLIGHT (None Seen); Lymphocytes 60 % (21-51); MDiff Complete? YES; Mean Corpuscular HGB CONC 35.1 g/dL (32.0-36.0); Mean Corpuscular Hemoglobin 31.1 pg (27.0-31.0); Mean Corpuscular Volume 88.5 fL (78.0-98.0); Mean Platelet Volume 6.4 fL (7.4-10.4); Monocytes 15 % (0-10); Neutrophil 22 % (42-75); Nucleated RBC 1 % (0); PLT Morphology Comment Appears Increased; Platelet Count 474 thou/uL (130-400); Polychromasia SLIGHT = 2-3 cells (100X) (0-2/hpf); RBC Distribution Width 15.5 % (11.5-14.5); Red Blood Cell (RBC) Count 3.06 mill/uL (4.70-6.10); Target Cells MODERATE= 6-15 cells (100X) (0-1/hpf); White Blood Cell (WBC) Count 8.2 thou/uL (4.8-10.8)
--- NOTE | 2017-10-21 09:48 | PDOC.PN ---
- Subjective Encounter Start Date: 10/21/17 (f/u abd pain) Encounter Start Time: 09:47 Subjective: Pt reports abd pain persists but better, some nausea but no vomiting -: has some arm and chest pain that is 'some'. denies any difficulty -: breathing - Objective Vital Signs & Weight: Vital Signs (12 hours) Temp Pulse Resp BP Pulse Ox 10/21/17 08:29 98.1 F 54 L 15 10/21/17 07:44 98.1 F 54 L 15 101/64 98 10/21/17 04:15 97.6 F 55 L 18 112/67 98 10/21/17 00:30 98.1 F 68 18 10/21/17 00:24 98.1 F 68 18 110/69 98 Weight Weight 145 lb I&O: 10/20/17 10/21/17 10/22/17 06:59 06:59 06:59 Intake Total 20 Balance 20 Result Diagrams: 10/21/17 05:38 10/21/17 05:38 Phys Exam - Physical Examination Constitutional: NAD Respiratory: no wheezing, no rales, no rhonchi Cardiovascular: RRR, no significant murmur Gastrointestinal: soft, no distention, positive bowel sounds no rebound or guarding, ttp throughout Musculoskeletal: no edema Neurological: non-focal, moves all 4 limbs easily changes positions to sit up Psychiatric: normal affect Skin: no rash Dx/Plan (1) Abdominal pain Code(s): R10.9 - UNSPECIFIED ABDOMINAL PAIN Status: Acute Qualifiers: Abdominal location: generalized Qualified Code(s): R10.84 - Generalized abdominal pain (2) Hematemesis Code(s): K92.0 - HEMATEMESIS Status: Acute Qualifiers: Nausea presence: with nausea Qualified Code(s): K92.0 - Hematemesis (3) Sickle cell pain crisis Code(s): D57.00 - HB-SS DISEASE WITH CRISIS, UNSPECIFIED Status: Chronic (4) Tobacco abuse Code(s): Z72.0 - TOBACCO USE Status: Chronic Comment: - Plan * NPO until GI evaluation, start IVF and IV PPI * Continue tx pain with IV meds for now - titrate to PO as tolerated based on workup needed * monitor hemoglobin - has dropped overnight, no active hematemesis. * * dvt prophy- scd's * gi prophy - start IV PPI * code status full * * reviewed plan of care with patient, no questions or further needs at end of eval.
[2017-10-21] MEDS: Pantoprazole 40 MG VIAL IVP SCH (11:00)
[2017-10-21] MEDS: Sodium Chloride 0.9% 1,000 ML IV SCH (11:00)
--- NOTE | 2017-10-22 00:04 | CON ---
DATE OF CONSULTATION: 10/21/2017 CHIEF COMPLAINT: Abdominal pain. HISTORY OF PRESENT ILLNESS: Mr. Overton is a 31-year-old man with sickle cell anemia who presente d yesterday after he had onset of nausea and vomiting. He retched multiple times and vomited up whit e material, but then at the end he had a small amount of bloody emesis. His nausea since improved; h owever, he has had persistent epigastric abdominal pain. This pain is a little bit better today afte r hydration. He did have some diarrhea yesterday 5 or 6 times, but no bowel movements today. He usu ally has 3 bowel movements per day. He has had some cough productive of green sputum. He had fever a couple days ago to 102, yesterday he reports a temperature to 100.7, since he has been in the [facility], he has been afebrile. He has had recurrent abdominal pain with hospitalizations. I saw him rick k in 01/2017 and performed EGD at that time. The EGD was unremarkable. Biopsies from the stomach an d duodenum, which were normal. Between January and now, he has had at least 4 CT scans of the abdome n and pelvis at this hospital. PAST MEDICAL HISTORY: Sickle cell disease. PAST SURGICAL HISTORY: Endoscopy in 01/2017. FAMILY HISTORY: Positive for sickle cell trait. SOCIAL HISTORY: He uses marijuana intermittently. He smokes a couple of cigarettes per day, has may be 1 drink per month of alcohol. ALLERGIES: FENTANYL, TORADOL, REGLAN, SULFA. MEDICATIONS: Currently include nicotine patch and pantoprazole, he is on morphine as needed. REVIEW OF SYSTEMS: Negative x10 systems reviewed except as stated in history of present illness. He does have some arm pain. PHYSICAL EXAMINATION: VITAL SIGNS: Temperature 98.4, pulse 54, blood pressure 103/66. GENERAL: He is in no acute distress. He is alert and oriented x3. HEENT: Eyes have no scleral icterus. Oropharynx is clear, without lesions. NECK: No cervical or supraclavicular lymphadenopathy. LUNGS: Clear to auscultation bilaterally. HEART: Regular rate and rhythm without murmur. ABDOMEN: Tender diffusely in the upper abdomen with voluntary guarding. Bowel sounds are present. EXTREMITIES: No lower extremity edema. LABORATORY DATA: White blood cell count 8.2, hemoglobin 9.5, platelets 474. INR 1.1. Creatinine 0. 75. Bilirubin 0.6, AST 37, ALT 18, alkaline phosphatase 79, albumin 4.3, lipase 17. Urine, cannabin oids is positive. CT scan of the abdomen and pelvis on 10/20/2017 without contrast showed some pulmo nary nodules. IMAGING: CT scan on 07/02/2017 with contrast showed some abnormality near the second portion of the duodenum, which appears to be something ingested, no obvious abnormality was seen in the second porti on of the duodenum by endoscopy previously. The proximal small bowel did appear thickened. IMPRESSION: 1. Recurrent epigastric abdominal pain. He presented with nausea and vomiting which is now resolved . This may be related to sickle cell crisis. He did have thickening of the small bowel noted by abd ominal CT scan in 06/[address] without contrast this hospital stay did not comment on the bowel wall thickness. Duodenal and gastric biopsies were normal back in 2017. 2. Hematemesis. He had a small amount of hematemesis after multiple episodes of retching. This is most consistent with a Carey-Small tear. RECOMMENDATIONS: 1. Given the question of abnormality on CT scan from June and the hematemesis and persistent epigas tric pain and recent use of ibuprofen, I will plan to schedule esophagogastroduodenoscopy for tomorro w. 2. Continue proton pump inhibitor daily.
[2017-10-22] MEDS: Sodium Chloride 0.9% 1,000 ML IV SCH ×2 (00:18→12:36)
[2017-10-22] MEDS: Nicotine 21 MG PATCH TD SCH (01:59)
[2017-10-22] MEDS: diphenhydrAMINE 50 MG/ML VIAL IVP PRN ×3 (04:18→20:28)
[2017-10-22 05:49] LABS: Anion Gap 12 mmol/L (10-20); BUN (Urea Nitrogen) 5 mg/dL (8.9-20.6); Calc. Creatinine Clearance 141 mL/min (70-130); Calcium 10.1 mg/dL (7.8-10.44); Carbon Dioxide 25 mmol/L (22-29); Chloride 103 mmol/L (98-107); Estimated GFR-MDRD Greater than 90; Glucose 82 mg/dL (70-105); Potassium 4.4 mmol/L (3.5-5.1); Sodium 136 mmol/L (136-145)
[2017-10-22 08:04] LABS: Eosinophils 2 % (0-10); Hemoglobin 10.5 g/dL (14.0-18.0); Hemoglobin C Crystals SLIGHT (None Seen); Lymphocytes 66 % (21-51); MDiff Complete? YES; Mean Corpuscular HGB CONC 35.3 g/dL (32.0-36.0); Mean Corpuscular Hemoglobin 31.4 pg (27.0-31.0); Mean Corpuscular Volume 89.1 fL (78.0-98.0); Mean Platelet Volume 6.3 fL (7.4-10.4); Monocytes 7 % (0-10); Neutrophil 24 % (42-75); PLT Morphology Comment Appears Increased; Platelet Count 450 thou/uL (130-400); Polychromasia MODERATE = 3-4 cells (100X) (0-2/hpf); RBC Distribution Width 15.3 % (11.5-14.5); Reactive Lymphocytes 1 % (0-10); Red Blood Cell (RBC) Count 3.36 mill/uL (4.70-6.10); Target Cells SLIGHT = 2-5 cells (100X) (0-1/hpf)
[2017-10-22] MEDS: Pantoprazole 40 MG VIAL IVP SCH (08:35)
[2017-10-22] MEDS ORDERED: Morphine 4 MG/ML VIAL ONE ×2 (14:12→14:42)
[2017-10-22] MEDS ORDERED: Promethazine HCl 25 MG/ML VIAL SLOW IVP PRN (14:39)
[2017-10-22] MEDS ORDERED: Ondansetron HCl/PF 4 MG/2 ML Vial IVP PRN (14:39)
[2017-10-22] MEDS ORDERED: Promethazine HCl 25 MG/ML VIAL IM PRN (14:39)
[2017-10-22] MEDS ORDERED: Lidocaine 1% PF 5 ML VIAL ONE (14:55)
[2017-10-22] MEDS ORDERED: PROPOFOL 200 MG/20 ML VIAL ONE (14:55)
--- NOTE | 2017-10-22 15:16 | PDOC.PN ---
- Subjective Encounter Start Date: 10/22/17 Encounter Start Time: 14:15 CONTINUES TO REPORT SOME NAUSEA AND VOMITING. STILL HAS SOME PAIN IN THE RIGHT ELBOW. - Objective Resuscitation Status: Resuscitation Status FULL:Full Resuscitation Vital Signs & Weight: Vital Signs (12 hours) Temp Pulse Resp BP Pulse Ox 10/22/17 12:00 98.1 F 60 16 100/58 L 97 10/22/17 08:33 97.9 F 62 16 10/22/17 08:00 97.9 F 62 16 107/68 99 10/22/17 04:00 97.6 F 57 L 16 108/71 99 Weight Weight 145 lb I&O: 10/21/17 10/22/17 10/23/17 06:59 06:59 06:59 Intake Total 20 3402 1 Output Total 1900 Balance 20 1502 1 Result Diagrams: 10/22/17 05:03 10/22/17 05:03 Phys Exam - Physical Examination HEENT: oral pharynx no lesions Neck: no JVD, supple Respiratory: no wheezing, no rales, no rhonchi, clear to auscultation bilateral Cardiovascular: RRR, no significant murmur, no rub Gastrointestinal: soft, non-tender, no distention, positive bowel sounds Musculoskeletal: no edema TTP IN THE RIGHT ELBOW AREA. Psychiatric: normal affect Dx/Plan (1) Hematemesis Code(s): K92.0 - HEMATEMESIS Status: Acute Qualifiers: Nausea presence: with nausea Qualified Code(s): K92.0 - Hematemesis Comment: RELATED TO RECURRENT VOMITING. POSSIBLE MW TEAR. GI ON BOARD. ENDOSCOPY. (2) Sickle cell pain crisis Code(s): D57.00 - HB-SS DISEASE WITH CRISIS, UNSPECIFIED Status: Chronic Comment: CONTINUE PAIN MEDS. (3) Nausea & vomiting Code(s): R11.2 - NAUSEA WITH VOMITING, UNSPECIFIED Status: Acute Comment: PRN ANTI-EMETICS (4) Abdominal pain Code(s): R10.9 - UNSPECIFIED ABDOMINAL PAIN Status: Acute Qualifiers: Abdominal location: generalized Qualified Code(s): R10.84 - Generalized abdominal pain Comment: ENDOSCOPY. - Plan * ABOVE.
--- NOTE | 2017-10-22 16:24 | OP ---
DATE OF PROCEDURE: 10/22/2017 PROCEDURE: Esophagogastroduodenoscopy, diagnostic. INDICATION FOR PROCEDURE: Nausea and vomiting, hematemesis. DESCRIPTION OF PROCEDURE: After the risks and benefits of the procedure were explained to the patien t including risks of bleeding, infection, perforation, reaction to anesthesia and/or pain, informed c onsent was obtained. The patient was then taken to the endoscopy suite where deep sedation was admin istered via propofol and anesthesia support. Once adequate sedation was achieved, the standard gastr oscope was introduced into the mouth with intubation of the esophagus, stomach and proximal small int estine with the findings listed below. The patient tolerated the procedure well with no immediate pe rioperative complications. FINDINGS: Esophagus: Normal appearing mucosa was seen in the proximal, mid and distal esophagus. There was no evidence of erosions, ulcerations, mass lesions, Carey-Small tear or active/recent bleeding. Both the diaphragmatic pinch and GE junction were well seen at approximately 38 cm past the incisors. Stomach: Normal appearing mucosa was seen in the gastric cardia, fundus, body, antrum and incisura. There was no evidence of erosions, ulcerations, mass lesions or active/recent bleeding. Duodenum: Normal appearing mucosa was seen in both the duodenal bulb and second portion of the duode num. There was no evidence of erosions, ulcerations, mass lesions or active/recent bleeding. IMPRESSION: 1. Normal upper endoscopy. 2. No etiology for patient's recent hematemesis was seen during this examination. RECOMMENDATIONS: 1. While inpatient, we would continue to trend H and H and transfuse as necessary to maintain an H a nd H of 7/. 2. Continue to monitor clinically for signs of active gastrointestinal bleeding. 3. We would continue PPI daily as you are doing. 4. Agree with aggressive antiemetic control given the high likelihood of Carey-Small tear with inc reased nausea and vomiting causing his episode of hematemesis. 5. As long as nausea, vomiting controlled. The patient is cleared to be discharged from GI [facility].
[2017-10-22 17:40] VITALS: BMI 19.2
[2017-10-23] MEDS: Sodium Chloride 0.9% 1,000 ML IV SCH ×2 (00:46→13:22)
[2017-10-23] MEDS: Nicotine 21 MG PATCH TD SCH ×2 (02:24→09:00)
[2017-10-23] MEDS: diphenhydrAMINE 50 MG/ML VIAL IVP PRN ×3 (04:45→21:56)
[2017-10-23] MEDS: Pantoprazole 40 MG VIAL IVP SCH (09:00)
[2017-10-23 10:45] LABS: Hemoglobin 10.2 g/dL (14.0-18.0); Mean Corpuscular HGB CONC 35.1 g/dL (32.0-36.0); Mean Corpuscular Hemoglobin 30.8 pg (27.0-31.0); Mean Corpuscular Volume 87.6 fL (78.0-98.0); Mean Platelet Volume 5.9 fL (7.4-10.4); Platelet Count 480 thou/uL (130-400); RBC Distribution Width 14.9 % (11.5-14.5); Red Blood Cell (RBC) Count 3.33 mill/uL (4.70-6.10); White Blood Cell (WBC) Count 6.5 thou/uL (4.8-10.8)
[2017-10-23 10:46] LABS: Eosinophils 2 % (0-10); Hemoglobin C Crystals SLIGHT (None Seen); Lymphocytes 50 % (21-51); MDiff Complete? YES; Monocytes 10 % (0-10); Neutrophil 37 % (42-75); Nucleated RBC 1 % (0); PLT Morphology Comment Appears Adequate; Polychromasia MODERATE = 3-4 cells (100X) (0-2/hpf); Target Cells MODERATE= 6-15 cells (100X) (0-1/hpf)
--- NOTE | 2017-10-23 20:16 | PDOC.PN ---
- Subjective Encounter Start Date: 10/23/17 Encounter Start Time: 09:00 Continues to have some pain in the right elbow. Reported persistent nausea and vomiting. - Objective Resuscitation Status: Resuscitation Status FULL:Full Resuscitation Vital Signs & Weight: Vital Signs (12 hours) Temp Pulse Resp BP BP Pulse Ox 10/23/17 19:43 98.5 F 82 16 10/23/17 15:51 98.5 F 82 16 112/55 L 98 10/23/17 11:55 98.5 F 77 16 114/55 L 99 10/23/17 10:00 110/63 Weight Weight 134 lb 1.6 oz I&O: 10/22/17 10/23/17 10/24/17 06:59 06:59 06:59 Intake Total 3402 2920 1367 Output Total 1900 1250 Balance 1502 1670 1367 Result Diagrams: 10/23/17 09:11 10/22/17 05:03 Phys Exam - Physical Examination Constitutional: NAD HEENT: PERRLA, oral pharynx no lesions Neck: no JVD, supple Respiratory: no wheezing, no rales, no rhonchi, clear to auscultation bilateral Cardiovascular: RRR, no significant murmur Gastrointestinal: soft mild TTP in the epigastrium. Musculoskeletal: no edema TTP right radial head area. Dx/Plan (1) Hematemesis Code(s): K92.0 - HEMATEMESIS Status: Acute Qualifiers: Nausea presence: with nausea Qualified Code(s): K92.0 - Hematemesis Comment: RELATED TO RECURRENT VOMITING. ENDOSCOPY UNREMARKABLE. CONTINUE PPI. TREAT VOMITING. (2) Sickle cell pain crisis Code(s): D57.00 - HB-SS DISEASE WITH CRISIS, UNSPECIFIED Status: Chronic Comment: CONTINUE PAIN MEDS. ADD OXYGEN. HAS BEEN LEAVING THE BUILDING (APPARENTLY TO SMOKE). (3) Nausea & vomiting Code(s): R11.2 - NAUSEA WITH VOMITING, UNSPECIFIED Status: Acute Comment: PRN ANTI-EMETICS. HE HAS NOT ACTUALLY HAD ANY WITNESSED VOMITING. (4) Abdominal pain Code(s): R10.9 - UNSPECIFIED ABDOMINAL PAIN Status: Acute Qualifiers: Abdominal location: generalized Qualified Code(s): R10.84 - Generalized abdominal pain Comment: ENDOSCOPY. - Plan * .
[2017-10-24] MEDS: Sodium Chloride 0.9% 1,000 ML IV SCH ×2 (01:46→18:16)
[2017-10-24] MEDS: diphenhydrAMINE 50 MG/ML VIAL IVP PRN ×3 (05:11→22:53)
[2017-10-24] MEDS: Nicotine 21 MG PATCH TD SCH (09:00)
[2017-10-24] MEDS: Pantoprazole 40 MG VIAL IVP SCH (09:00)
--- NOTE | 2017-10-24 15:12 | PDOC.PN ---
- Subjective Encounter Start Date: 10/24/17 Encounter Start Time: 13:00 CONTINUES TO REPORT NAUSEA. SAID HE HAD SOME VOMITING LAST NIGHT. HE DOES ADMIT TO GOING OUTSIDE, BUT SAYS IT IS JUST TO WALK AROUND. REPORTS HIS PAIN IS STILL 7/10. THINKS HIS PAIN WILL LIKELY BE GOOD ENOUGH TO GO HOME IN THE MORNING. - Objective Resuscitation Status: Resuscitation Status FULL:Full Resuscitation Vital Signs & Weight: Vital Signs (12 hours) Temp Pulse Resp BP Pulse Ox 10/24/17 11:07 98.5 F 69 12 105/56 L 100 10/24/17 07:43 97.6 F 61 16 104/54 L 99 10/24/17 07:20 97.2 F L 55 L 14 10/24/17 04:52 97.2 F L 55 L 14 107/66 100 Weight Weight 134 lb 1.6 oz I&O: 10/23/17 10/24/17 10/25/17 06:59 06:59 06:59 Intake Total 2920 2242 Output Total 1250 475 Balance 1670 1767 Result Diagrams: 10/23/17 09:11 10/22/17 05:03 Phys Exam - Physical Examination Constitutional: NAD Respiratory: no wheezing, no rales, no rhonchi, clear to auscultation bilateral Cardiovascular: RRR, no rub 2/6 MUMUR Gastrointestinal: soft, no distention, positive bowel sounds TTP IN EPIGASTRIUM Musculoskeletal: no edema Dx/Plan (1) Hematemesis Code(s): K92.0 - HEMATEMESIS Status: Acute Qualifiers: Nausea presence: with nausea Qualified Code(s): K92.0 - Hematemesis Comment: RELATED TO RECURRENT VOMITING. ENDOSCOPY UNREMARKABLE. CONTINUE PPI. TREAT VOMITING. (2) Sickle cell pain crisis Code(s): D57.00 - HB-SS DISEASE WITH CRISIS, UNSPECIFIED Status: Chronic Comment: CONTINUE PAIN MEDS. ADD OXYGEN. HAS BEEN LEAVING THE BUILDING (APPARENTLY TO SMOKE). (3) Nausea & vomiting Code(s): R11.2 - NAUSEA WITH VOMITING, UNSPECIFIED Status: Acute Comment: PRN ANTI-EMETICS. HE HAS NOT ACTUALLY HAD ANY WITNESSED VOMITING. (4) Abdominal pain Code(s): R10.9 - UNSPECIFIED ABDOMINAL PAIN Status: Acute Qualifiers: Abdominal location: generalized Qualified Code(s): R10.84 - Generalized abdominal pain Comment: ENDOSCOPY NEGATIVE. CT NEGATIVE. (5) Incidental lung nodule Code(s): R91.1 - SOLITARY PULMONARY NODULE Status: Acute Comment: SUSPECT RELATED TO INFARCT. - Plan * ABOVE.
[2017-10-25] MEDS: diphenhydrAMINE 50 MG/ML VIAL IVP PRN (07:17)
[2017-10-25] MEDS: Nicotine 21 MG PATCH TD SCH (09:21)
[2017-10-25] MEDS: Sodium Chloride 0.9% 1,000 ML IV SCH (09:25)
[2017-10-25 17:15] VITALS: BP 107/64; TEMP 98.8
--- NOTE | 2017-10-26 18:49 | DIS ---
DATE OF ADMISSION: 10/20/2017 DATE OF DISCHARGE: 10/25/2017 DISCHARGE DIAGNOSES: 1. Subjective hematemesis. 2. Abdominal pain. 3. Sickle cell crisis. 4. Hemoglobin S-C disease. HISTORY: This patient is a 31-year-old male with a history of recurrent admissions for sickle cell p ain crises frequently involving the musculoskeletal system that also the abdomen. The patient has torres d multiple evaluations of the abdomen including multiple CT scans and an EGD within the previous year . The patient presented via the Emergency Department complaining of some recurrent vomiting ultimate ly with some hematemesis. He was hospitalized with abdominal pain, pain in his right elbow, and vomi ting with reported hematemesis. HOSPITAL COURSE: The patient's reticulocyte count was appropriate and his hemoglobin was marginally low and as is typical with hemoglobin C disease patients. He was treated with IV fluids and pain med ications. Patient was seen by GI and it was felt that the patient most likely had a Carey-Small te ar causing some hematemesis. Therefore, he was sent for endoscopy. The patient did undergo endoscop y and there were no findings. No pathologic findings. Subsequently, the patient continued to report hematemesis, although was never witnessed by nursing. Also, of note, the patient was leaving the [facility] and going outside of the hospital on several occasions. He ultimately felt like his pain had com e down to 4 and that this could be managed at home and therefore he was felt to be stable for dischar ge. Of note, the patient reported to me that he had no pain medications left at home. DISPOSITION: The patient is discharged to home. His activity is as tolerated on a regular diet with no restrictions. He was given a prescription for Tylenol #3, #30, he is to continue with his gabape ntin 100 mg p.o. t.i.d. Of note, the patient reports that in the past he has not tolerated hydroxyur ea. The patient is to follow up with his PCP at the next available appointment and return to the [facility] should he have any major problems prior to that time. Please note that this patient returned to the Emergency Department twice the same day of his discharg e. The first time the patient eloped and the second time, the patient did sign in and told the ER st aff that he had taken two hydrocodone 10 mg, but was reporting pain and vomiting again. The patient had told me that he did not have any of these medications at home and at the time of his discharge. The patient left without being seen on that occasion as well.
== END 2017-10-25 18:08 | disposition home or self-care (01) ==
LOC: ERS 19:39 → SURG A 22:22 → ONC 10-22 17:35 → 2SW 10-22 17:37
PROVIDERS: ADMIT Internal Medicine; ATTEND Internal Medicine
PROC: 0DJ08ZZ Inspection of Upper Intestinal Tract, Via Natural or Artificial Opening Endoscopic (ICD-10-PCS; principal; 2017-10-22)
DX: K92.0 Hematemesis (principal); D57.00 Hb-SS disease with crisis, unspecified; F41.9 Anxiety disorder, unspecified; F32.9 Major depressive disorder, single episode, unspecified; Z88.2 Allergy status to sulfonamides; Z88.5 Allergy status to narcotic agent; Z88.8 Allergy status to other drugs, medicaments and biological substances; Z79.2 Long term (current) use of antibiotics; Z79.899 Other long term (current) drug therapy
CPT/HCPCS: 43235; 71046; 74176; 80048 ×2; 80053; 83690; 85025 ×4; 85046; 85610; 86850; 86900; 86901; 87040; 96361 ×5; 96365; 96375 ×2; 96376 ×6; 99285; G0378 ×2; 36415; C9113; J0696; J1200; J2001; J2270; J2704

== ENCOUNTER 2017-10-25 17:38 | Emergency (ER) | payer MEDICARE, MEDICAID | END 2017-10-25 18:00 | disposition left against medical advice (07) | LOC: ERS 17:38 | DX: Z53.21 Procedure and treatment not carried out due to patient leaving prior to being seen by health care provider (principal) ==

== ENCOUNTER 2017-10-25 19:24 | Emergency (ER) | payer MEDICARE, OTHER | END 2017-10-25 20:20 | disposition home or self-care (01) | LOC: ERS 19:24 | DX: R11.2 Nausea with vomiting, unspecified (principal); R10.13 Epigastric pain; F17.210 Nicotine dependence, cigarettes, uncomplicated; Z79.899 Other long term (current) drug therapy | CPT/HCPCS: 99283 ==

== ENCOUNTER 2017-10-26 11:07 | Emergency (ER) | payer MEDICARE, MEDICAID | END 2017-10-26 11:58 | disposition left against medical advice (07) | LOC: ERS 11:07 | DX: Z53.21 Procedure and treatment not carried out due to patient leaving prior to being seen by health care provider (principal) ==

== ENCOUNTER 2017-10-28 09:33 | Emergency (ER) | payer MEDICARE, MEDICAID ==
[2017-10-28] MEDS ORDERED: Ondansetron ODT 4 MG TAB ONE (09:55)
[2017-10-28 10:08] LABS: Reticulocyte Count 4.6 % (0.5-1.5)
[2017-10-28 10:09] LABS: Hemoglobin 12.5 g/dL (14.0-18.0); Mean Corpuscular HGB CONC 35.2 g/dL (32.0-36.0); Mean Corpuscular Hemoglobin 30.7 pg (27.0-31.0); Mean Corpuscular Volume 87.2 fL (78.0-98.0); Mean Platelet Volume 5.9 fL (7.4-10.4); Platelet Count 559 thou/uL (130-400); RBC Distribution Width 15.6 % (11.5-14.5); Red Blood Cell (RBC) Count 4.08 mill/uL (4.70-6.10); White Blood Cell (WBC) Count 8.3 thou/uL (4.8-10.8)
[2017-10-28] MEDS ORDERED: diphenhydrAMINE 50 MG/ML VIAL ONE (10:15)
[2017-10-28 10:27] LABS: ALT (SGPT) 24 U/L (8-55); AST (SGOT) 31 U/L (5-34); Albumin 4.8 g/dL (3.5-5.0); Alkaline Phosphatase 83 U/L (40-150); Anion Gap 16 mmol/L (10-20); BUN (Urea Nitrogen) 10 mg/dL (8.9-20.6); Bilirubin, Total 1.2 mg/dL (0.2-1.2); Calc. Creatinine Clearance 0 mL/min (70-130); Calcium 10.5 mg/dL (7.8-10.44); Carbon Dioxide 22 mmol/L (22-29); Chloride 103 mmol/L (98-107); Estimated GFR-MDRD Greater than 90; Globulin 4.3 g/dL (2.4-3.5); Glucose 99 mg/dL (70-105); Lipase 38 U/L (8-78); Protein, Total 9.1 g/dL (6.0-8.3); Sodium 137 mmol/L (136-145)
--- NOTE | 2017-10-28 10:33 | RAD ---
2 VIEWS CHEST: Date: 10/28/17 PROVIDED CLINICAL HISTORY: Chest pain. FINDINGS: Comparison with 10/20/17. Cardiac and mediastinal silhouette is within normal limits. Lungs appear clear. No pleural fluid or p neumothorax apparent. IMPRESSION: No evidence for an acute cardiopulmonary process. POS: [facility]
[2017-10-28 10:34] LABS: Hemoglobin C Crystals SLIGHT (None Seen); Lymphocytes 48 % (21-51); MDiff Complete? YES; Monocytes 7 % (0-10); Neutrophil 44 % (42-75); PLT Morphology Comment Appears Increased; Polychromasia MARKED = >4 cells (100X) (0-2/hpf); Reactive Lymphocytes 1 % (0-10); Target Cells MARKED = >16 cells (100X) (0-1/hpf)
[2017-10-28 11:03] LABS: Bilirubin Negative (Negative); Blood, Urine Negative (Negative); Clarity CLEAR (Clear); Glucose, Urine (Dipstick) Negative (Negative); Leukocyte Trace (Negative); Nitrite Negative (Negative); Protein, Urine (Dipstick) Trace mg/dL (Neg-Trace); Specific Gravity, Urine 1.014 (1.002-1.036)
[2017-10-28 11:06] LABS: Bacteria/HPF None Seen HPF (None Seen); Hyaline Casts/LPF 4-6 HYALINE CAST LPF (0-3 Hyaline); Pathc Cast-AUWi Flag 0.43 (0-2.49); RBC/HPF 0-3 HPF (0-3); Squamous Epithelial 0-3 HPF (0-3)
== END 2017-10-28 11:00 | disposition home or self-care (01) ==
LOC: ERS 09:33
DX: D57.1 Sickle-cell disease without crisis (principal); F17.210 Nicotine dependence, cigarettes, uncomplicated; Z79.899 Other long term (current) drug therapy
CPT/HCPCS: 36415; 71046; 80053; 81003; 81015; 83690; 85025; 85046; 96374; 96375; J1200; J2270; Q0162

== ENCOUNTER 2017-11-10 12:57 | Emergency (ER) | payer MEDICARE, MEDICAID ==
[2017-11-10 13:52] LABS: Reticulocyte Count 3.8 % (0.5-1.5)
[2017-11-10] MEDS ORDERED: HYDROcodone/Acetaminophen 5/325 mg Tablet ONE (13:53)
[2017-11-10] MEDS ORDERED: Ondansetron ODT 4 MG TAB ONE (13:53)
[2017-11-10] MEDS ORDERED: Pantoprazole 40 MG VIAL ONE (13:53)
[2017-11-10 13:57] LABS: Hemoglobin 11.9 g/dL (14.0-18.0); Mean Corpuscular HGB CONC 36.2 g/dL (32.0-36.0); Mean Corpuscular Hemoglobin 31.5 pg (27.0-31.0); Mean Platelet Volume 6.1 fL (7.4-10.4); Platelet Count 456 thou/uL (130-400); RBC Distribution Width 15.6 % (11.5-14.5); Red Blood Cell (RBC) Count 3.79 mill/uL (4.70-6.10); White Blood Cell (WBC) Count 5.9 thou/uL (4.8-10.8)
[2017-11-10 14:10] LABS: ALT (SGPT) 8 U/L (8-55); AST (SGOT) 21 U/L (5-34); Albumin 4.5 g/dL (3.5-5.0); Alkaline Phosphatase 73 U/L (40-150); Anion Gap 11 mmol/L (10-20); Anisocytosis SLIGHT = 6-15 cells (100X) (0-5/hpf); BUN (Urea Nitrogen) 5 mg/dL (8.9-20.6); Calc. Creatinine Clearance 0 mL/min (70-130); Calcium 9.9 mg/dL (7.8-10.44); Carbon Dioxide 23 mmol/L (22-29); Chloride 108 mmol/L (98-107); Eosinophils 6 % (0-10); Estimated GFR-MDRD Greater than 90; Globulin 3.6 g/dL (2.4-3.5); Glucose 90 mg/dL (70-105); Lymphocytes 25 % (21-51); MDiff Complete? YES; Monocytes 6 % (0-10); Neutrophil 63 % (42-75); PLT Morphology Comment Appears Increased; Polychromasia SLIGHT = 2-3 cells (100X) (0-2/hpf); Potassium 4.3 mmol/L (3.5-5.1); Protein, Total 8.1 g/dL (6.0-8.3); Sickle Cells SLIGHT = 1-5 cells (100X) (None Seen); Sodium 138 mmol/L (136-145); Target Cells SLIGHT = 2-5 cells (100X) (0-1/hpf)
== END 2017-11-10 14:39 | disposition home or self-care (01) ==
LOC: ERS 12:57
DX: M79.1 Myalgia (principal); F17.210 Nicotine dependence, cigarettes, uncomplicated; D57.20 Sickle-cell/Hb-C disease without crisis; Z79.899 Other long term (current) drug therapy
CPT/HCPCS: 36415; 80053; 85025; 85046; 99284; C9113; Q0162

== ENCOUNTER 2017-11-11 02:31 | Emergency (ER) | payer MEDICARE, MEDICAID | END 2017-11-11 02:56 | disposition home or self-care (01) | LOC: ERS 02:31 | DX: D57.1 Sickle-cell disease without crisis (principal); M54.9 Dorsalgia, unspecified; M25.561 Pain in right knee; F17.210 Nicotine dependence, cigarettes, uncomplicated; Z79.899 Other long term (current) drug therapy | CPT/HCPCS: 99284 ==

== ENCOUNTER 2017-11-11 07:06 | Emergency (ER) | payer MEDICARE, MEDICAID | END 2017-11-11 07:37 | disposition home or self-care (01) | LOC: ERS 07:06 | DX: D57.00 Hb-SS disease with crisis, unspecified (principal); F17.210 Nicotine dependence, cigarettes, uncomplicated; Z79.899 Other long term (current) drug therapy | CPT/HCPCS: 99283 ==

== ENCOUNTER 2017-11-11 19:02 | Emergency (ER) | payer MEDICARE, OTHER ==
[2017-11-11 20:10] LABS: Reticulocyte Count 3.3 % (0.5-1.5)
[2017-11-11 20:13] LABS: Hemoglobin 10.6 g/dL (14.0-18.0); Mean Corpuscular HGB CONC 35.4 g/dL (32.0-36.0); Mean Corpuscular Hemoglobin 30.9 pg (27.0-31.0); Mean Corpuscular Volume 87.3 fL (78.0-98.0); Mean Platelet Volume 6.5 fL (7.4-10.4); Platelet Count 396 thou/uL (130-400); RBC Distribution Width 15.3 % (11.5-14.5); Red Blood Cell (RBC) Count 3.42 mill/uL (4.70-6.10); White Blood Cell (WBC) Count 6.7 thou/uL (4.8-10.8)
[2017-11-11] MEDS ORDERED: HYDROcodone/Acetaminophen 5/325 mg Tablet ONE (20:17)
[2017-11-11 20:23] LABS: Bilirubin Negative (Negative); Blood, Urine Negative (Negative); Clarity CLEAR (Clear); Glucose, Urine (Dipstick) Negative (Negative); Leukocyte Negative (Negative); Nitrite Negative (Negative); Protein, Urine (Dipstick) Negative (Neg-Trace); Specific Gravity, Urine 1.009 (1.002-1.036); pH, Urine 6.5 (5.0-9.0)
[2017-11-11 20:27] LABS: ALT (SGPT) Less than 7 U/L (8-55); AST (SGOT) 16 U/L (5-34); Albumin 4.2 g/dL (3.5-5.0); Alkaline Phosphatase 66 U/L (40-150); Anion Gap 12 mmol/L (10-20); BUN (Urea Nitrogen) 4 mg/dL (8.9-20.6); Calc. Creatinine Clearance 0 mL/min (70-130); Calcium 9.2 mg/dL (7.8-10.44); Carbon Dioxide 25 mmol/L (22-29); Chloride 106 mmol/L (98-107); Estimated GFR-MDRD Greater than 90; Globulin 3.1 g/dL (2.4-3.5); Glucose 76 mg/dL (70-105); Potassium 3.6 mmol/L (3.5-5.1); Protein, Total 7.3 g/dL (6.0-8.3); Sodium 139 mmol/L (136-145)
[2017-11-11 20:28] LABS: Bacteria/HPF None Seen HPF (None Seen); Hyaline Casts/LPF NONE SEEN LPF (0-3 Hyaline); RBC/HPF None Seen HPF (0-3); Squamous Epithelial 0-3 HPF (0-3); WBC/HPF None Seen HPF (0-3)
[2017-11-11] MEDS ORDERED: Ondansetron ODT 4 MG TAB ONE (20:30)
[2017-11-11 20:34] LABS: Anisocytosis SLIGHT = 6-15 cells (100X) (0-5/hpf); Hypochromia SLIGHT = 6-15 cells (100X) (0-5/hpf); Lymphocytes 18 % (21-51); MDiff Complete? YES; Monocytes 13 % (0-10); Neutrophil 69 % (42-75); PLT Morphology Comment Appears Adequate; Polychromasia SLIGHT = 2-3 cells (100X) (0-2/hpf); Sickle Cells SLIGHT = 1-5 cells (100X) (None Seen); Target Cells SLIGHT = 2-5 cells (100X) (0-1/hpf)
--- NOTE | 2017-11-15 01:01 | EKG ---
Test Reason : Blood Pressure : / mmHG Vent. Rate : 071 BPM Atrial Rate : 071 BPM P-R Int : 120 ms QRS Dur : 084 ms QT Int : 386 ms P-R-T Axes : 065 056 045 degrees QTc Int : 419 ms Normal sinus rhythm with sinus arrhythmia Normal ECG Confirmed by PARKER REYES DO ([id number]), telegraph editor ELI DOMINGUEZ ([id number] on 11/15/2017 1:01:13 AM Referred By: Confirmed By:PARKER REYES DO
== END 2017-11-11 21:34 | disposition home or self-care (01) ==
LOC: ERS 19:02
DX: D57.1 Sickle-cell disease without crisis (principal); F17.210 Nicotine dependence, cigarettes, uncomplicated; Z79.899 Other long term (current) drug therapy
CPT/HCPCS: 36415; 80053; 81001; 85025; 85046; 93005; 99284; Q0162

== ENCOUNTER 2018-03-27 18:31 | Emergency (ER) | payer MEDICAID, MEDICARE, OTHER, SELFPAY ==
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
[2018-03-27] MEDS ORDERED: Cyclobenzaprine 10 MG TAB ONE (20:43)
[2018-03-27] MEDS ORDERED: Acetaminophen 325 MG TAB ONE (20:43)
== END 2018-03-27 21:27 | disposition home or self-care (01) ==
LOC: ERS 18:31
DX: M54.2 Cervicalgia (principal); M54.5 Low back pain; D57.1 Sickle-cell disease without crisis; F17.210 Nicotine dependence, cigarettes, uncomplicated; Z79.899 Other long term (current) drug therapy; V43.52XA Car driver injured in collision with other type car in traffic accident, initial encounter
CPT/HCPCS: 70450; 72070; 72125

== ENCOUNTER 2018-04-28 13:47 | Emergency (ER) | payer MEDICAID, MEDICARE ==
[2018-04-28] MEDS ORDERED: HYDROcodone/Acetaminophen 5/325 mg Tablet ONE (14:42)
[2018-04-28 15:19] LABS: Hemoglobin 11.5 g/dL (14.0-18.0); Mean Corpuscular HGB CONC 34.1 g/dL (32.0-36.0); Mean Corpuscular Hemoglobin 27.3 pg (27.0-31.0); Mean Corpuscular Volume 79.9 fL (78.0-98.0); Mean Platelet Volume 7.8 fL (7.4-10.4); Platelet Count 431 thou/uL (130-400); RBC Distribution Width 21.9 % (11.5-14.5); Red Blood Cell (RBC) Count 4.22 mill/uL (4.70-6.10); White Blood Cell (WBC) Count 14.7 thou/uL (4.8-10.8)
[2018-04-28 15:25] LABS: Anisocytosis MODERATE=16-30 cells (100X) (0-5/hpf); Band 2 % (5-11); Lymphocytes 10 % (21-51); MDiff Complete? YES; Monocytes 7 % (0-10); Neutrophil 81 % (42-75); PLT Morphology Comment Appears Increased; Pappenheimer Bodies SLIGHT = 1-2 cells (100X) (None Seen); Poikilocytosis SLIGHT = 6-15 cells (100X) (0-5/hpf); Polychromasia MODERATE = 3-4 cells (100X) (0-2/hpf); Reticulocyte Count 3.5 % (0.5-1.5); Sickle Cells SLIGHT = 1-5 cells (100X) (None Seen); Target Cells MODERATE= 6-15 cells (100X) (0-1/hpf); Tear Drops SLIGHT = 2-5 cells (100X) (0-1/hpf)
[2018-04-28] MEDS ORDERED: Acetaminophen 325 MG TAB ONE (15:54)
[2018-04-28] MEDS ORDERED: diphenhydrAMINE 50 MG/ML VIAL ONE (15:54)
[2018-04-28] MEDS ORDERED: Morphine 4 MG/ML VIAL ONE (16:09)
[2018-04-28] MEDS ORDERED: HYDROmorphone 0.5 MG/0.5 ML SYRINGE ONE (16:51)
[2018-04-28] MEDS ORDERED: diphenhydrAMINE 25 MG CAP ONE (17:49)
== END 2018-04-28 17:58 | disposition home or self-care (01) ==
LOC: ERS 13:47
DX: D57.1 Sickle-cell disease without crisis (principal); F32.9 Major depressive disorder, single episode, unspecified; F17.210 Nicotine dependence, cigarettes, uncomplicated; Z79.899 Other long term (current) drug therapy
CPT/HCPCS: 36415; 85025; 85046; 96361; 96365; 96375; J1170; J1200; J2270

== ENCOUNTER 2018-04-29 17:51 | Emergency (ER) | payer MEDICAID, MEDICARE ==
[2018-04-29 18:48] LABS: Hemoglobin 11.3 g/dL (14.0-18.0); Mean Corpuscular Hemoglobin 28.3 pg (27.0-31.0); Mean Platelet Volume 7.9 fL (7.4-10.4); Platelet Count 458 thou/uL (130-400); RBC Distribution Width 21.7 % (11.5-14.5); Red Blood Cell (RBC) Count 3.97 mill/uL (4.70-6.10); Reticulocyte Count 3.5 % (0.5-1.5); White Blood Cell (WBC) Count 9.7 thou/uL (4.8-10.8)
[2018-04-29] MEDS ORDERED: HYDROcodone/Acetaminophen 10/325 mg Tablet ONE (18:55)
[2018-04-29 19:01] LABS: ALT (SGPT) 14 U/L (8-55); AST (SGOT) 25 U/L (5-34); Albumin 4.5 g/dL (3.5-5.0); Alkaline Phosphatase 80 U/L (40-150); Anion Gap 14 mmol/L (10-20); BUN (Urea Nitrogen) 5 mg/dL (8.9-20.6); Calc. Creatinine Clearance 0 mL/min (70-130); Calcium 10.2 mg/dL (7.8-10.44); Carbon Dioxide 22 mmol/L (22-29); Chloride 108 mmol/L (98-107); Estimated GFR-MDRD Greater than 90; Glucose 94 mg/dL (70-105); Potassium 3.8 mmol/L (3.5-5.1); Protein, Total 8.5 g/dL (6.0-8.3); Sodium 140 mmol/L (136-145)
[2018-04-29 19:10] LABS: Anisocytosis SLIGHT = 6-15 cells (100X) (0-5/hpf); Lymphocytes 25 % (21-51); MDiff Complete? YES; Monocytes 5 % (0-10); Neutrophil 70 % (42-75); PLT Morphology Comment Appears Increased; Poikilocytosis SLIGHT = 6-15 cells (100X) (0-5/hpf); Polychromasia SLIGHT = 2-3 cells (100X) (0-2/hpf); Target Cells SLIGHT = 2-5 cells (100X) (0-1/hpf)
[2018-04-29] MEDS ORDERED: HYDROMORPHONE IVPB SCH (19:30)
[2018-04-29] MEDS ORDERED: SODIUM CHLORIDE 0.9% IVPB SCH (19:30)
[2018-04-29] MEDS ORDERED: diphenhydrAMINE 25 MG CAP ONE ×2 (19:46→20:11)
[2018-04-29] MEDS ORDERED: Ondansetron ODT 4 MG TAB ONE (19:46)
--- NOTE | 2018-04-29 19:54 | RAD ---
CHEST ONE VIEW PORTABLE: 04/29/18 HISTORY: 32-year-old male with chest pain. Known sickle cell disease. Rib pain, chest pain and arm pain. Heart size is within normal limits. The bronchovascular markings are increased bilaterally. There is some minimal increased density in the left costophrenic angle, possibly a small pleural effusion. The bones appear to be mildly heterogeneously dense. IMPRESSION: Minimal increased density in the left costophrenic angle, nonspecific, this could possibly represent a small pleural effusion. Mild increased bronchovascular markings. No confluent pneumonia. POS: [facility]
== END 2018-04-29 21:10 | disposition home or self-care (01) ==
LOC: ERS 17:51
DX: D57.1 Sickle-cell disease without crisis (principal); F32.9 Major depressive disorder, single episode, unspecified; F17.210 Nicotine dependence, cigarettes, uncomplicated; Z79.899 Other long term (current) drug therapy
CPT/HCPCS: 36415; 71045; 80053; 84484; 85025; 85046; 93005; 96365; J1170; J7050; Q0162

== ENCOUNTER 2018-05-03 19:45 | Emergency (ER) | payer MEDICARE, MEDICAID ==
[2018-05-03 20:44] LABS: Reticulocyte Count 4.1 % (0.5-1.5)
[2018-05-03 20:58] LABS: ALT (SGPT) 17 U/L (8-55); AST (SGOT) 24 U/L (5-34); Albumin 4.8 g/dL (3.5-5.0); Alkaline Phosphatase 82 U/L (40-150); Anion Gap 16 mmol/L (10-20); BUN (Urea Nitrogen) 7 mg/dL (8.9-20.6); Bilirubin, Total 1.2 mg/dL (0.2-1.2); Calc. Creatinine Clearance 0 mL/min (70-130); Calcium 10.3 mg/dL (7.8-10.44); Carbon Dioxide 21 mmol/L (22-29); Chloride 107 mmol/L (98-107); Estimated GFR-MDRD Greater than 90; Globulin 4.3 g/dL (2.4-3.5); Glucose 80 mg/dL (70-105); Potassium 3.9 mmol/L (3.5-5.1); Protein, Total 9.1 g/dL (6.0-8.3); Sodium 140 mmol/L (136-145)
--- NOTE | 2018-05-03 20:58 | RAD ---
CHEST TWO VIEWS: 05/03/2018 PROVIDED CLINICAL HISTORY: Chest pain. COMPARISON: 04/29/2018 FINDINGS: Cardiac and mediastinal silhouette are unchanged in appearance. No pleural fluid or pneumothorax tequila arent. There is interval development of a somewhat triangular-shaped density at the left lung base t hat may reflect subsegmental atelectasis. No evidence for pleural fluid or pneumothorax. IMPRESSION: New left basilar density that may reflect subsegmental atelectasis. Consider followup. POS: MAYKEL
[2018-05-03 21:03] LABS: Hemoglobin 11.8 g/dL (14.0-18.0); Mean Corpuscular HGB CONC 33.9 g/dL (32.0-36.0); Mean Corpuscular Hemoglobin 27.9 pg (27.0-31.0); Mean Corpuscular Volume 82.2 fL (78.0-98.0); Mean Platelet Volume 7.3 fL (7.4-10.4); Platelet Count 562 thou/uL (130-400); RBC Distribution Width 21.1 % (11.5-14.5); Red Blood Cell (RBC) Count 4.22 mill/uL (4.70-6.10); White Blood Cell (WBC) Count 10.9 thou/uL (4.8-10.8)
[2018-05-03 21:04] LABS: Hypochromia SLIGHT = 6-15 cells (100X) (0-5/hpf); Lymphocytes 22 % (21-51); MDiff Complete? YES; Monocytes 13 % (0-10); Neutrophil 62 % (42-75); PLT Morphology Comment Appears Increased; Reactive Lymphocytes 3 % (0-10); Target Cells MODERATE= 6-15 cells (100X) (0-1/hpf)
[2018-05-03] MEDS ORDERED: diphenhydrAMINE 25 MG CAP ONE (21:15)
[2018-05-03] MEDS ORDERED: Acetaminophen 500 MG TAB ONE ×2 (21:15→21:21)
[2018-05-03] MEDS ORDERED: Morphine 4 MG/ML VIAL ONE (22:29)
[2018-05-03] MEDS ORDERED: Ondansetron PF 4 MG/2 ML Vial ONE (22:53)
[2018-05-03] MEDS ORDERED: Morphine 2 MG/ML SYRINGE ONE (22:53)
== END 2018-05-04 01:00 | disposition home or self-care (01) ==
LOC: ERS 19:45
DX: D57.00 Hb-SS disease with crisis, unspecified (principal); F17.210 Nicotine dependence, cigarettes, uncomplicated; F32.9 Major depressive disorder, single episode, unspecified; Z79.1 Long term (current) use of non-steroidal anti-inflammatories (NSAID); Z79.899 Other long term (current) drug therapy
CPT/HCPCS: 36415; 71046; 80053; 85025; 85046; 93005; 96361; 96374; 96375; J2270; J2405

== ENCOUNTER 2018-05-15 16:15 | Emergency (ER) | payer MEDICARE, OTHER ==
[2018-05-15] MEDS ORDERED: HYDROcodone/Acetaminophen 10/325 mg Tablet ONE (16:38)
--- NOTE | 2018-05-15 18:11 | RAD ---
PORTABLE CHEST 05/15/18 PROVIDED CLINICAL HISTORY: Bilateral rib pain. FINDINGS: Comparison 04/29/18. The cardiac and mediastinal silhouette is within normal limits. Stable density at the lateral left lung base, incompletely characterized. The lungs appear otherwise clear. No pleural fluid or pneumothorax apparent. IMPRESSION: Stable radiographic appearance of the chest. POS: TER[facility]
[2018-05-15 18:29] LABS: Hemoglobin 13.8 g/dL (14.0-18.0); Mean Corpuscular Volume 85.3 fL (78.0-98.0); Mean Platelet Volume 7.4 fL (7.4-10.4); Platelet Count 535 thou/uL (130-400); RBC Distribution Width 18.4 % (11.5-14.5); Red Blood Cell (RBC) Count 4.73 mill/uL (4.70-6.10); White Blood Cell (WBC) Count 10.1 thou/uL (4.8-10.8)
[2018-05-15 18:32] LABS: Reticulocyte Count 2.8 % (0.5-1.5)
[2018-05-15 18:41] LABS: ALT (SGPT) 7 U/L (8-55); AST (SGOT) 17 U/L (5-34); Albumin 5.1 g/dL (3.5-5.0); Alkaline Phosphatase 88 U/L (40-150); Anion Gap 18 mmol/L (10-20); BUN (Urea Nitrogen) 5 mg/dL (8.9-20.6); Bilirubin, Total 1.3 mg/dL (0.2-1.2); Calc. Creatinine Clearance 0 mL/min (70-130); Calcium 10.6 mg/dL (7.8-10.44); Carbon Dioxide 20 mmol/L (22-29); Chloride 105 mmol/L (98-107); Estimated GFR-MDRD Greater than 90; Glucose 76 mg/dL (70-105); Potassium 3.8 mmol/L (3.5-5.1); Protein, Total 9.1 g/dL (6.0-8.3); Sodium 139 mmol/L (136-145)
[2018-05-15 19:01] LABS: Band 2 % (5-11); Elliptocytes SLIGHT = 2-5 cells (100X) (0-1/hpf); Eosinophils 1 % (0-10); Lymphocytes 21 % (21-51); MDiff Complete? YES; Monocytes 9 % (0-10); Neutrophil 67 % (42-75); Platelet Morphology Comment Appears Increased; Target Cells SLIGHT = 2-5 cells (100X) (0-1/hpf)
[2018-05-15 19:12] LABS: Bilirubin Negative (Negative); Blood, Urine Negative (Negative); Clarity CLOUDY (Clear); Glucose, Urine (Dipstick) Negative (Negative); Leukocyte Trace (Negative); Nitrite Negative (Negative); Protein, Urine (Dipstick) Negative (Neg-Trace); Specific Gravity, Urine 1.015 (1.002-1.036); pH, Urine 6.5 (5.0-9.0)
[2018-05-15 19:14] LABS: Bacteria/HPF None Seen HPF (None Seen); Hyaline Casts/LPF 0-3 HYALINE CAST LPF (0-3 Hyaline); RBC/HPF 0-3 HPF (0-3); Squamous Epithelial 0-3 HPF (0-3)
[2018-05-15 19:26] LABS: Crystals/HPF None Seen HPF (Negative)
== END 2018-05-15 19:32 | disposition home or self-care (01) ==
LOC: ERS 16:15
DX: D57.1 Sickle-cell disease without crisis (principal); F32.9 Major depressive disorder, single episode, unspecified; F17.210 Nicotine dependence, cigarettes, uncomplicated; Z79.1 Long term (current) use of non-steroidal anti-inflammatories (NSAID)
CPT/HCPCS: 36415; 71045; 80053; 81003; 81015; 83605; 84484; 85025; 85046; 93005

== ENCOUNTER 2018-05-26 16:57 | Emergency (ER) | payer MEDICARE, OTHER ==
[2018-05-26 17:55] LABS: #Eosinphils 0.1 thou/uL (0.0-0.7); #Lymphocytes 2.1 thou/uL (1.20-3.40); #Monocytes 0.8 thou/uL (0.11-0.59); #Neutrophils 7.5 thou/uL (1.40-6.50); %Basophils 0.2 % (0.0-1.0); %Eosinophils 0.9 % (0.0-10.0); %Neutrophils 70.9 % (42.0-75.0); Hemoglobin 12.5 g/dL (14.0-18.0); Mean Corpuscular HGB CONC 33.8 g/dL (32.0-36.0); Mean Platelet Volume 7.2 fL (7.4-10.4); Platelet Count 409 thou/uL (130-400); RBC Distribution Width 17.8 % (11.5-14.5); White Blood Cell (WBC) Count 10.5 thou/uL (4.8-10.8)
[2018-05-26 18:04] LABS: Reticulocyte Count 3.1 % (0.5-1.5)
[2018-05-26] MEDS ORDERED: HYDROcodone/Acetaminophen 10/325 mg Tablet ONE (19:26)
== END 2018-05-26 19:39 | disposition home or self-care (01) ==
LOC: ERS 16:57
DX: D57.00 Hb-SS disease with crisis, unspecified (principal); F32.9 Major depressive disorder, single episode, unspecified; F17.210 Nicotine dependence, cigarettes, uncomplicated; Z79.899 Other long term (current) drug therapy
CPT/HCPCS: 36415; 85025; 85046; 99283

== ENCOUNTER 2018-08-21 17:16 | Emergency (ER) | payer MEDICARE, MEDICAID | END 2018-08-21 19:33 | disposition left against medical advice (07) | LOC: ERS 17:16 | DX: Z53.21 Procedure and treatment not carried out due to patient leaving prior to being seen by health care provider (principal) ==

== ENCOUNTER 2018-09-13 13:47 | Emergency (ER) | payer MEDICARE, MEDICAID ==
[2018-09-13] MEDS ORDERED: HYDROcodone/Acetaminophen 10/325 mg Tablet ONE (14:17)
--- NOTE | 2018-09-13 14:46 | RAD ---
Chest one view HISTORY: Chest pain. Dyspnea. COMPARISON: 05/15/2018. FINDINGS: Cardiac silhouette and pulmonary vasculature are unremarkable. Minimal parenchymal opacity at each lung base. No lobar consolidation or evidence of pneumothorax. IMPRESSION: Mild bibasilar atelectasis versus parenchymal infiltrate. No lobar consolidation or other active cardiopulmonary abnormalities otherwise demonstrated.
[2018-09-13 14:53] LABS: #Eosinphils 0.2 thou/uL (0.0-0.7); #Lymphocytes 3.5 thou/uL (1.20-3.40); #Monocytes 1.2 thou/uL (0.11-0.59); #Neutrophils 6.5 thou/uL (1.40-6.50); %Basophils 0.2 % (0.0-1.0); %Eosinophils 1.9 % (0.0-10.0); %Lymphocytes 30.6 % (21.0-51.0); %Monocytes 10.6 % (0.0-10.0); %Neutrophils 56.6 % (42.0-75.0); Hemoglobin 10.7 g/dL (14.0-18.0); Mean Corpuscular HGB CONC 35.5 g/dL (32.0-36.0); Mean Corpuscular Hemoglobin 31.5 pg (27.0-31.0); Mean Corpuscular Volume 88.9 fL (78.0-98.0); Mean Platelet Volume 6.5 fL (7.4-10.4); Platelet Count 324 thou/uL (130-400); RBC Distribution Width 15.3 % (11.5-14.5); Red Blood Cell (RBC) Count 3.39 mill/uL (4.70-6.10); White Blood Cell (WBC) Count 11.5 thou/uL (4.8-10.8)
[2018-09-13 15:21] LABS: ALT (SGPT) 12 U/L (8-55); AST (SGOT) 19 U/L (5-34); Albumin 4.3 g/dL (3.5-5.0); Alkaline Phosphatase 75 U/L (40-150); Anion Gap 10 mmol/L (10-20); BUN (Urea Nitrogen) 5 mg/dL (8.9-20.6); Bilirubin, Total 0.8 mg/dL (0.2-1.2); Calc. Creatinine Clearance 0 mL/min (70-130); Calcium 9.8 mg/dL (7.8-10.44); Carbon Dioxide 29 mmol/L (22-29); Chloride 105 mmol/L (98-107); Estimated GFR-MDRD Greater than 90; Globulin 2.8 g/dL (2.4-3.5); Glucose 93 mg/dL (70-105); Protein, Total 7.1 g/dL (6.0-8.3); Sodium 140 mmol/L (136-145)
--- NOTE | 2018-09-13 15:43 | ULT ---
Venous duplex sonogram left upper extremity HISTORY: Left arm pain and edema. FINDINGS: The left internal jugular vein and subclavian vein, axillary, brachial, cephalic, and basil ic veins were evaluated. There is good color and spectral Doppler flow. No internal thrombus evident. IMPRESSION: No sonographic evidence of DVT within the left upper extremity.
== END 2018-09-13 16:08 | disposition home or self-care (01) ==
LOC: ERS 13:47
DX: R07.89 Other chest pain (principal); M79.602 Pain in left arm; D57.1 Sickle-cell disease without crisis; F17.210 Nicotine dependence, cigarettes, uncomplicated
CPT/HCPCS: 36415; 71045; 80053; 84484; 85025; 85046; 93005

== ENCOUNTER 2018-09-23 17:12 | Emergency (ER) | payer MEDICARE, OTHER ==
[2018-09-23 18:43] LABS: Hemoglobin 10.4 g/dL (14.0-18.0); Mean Corpuscular HGB CONC 34.8 g/dL (32.0-36.0); Mean Corpuscular Hemoglobin 31.3 pg (27.0-31.0); Mean Platelet Volume 6.4 fL (7.4-10.4); Platelet Count 475 thou/uL (130-400); RBC Distribution Width 14.9 % (11.5-14.5); Red Blood Cell (RBC) Count 3.31 mill/uL (4.70-6.10); White Blood Cell (WBC) Count 11.3 thou/uL (4.8-10.8)
[2018-09-23 19:17] LABS: Band 1 % (5-11); Lymphocytes 30 % (21-51); MDiff Complete? YES; Monocytes 5 % (0-10); Neutrophil 63 % (42-75); Platelet Morphology Comment Appears Increased; Polychromasia SLIGHT = 2-3 cells (100X) (0-2/hpf); Reactive Lymphocytes 1 % (0-10); Sickle Cells SLIGHT = 1-5 cells (100X) (None Seen); Target Cells SLIGHT = 2-5 cells (100X) (0-1/hpf); Tear Drops SLIGHT = 2-5 cells (100X) (0-1/hpf)
== END 2018-09-23 19:41 | disposition home or self-care (01) ==
LOC: ERS 17:12
DX: E86.0 Dehydration (principal); D57.00 Hb-SS disease with crisis, unspecified; F17.210 Nicotine dependence, cigarettes, uncomplicated; G35 Multiple sclerosis
CPT/HCPCS: 36415; 83605; 96360; 96361

== ENCOUNTER 2018-12-25 14:28 | Emergency (ER) | payer MEDICARE, OTHER ==
[2018-12-25 17:06] LABS: #Lymphocytes 1.1 thou/uL (1.20-3.40); #Neutrophils 7.9 thou/uL (1.40-6.50); %Basophils 0.1 % (0.0-1.0); %Eosinophils 0.4 % (0.0-10.0); %Lymphocytes 10.9 % (21.0-51.0); %Neutrophils 78.7 % (42.0-75.0); Hemoglobin 13.2 g/dL (14.0-18.0); Mean Corpuscular Hemoglobin 31.4 pg (27.0-31.0); Mean Corpuscular Volume 87.3 fL (78.0-98.0); Mean Platelet Volume 6.7 fL (7.4-10.4); Platelet Count 445 thou/uL (130-400); RBC Distribution Width 16.2 % (11.5-14.5); Red Blood Cell (RBC) Count 4.19 mill/uL (4.70-6.10)
[2018-12-25 17:22] LABS: ALT (SGPT) 14 U/L (8-55); AST (SGOT) 26 U/L (5-34); Albumin 5.2 g/dL (3.5-5.0); Alkaline Phosphatase 87 U/L (40-150); Anion Gap 17 mmol/L (10-20); BUN (Urea Nitrogen) 8 mg/dL (8.9-20.6); Bilirubin, Total 1.9 mg/dL (0.2-1.2); Calc. Creatinine Clearance 0 mL/min (70-130); Calcium 10.9 mg/dL (7.8-10.44); Carbon Dioxide 20 mmol/L (22-29); Chloride 102 mmol/L (98-107); Estimated GFR-MDRD Greater than 90; Globulin 4.1 g/dL (2.4-3.5); Glucose 77 mg/dL (70-105); Potassium 4.7 mmol/L (3.5-5.1); Protein, Total 9.3 g/dL (6.0-8.3); Sodium 134 mmol/L (136-145)
--- NOTE | 2018-12-25 17:31 | RAD ---
PORTABLE CHEST ONE VIEW: 12/25/18 at 5:01 p.m. HISTORY: Chest pain. FINDINGS: Comparison made with exam of 09/23/18. The heart size is normal. The lungs are expanded without focal areas of consolidation, pneumothoraces , or pleural effusions. IMPRESSION: No radiographic evidence of acute cardiopulmonary process. POS: [facility]
== END 2018-12-25 18:31 | disposition home or self-care (01) ==
LOC: ERS 14:28
DX: R07.2 Precordial pain (principal); F17.210 Nicotine dependence, cigarettes, uncomplicated; Z79.899 Other long term (current) drug therapy
CPT/HCPCS: 36415; 71045; 80053; 82550; 84484; 85025; 85046; 93005

== ENCOUNTER 2019-03-08 17:11 | Emergency (ER) | payer MEDICARE, OTHER ==
[~2019-03-08 17:11] MED LIST: Iopamidol-370 76% 500 ML 1 ML ONE
[2019-03-08 17:43] LABS: Reticulocyte Count 3.9 % (0.5-1.5)
[2019-03-08 18:01] LABS: ALT (SGPT) 11 U/L (8-55); AST (SGOT) 19 U/L (5-34); Albumin 5.3 g/dL (3.5-5.0); Alkaline Phosphatase 79 U/L (40-110); Anion Gap 15 mmol/L (10-20); BUN (Urea Nitrogen) 7 mg/dL (8.9-20.6); Bilirubin, Total 1.2 mg/dL (0.2-1.2); Calc. Creatinine Clearance 0 mL/min (70-130); Calcium 10.5 mg/dL (7.8-10.44); Carbon Dioxide 26 mmol/L (22-29); Chloride 103 mmol/L (98-107); Estimated GFR-MDRD Greater than 90; Globulin 3.8 g/dL (2.4-3.5); Glucose 82 mg/dL (70-105); Lipase 17 U/L (8-78); Potassium 4.2 mmol/L (3.5-5.1); Protein, Total 9.1 g/dL (6.0-8.3); Sodium 140 mmol/L (136-145)
[2019-03-08 18:20] LABS: Bilirubin Negative (Negative); Blood, Urine Negative (Negative); Clarity Clear (Clear); Glucose, Urine (Dipstick) Normal (Negative); Leukocyte Negative Leu/uL (Negative); Nitrite Negative (Negative); Protein, Urine (Dipstick) Negative (Neg-Trace); Urobilinogen Normal mg/dL (Less than 2)
[2019-03-08 18:23] LABS: Eosinophils 1 % (0-10); Hemoglobin 12.5 g/dL (14.0-18.0); Lymphocytes 25 % (21-51); MDiff Complete? YES; Mean Corpuscular HGB CONC 34.5 g/dL (32.0-36.0); Mean Corpuscular Hemoglobin 30.5 pg (27.0-31.0); Mean Corpuscular Volume 88.4 fL (78.0-98.0); Mean Platelet Volume 6.7 fL (7.4-10.4); Monocytes 7 % (0-10); Neutrophil 45 % (42-75); Platelet Count 434 thou/uL (130-400); Platelet Morphology Comment Appears Increased; Polychromasia MODERATE = 3-4 cells (100X) (0-2/hpf); RBC Distribution Width 15.3 % (11.5-14.5); Reactive Lymphocytes 22 % (0-10); Reflex for Review?? NO; Sickle Cells MODERATE= 6-15 cells (100X) (None Seen); Target Cells MARKED = >16 cells (100X) (0-1/hpf); Tear Drops SLIGHT = 2-5 cells (100X) (0-1/hpf); White Blood Cell (WBC) Count 16.6 thou/uL (4.8-10.8)
[2019-03-08] MEDS ORDERED: Morphine 4 MG/ML VIAL ONE (19:05)
[2019-03-08] MEDS ORDERED: Ondansetron PF 4 MG/2 ML Vial ONE ×2 (19:05→20:03)
[2019-03-08] MEDS ORDERED: diphenhydrAMINE 12.5 MG/5 ML UDCUP ONE (20:03)
[2019-03-08] MEDS ORDERED: diphenhydrAMINE 50 MG/ML VIAL ONE (20:05)
--- NOTE | 2019-03-08 20:08 | CT ---
CT arteriogram chest with IV contrast and 3-D imaging CT angiogram abdomen with IV contrast and 3-D imaging HISTORY: Chest and abdomen pain with radiation to back. Sickle cell disease. COMPARISON: 10/20/2017. FINDINGS: There is good contrast opacification of the pulmonary arteries and thoracic aorta with norm al branching great vessels at the aortic arch. No evidence of aortic dissection, leak, or aneurysm. Visceral arteries of the abdomen are widely patent. Single bilateral renal arteries. No significant a therosclerosis. Parenchymal scarring at the left anterior lateral lung base. No pleural fluid or focal mass. No media stinal adenopathy. 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 IMPRESSION: No acute vascular abnormalities or other acute abnormalities are demonstrated to explain the patient's symptoms. Chronic-type findings of sickle cell disease.
[2019-03-08] MEDS ORDERED: Lidocaine Viscous Sol 2% 15 ml UD Cup ONE (20:14)
[2019-03-08] MEDS ORDERED: Mag-Al 1200 mg/1200 mg/30 ML UDCUP ONE (20:15)
[2019-03-08 21:00] LABS: Troponin I Less than 0.010 ng/mL (< 0.028)
== END 2019-03-08 21:32 | disposition home or self-care (01) ==
LOC: ERS 17:11
DX: R10.13 Epigastric pain (principal); F17.210 Nicotine dependence, cigarettes, uncomplicated
CPT/HCPCS: 71275; 72191; 74175; 80053; 81003; 83690; 84484; 85025; 85046; 93005; 96361; 96372; 96374; 96375; 96376; J0500; J1200; J2270; J2405; Q0163; Q9967

== ENCOUNTER 2019-04-18 14:12 | Inpatient (IN) | payer MEDICARE, MEDICAID ==
[2019-04-18] MEDS ORDERED: HYDROcodone/Acetaminophen 5/325 mg Tablet ONE ×2 (15:15→20:55)
[2019-04-18] MEDS ORDERED: Ondansetron PF 4 MG/2 ML Vial ONE (15:15)
[2019-04-18 15:19] LABS: Reticulocyte Count 2.7 % (0.5-1.5)
[2019-04-18 15:26] LABS: ALT (SGPT) 9 U/L (8-55); AST (SGOT) 16 U/L (5-34); Albumin 4.7 g/dL (3.5-5.0); Alkaline Phosphatase 68 U/L (40-110); Anion Gap 14 mmol/L (10-20); BUN (Urea Nitrogen) 6 mg/dL (8.9-20.6); Calc. Creatinine Clearance 0 mL/min (70-130); Calcium 10.1 mg/dL (7.8-10.44); Carbon Dioxide 26 mmol/L (22-29); Chloride 107 mmol/L (98-107); Estimated GFR-MDRD Greater than 90; Globulin 2.9 g/dL (2.4-3.5); Glucose 85 mg/dL (70-105); Potassium 4.7 mmol/L (3.5-5.1); Protein, Total 7.6 g/dL (6.0-8.3); Sodium 142 mmol/L (136-145)
[2019-04-18 15:43] LABS: Eosinophils 1 % (0-10); Hemoglobin 11.3 g/dL (14.0-18.0); Lymphocytes 20 % (21-51); MDiff Complete? YES; Mean Corpuscular HGB CONC 36.3 g/dL (32.0-36.0); Mean Corpuscular Hemoglobin 32.2 pg (27.0-31.0); Mean Corpuscular Volume 88.7 fL (78.0-98.0); Mean Platelet Volume 6.4 fL (7.4-10.4); Monocytes 12 % (0-10); Neutrophil 66 % (42-75); Platelet Count 459 thou/uL (130-400); Platelet Morphology Comment Appears Increased; RBC Distribution Width 14.7 % (11.5-14.5); Reactive Lymphocytes 1 % (0-10); Red Blood Cell (RBC) Count 3.52 mill/uL (4.70-6.10); Sickle Cells MODERATE= 6-15 cells (100X) (None Seen); Target Cells MODERATE= 6-15 cells (100X) (0-1/hpf); White Blood Cell (WBC) Count 33.1 thou/uL (4.8-10.8)
--- NOTE | 2019-04-18 16:02 | RAD ---
Exam: Chest 2 views History: Emergency exam COMPARISON::12/25/2018, 09/23/2018 FINDINGS: Lungs: Curvilinear density of the inferior left chest persists, which may be on the basis of scar, gi ellyn chronicity. Cardiac silhouette:Stable Pulmonary vessels: Normal Pleural Spaces: Clear Pneumothorax: None Osseous abnormalities: None of acuity. IMPRESSION: Persistent curvilinear density of the inferior left chest, grossly stable.
[2019-04-18] MEDS ORDERED: SODIUM CHLORIDE 0.9% SLOW IVP SCH (17:30)
[2019-04-18] MEDS ORDERED: HYDROMORPHONE SLOW IVP SCH (17:30)
[2019-04-18] MEDS ORDERED: diphenhydrAMINE 50 MG/ML VIAL ONE (18:02)
[2019-04-18] MEDS ORDERED: Morphine 4 MG/ML VIAL ONE (19:31)
[2019-04-18] MEDS ORDERED: Cefepime 2 GM VIAL ONE (20:55)
--- NOTE | 2019-04-18 21:21 | CT ---
CT ABDOMEN AND PELVIS WITH IV CONTRAST: History: Epigastric abdominal pain and chest pain. Comparison: CTA abdomen 03-08-19, CT abdomen and pelvis 07-02-17 FINDINGS: Parenchymal density in the region of the lingula is again seen similar to the study on 03-08-19 which may be related to pleural and parenchymal scar. The spleen is again irregular and heterogenous, some of which are related to phase of enhancement, but findings are also likely due to auto infarction of the spleen. The pancreas, bilateral adrenal glands, kidneys, abdominal aorta and urinary bladder demonstrate a no rmal CT appearance. Small bowel normal in caliber. The appendix is visualized and also appears normal in caliber. There has been no interval change when compared to prior studies. IMPRESSION: 1. No acute findings are seen in the abdomen or pelvis. POS: MAYK[facility]
[2019-04-18 23:05] LABS: Bilirubin Negative (Negative); Blood, Urine Negative (Negative); Clarity Clear (Clear); Glucose, Urine (Dipstick) Normal (Negative); Leukocyte Negative Leu/uL (Negative); Nitrite Negative (Negative); Protein, Urine (Dipstick) Negative (Neg-Trace); Urobilinogen Normal mg/dL (Less than 2)
[2019-04-19] MEDS ORDERED: HYDROcodone/Acetaminophen 5/325 mg Tablet PO PRN ×3 (02:21→03:17)
[2019-04-19] MEDS ORDERED: Acetaminophen 325 MG TAB PO PRN (02:21)
[2019-04-19] MEDS ORDERED: Dextrose 5 % And 0.9 % NaCl 1,000 ML IV SCH (02:30)
[2019-04-19 02:48] VITALS: BMI 20.5
[2019-04-19] MEDS ORDERED: Morphine 4 MG/ML VIAL SLOW IVP PRN ×2 (02:48→05:46)
[2019-04-19] MEDS ORDERED: Morphine 10 MG/ML VIAL SLOW IVP PRN (03:17)
[2019-04-19] MEDS ORDERED: Ondansetron ODT 4 MG TAB PO PRN (03:17)
[2019-04-19] MEDS ORDERED: Ondansetron PF 4 MG/2 ML Vial IVP PRN (03:17)
--- NOTE | 2019-04-19 04:02 | HP ---
PRIMARY CARE PHYSICIAN: Dr. Hernandez. CHIEF COMPLAINT: "I have pain in my chest, ribs and arms. HISTORY OF PRESENT ILLNESS: Mr. Overton is a 33-year-old gentleman, who has a history of sickle cell disease. He was admitted due to pain in his chest, ribs, and arms. He says that his symptoms began about 3 days ago. He has had subjective fever as well as cough, he says, which has been productive of some greenish phlegm. He also notes some dyspnea as well. He notes the severe pain in his ribs and arms and chest, which has not been relieved by his medication for pain at home. He also complains of some abdominal pain, as well as nausea and vomiting and he has had some diarrhea. He says he has had 5 to 6 loose stools in the last few days. However, he denies any leg pain or leg swelling. Otherwise, the patient is basically doubling over in excruciating pain and is unable to give me any additional history at this time. REVIEW OF SYSTEMS: Basically unable to due to his severe pain. PAST MEDICAL HISTORY: Significant for sickle cell disease. PAST SURGICAL HISTORY: Negative. ALLERGIES: TO SULFA, TORADOL, AND FENTANYL. SOCIAL HISTORY: He is , has 2 children. He smokes about 2 to 3 cigarettes a day. Denies any alcohol use. FAMILY HISTORY: Significant for sickle cell in both parents. MEDICATIONS: Include; 1. Percocet. 2. Tramadol. 3. Folic acid. PHYSICAL EXAMINATION: GENERAL: He is alert, oriented. He appears to be in some distress due to pain. He is well developed and well nourished, but a bit thin and frail in appearance. VITAL SIGNS: Blood pressure is 106/68, heart rate 87, respiratory rate of 18, temperature is 98. HEENT: His pupils are equal, round, and reactive. Extraocular muscles are intact. His sclerae are anicteric. Throat, no erythema, no exudates. NECK: No adenopathy. No bruits. LUNGS: Clear to auscultation. There is no wheezing. No rales. No rhonchi. CARDIOVASCULAR: He has a normal S1, S2. I did not appreciate an S3 or S4. He has a slight grade 2/6 systolic murmur. ABDOMEN: Soft, nontender, and nondistended. Positive for bowel sounds. No rebound. No guarding. No organomegaly. EXTREMITIES: There is no clubbing, or cyanosis. No edema. NEUROLOGIC: Nonfocal. SKIN AND INTEGUMENT: No skin changes. No rash. LABORATORY DATA: Sodium 142, potassium 4.7, chloride is 107, CO2 is 26, BUN of 6, creatinine 0.93, glucose is 85. White blood cell count is 13.1, hemoglobin 11.3, hematocrit is 31.2, and platelet count is 459. Urinalysis is essentially negative. Chest x-ray did not show any infiltrates or effusions and he had a CT scan of the abdomen and pelvis, which was negative for any significant abnormality. ASSESSMENT: This is a 33-year-old gentleman, who presents with sickle cell crisis. It is unclear what may have been the precipitating event. It sounds like he could possibly have had a viral type illness with the nausea, vomiting, cough, and congestion. He will be admitted, started on IV fluids, IV antiemetics. We will get a flu swab given his symptoms. Blood cultures have already been done and are pending. Continue folic acid and transfuse as needed. Job ID: [id number]
[2019-04-19] MEDS: Sodium Chloride 0.9% 1,000 ML IV SCH ×3 (04:04→17:25)
[2019-04-19] MEDS: diphenhydrAMINE 25 MG CAP PO PRN ×3 (04:04→17:26)
[2019-04-19] MEDS: HYDROcodone/Acetaminophen 10/325 mg Tablet PO PRN ×2 (04:22→07:42)
[2019-04-19 05:43] LABS: Reticulocyte Count 2.8 % (0.5-1.5)
[2019-04-19] MEDS ORDERED: Cefepime 2 GM in Sodium Chloride 0.9% 100 ML IVPB SCH (06:00)
[2019-04-19 06:06] LABS: Anion Gap 11 mmol/L (10-20); BUN (Urea Nitrogen) 5 mg/dL (8.9-20.6); Calc. Creatinine Clearance 125 mL/min (70-130); Calcium 8.8 mg/dL (7.8-10.44); Carbon Dioxide 22 mmol/L (22-29); Chloride 107 mmol/L (98-107); Estimated GFR-MDRD Greater than 90; Glucose 78 mg/dL (70-105); Potassium 4.4 mmol/L (3.5-5.1); Sodium 136 mmol/L (136-145)
[2019-04-19 07:31] LABS: Anisocytosis SLIGHT = 6-15 cells (100X) (0-5/hpf); Eosinophils 3 % (0-10); Hemoglobin 10.3 g/dL (14.0-18.0); Lymphocytes 29 % (21-51); MDiff Complete? YES; Mean Corpuscular HGB CONC 36.1 g/dL (32.0-36.0); Mean Corpuscular Hemoglobin 32.3 pg (27.0-31.0); Mean Corpuscular Volume 89.4 fL (78.0-98.0); Mean Platelet Volume 6.6 fL (7.4-10.4); Monocytes 5 % (0-10); Neutrophil 62 % (42-75); Platelet Count 391 thou/uL (130-400); RBC Distribution Width 15.3 % (11.5-14.5); Red Blood Cell (RBC) Count 3.18 mill/uL (4.70-6.10); Sickle Cells MODERATE= 6-15 cells (100X) (None Seen); Target Cells MODERATE= 6-15 cells (100X) (0-1/hpf); White Blood Cell (WBC) Count 12.9 thou/uL (4.8-10.8)
[2019-04-19] MEDS: Folic Acid 1 MG TAB PO SCH (07:42)
[2019-04-19] MEDS: Famotidine 20 MG TAB PO SCH ×2 (07:42→20:35)
[2019-04-19] MEDS: Enoxaparin Sodium 40 MG/0.4 ML SYRINGE SC SCH (07:42)
[2019-04-19] MEDS ORDERED: diphenhydrAMINE 25 MG CAP PO PRN (08:52)
[2019-04-19] MEDS ORDERED: Zolpidem Tartrate 5 MG TAB PO PRN (08:52)
[2019-04-19] MEDS ORDERED: Naloxone HCl 0.4 mg/ml Vial IV PRN (08:52)
[2019-04-19] MEDS ORDERED: diphenhydrAMINE 50 MG/ML VIAL IM/IV PRN (08:52)
[2019-04-19] MEDS ORDERED: Promethazine HCl 25 MG/ML VIAL IM PRN (08:52)
[2019-04-19] MEDS ORDERED: FLU VACC QS2019-20(6MOS UP)/PF 60 MCG/0.5 ML SYRINGE IM ONE (09:00)
[2019-04-19] MEDS: HYDROmorphone 10 mg/100 ml CADD IV PRN (09:39)
[2019-04-19] MEDS: Ondansetron PF 4 MG/2 ML Vial IVP PRN ×2 (10:46→17:26)
[2019-04-19] MEDS: diphenhydrAMINE 50 MG/ML VIAL IVP PRN (20:38)
[2019-04-20] MEDS: Acetaminophen 325 MG TAB PO PRN ×2 (01:27→21:21)
[2019-04-20] MEDS: Sodium Chloride 0.9% 1,000 ML IV SCH ×3 (03:26→18:15)
[2019-04-20] MEDS: diphenhydrAMINE 50 MG/ML VIAL IVP PRN ×5 (03:26→22:12)
[2019-04-20] MEDS: Folic Acid 1 MG TAB PO SCH (08:44)
[2019-04-20] MEDS: diphenhydrAMINE 25 MG CAP PO PRN (08:44)
[2019-04-20] MEDS: Famotidine 20 MG TAB PO SCH (08:45)
[2019-04-20] MEDS: Enoxaparin Sodium 40 MG/0.4 ML SYRINGE SC SCH (08:45)
--- NOTE | 2019-04-20 11:10 | PDOC.HOSPP ---
- Subjective Encounter Date: 04/20/19 Encounter Time: 11:08 Subjective: Patient c/o 8/10 pain in chest and abdomen and is on dilaudid. He states he has itching with the opioids. No N/V. He had a BM this morning. Reports coughs and sputum. No wheezing, fever, chills. - Objective Vital Signs & Weight: Vital Signs (12 hours) Temp Pulse Resp BP Pulse Ox 04/20/19 07:43 98.5 F 89 16 109/64 92 L 04/20/19 03:48 99.7 F H 86 18 98/55 L 94 L 04/19/19 23:51 100.1 F H 88 18 111/67 92 L Weight Admit Weight 139 lb Weight 139 lb 1 oz I&O: 04/19/19 04/20/19 04/21/19 06:59 06:59 06:59 Intake Total 500 4480 Output Total 2950 Balance 500 1530 Result Diagrams: 04/19/19 04:52 04/19/19 04:52 Hospitalist ROS - Medication Medications: Active Medications Generic Name Dose Route Start Last Admin Trade Name Freq PRN Reason Stop Dose Admin Acetaminophen 650 mg 04/19/19 03:17 04/20/19 01:27 Tylenol PO 650 mg Q4H PRN Administration Headache/Fever/Mild Pain (1-3) Diphenhydramine HCl 25 mg 04/19/19 03:17 04/20/19 08:44 Benadryl PO 25 mg Q4H PRN Administration Itching & Hives (mild) Diphenhydramine HCl 25 mg 04/19/19 03:17 04/20/19 03:26 Benadryl IVP 25 mg Q4H PRN Administration Itching & Hives (mild) Enoxaparin Sodium 40 mg 04/19/19 09:00 04/20/19 08:45 Lovenox SC 40 mg 0900 GRIFFIN Administration Folic Acid 1 mg 04/19/19 09:00 04/20/19 08:44 Folvite PO 1 mg DAILY GRIFFIN Administration Hydromorphone HCl 0 mg 04/19/19 08:52 04/19/19 09:39 Dilaudid Cadd IV 10 mg INF PRN Administration Pain Sodium Chloride 1,000 mls @ 125 mls/hr 04/19/19 03:30 04/20/19 08:45 Normal Saline 0.9% IV 1,000 mls .Q8H GRIFFIN Administration Ondansetron HCl 4 mg 04/19/19 08:52 04/19/19 17:26 Zofran IVP 4 mg Q6H PRN Administration Nausea/Vomiting - Exam General Appearance: awake alert, ill appearing Eye: PERRL, anicteric sclera ENT: normocephalic atraumatic, no oropharyngeal lesions, moist mucosa Neck: supple, symmetric, no JVD, no thyromegaly, no lymphadenopathy, no carotid bruit Heart: RRR, no murmur, no gallops, no rubs, normal peripheral pulses Heart - other findings: tachycardia present Respiratory: CTAB, no wheezes, no rales, no ronchi, normal chest expansion, no tachypnea Respiratory - other findings: tender to palpation Gastrointestinal: soft, non-tender, non-distended, normal bowel sounds Skin: normal turgor, no lesions, no rashes Hosp A/P (1) Sickle cell pain crisis Code(s): D57.00 - HB-SS DISEASE WITH CRISIS, UNSPECIFIED Status: Chronic 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
[2019-04-20] MEDS ORDERED: HYDROcodone/Acetaminophen 10/325 mg Tablet PO SCH (13:00)
[2019-04-20] MEDS: HYDROmorphone 10 mg/100 ml CADD IV PRN (14:13)
[2019-04-20] MEDS ORDERED: Cepastat Lozenges 1 LOZ PO PRN (20:45)
[2019-04-21] MEDS: diphenhydrAMINE 50 MG/ML VIAL IVP PRN ×6 (02:16→21:07)
[2019-04-21] MEDS: Sodium Chloride 0.9% 1,000 ML IV SCH ×3 (04:39→21:16)
[2019-04-21 06:14] LABS: ALT (SGPT) 7 U/L (8-55); AST (SGOT) 19 U/L (5-34); Alkaline Phosphatase 71 U/L (40-110); Anion Gap 14 mmol/L (10-20); BUN (Urea Nitrogen) 5 mg/dL (8.9-20.6); Bilirubin, Total 2.4 mg/dL (0.2-1.2); Calc. Creatinine Clearance 121 mL/min (70-130); Calcium 9.5 mg/dL (7.8-10.44); Carbon Dioxide 22 mmol/L (22-29); Chloride 105 mmol/L (98-107); Estimated GFR-MDRD Greater than 90; Globulin 3.3 g/dL (2.4-3.5); Glucose 88 mg/dL (70-105); Potassium 4.5 mmol/L (3.5-5.1); Protein, Total 7.3 g/dL (6.0-8.3); Sodium 136 mmol/L (136-145)
[2019-04-21 06:27] LABS: Eosinophils 1 % (0-10); Hemoglobin 10.6 g/dL (14.0-18.0); Lymphocytes 21 % (21-51); MDiff Complete? YES; Mean Corpuscular HGB CONC 35.8 g/dL (32.0-36.0); Mean Corpuscular Hemoglobin 31.7 pg (27.0-31.0); Mean Corpuscular Volume 88.5 fL (78.0-98.0); Mean Platelet Volume 6.6 fL (7.4-10.4); Monocytes 8 % (0-10); Neutrophil 70 % (42-75); Platelet Count 317 thou/uL (130-400); RBC Distribution Width 15.3 % (11.5-14.5); Red Blood Cell (RBC) Count 3.33 mill/uL (4.70-6.10); White Blood Cell (WBC) Count 27.8 thou/uL (4.8-10.8)
[2019-04-21] MEDS: Enoxaparin Sodium 40 MG/0.4 ML SYRINGE SC SCH (09:46)
[2019-04-21] MEDS: cefTRIAXone\\ROCEPHIN 2 GM in Sodium Chloride 0.9% 100 ML IVPB SCH (09:47)
[2019-04-21] MEDS: Folic Acid 1 MG TAB PO SCH (09:47)
[2019-04-21] MEDS: Azithromycin 250 MG TAB PO SCH (09:47)
--- NOTE | 2019-04-21 11:11 | PDOC.HOSPP ---
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 He had fevers yesterday evening and overnight. Reports some chills. Reports diarrhea. No N/V. Able to tolerate diet. No SOB, cough. - Objective Vital Signs & Weight: Vital Signs (12 hours) Temp Pulse Resp BP Pulse Ox 04/21/19 07:52 100.8 F H 85 18 107/66 92 L 04/21/19 03:46 98.8 F 82 18 116/74 93 L 04/20/19 23:20 100.0 F H 65 16 101/65 94 L Weight Admit Weight 139 lb Weight 139 lb 1 oz I&O: 04/20/19 04/21/19 04/22/19 06:59 06:59 06:59 Intake Total 4480 4060 Output Total 2950 600 Balance 1530 3460 Result Diagrams: 04/21/19 05:22 04/21/19 05:22 Hospitalist ROS - Medication Medications: Active Medications Generic Name Dose Route Start Last Admin Trade Name Freq PRN Reason Stop Dose Admin Acetaminophen 650 mg 04/19/19 03:17 04/20/19 21:21 Tylenol PO 650 mg Q4H PRN Administration Headache/Fever/Mild Pain (1-3) Azithromycin 500 mg 04/21/19 09:00 04/21/19 09:47 Zithromax PO 500 mg DAILY GRIFFIN Administration Diphenhydramine HCl 25 mg 04/19/19 03:17 04/20/19 08:44 Benadryl PO 25 mg Q4H PRN Administration Itching & Hives (mild) Diphenhydramine HCl 25 mg 04/19/19 03:17 04/21/19 09:46 Benadryl IVP 25 mg Q4H PRN Administration Itching & Hives (mild) Enoxaparin Sodium 40 mg 04/19/19 09:00 04/21/19 09:46 Lovenox SC 40 mg 0900 GRIFFIN Administration Folic Acid 1 mg 04/19/19 09:00 04/21/19 09:47 Folvite PO 1 mg DAILY GRIFFIN Administration Hydromorphone HCl 0 mg 04/19/19 08:52 04/20/19 14:13 Dilaudid Cadd IV 10 mg INF PRN Administration Pain Sodium Chloride 1,000 mls @ 125 mls/hr 04/19/19 03:30 04/21/19 04:39 Normal Saline 0.9% IV Not Given .Q8H GRIFFIN Ceftriaxone Sodium 2 gm/ 100 mls @ 200 mls/hr 04/21/19 09:00 04/21/19 09:47 Sodium Chloride IVPB 100 mls Q24HR GRIFFIN Administration Ondansetron HCl 4 mg 04/19/19 08:52 04/19/19 17:26 Zofran IVP 4 mg Q6H PRN Administration Nausea/Vomiting Throat Lozenges 1 jose martin 04/20/19 20:45 04/20/19 21:21 Cepastat Lozenges PO 1 jose martin PRN PRN Administration SORE THROAT - Exam General Appearance: awake alert, ill appearing Eye: PERRL ENT: normocephalic atraumatic, no oropharyngeal lesions, moist mucosa Neck: supple, symmetric, no thyromegaly Heart: RRR, no murmur, no gallops, no rubs, normal peripheral pulses Respiratory: CTAB, no wheezes, no rales, no ronchi Gastrointestinal: soft, non-distended, normal bowel sounds, tender to palpation (diffusely) Extremities: no cyanosis, no clubbing, no edema Hosp A/P (1) Sickle cell pain crisis Code(s): D57.00 - HB-SS DISEASE WITH CRISIS, UNSPECIFIED Status: Chronic (2) Chronic pain disorder Code(s): G89.4 - CHRONIC PAIN SYNDROME Status: Chronic (3) Hyperbilirubinemia Code(s): E80.6 - OTHER DISORDERS OF BILIRUBIN METABOLISM Status: Acute - Plan continue antibiotics, DVT proph w/lovenox Hosp A/P (1) Sickle cell pain crisis Code(s): D57.00 - HB-SS DISEASE WITH CRISIS, UNSPECIFIED Status: Chronic Plan: 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
[2019-04-21] MEDS ORDERED: Hydroxyurea 500 MG CAP PO SCH ×2 (11:18→13:45)
[2019-04-21] MEDS: Acetaminophen 325 MG TAB PO PRN ×2 (11:32→21:07)
[2019-04-21] MEDS ORDERED: Acetaminophen 1,000 MG in Premix Bag 1 BAG IVPB SCH (14:00)
[2019-04-21] MEDS: HYDROmorphone 10 mg/100 ml CADD IV PRN (18:25)
[2019-04-21] MEDS ORDERED: Ibuprofen 100 MG/5 ML UDCUP PO PRN (22:02)
[2019-04-22] MEDS: diphenhydrAMINE 50 MG/ML VIAL IVP PRN ×6 (01:01→21:37)
[2019-04-22] MEDS: Sodium Chloride 0.9% 1,000 ML IV SCH ×3 (05:06→17:36)
[2019-04-22 06:20] LABS: ALT (SGPT) 19 U/L (8-55); AST (SGOT) 45 U/L (5-34); Albumin 3.4 g/dL (3.5-5.0); Alkaline Phosphatase 76 U/L (40-110); Anion Gap 16 mmol/L (10-20); BUN (Urea Nitrogen) 8 mg/dL (8.9-20.6); Bilirubin, Total 2.6 mg/dL (0.2-1.2); Calc. Creatinine Clearance 118 mL/min (70-130); Calcium 8.6 mg/dL (7.8-10.44); Carbon Dioxide 19 mmol/L (22-29); Chloride 105 mmol/L (98-107); Estimated GFR-MDRD Greater than 90; Globulin 3.6 g/dL (2.4-3.5); Glucose 83 mg/dL (70-105); Potassium 4.8 mmol/L (3.5-5.1); Sodium 135 mmol/L (136-145)
[2019-04-22 06:42] LABS: Hemoglobin 9.7 g/dL (14.0-18.0); Hypochromia SLIGHT = 6-15 cells (100X) (0-5/hpf); Lymphocytes 20 % (21-51); MDiff Complete? YES; Mean Corpuscular HGB CONC 36.2 g/dL (32.0-36.0); Mean Corpuscular Hemoglobin 32.3 pg (27.0-31.0); Mean Corpuscular Volume 89.2 fL (78.0-98.0); Mean Platelet Volume 6.8 fL (7.4-10.4); Monocytes 2 % (0-10); Neutrophil 78 % (42-75); Platelet Count 290 thou/uL (130-400); Platelet Morphology Comment Appears Adequate; RBC Distribution Width 14.7 % (11.5-14.5); Red Blood Cell (RBC) Count 2.99 mill/uL (4.70-6.10); White Blood Cell (WBC) Count 11.1 thou/uL (4.8-10.8)
[2019-04-22] MEDS: Folic Acid 1 MG TAB PO SCH (09:40)
[2019-04-22] MEDS: Azithromycin 250 MG TAB PO SCH (09:40)
[2019-04-22] MEDS: Hydroxyurea 500 MG CAP PO SCH (09:40)
[2019-04-22] MEDS: Enoxaparin Sodium 40 MG/0.4 ML SYRINGE SC SCH (09:40)
[2019-04-22] MEDS: cefTRIAXone\\ROCEPHIN 2 GM in Sodium Chloride 0.9% 100 ML IVPB SCH (09:40)
[2019-04-22] MEDS: Acetaminophen 325 MG TAB PO PRN ×2 (13:42→21:37)
[2019-04-22] MEDS: HYDROmorphone 10 mg/100 ml CADD IV PRN (14:17)
--- NOTE | 2019-04-22 14:51 | PDOC.HOSPP ---
- Subjective Encounter Date: 04/22/19 Encounter Time: 14:00 Subjective: Pt. reports that his pain is better. He continues to have fevers. Reports having a bowel movement this AM. No CP, SOB. Reports some abdominal pain. - Objective Vital Signs & Weight: Vital Signs (12 hours) Temp Pulse Resp BP Pulse Ox 04/22/19 13:46 100.3 F H 04/22/19 12:00 101.6 F H 86 18 104/64 93 L 04/22/19 07:57 98.4 F 71 14 101/65 96 04/22/19 03:15 97.6 F 76 18 100/61 94 L Weight Admit Weight 139 lb Weight 139 lb 1 oz I&O: 04/21/19 04/22/19 04/23/19 06:59 06:59 06:59 Intake Total 4060 3540 Output Total 600 2400 Balance 3460 1140 Result Diagrams: 04/22/19 05:57 04/22/19 05:44 Hospitalist ROS - Medication Medications: Active Medications Generic Name Dose Route Start Last Admin Trade Name Freq PRN Reason Stop Dose Admin Acetaminophen 650 mg 04/19/19 03:17 04/22/19 13:42 Tylenol PO 650 mg Q4H PRN Administration Headache/Fever/Mild Pain (1-3) Azithromycin 500 mg 04/21/19 09:00 04/22/19 09:40 Zithromax PO 500 mg DAILY GRIFFIN Administration Diphenhydramine HCl 25 mg 04/19/19 03:17 04/20/19 08:44 Benadryl PO 25 mg Q4H PRN Administration Itching & Hives (mild) Diphenhydramine HCl 25 mg 04/19/19 03:17 04/22/19 13:42 Benadryl IVP 25 mg Q4H PRN Administration Itching & Hives (mild) Enoxaparin Sodium 40 mg 04/19/19 09:00 04/22/19 09:40 Lovenox SC 40 mg 0900 GRIFFIN Administration Folic Acid 1 mg 04/19/19 09:00 04/22/19 09:40 Folvite PO 1 mg DAILY GRIFFIN Administration Hydromorphone HCl 0 mg 04/19/19 08:52 04/22/19 14:17 Dilaudid Cadd IV 10 mg INF PRN Administration Pain Hydroxyurea 500 mg 04/22/19 09:00 04/22/19 09:40 Hydrea PO 500 mg DAILY GRIFFIN Administration Sodium Chloride 1,000 mls @ 125 mls/hr 04/19/19 03:30 04/22/19 11:04 Normal Saline 0.9% IV 1,000 mls .Q8H GRIFFIN Administration Ceftriaxone Sodium 2 gm/ 100 mls @ 200 mls/hr 04/21/19 09:00 04/22/19 09:40 Sodium Chloride IVPB 100 mls Q24HR GRIFFIN Administration Ibuprofen 400 mg 04/21/19 22:02 04/21/19 22:38 Motrin PO 400 mg Q8H PRN Administration Fever/Mild Pain Ondansetron HCl 4 mg 04/19/19 08:52 04/19/19 17:26 Zofran IVP 4 mg Q6H PRN Administration Nausea/Vomiting Throat Lozenges 1 jose martin 04/20/19 20:45 04/20/19 21:21 Cepastat Lozenges PO 1 jose martin PRN PRN Administration SORE THROAT - Exam General Appearance: awake alert, ill appearing ENT: normocephalic atraumatic, no oropharyngeal lesions Neck: supple, no thyromegaly, no lymphadenopathy Heart: RRR, no murmur, no gallops, normal peripheral pulses Respiratory: CTAB, no wheezes, no rales, no ronchi, normal chest expansion Gastrointestinal: soft, non-distended, normal bowel sounds, tender to palpation (diffusely) Hosp A/P (1) Sickle cell pain crisis Code(s): D57.00 - HB-SS DISEASE WITH CRISIS, UNSPECIFIED Status: Chronic (2) Chronic pain disorder Code(s): G89.4 - CHRONIC PAIN SYNDROME Status: Chronic (3) Hyperbilirubinemia Code(s): E80.6 - OTHER DISORDERS OF BILIRUBIN METABOLISM Status: Acute - Plan Hosp A/P (1) Sickle cell pain crisis Code(s): D57.00 - HB-SS DISEASE WITH CRISIS, UNSPECIFIED Status: Chronic 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
--- NOTE | 2019-04-22 17:21 | CON ---
DATE OF CONSULTATION: REASON FOR CONSULTATION: Sickle cell crisis. HISTORY OF PRESENT ILLNESS: Mr. Overton is a 33-year-old gentleman with sickle cell disease, who is followed by Dr. Posey at [facility] in [place]. He began to have chest pain and fever approximately 3 or 4 days ago, so presented to the emergency room for evaluation. He was having severe pain in his arms and chest. In the ER, he underwent a chest x-ray, which showed no acute abnormality. He had an abdominal and pelvis CT, which also showed no acute findings. His white count was elevated at 33, so he was admitted for leukocytosis. He has had a fever as high as 102.7 over the last several days. His blood cultures have been negative. He is on empiric antibiotics. 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 The patient is treated with hydroxyurea 100 mg daily. He states if he takes any higher dose give some severe headache. His hemoglobin on arrival was 11.3 with retic count of 2.7. Over the course of the last several days, his hemoglobin has declined and his bilirubin has increased, consistent with sickle cell hemolysis. He complains of pain right now, but has no other symptoms. PAST MEDICAL HISTORY: Sickle cell disease. PAST SURGICAL HISTORY: None. ALLERGIES: TO SULFA, TORADOL, AND FENTANYL. HOME MEDICATIONS: 1. Hydroxyurea 100 mg daily. 2. Lynn. 3. Tramadol. 4. Tylenol. 5. Gabapentin. FAMILY HISTORY: Sickle cell disease. SOCIAL HISTORY: , has 2 children. Smokes half a pack of cigarettes daily. No alcohol or illicit drug use. REVIEW OF SYSTEMS: Ten-point review of systems is negative except for noted in HPI. PHYSICAL EXAMINATION: VITAL SIGNS: Temperature is 100.3, pulse is 86, respiratory rate 18, BP is 104/64, and he is 93% on room air. GENERAL: This is a thin male, in no acute distress. HEENT: Normocephalic and atraumatic. Pupils are equal and reactive to light. He has poor dentition. NECK: Supple. CV: Regular rate and rhythm. LUNGS: Clear. ABDOMEN: Soft and nontender. Bowel sounds are positive. EXTREMITIES: No clubbing or cyanosis. SKIN: No rash. HEMATOLOGIC: No petechiae or purpura. NEUROLOGIC: Nonfocal. PERTINENT LABS AND X-RAYS: Current WBCs 11.1, hemoglobin 9.7, hematocrit 26.7, and platelet count is 290,000. He has 78% neutrophils, 20% lymphocytes, retic count is 2.8. Sodium is 135, potassium 4.8, chloride 105, CO2 is 19, BUN is 8, creatinine is 0.79, and calcium 8.6. Bilirubin is 2.6, AST is 45, ALT is 19, alkaline phosphatase is 76, serum total protein is 7, albumin 3.4, globulin 3.6, and lipase is 27. Urine is negative. Radiology per HPI. ASSESSMENT: 1. Sickle cell crisis, likely precipitated from febrile illness. 2. Febrile illness with leukocytosis. DISCUSSION: The patient has been placed on IV fluids and Dilaudid BRAIDED RUG MAKER for pain. He has not had any oxygen. I will add oxygen to his treatment. He is on empiric antibiotics. Blood cultures are negative. He has been restarted on hydroxyurea, although this is a 500 mg dose. We will reduce to 100 mg dose if he complains of headaches, Tylenol for fever. He was instructed to follow up with Dr. Posey at [facility] once he is discharged from this facility. Thank you for the consult. Job ID: [id number]
[2019-04-23] MEDS: diphenhydrAMINE 50 MG/ML VIAL IVP PRN ×7 (01:33→21:23)
[2019-04-23] MEDS: HYDROmorphone 10 mg/100 ml CADD IV PRN ×2 (04:40→23:48)
[2019-04-23] MEDS: Sodium Chloride 0.9% 1,000 ML IV SCH ×3 (04:41→17:29)
[2019-04-23] MEDS: Azithromycin 250 MG TAB PO SCH (09:25)
[2019-04-23] MEDS: diphenhydrAMINE 25 MG CAP PO PRN (09:25)
[2019-04-23] MEDS: Hydroxyurea 500 MG CAP PO SCH (09:26)
[2019-04-23] MEDS: Folic Acid 1 MG TAB PO SCH (09:26)
[2019-04-23] MEDS: Enoxaparin Sodium 40 MG/0.4 ML SYRINGE SC SCH (09:26)
[2019-04-23] MEDS: cefTRIAXone\\ROCEPHIN 2 GM in Sodium Chloride 0.9% 100 ML IVPB SCH (09:28)
--- NOTE | 2019-04-23 10:40 | PDOC.HOSPP ---
- Subjective Encounter Date: 04/23/19 Encounter Time: 10:30 Subjective: Patient was seen by hematology yesterday and oxygen has been added. He continues to complain of pain in his abdomen. No N/V. No chills, SOB or CP. He states that he has been walking to the restroom by himself. - Objective Vital Signs & Weight: Vital Signs (12 hours) Temp Pulse Resp BP Pulse Ox 04/23/19 03:44 98.7 F 80 16 106/58 L 98 04/23/19 00:00 99.2 F 82 16 98/53 L 99 04/22/19 23:49 98 Weight Admit Weight 139 lb Weight 139 lb 1 oz I&O: 04/22/19 04/23/19 04/24/19 06:59 06:59 06:59 Intake Total 3540 4280 Output Total 2400 2625 Balance 1140 1655 Result Diagrams: 04/23/19 10:17 04/23/19 10:03 Hospitalist ROS - Medication Medications: Active Medications Generic Name Dose Route Start Last Admin Trade Name Freq PRN Reason Stop Dose Admin Acetaminophen 650 mg 04/19/19 03:17 04/22/19 21:37 Tylenol PO 650 mg Q4H PRN Administration Headache/Fever/Mild Pain (1-3) Azithromycin 500 mg 04/21/19 09:00 04/23/19 09:25 Zithromax PO 500 mg DAILY GRIFFIN Administration Diphenhydramine HCl 25 mg 04/19/19 03:17 04/23/19 09:25 Benadryl PO 25 mg Q4H PRN Administration Itching & Hives (mild) Diphenhydramine HCl 25 mg 04/19/19 03:17 04/23/19 09:39 Benadryl IVP 25 mg Q4H PRN Administration Itching & Hives (mild) Enoxaparin Sodium 40 mg 04/19/19 09:00 04/23/19 09:26 Lovenox SC 40 mg 0900 GRIFFIN Administration Folic Acid 1 mg 04/19/19 09:00 04/23/19 09:26 Folvite PO 1 mg DAILY GRIFFIN Administration Hydromorphone HCl 0 mg 04/19/19 08:52 04/23/19 04:40 Dilaudid Cadd IV 10 mg INF PRN Administration Pain Hydroxyurea 500 mg 04/22/19 09:00 04/23/19 09:26 Hydrea PO 500 mg DAILY GRIFFIN Administration Sodium Chloride 1,000 mls @ 125 mls/hr 04/19/19 03:30 04/23/19 09:30 Normal Saline 0.9% IV 1,000 mls .Q8H GRIFFIN Administration Ceftriaxone Sodium 2 gm/ 100 mls @ 200 mls/hr 04/21/19 09:00 04/23/19 09:28 Sodium Chloride IVPB 100 mls Q24HR GRIFFIN Administration Ibuprofen 400 mg 04/21/19 22:02 04/21/19 22:38 Motrin PO 400 mg Q8H PRN Administration Fever/Mild Pain Ondansetron HCl 4 mg 04/19/19 08:52 04/19/19 17:26 Zofran IVP 4 mg Q6H PRN Administration Nausea/Vomiting Throat Lozenges 1 jose martin 04/20/19 20:45 04/20/19 21:21 Cepastat Lozenges PO 1 jose martin PRN PRN Administration SORE THROAT - Exam General Appearance: awake alert, ill appearing Eye: PERRL, anicteric sclera ENT: normocephalic atraumatic, no oropharyngeal lesions, moist mucosa Neck: supple, no thyromegaly, no lymphadenopathy Heart: RRR, no murmur, no rubs, normal peripheral pulses Respiratory: CTAB, no wheezes, no rales, no ronchi, normal chest expansion Gastrointestinal: soft, non-distended, normal bowel sounds, no palpable masses, tender to palpation Hosp A/P (1) Sickle cell pain crisis Code(s): D57.00 - HB-SS DISEASE WITH CRISIS, UNSPECIFIED Status: Chronic (2) Chronic pain disorder Code(s): G89.4 - CHRONIC PAIN SYNDROME Status: Chronic (3) Hyperbilirubinemia Code(s): E80.6 - OTHER DISORDERS OF BILIRUBIN METABOLISM Status: Acute - Plan Hosp A/P (1) Sickle cell pain crisis Code(s): D57.00 - HB-SS DISEASE WITH CRISIS, UNSPECIFIED Status: Chronic Plan: Continue dilaudid TAR DISTILLATION SUPERVISOR pump and IV fluids Hematology has seen the patient Continue Hydroxyurea, IVF, IV ABX and oxygen High risk due to need for IV dilaudid pump and close monitoring (2) Chronic pain disorder Code(s): G89.4 - CHRONIC PAIN SYNDROME Status: Chronic Plan: [place] CONTROL ROOM TECHNICIAN reviewed Dilaudid TAR DISTILLATION SUPERVISOR for now 3) 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
[2019-04-23 10:42] LABS: ALT (SGPT) 22 U/L (8-55); AST (SGOT) 33 U/L (5-34); Albumin 3.6 g/dL (3.5-5.0); Alkaline Phosphatase 78 U/L (40-110); Anion Gap 16 mmol/L (10-20); BUN (Urea Nitrogen) 4 mg/dL (8.9-20.6); Bilirubin, Total 1.1 mg/dL (0.2-1.2); Calc. Creatinine Clearance 133 mL/min (70-130); Calcium 9.1 mg/dL (7.8-10.44); Carbon Dioxide 20 mmol/L (22-29); Chloride 104 mmol/L (98-107); Estimated GFR-MDRD Greater than 90; Globulin 3.4 g/dL (2.4-3.5); Glucose 85 mg/dL (70-105); Potassium 4.7 mmol/L (3.5-5.1); Sodium 135 mmol/L (136-145)
[2019-04-23 10:49] LABS: #Eosinphils 0.3 thou/uL (0.0-0.7); #Lymphocytes 2.1 thou/uL (1.20-3.40); #Monocytes 1.8 thou/uL (0.11-0.59); #Neutrophils 7.8 thou/uL (1.40-6.50); %Basophils 0.3 % (0.0-1.0); %Eosinophils 2.9 % (0.0-10.0); %Lymphocytes 17.5 % (21.0-51.0); %Monocytes 14.8 % (0.0-10.0); %Neutrophils 64.6 % (42.0-75.0); Hemoglobin 9.1 g/dL (14.0-18.0); Mean Corpuscular HGB CONC 36.4 g/dL (32.0-36.0); Mean Platelet Volume 7.2 fL (7.4-10.4); Platelet Count 283 thou/uL (130-400); RBC Distribution Width 14.8 % (11.5-14.5); Red Blood Cell (RBC) Count 2.83 mill/uL (4.70-6.10); White Blood Cell (WBC) Count 12.1 thou/uL (4.8-10.8)
[2019-04-24] MEDS: diphenhydrAMINE 50 MG/ML VIAL IVP PRN ×6 (01:29→22:10)
[2019-04-24] MEDS: Sodium Chloride 0.9% 1,000 ML IV SCH ×4 (05:26→20:06)
[2019-04-24 06:28] LABS: ALT (SGPT) 25 U/L (8-55); AST (SGOT) 35 U/L (5-34); Albumin 3.6 g/dL (3.5-5.0); Alkaline Phosphatase 80 U/L (40-110); Anion Gap 12 mmol/L (10-20); BUN (Urea Nitrogen) 5 mg/dL (8.9-20.6); Bilirubin, Total 1.2 mg/dL (0.2-1.2); Calc. Creatinine Clearance 137 mL/min (70-130); Calcium 9.2 mg/dL (7.8-10.44); Carbon Dioxide 26 mmol/L (22-29); Chloride 102 mmol/L (98-107); Estimated GFR-MDRD Greater than 90; Globulin 3.6 g/dL (2.4-3.5); Glucose 90 mg/dL (70-105); Potassium 4.3 mmol/L (3.5-5.1); Protein, Total 7.2 g/dL (6.0-8.3); Sodium 136 mmol/L (136-145)
[2019-04-24 06:36] LABS: Hemoglobin 8.8 g/dL (14.0-18.0); Mean Corpuscular HGB CONC 35.3 g/dL (32.0-36.0); Mean Corpuscular Hemoglobin 31.5 pg (27.0-31.0); Mean Platelet Volume 7.7 fL (7.4-10.4); Platelet Count 276 thou/uL (130-400); RBC Distribution Width 15.5 % (11.5-14.5); Red Blood Cell (RBC) Count 2.79 mill/uL (4.70-6.10); White Blood Cell (WBC) Count 21.2 thou/uL (4.8-10.8)
[2019-04-24 06:37] LABS: Band 3 % (5-11); Elliptocytes SLIGHT = 2-5 cells (100X) (0-1/hpf); Eosinophils 5 % (0-10); Hypochromia MODERATE=16-30 cells (100X) (0-5/hpf); Lymphocytes 28 % (21-51); MDiff Complete? YES; Macrocytosis SLIGHT = 6-15 cells (100X) (0-5/hpf); Microcytosis SLIGHT = 6-15 cells (100X) (0-5/hpf); Monocytes 14 % (0-10); Neutrophil 49 % (42-75); Platelet Morphology Comment Appears Adequate; Target Cells SLIGHT = 2-5 cells (100X) (0-1/hpf)
[2019-04-24] MEDS: Enoxaparin Sodium 40 MG/0.4 ML SYRINGE SC SCH (09:38)
[2019-04-24] MEDS: Azithromycin 250 MG TAB PO SCH (09:38)
[2019-04-24] MEDS: Hydroxyurea 500 MG CAP PO SCH (09:38)
[2019-04-24] MEDS: Folic Acid 1 MG TAB PO SCH (09:38)
[2019-04-24] MEDS: cefTRIAXone\\ROCEPHIN 2 GM in Sodium Chloride 0.9% 100 ML IVPB SCH (09:38)
--- NOTE | 2019-04-24 14:51 | PDOC.HOSPP ---
- Subjective Encounter Date: 04/24/19 Encounter Time: 10:30 Subjective: Reports his pain is the same. - Objective Vital Signs & Weight: Vital Signs (12 hours) Temp Pulse Resp BP Pulse Ox 04/24/19 12:00 98.6 F 77 16 99/58 L 04/24/19 07:53 98.7 F 74 16 106/67 97 04/24/19 05:37 98.9 F 78 14 102/61 98 Weight Admit Weight 139 lb Weight 139 lb 1 oz I&O: 04/23/19 04/24/19 04/25/19 06:59 06:59 06:59 Intake Total 4280 5300 Output Total 2625 8325 Balance 1815 8738 Result Diagrams: 04/24/19 05:52 04/24/19 05:52 Hospitalist ROS - Medication Medications: Active Medications Generic Name Dose Route Start Last Admin Trade Name Freq PRN Reason Stop Dose Admin Acetaminophen 650 mg 04/19/19 03:17 04/22/19 21:37 Tylenol PO 650 mg Q4H PRN Administration Headache/Fever/Mild Pain (1-3) Azithromycin 500 mg 04/21/19 09:00 04/24/19 09:38 Zithromax PO 500 mg DAILY GRIFFIN Administration Diphenhydramine HCl 25 mg 04/19/19 03:17 04/20/19 08:44 Benadryl PO 25 mg Q4H PRN Administration Itching & Hives (mild) Diphenhydramine HCl 25 mg 04/19/19 03:17 04/24/19 13:22 Benadryl IVP 25 mg Q4H PRN Administration Itching & Hives (mild) Enoxaparin Sodium 40 mg 04/19/19 09:00 04/24/19 09:38 Lovenox SC 40 mg 0900 GRIFFIN Administration Folic Acid 1 mg 04/19/19 09:00 04/24/19 09:38 Folvite PO 1 mg DAILY GRIFFIN Administration Hydromorphone HCl 0 mg 04/19/19 08:52 04/23/19 23:48 Dilaudid Cadd IV 10 mg INF PRN Administration Pain Hydroxyurea 500 mg 04/22/19 09:00 04/24/19 09:38 Hydrea PO 500 mg DAILY GRIFFIN Administration Sodium Chloride 1,000 mls @ 125 mls/hr 04/19/19 03:30 04/24/19 12:24 Normal Saline 0.9% IV 1,000 mls .Q8H GRIFFIN Administration Ceftriaxone Sodium 2 gm/ 100 mls @ 200 mls/hr 04/21/19 09:00 04/24/19 09:38 Sodium Chloride IVPB 100 mls Q24HR GRIFFIN Administration Ibuprofen 400 mg 04/21/19 22:02 04/21/19 22:38 Motrin PO 400 mg Q8H PRN Administration Fever/Mild Pain Ondansetron HCl 4 mg 04/19/19 08:52 04/19/19 17:26 Zofran IVP 4 mg Q6H PRN Administration Nausea/Vomiting Throat Lozenges 1 jose martin 04/20/19 20:45 04/20/19 21:21 Cepastat Lozenges PO 1 jose martin PRN PRN Administration SORE THROAT - Exam General Appearance: awake alert, ill appearing ENT: normocephalic atraumatic, no oropharyngeal lesions Heart: RRR, no gallops, no rubs, normal peripheral pulses Respiratory: CTAB, no wheezes, no rales, normal chest expansion Hosp A/P (1) Sickle cell pain crisis Code(s): D57.00 - HB-SS DISEASE WITH CRISIS, UNSPECIFIED Status: Chronic (2) Chronic pain disorder Code(s): G89.4 - CHRONIC PAIN SYNDROME Status: Chronic (3) Hyperbilirubinemia Code(s): E80.6 - OTHER DISORDERS OF BILIRUBIN METABOLISM Status: Acute - Plan Hosp A/P (1) Sickle cell pain crisis Code(s): D57.00 - HB-SS DISEASE WITH CRISIS, UNSPECIFIED Status: Chronic Plan: Continue dilaudid HAND II BLOCKER pump and IV fluids Likely transition to PO opioids at home dose of [place] 10/325 QID tomorrow Hematology on board Continue Hydroxyurea, IVF, IV ABX and oxygen High risk due to need for IV dilaudid pump and close monitoring (2) Chronic pain disorder Code(s): G89.4 - CHRONIC PAIN SYNDROME Status: Chronic Plan: [facility] reviewed Dilaudid HAND II BLOCKER for now 3) 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
[2019-04-24] MEDS: HYDROmorphone 10 mg/100 ml CADD IV PRN (22:08)
[2019-04-25] MEDS: diphenhydrAMINE 50 MG/ML VIAL IVP PRN ×5 (02:09→21:48)
[2019-04-25] MEDS: Sodium Chloride 0.9% 1,000 ML IV SCH ×3 (05:47→21:00)
[2019-04-25 06:01] LABS: ALT (SGPT) 56 U/L (8-55); AST (SGOT) 74 U/L (5-34); Albumin 3.9 g/dL (3.5-5.0); Alkaline Phosphatase 121 U/L (40-110); Anion Gap 14 mmol/L (10-20); BUN (Urea Nitrogen) 6 mg/dL (8.9-20.6); Bilirubin, Total 1.8 mg/dL (0.2-1.2); Calc. Creatinine Clearance 122 mL/min (70-130); Carbon Dioxide 28 mmol/L (22-29); Chloride 99 mmol/L (98-107); Eosinophils 1 % (0-10); Estimated GFR-MDRD Greater than 90; Globulin 4.1 g/dL (2.4-3.5); Glucose 101 mg/dL (70-105); Hemoglobin 9.3 g/dL (14.0-18.0); Lymphocytes 24 % (21-51); MDiff Complete? YES; Mean Corpuscular HGB CONC 36.2 g/dL (32.0-36.0); Mean Corpuscular Hemoglobin 32.1 pg (27.0-31.0); Mean Corpuscular Volume 88.9 fL (78.0-98.0); Mean Platelet Volume 6.7 fL (7.4-10.4); Monocytes 6 % (0-10); Neutrophil 69 % (42-75); Platelet Count 350 thou/uL (130-400); Platelet Morphology Comment Appears Adequate; Potassium 4.5 mmol/L (3.5-5.1); RBC Distribution Width 15.6 % (11.5-14.5); Red Blood Cell (RBC) Count 2.89 mill/uL (4.70-6.10); Sodium 136 mmol/L (136-145); Target Cells MODERATE= 6-15 cells (100X) (0-1/hpf); White Blood Cell (WBC) Count 12.1 thou/uL (4.8-10.8)
[2019-04-25] MEDS: Folic Acid 1 MG TAB PO SCH (09:41)
[2019-04-25] MEDS: Hydroxyurea 500 MG CAP PO SCH (09:41)
[2019-04-25] MEDS: Azithromycin 250 MG TAB PO SCH (09:42)
[2019-04-25] MEDS: cefTRIAXone\\ROCEPHIN 2 GM in Sodium Chloride 0.9% 100 ML IVPB SCH (09:42)
[2019-04-25] MEDS: Enoxaparin Sodium 40 MG/0.4 ML SYRINGE SC SCH (09:42)
[2019-04-25] MEDS: HYDROmorphone 10 mg/100 ml CADD IV PRN (13:57)
--- NOTE | 2019-04-25 14:39 | PDOC.HOSPP ---
- Subjective Encounter Date: 04/25/19 Encounter Time: 14:37 Subjective: pain down significantly, ready to try po meds - Objective Vital Signs & Weight: Vital Signs (12 hours) Temp Pulse Resp BP Pulse Ox 04/25/19 10:41 98.1 F 74 20 92/62 98 04/25/19 07:32 98.6 F 77 20 106/58 L 95 04/25/19 03:10 98.3 F 76 16 99/57 L 95 Weight Admit Weight 139 lb Weight 139 lb 1 oz I&O: 04/24/19 04/25/19 04/26/19 06:59 06:59 06:59 Intake Total 5300 5440 Output Total 3517 3787 Balance 9877 9597 Result Diagrams: 04/25/19 05:11 04/25/19 05:11 Hospitalist ROS - Medication Medications: Active Medications Generic Name Dose Route Start Last Admin Trade Name Freq PRN Reason Stop Dose Admin Acetaminophen 650 mg 04/19/19 03:17 04/22/19 21:37 Tylenol PO 650 mg Q4H PRN Administration Headache/Fever/Mild Pain (1-3) Azithromycin 500 mg 04/21/19 09:00 04/25/19 09:42 Zithromax PO 500 mg DAILY GRIFFIN Administration Diphenhydramine HCl 25 mg 04/19/19 03:17 04/20/19 08:44 Benadryl PO 25 mg Q4H PRN Administration Itching & Hives (mild) Diphenhydramine HCl 25 mg 04/19/19 03:17 04/25/19 13:43 Benadryl IVP 25 mg Q4H PRN Administration Itching & Hives (mild) Enoxaparin Sodium 40 mg 04/19/19 09:00 04/25/19 09:42 Lovenox SC 40 mg 0900 GRIFFIN Administration Folic Acid 1 mg 04/19/19 09:00 04/25/19 09:41 Folvite PO 1 mg DAILY GRIFFIN Administration Hydroxyurea 500 mg 04/22/19 09:00 04/25/19 09:41 Hydrea PO 500 mg DAILY GRIFFIN Administration Sodium Chloride 1,000 mls @ 125 mls/hr 04/19/19 03:30 04/25/19 13:43 Normal Saline 0.9% IV 1,000 mls .Q8H GRIFFIN Administration Ceftriaxone Sodium 2 gm/ 100 mls @ 200 mls/hr 04/21/19 09:00 04/25/19 09:42 Sodium Chloride IVPB 100 mls Q24HR GRIFFIN Administration Ibuprofen 400 mg 04/21/19 22:02 04/21/19 22:38 Motrin PO 400 mg Q8H PRN Administration Fever/Mild Pain Ondansetron HCl 4 mg 04/19/19 08:52 04/19/19 17:26 Zofran IVP 4 mg Q6H PRN Administration Nausea/Vomiting Throat Lozenges 1 jose martin 04/20/19 20:45 04/20/19 21:21 Cepastat Lozenges PO 1 jose martin PRN PRN Administration SORE THROAT - Exam General Appearance: awake alert Neck: no JVD Heart: RRR Respiratory: CTAB Gastrointestinal: soft, normal bowel sounds Extremities: no edema Hosp A/P (1) Nausea & vomiting Code(s): R11.2 - NAUSEA WITH VOMITING, UNSPECIFIED Status: Acute (2) Anxiety and depression Code(s): F41.8 - OTHER SPECIFIED ANXIETY DISORDERS Status: Chronic (3) Sickle cell anemia Code(s): D57.1 - SICKLE-CELL DISEASE WITHOUT CRISIS Status: Chronic (4) Sickle cell pain crisis Code(s): D57.00 - HB-SS DISEASE WITH CRISIS, UNSPECIFIED Status: Chronic (5) Tobacco abuse Code(s): Z72.0 - TOBACCO USE Status: Chronic - Plan DC hydromorphone infusion, start po hydromorphone
[2019-04-25] MEDS: HYDROmorphone 2 MG TAB PO PRN ×2 (17:44→21:48)
[2019-04-26] MEDS: diphenhydrAMINE 50 MG/ML VIAL IVP PRN ×3 (01:46→09:23)
[2019-04-26] MEDS: HYDROmorphone 2 MG TAB PO PRN ×3 (01:46→09:23)
[2019-04-26] MEDS: Sodium Chloride 0.9% 1,000 ML IV SCH (05:46)
[2019-04-26] MEDS: Azithromycin 250 MG TAB PO SCH (09:23)
[2019-04-26] MEDS: Hydroxyurea 500 MG CAP PO SCH (09:23)
[2019-04-26] MEDS: Enoxaparin Sodium 40 MG/0.4 ML SYRINGE SC SCH (09:23)
[2019-04-26] MEDS: Folic Acid 1 MG TAB PO SCH (09:23)
[2019-04-26] MEDS: cefTRIAXone\\ROCEPHIN 2 GM in Sodium Chloride 0.9% 100 ML IVPB SCH (09:30)
--- NOTE | 2019-04-26 14:19 | DIS ---
DATE OF ADMISSION: 04/19/2019 DATE OF DISCHARGE: 04/26/2019 DISCHARGE DISPOSITION: Discharged home. PRIMARY CARE PROVIDER: Dr. Jefe Hernandez. FINAL DIAGNOSES: Sickle cell disease with crisis, hyperbilirubinemia, sickle cell anemia. DISCHARGE MEDICINES: The patient has multiple pain medicines at home including tramadol 50 mg, hydrocodone 10/325, acetaminophen with codeine No. 3, gabapentin 100 t.i.d. He was also discharged on hydroxyurea 200 mg a day. HOSPITAL COURSE: The patient was admitted to the [facility] through [facility] with pain in chest, ribs, arms, described as his classic sickle cell crisis. He was placed in the hospital, placed on a hydromorphone pump. Chest x-ray revealed no acute change. CT of the abdomen and pelvis revealed no acute findings. LABORATORY DATA: Initial white count 33,000, hemoglobin 11.2, and platelet count 459,000. Chemistries actually unremarkable initially. Bilirubin was 1.0; however, it did go up to 2.6 during his crisis and has now come back down to normal. His white count, which was up, has come down to normal. He was seen by Mica Fair for Hematology. She recommended starting him on hydroxyurea. She started him on a 500 mg doses. He was not currently taking hydroxyurea. He was given instructions on how to follow up with Dr. Posey at [facility] during his stay by Mica Fair. He is being discharged on the 200 mg dose. At the time of discharge, his crisis has resolved, but he is still a bit uncomfortable; however, he is eating and drinking well, taking p.o. analgesics. He has been discharged to follow up in [address] Hernandez and to follow up with Dr. Posey at [facility] per Mica Fair's recommendations. Job ID: [id number]
[2019-04-26 15:10] VITALS: BP 110/66; TEMP 98.7
== END 2019-04-26 20:10 | disposition home or self-care (01) | DRG 812 ==
LOC: ERS 14:12 → SURG A 21:29 → OBSVTOIN 04-19 03:12
PROVIDERS: ADMIT Internal Medicine; ATTEND Internal Medicine
DX: D57.00 Hb-SS disease with crisis, unspecified (principal); E80.6 Other disorders of bilirubin metabolism; F17.210 Nicotine dependence, cigarettes, uncomplicated; G89.29 Other chronic pain; F41.9 Anxiety disorder, unspecified; F32.9 Major depressive disorder, single episode, unspecified; R50.81 Fever presenting with conditions classified elsewhere; Z88.6 Allergy status to analgesic agent; Z88.5 Allergy status to narcotic agent; Z88.2 Allergy status to sulfonamides; Z79.899 Other long term (current) drug therapy; Z28.21 Immunization not carried out because of patient refusal
CPT/HCPCS: 36415; 71046; 74177; 80048; 80053; 81003; 83605; 83690; 85025; 85046; 87040; 93005; 94760; 96361; 96365; 96366; 96367; 96375; J0692; J0696; J1170; J1200; J1650; J2270; J2405; J3370; J3490; Q0163

== ENCOUNTER 2019-04-29 16:00 | Emergency (ER) | payer MEDICARE, MEDICAID ==
--- NOTE | 2019-04-29 16:33 | RAD ---
XR Chest 1 View Portable HISTORY: Chest pain COMPARISON: 04/17/2019 FINDINGS: The heart size is normal. The lungs are well expanded without focal areas of consolidation, pneumothorax or pleural effusions. Scarring in the left lung base was also noted on the CT scan of 03/08/2019. IMPRESSION: No radiographic evidence of acute cardiopulmonary process.
[2019-04-29 16:53] LABS: Hemoglobin 9.8 g/dL (14.0-18.0); Mean Corpuscular HGB CONC 35.3 g/dL (32.0-36.0); Mean Corpuscular Hemoglobin 31.7 pg (27.0-31.0); Mean Corpuscular Volume 89.8 fL (78.0-98.0); Mean Platelet Volume 6.5 fL (7.4-10.4); Platelet Count 728 thou/uL (130-400); RBC Distribution Width 17.5 % (11.5-14.5); White Blood Cell (WBC) Count 28.1 thou/uL (4.8-10.8)
[2019-04-29 17:21] LABS: ALT (SGPT) 51 U/L (8-55); AST (SGOT) 35 U/L (5-34); Albumin 4.5 g/dL (3.5-5.0); Alkaline Phosphatase 116 U/L (40-110); Anion Gap 15 mmol/L (10-20); BUN (Urea Nitrogen) 4 mg/dL (8.9-20.6); Bilirubin, Total 0.8 mg/dL (0.2-1.2); CK (CPK) 74 U/L (30-200); Calc. Creatinine Clearance 0 mL/min (70-130); Calcium 9.9 mg/dL (7.8-10.44); Carbon Dioxide 22 mmol/L (22-29); Chloride 106 mmol/L (98-107); Estimated GFR-MDRD Greater than 90; Glucose 90 mg/dL (70-105); Potassium 4.5 mmol/L (3.5-5.1); Protein, Total 8.5 g/dL (6.0-8.3); Sodium 138 mmol/L (136-145)
[2019-04-29 17:22] LABS: Anisocytosis MODERATE=16-30 cells (100X) (0-5/hpf); Band 2 % (5-11); Eosinophils 1 % (0-10); Hypochromia SLIGHT = 6-15 cells (100X) (0-5/hpf); Lymphocytes 27 % (21-51); MDiff Complete? YES; Macrocytosis SLIGHT = 6-15 cells (100X) (0-5/hpf); Monocytes 9 % (0-10); Neutrophil 59 % (42-75); Nucleated RBC 2 % (0); Polychromasia SLIGHT = 2-3 cells (100X) (0-2/hpf); Reactive Lymphocytes 2 % (0-10); Schistocytes SLIGHT = 2-5 cells (100X) (0-1/hpf); Sickle Cells SLIGHT = 1-5 cells (100X) (None Seen); Target Cells MARKED = >16 cells (100X) (0-1/hpf)
[2019-04-29 20:27] LABS: Reticulocyte Count 6.4 % (0.5-1.5)
[2019-04-29] MEDS ORDERED: Morphine 4 MG/ML VIAL ONE (21:22)
[2019-04-29] MEDS ORDERED: HYDROcodone/Acetaminophen 5/325 mg Tablet ONE (22:02)
[2019-04-29] MEDS ORDERED: diphenhydrAMINE 25 MG CAP ONE (22:02)
== END 2019-04-29 23:10 | disposition home or self-care (01) ==
LOC: ERS 16:00
DX: D57.00 Hb-SS disease with crisis, unspecified (principal); G35 Multiple sclerosis; F17.210 Nicotine dependence, cigarettes, uncomplicated
CPT/HCPCS: 36415; 71045; 80053; 82550; 84484; 85025; 85046; 93005; 94760; 96372; J2270; Q0163

== ENCOUNTER 2019-05-04 09:14 | Emergency (ER) | payer MEDICARE, MEDICAID ==
[2019-05-04] MEDS ORDERED: diphenhydrAMINE 50 MG/ML VIAL ONE ×2 (09:45→11:33)
[2019-05-04] MEDS ORDERED: Morphine 4 MG/ML VIAL ONE ×2 (09:45→11:28)
--- NOTE | 2019-05-04 09:57 | RAD ---
XR Chest 1 View Portable HISTORY: Sickle cell anemia, body pain COMPARISON: 04/29/2019 FINDINGS: The heart size is normal. The lungs are well expanded without focal areas of consolidation, pneumothorax or pleural effusions. Scarring in the left lung base was also noted on the CT scan of 03/08/2019. IMPRESSION: No radiographic evidence of acute cardiopulmonary process.
[2019-05-04 10:59] LABS: Hemoglobin 9.9 g/dL (14.0-18.0); Mean Corpuscular HGB CONC 35.6 g/dL (32.0-36.0); Mean Corpuscular Hemoglobin 33.1 pg (27.0-31.0); Mean Corpuscular Volume 92.9 fL (78.0-98.0); Mean Platelet Volume 6.3 fL (7.4-10.4); Platelet Count 843 thou/uL (130-400); RBC Distribution Width 17.7 % (11.5-14.5); Red Blood Cell (RBC) Count 2.98 mill/uL (4.70-6.10); White Blood Cell (WBC) Count 9.1 thou/uL (4.8-10.8)
[2019-05-04 11:29] LABS: ALT (SGPT) 14 U/L (8-55); AST (SGOT) 25 U/L (5-34); Albumin 4.3 g/dL (3.5-5.0); Alkaline Phosphatase 93 U/L (40-110); Anion Gap 16 mmol/L (10-20); BUN (Urea Nitrogen) 4 mg/dL (8.9-20.6); Bilirubin, Total 0.8 mg/dL (0.2-1.2); Calc. Creatinine Clearance 0 mL/min (70-130); Calcium 9.8 mg/dL (7.8-10.44); Carbon Dioxide 25 mmol/L (22-29); Chloride 105 mmol/L (98-107); Estimated GFR-MDRD Greater than 90; Globulin 4.3 g/dL (2.4-3.5); Glucose 85 mg/dL (70-105); Hemoglobin C Crystals MODERATE (None Seen); Lymphocytes 32 % (21-51); MDiff Complete? YES; Monocytes 6 % (0-10); Neutrophil 61 % (42-75); Platelet Morphology Comment Appears Increased; Polychromasia MODERATE = 3-4 cells (100X) (0-2/hpf); Potassium 4.6 mmol/L (3.5-5.1); Protein, Total 8.6 g/dL (6.0-8.3); Sodium 141 mmol/L (136-145); Target Cells MARKED = >16 cells (100X) (0-1/hpf)
== END 2019-05-04 13:40 | disposition home or self-care (01) ==
LOC: ERS 09:14
DX: D57.00 Hb-SS disease with crisis, unspecified (principal); Z87.891 Personal history of nicotine dependence; Z79.1 Long term (current) use of non-steroidal anti-inflammatories (NSAID); Z79.899 Other long term (current) drug therapy
CPT/HCPCS: 71045; 80053; 85025; 85046; 96361; 96374; 96375; 96376; J1200; J2270

== ENCOUNTER 2019-05-05 16:10 | Emergency (ER) | payer MEDICARE, OTHER ==
[2019-05-05] MEDS ORDERED: Ondansetron PF 4 MG/2 ML Vial ONE ×2 (16:36→17:05)
[2019-05-05] MEDS ORDERED: Morphine 4 MG/ML VIAL ONE ×3 (16:36→21:05)
[2019-05-05 16:56] LABS: Reticulocyte Count 6.2 % (0.5-1.5)
[2019-05-05 17:00] LABS: Mean Corpuscular HGB CONC 34.8 g/dL (32.0-36.0); Mean Corpuscular Hemoglobin 32.6 pg (27.0-31.0); Mean Corpuscular Volume 93.8 fL (78.0-98.0); Platelet Count 844 thou/uL (130-400); RBC Distribution Width 17.2 % (11.5-14.5); Red Blood Cell (RBC) Count 3.08 mill/uL (4.70-6.10)
[2019-05-05] MEDS ORDERED: diphenhydrAMINE 50 MG/ML VIAL ONE (17:05)
[2019-05-05 17:10] LABS: ALT (SGPT) 12 U/L (8-55); AST (SGOT) 16 U/L (5-34); Albumin 4.4 g/dL (3.5-5.0); Alkaline Phosphatase 97 U/L (40-110); Anion Gap 15 mmol/L (10-20); BUN (Urea Nitrogen) 5 mg/dL (8.9-20.6); Bilirubin, Total 0.7 mg/dL (0.2-1.2); CK (CPK) 83 U/L (30-200); Calc. Creatinine Clearance 0 mL/min (70-130); Calcium 9.8 mg/dL (7.8-10.44); Carbon Dioxide 24 mmol/L (22-29); Chloride 106 mmol/L (98-107); Estimated GFR-MDRD Greater than 90; Globulin 3.5 g/dL (2.4-3.5); Glucose 89 mg/dL (70-105); Lipase 32 U/L (8-78); Potassium 4.1 mmol/L (3.5-5.1); Protein, Total 7.9 g/dL (6.0-8.3); Sodium 141 mmol/L (136-145)
--- NOTE | 2019-05-05 17:17 | RAD ---
EXAM: CHEST ONE VIEW HISTORY: Chest pain COMPARISON: 05/04/2019 FINDINGS: The cardiac silhouette and pulmonary vasculature is within normal limits. Mild scarring is again seen at the left lung base similar to prior study and also stable compared to study on 05/03/2018. The lungs are otherwise clear. The osseous structures are intact. IMPRESSION: No acute cardiopulmonary process.
[2019-05-05 17:19] LABS: Anisocytosis SLIGHT = 6-15 cells (100X) (0-5/hpf); Hemoglobin C Crystals SLIGHT (None Seen); Lymphocytes 33 % (21-51); MDiff Complete? YES; Monocytes 10 % (0-10); Neutrophil 56 % (42-75); Nucleated RBC 2 % (0); Platelet Morphology Comment Appears Increased; Poikilocytosis SLIGHT = 6-15 cells (100X) (0-5/hpf); Polychromasia MODERATE = 3-4 cells (100X) (0-2/hpf); Reactive Lymphocytes 1 % (0-10); Schistocytes SLIGHT = 2-5 cells (100X) (0-1/hpf); Target Cells MODERATE= 6-15 cells (100X) (0-1/hpf); White Blood Cell (WBC) Count 8.1 thou/uL (4.8-10.8)
[2019-05-05 18:28] LABS: Bilirubin Negative (Negative); Blood, Urine Negative (Negative); Clarity Clear (Clear); Glucose, Urine (Dipstick) Normal (Negative); Leukocyte Negative Leu/uL (Negative); Nitrite Negative (Negative); Protein, Urine (Dipstick) Negative (Neg-Trace); Urobilinogen Normal mg/dL (Less than 2)
[2019-05-05] MEDS ORDERED: HYDROcodone/Acetaminophen 5/325 mg Tablet ONE (22:20)
== END 2019-05-05 22:25 | disposition home or self-care (01) ==
LOC: ERS 16:10
DX: D57.00 Hb-SS disease with crisis, unspecified (principal); Z87.891 Personal history of nicotine dependence
CPT/HCPCS: 71045; 80053; 81003; 82550; 83690; 84484; 85025; 85046; 93005; 94760; 96361; 96374; 96375; 96376; J1200; J2270; J2405

== ENCOUNTER 2019-05-08 12:00 | Emergency (ER) | payer MEDICARE, OTHER ==
--- NOTE | 2019-05-08 12:31 | RAD ---
Exam: Chest one view HISTORY:Shortness of breath. Chest discomfort. Comparison: 05/05/2019 FINDINGS: Cardiac silhouette: Normal Aorta: Unremarkable Pulmonary vessels: Normal Costophrenic angles: Clear LUNGS: No masses or consolidation. Stable scarring the left lung base. Tenting of the left hemidiaphr agm. Pneumothorax: None Osseous abnormalities: None IMPRESSION: No acute cardiopulmonary process.
[2019-05-08 13:02] LABS: Hemoglobin 12.9 g/dL (14.0-18.0); Mean Corpuscular HGB CONC 35.3 g/dL (32.0-36.0); Mean Corpuscular Hemoglobin 32.8 pg (27.0-31.0); Mean Corpuscular Volume 92.8 fL (78.0-98.0); Mean Platelet Volume 6.1 fL (7.4-10.4); Platelet Count 688 thou/uL (130-400); RBC Distribution Width 16.7 % (11.5-14.5); Red Blood Cell (RBC) Count 3.93 mill/uL (4.70-6.10); Reticulocyte Count 4.7 % (0.5-1.5)
[2019-05-08 13:07] LABS: ALT (SGPT) 10 U/L (8-55); AST (SGOT) 16 U/L (5-34); Albumin 4.5 g/dL (3.5-5.0); Alkaline Phosphatase 92 U/L (40-110); Anion Gap 16 mmol/L (10-20); BUN (Urea Nitrogen) 5 mg/dL (8.9-20.6); Bilirubin, Total 0.8 mg/dL (0.2-1.2); Calc. Creatinine Clearance 0 mL/min (70-130); Carbon Dioxide 20 mmol/L (22-29); Chloride 104 mmol/L (98-107); Estimated GFR-MDRD Greater than 90; Globulin 3.8 g/dL (2.4-3.5); Glucose 83 mg/dL (70-105); Potassium 4.2 mmol/L (3.5-5.1); Protein, Total 8.3 g/dL (6.0-8.3); Sodium 136 mmol/L (136-145)
[2019-05-08 13:23] LABS: Bilirubin Negative (Negative); Blood, Urine Negative (Negative); Clarity Clear (Clear); Glucose, Urine (Dipstick) Normal (Negative); Leukocyte Negative Leu/uL (Negative); Nitrite Negative (Negative); Protein, Urine (Dipstick) Negative (Neg-Trace); Urobilinogen Normal mg/dL (Less than 2)
[2019-05-08 13:24] LABS: Anisocytosis SLIGHT = 6-15 cells (100X) (0-5/hpf); Band 1 % (5-11); Eosinophils 1 % (0-10); Hemoglobin C Crystals SLIGHT (None Seen); Large Platelets SLIGHT; Lymphocytes 30 % (21-51); MDiff Complete? YES; Monocytes 7 % (0-10); Neutrophil 61 % (42-75); Nucleated RBC 1 % (0); Platelet Morphology Comment Appears Increased; Poikilocytosis SLIGHT = 6-15 cells (100X) (0-5/hpf); Polychromasia SLIGHT = 2-3 cells (100X) (0-2/hpf); Target Cells MODERATE= 6-15 cells (100X) (0-1/hpf); Tear Drops SLIGHT = 2-5 cells (100X) (0-1/hpf); Vacuoles SLIGHT; White Blood Cell (WBC) Count 10.5 thou/uL (4.8-10.8)
== END 2019-05-08 13:58 | disposition home or self-care (01) ==
LOC: ERS 12:00
DX: D57.1 Sickle-cell disease without crisis (principal); R06.02 Shortness of breath; F17.210 Nicotine dependence, cigarettes, uncomplicated; Z79.899 Other long term (current) drug therapy
CPT/HCPCS: 36415; 71045; 80053; 81003; 85025; 85046; 93005

== ENCOUNTER 2019-05-31 10:35 | Inpatient (IN) | payer MEDICARE, MEDICAID ==
[2019-05-31] MEDS ORDERED: HYDROcodone/Acetaminophen 5/325 mg Tablet ONE (11:01)
--- NOTE | 2019-05-31 11:31 | RAD ---
XR Chest 1 View Portable HISTORY: Chest pain, abdominal pain COMPARISON: 05/08/2019 FINDINGS: The heart size is normal. The lungs are well expanded without focal areas of consolidation, pneumothorax or pleural effusions. IMPRESSION: No radiographic evidence of acute cardiopulmonary process.
[2019-05-31 11:37] LABS: Mean Corpuscular HGB CONC 35.1 g/dL (32.0-36.0); Mean Corpuscular Hemoglobin 30.9 pg (27.0-31.0); Mean Corpuscular Volume 88.2 fL (78.0-98.0); Mean Platelet Volume 7.1 fL (7.4-10.4); Platelet Count 330 thou/uL (130-400); RBC Distribution Width 15.1 % (11.5-14.5); Red Blood Cell (RBC) Count 3.89 mill/uL (4.70-6.10); White Blood Cell (WBC) Count 15.4 thou/uL (4.8-10.8)
[2019-05-31 11:40] LABS: Reticulocyte Count 2.2 % (0.5-1.5)
[2019-05-31 11:43] LABS: #Monocytes 1.1 thou/uL (0.11-0.59); #Neutrophils 9.7 thou/uL (1.40-6.50); %Basophils 0.2 % (0.0-1.0); %Eosinophils 0.1 % (0.0-10.0); %Lymphocytes 15.7 % (21.0-51.0); %Monocytes 8.3 % (0.0-10.0); %Neutrophils 75.8 % (42.0-75.0)
[2019-05-31 11:58] LABS: ALT (SGPT) 56 U/L (8-55); AST (SGOT) 93 U/L (5-34); Albumin 4.7 g/dL (3.5-5.0); Alkaline Phosphatase 69 U/L (40-110); Anion Gap 14 mmol/L (10-20); BUN (Urea Nitrogen) 9 mg/dL (8.9-20.6); Bilirubin, Total 1.1 mg/dL (0.2-1.2); Calc. Creatinine Clearance 0 mL/min (70-130); Carbon Dioxide 25 mmol/L (22-29); Chloride 103 mmol/L (98-107); Estimated GFR-MDRD Greater than 90; Globulin 3.1 g/dL (2.4-3.5); Glucose 119 mg/dL (70-105); Lipase 7 U/L (8-78); Potassium 4.5 mmol/L (3.5-5.1); Protein, Total 7.8 g/dL (6.0-8.3); Sodium 137 mmol/L (136-145)
[2019-05-31 12:01] LABS: Bacteria/HPF 2+ HPF (None Seen); Bilirubin Negative (Negative); Blood, Urine Negative (Negative); Clarity Clear (Clear); Glucose, Urine (Dipstick) Normal (Negative); Leukocyte 500 Leu/uL (Negative); Nitrite 2+ (Negative); Protein, Urine (Dipstick) Negative (Neg-Trace); RBC/HPF 0-3 HPF (0-3); Squamous Epithelial 0-3 HPF (0-3); Urobilinogen Normal mg/dL (Less than 2); WBC/HPF 21-50 HPF (0-3)
[2019-05-31] MEDS ORDERED: cefTRIAXone\\ROCEPHIN 1 GM VIAL ONE (12:53)
[2019-05-31] MEDS ORDERED: diphenhydrAMINE 50 MG/ML VIAL ONE (12:53)
[2019-05-31] MEDS ORDERED: Iopamidol 370 76% 100 ML VIAL ONE (14:48)
[2019-05-31] MEDS ORDERED: Iopamidol-370 76% 500 ML 1 ML ONE (14:55)
--- NOTE | 2019-05-31 17:04 | CT ---
EXAM: CT ABDOMEN AND PELVIS HISTORY: Right lower quadrant pain. Evaluate for appendicitis. COMPARISON: None. Procedure: Multiple contiguous axial images were obtained and a CT of the abdomen and pelvis with IV contrast. C oronal reformats were performed. FINDINGS: Lower Chest: Scarring and/or atelectasis in the dependent portion of both lower lobes. More focal opa cification in the lingula. Correlate for infiltrate. Vessels: Normal caliber aorta. No periaortic fat stranding. Heart: Upper normal heart size. No significant pericardial effusion Abdomen: Portal vein:Patent Gallbladder: No calcified gallstones. Normal caliber wall. Liver: within normal limits. Pancreas: within normal limits. Spleen: within normal limits. Adrenals: within normal limits. Kidneys: Mild fullness of bilateral intrarenal collecting systems and renal pelvises. Bilateral urete rs are decompressed. No hydroureter, periureteral fat stranding or ureterolithiasis. Peritoneum: Decreased visceral fat limits evaluation for inflammatory change. No mesenteric mass, lym phadenopathy, free air or free fluid. Bowel: Gastric mucosa is unremarkable. There appears to be hypoattenuation in the third and fourth po rtion of the duodenum with mucosal thickening. Presumed ingested material. There are thickened jejunal loops without associated high-grade obstruction. Correlate for enteritis. Contrast does pass through the jejunum and opacifies the colon. Ileocecal junction is unremarkable. There is contrast and scattered fecal material in a nondistended, nondilated colon. The base of the appendix is filled with contrast and has a small focus of air. The distal appendix is not air-filled but is normal in caliber. No periappendiceal inflammatory change. Mesentery and Retroperitoneum: No enlarged mesenteric or retroperitoneal lymph nodes. Abdominal Wall: within normal limits. Pelvis: Reproductive Organs: Reproductive organs are unremarkable. Pelvis: No mass, lymphadenopathy, free air or free fluid. Bladder: Mildly distended. No mucosal abnormality. Bones: No lytic or blastic lesions. Pseudoarthrosis of the right L5 ala with the adjacent sacrum IMPRESSION: 1. Normal caliber appendix 2. Enteritis involving proximal small bowel loops. No associated small bowel obstruction. 3. Mild prominence of the bilateral intrarenal collecting system and renal pelvis is without associat ed obstructing calculi. Correlate clinically. Urinary bladder is mildly distended. Encourage spontaneous voiding Transcribed Date/Time: 05/31/2019 5:09 PM
[2019-05-31] MEDS ORDERED: Azithromycin 500 MG VIAL ONE (17:22)
[2019-05-31] MEDS ORDERED: Ondansetron PF 4 MG/2 ML Vial IVP PRN (19:22)
[2019-05-31] MEDS ORDERED: Ondansetron ODT 4 MG TAB SL PRN (19:22)
[2019-05-31] MEDS ORDERED: Acetaminophen 325 MG TAB PO PRN ×2 (19:22→21:20)
[2019-05-31] MEDS ORDERED: HYDROcodone/Acetaminophen 5/325 mg Tablet PO PRN (19:22)
[2019-05-31] MEDS: HYDROcodone/Acetaminophen 5/325 mg Tablet PO PRN (19:32)
[2019-05-31] MEDS: Sodium Chloride 0.9% 1,000 ML IV SCH (19:34)
[2019-05-31] MEDS ORDERED: Acetaminophen 650 MG Suppository PR PRN (21:20)
--- NOTE | 2019-05-31 21:47 | PDOC.HHP ---
Hospitalist HPI - History of Present Illness Multiple complaints History of Present Illness: Patient presents with complaints of generalized pain, he does have pain that comes and goes due to sickle cell disease. He states since Thursday he has had fever, chills and sweats. His son was diagnosed with pneumonia and his has had flu like symptoms. Reports a cough productive for yellow sputum which is now maroon colored since last night. He has some discomfort in his abdomen. Has had stools that are looser than usual but no melena. Reports dysuria for the last few days. Denies any hematuria. Reports discomfort throughout his arms , legs, and chest. He normally takes hydrocodone to help with his chronic pain. ED Course: In the ED he was noted to have an elevated white count and low grade temp. Lactic acid normal at 1.8. Renal function normal. Flu testing was negative. CXR was unremarkable. CT A/P was done and showed enteritis involving the proximal small bowel, mild prominence of the bilateral intrarenal collecting system, no associated obstructing calculi. Bladder mildly distended. UA was positive for 500 lekoctyes, Nitrites 2+, WBC 21-50 and 2+ bacteria. He was given Azithromycin, Rocephin, [place] and NS 1L IV. Admitted for Viral URI and UTI. Hospitalist ROS - Review of Systems Constitutional: reports: fever, chills, sweats, malaise Eyes: denies: pain, vision change, conjunctivae inflammation, eyelid inflammation, redness, other ENT: denies: ear pain, ear discharge, nose pain, nose discharge, nose congestion , mouth pain, mouth swelling, throat pain, throat swelling, other Respiratory: reports: cough, shortness of breath (states at times feels his chest is tight), hemoptysis Cardiovascular: reports: chest pain Gastrointestinal: reports: abdominal pain, diarrhea Genitourinary: reports: dysuria Musculoskeletal: reports: neck pain, shoulder pain, back pain, leg pain Skin: denies: rash, lesions, ashley, bruising, other - Medication Medications: Active Medications Generic Name Dose Route Start Last Admin Trade Name Freq PRN Reason Stop Dose Admin Hydrocodone Bitart/Acetaminophen 2 tab 05/31/19 19:22 05/31/19 19:32 [place] 5/325 PO 06/01/19 05:40 2 tab Q6H PRN Administration Moderate to Severe Pain (6-10) Sodium Chloride 1,000 mls @ 125 mls/hr 05/31/19 19:22 05/31/19 19:34 Normal Saline 0.9% IV 06/01/19 05:40 1,000 mls .Q8H GRIFFIN Administration Hospitalist History - Past Medical History Source: patient Pulmonary: reports: Other (Hx of PE in the past) Heme/Onc: reports: Sickle cell disease Psych: reports: Depression Musculoskeletal: reports: Other (Multiple sclerosis) - Social History Smoking Status: Current every day smoker (2 cigarettes per day) Alcohol: reports: None Drugs: reports: marijuana (more than 6 months ago.) Living Situation: With Family - Exam General Appearance: NAD, ill appearing General - other findings: generalized discomfort with pain throughout his entire body Eye: PERRL ENT: dry oral mucosa Neck: supple, no lymphadenopathy Heart: RRR, no murmur, no gallops, no rubs, normal peripheral pulses Respiratory: CTAB, no wheezes, no rales, no ronchi, normal chest expansion, no tachypnea Gastrointestinal: soft, non-distended, no guarding, no rigidity, tender to palpation Extremities: no cyanosis, no clubbing, no edema Skin: normal turgor, no lesions, no rashes Neurological: cranial nerve grossly intact Musculoskeletal: normal tone, normal strength, no muscle wasting Psychiatric: normal affect, normal behavior, A&O x 3 Hospitalist Results - Labs Result Diagrams: 05/31/19 11:15 05/31/19 11:15 Lab results: WBC 15.4 thou/uL (4.8-10.8) H 05/31/19 11:15 Hgb 12.0 g/dL (14.0-18.0) L 05/31/19 11:15 Hct 34.3 % (42.0-52.0) L 05/31/19 11:15 MCV 88.2 fL (78.0-98.0) 05/31/19 11:15 Plt Count 330 thou/uL (130-400) 05/31/19 11:15 Neutrophils % 75.8 % (42.0-75.0) H 05/31/19 11:15 Sodium 137 mmol/L (136-145) 05/31/19 11:15 Potassium 4.5 mmol/L (3.5-5.1) 05/31/19 11:15 Chloride 103 mmol/L (98-107) 05/31/19 11:15 Carbon Dioxide 25 mmol/L (22-29) 05/31/19 11:15 BUN 9 mg/dL (8.9-20.6) 05/31/19 11:15 Creatinine 0.83 mg/dL (0.7-1.3) 05/31/19 11:15 Glucose 119 mg/dL (70-105) H 05/31/19 11:15 Lactic Acid 1.8 mmol/L (0.5-2.2) 05/31/19 11:15 Calcium 10.0 mg/dL (7.8-10.44) 05/31/19 11:15 Total Bilirubin 1.1 mg/dL (0.2-1.2) 05/31/19 11:15 AST 93 U/L (5-34) H 05/31/19 11:15 ALT 56 U/L (8-55) H 05/31/19 11:15 Alkaline Phosphatase 69 U/L (40-110) 05/31/19 11:15 Troponin I Less than 0.010 ng/mL (< 0.028) 05/31/19 11:15 Serum Total Protein 7.8 g/dL (6.0-8.3) 05/31/19 11:15 Albumin 4.7 g/dL (3.5-5.0) 05/31/19 11:15 Lipase 7 U/L (8-78) L 05/31/19 11:15 Urine Ketones 40 mg/dL (Negative) A 05/31/19 11:15 Urine Blood Negative (Negative) 05/31/19 11:15 Urine Nitrite 2+ (Negative) A 05/31/19 11:15 Ur Leukocyte Esterase 500 Jackson/uL (Negative) A 05/31/19 11:15 Urine RBC 0-3 HPF (0-3) 05/31/19 11:15 Urine WBC 21-50 HPF (0-3) A 05/31/19 11:15 Ur Squamous Epith Cells 0-3 HPF (0-3) 05/31/19 11:15 Urine Bacteria 2+ HPF (None Seen) A 05/31/19 11:15 - EKG Interpretation EKG: NSR, HR 83 Hospitalist H&P A/P - Problem (1) Fever and chills Code(s): R50.9 - FEVER, UNSPECIFIED Status: Acute (2) UTI (urinary tract infection) Status: Acute (3) Cough with hemoptysis Code(s): R04.2 - HEMOPTYSIS Status: Acute (4) Chronic pain disorder Code(s): G89.4 - CHRONIC PAIN SYNDROME Status: Chronic (5) Sickle cell pain crisis Code(s): D57.00 - HB-SS DISEASE WITH CRISIS, UNSPECIFIED Status: Chronic - Plan Plan: Continue IV Abx. Awaiting UCx. CXR negative. D-dimer ordered given hemoptysis and history of PE. If normal, will obtain CT chest. If elevated will order CTA chest. (he did have IV contrast with CT A/P done today). Testing was negative for Flu in the ED. Bladder scan, post void, to confirm he is not retaining urine, given distention noted on CT A/P. Pain control with hydrocodone. IV Fluids. CODE STATUS: FULL Surrogate decision maker is his .
[2019-05-31] MEDS: traMADol HCl 50 MG TAB PO PRN (22:14)
[2019-06-01] MEDS: HYDROcodone/Acetaminophen 5/325 mg Tablet PO PRN (01:15)
[2019-06-01] MEDS: Sodium Chloride 0.9% 1,000 ML IV SCH ×4 (04:17→23:28)
[2019-06-01 06:20] LABS: Anion Gap 14 mmol/L (10-20); BUN (Urea Nitrogen) 5 mg/dL (8.9-20.6); Calc. Creatinine Clearance 124 mL/min (70-130); Calcium 8.9 mg/dL (7.8-10.44); Carbon Dioxide 19 mmol/L (22-29); Chloride 107 mmol/L (98-107); Estimated GFR-MDRD Greater than 90; Glucose 75 mg/dL (70-105); Sodium 135 mmol/L (136-145)
[2019-06-01 07:30] LABS: #Eosinphils 0.1 thou/uL (0.0-0.7); #Lymphocytes 1.9 thou/uL (1.20-3.40); #Monocytes 1.4 thou/uL (0.11-0.59); #Neutrophils 7.8 thou/uL (1.40-6.50); %Basophils 0.3 % (0.0-1.0); %Eosinophils 0.5 % (0.0-10.0); %Monocytes 12.2 % (0.0-10.0); Hemoglobin 11.1 g/dL (14.0-18.0); Mean Corpuscular HGB CONC 34.9 g/dL (32.0-36.0); Mean Corpuscular Hemoglobin 31.3 pg (27.0-31.0); Mean Corpuscular Volume 89.7 fL (78.0-98.0); Mean Platelet Volume 7.7 fL (7.4-10.4); Platelet Count 217 thou/uL (130-400); Red Blood Cell (RBC) Count 3.54 mill/uL (4.70-6.10); White Blood Cell (WBC) Count 11.2 thou/uL (4.8-10.8)
--- NOTE | 2019-06-01 07:55 | CT ---
PRELIMINARY REPORT/[facility]/EMERGENCY AFTER HOURS PROCEDURE: PROCEDURE: CTA Chest with IV Contrast Material . HISTORY: Dyspnea. TECHNIQUE: Axial images were performed with multiplanar and 3-D (maximum intensity projection and padmini face-shaded) reconstructions. The patient was given iodinated nonionic IV contrast . COMPARISON: None . FINDINGS: Normal aorta with no atherosclerosis, aneurysm, or dissection. No evidence of pulmonary emb olus. Mediastinum and hilar regions show no masses or lymphadenopathy. Normal size heart with no pericardial fluid. Scar versus atelectasis in the lingula. Linear scar versus discoid atelectasis amisha ng bases. No pulmonary consolidation or masses. No pleural fluid. Visualized upper abdomen shows some retained contrast in the visualized splenic flexure of the colon. No acute bony abnormality. IMPRESSION: No pulmonary embolus. Scar versus atelectasis lung bases. No other significant abnormalit y identified. ELECTRONICALLY SIGNED BY: Marty Oh MD Jun 01, 2019 1:29:53 AM GARDEN CONSULTANT FINAL REPORT CT PULMONARY ANGIOGRAM WITH IV CONTRAST AND 3-D POSTPROCESSING: I agree with the report given by Dr. Marty Oh of [facility]. Transcribed Date/Time: 06/01/2019 8:10 AM
[2019-06-01] MEDS ORDERED: FLU VACC QS2019-20(6MOS UP)/PF 60 MCG/0.5 ML SYRINGE IM ONE (09:00)
[2019-06-01] MEDS: traMADol HCl 50 MG TAB PO PRN ×2 (10:07→21:21)
[2019-06-01] MEDS: Famotidine/PF 20 mg/2ml Vial SLOW IVP SCH ×2 (10:08→20:21)
[2019-06-01] MEDS: HYDROcodone/Acetaminophen 10/325 mg Tablet PO PRN (12:50)
[2019-06-01] MEDS: cefTRIAXone\\ROCEPHIN 1 GM in Sodium Chloride 0.9% 100 ML IVPB SCH (12:51)
--- NOTE | 2019-06-01 15:02 | PDOC.HOSPP ---
- Subjective Encounter Date: 06/01/19 Encounter Time: 14:45 Subjective: f/u for Sickle cell crisis on IVF's and [place]. Initially suspected with UTI but Ucx negative currently. Receiving Rocephin. Still with arm pain. - Objective Vital Signs & Weight: Vital Signs (12 hours) Temp Pulse Resp BP Pulse Ox 06/01/19 11:00 98.0 F 75 20 90/56 L 98 06/01/19 07:52 98.5 F 84 20 96/61 98 06/01/19 04:34 98.9 F 79 16 108/70 98 Weight Weight 133 lb 12.8 oz I&O: 05/31/19 06/01/19 06/02/19 06:59 06:59 06:59 Intake Total 2000 Output Total 1200 Balance 800 Result Diagrams: 06/01/19 05:43 06/01/19 05:43 Additional Labs: Microbiology 06/01/19 15:05 Throat Group A Streptococcus Screen (CARLOS) - Final 05/31/19 11:00 Nasal swab Influenza Types A,B Direct EIA - Final 05/31/19 11:15 Urine clean catch Urine Culture - Preliminary NO GROWTH AT 12 HOURS Laboratory Tests 05/31/19 05/31/19 05/31/19 11:15 11:15 11:15 WBC 15.4 H Hgb 12.0 L Neutrophils % 75.8 H Retic Count 2.2 H AST 93 H ALT 56 H Hospitalist ROS - Medication Medications: Active Medications Generic Name Dose Route Start Last Admin Trade Name Freq PRN Reason Stop Dose Admin Hydrocodone Bitart/Acetaminophen 2 tab 06/01/19 10:13 06/01/19 12:50 [place] 10/325 PO 2 tab Q6H PRN Administration Severe Pain (7-10) Famotidine 20 mg 06/01/19 09:00 06/01/19 10:08 Pepcid SLOW IVP 20 mg Q12HR GRIFFIN Administration Ceftriaxone Sodium 1 gm/ 100 mls @ 200 mls/hr 06/01/19 13:00 06/01/19 12:51 Sodium Chloride IVPB 100 mls 1300 GRIFFIN Administration Sodium Chloride 1,000 mls @ 100 mls/hr 06/01/19 03:35 06/01/19 12:52 Normal Saline 0.9% IV 1,000 mls .Q10H GRIFFIN Administration Tramadol HCl 50 mg 05/31/19 21:19 06/01/19 10:07 Ultram PO 50 mg Q4H PRN Administration Moderate Pain (4-6) - Exam General Appearance: NAD, awake alert Eye: PERRL, anicteric sclera ENT: normocephalic atraumatic, no oropharyngeal lesions Neck: supple, symmetric, no JVD, no thyromegaly Heart: RRR, no murmur, no gallops, no rubs, normal peripheral pulses Respiratory: CTAB, no wheezes, no rales, no ronchi Gastrointestinal: soft, non-tender, non-distended, normal bowel sounds Extremities: no cyanosis, no clubbing, no edema Skin: normal turgor, no lesions Neurological: cranial nerve grossly intact, no new deficit Musculoskeletal: normal tone, normal strength Psychiatric: normal affect, A&O x 3 Hosp A/P (1) Sickle cell pain crisis Code(s): D57.00 - HB-SS DISEASE WITH CRISIS, UNSPECIFIED Status: Acute Plan: Start Morphine Sulfate 4mg IV q4h prn, IVF's, serial H/H (2) Sickle cell anemia Code(s): D57.1 - SICKLE-CELL DISEASE WITHOUT CRISIS Status: Chronic Plan: Continue serial H/H (3) Chronic pain disorder Code(s): G89.4 - CHRONIC PAIN SYNDROME Status: Chronic Plan: Continue home [place] (4) Tobacco abuse Code(s): Z72.0 - TOBACCO USE Status: Chronic - Plan 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
[2019-06-01] MEDS: Morphine 4 MG/ML VIAL SLOW IVP PRN ×3 (15:26→23:27)
[2019-06-01] MEDS: diphenhydrAMINE 50 MG/ML VIAL IVP PRN ×2 (16:50→23:27)
[2019-06-02] MEDS: HYDROcodone/Acetaminophen 10/325 mg Tablet PO PRN ×4 (00:56→20:39)
[2019-06-02] MEDS ORDERED: Morphine 2 MG/ML SYRINGE SLOW IVP SCH (01:30)
[2019-06-02] MEDS: Morphine 4 MG/ML VIAL SLOW IVP PRN ×5 (05:10→23:13)
[2019-06-02] MEDS: diphenhydrAMINE 50 MG/ML VIAL IVP PRN ×4 (05:11→23:14)
[2019-06-02 05:44] LABS: Band 2 % (5-11); Eosinophils 1 % (0-10); Hemoglobin 10.4 g/dL (14.0-18.0); Hemoglobin C Crystals SLIGHT (None Seen); Lymphocytes 14 % (21-51); MDiff Complete? YES; Mean Corpuscular HGB CONC 35.4 g/dL (32.0-36.0); Mean Corpuscular Hemoglobin 31.7 pg (27.0-31.0); Mean Corpuscular Volume 89.5 fL (78.0-98.0); Mean Platelet Volume 7.1 fL (7.4-10.4); Monocytes 4 % (0-10); Neutrophil 79 % (42-75); Nucleated RBC 1 % (0); Platelet Count 294 thou/uL (130-400); Platelet Morphology Comment Appears Adequate; RBC Distribution Width 14.9 % (11.5-14.5); Red Blood Cell (RBC) Count 3.29 mill/uL (4.70-6.10); Target Cells MODERATE= 6-15 cells (100X) (0-1/hpf); White Blood Cell (WBC) Count 12.8 thou/uL (4.8-10.8)
[2019-06-02 05:45] LABS: ALT (SGPT) 57 U/L (8-55); AST (SGOT) 62 U/L (5-34); Albumin 3.9 g/dL (3.5-5.0); Alkaline Phosphatase 65 U/L (40-110); Anion Gap 10 mmol/L (10-20); BUN (Urea Nitrogen) 5 mg/dL (8.9-20.6); Bilirubin, Total 0.9 mg/dL (0.2-1.2); Calc. Creatinine Clearance 122 mL/min (70-130); Calcium 8.9 mg/dL (7.8-10.44); Carbon Dioxide 25 mmol/L (22-29); Chloride 107 mmol/L (98-107); Estimated GFR-MDRD Greater than 90; Glucose 91 mg/dL (70-105); Potassium 4.1 mmol/L (3.5-5.1); Protein, Total 6.9 g/dL (6.0-8.3); Sodium 138 mmol/L (136-145)
[2019-06-02] MEDS: Folic Acid 1 MG TAB PO SCH (08:07)
[2019-06-02] MEDS: Famotidine/PF 20 mg/2ml Vial SLOW IVP SCH ×2 (08:08→20:39)
[2019-06-02] MEDS: Sodium Chloride 0.9% 1,000 ML IV SCH ×2 (09:27→20:41)
[2019-06-02] MEDS: traMADol HCl 50 MG TAB PO PRN (11:09)
[2019-06-02] MEDS: cefTRIAXone\\ROCEPHIN 1 GM in Sodium Chloride 0.9% 100 ML IVPB SCH (13:25)
--- NOTE | 2019-06-02 21:09 | PDOC.HOSPP ---
- Subjective Encounter Date: 06/02/19 Encounter Time: 15:25 Subjective: f/u for Sickle cell crisis and abd pain. States pain in legs and abd region more intense today. Ate part of diet today. Receiving Morphine Sulfate IV, [place] for pain. - Objective Vital Signs & Weight: Vital Signs (12 hours) Temp Pulse Resp BP Pulse Ox 06/02/19 20:00 99.3 F 87 18 104/67 96 06/02/19 16:34 100.4 F H 87 16 100/64 97 06/02/19 11:29 98.1 F 75 14 94/57 L 96 Weight Weight 133 lb 12.8 oz I&O: 06/01/19 06/02/19 06/03/19 06:59 06:59 06:59 Intake Total 2000 Output Total 1200 Balance 800 Result Diagrams: 06/02/19 05:03 06/02/19 05:03 Additional Labs: Microbiology 06/01/19 23:35 Nasopharyngeal swab Influenza Types A & B (LUCI) - Final 06/01/19 15:38 Throat Group A Streptococcus Culture - Final 06/01/19 15:05 Throat Group A Streptococcus Screen (CARLOS) - Final 05/31/19 11:15 Urine clean catch Urine Culture - Final 05/31/19 11:00 Nasal swab Influenza Types A,B Direct EIA - Final 06/01/19 20:01 Venous blood - Right Hand Blood Culture - Preliminary Specimen has been received and culture in progress. No Growth to date. 06/01/19 20:01 Venous blood - Left Arm Blood Culture - Preliminary Specimen has been received and culture in progress. No Growth to date. 05/31/19 11:15 Urine clean catch Urine Culture - Preliminary NO GROWTH AT 12 HOURS Laboratory Tests 05/31/19 05/31/19 05/31/19 11:15 11:15 11:15 WBC 15.4 H Hgb 12.0 L Neutrophils % 75.8 H Retic Count 2.2 H AST 93 H ALT 56 H Hospitalist ROS - Medication Medications: Active Medications Generic Name Dose Route Start Last Admin Trade Name Freq PRN Reason Stop Dose Admin Acetaminophen 650 mg 05/31/19 21:20 06/01/19 19:23 Tylenol PO 650 mg Q4H PRN Administration Headache/Fever/Mild Pain (1-3) Hydrocodone Bitart/Acetaminophen 2 tab 06/01/19 10:13 06/02/19 20:39 [place] 10/325 PO 2 tab Q6H PRN Administration Severe Pain (7-10) Diphenhydramine HCl 25 mg 06/01/19 16:12 06/02/19 17:53 Benadryl IVP 25 mg Q6H PRN Administration Allergies Famotidine 20 mg 06/01/19 09:00 06/02/19 20:39 Pepcid SLOW IVP 20 mg Q12HR GRIFFIN Administration Folic Acid 1 mg 06/02/19 09:00 06/02/19 08:07 Folvite PO 1 mg DAILY GRIFFIN Administration Sodium Chloride 1,000 mls @ 100 mls/hr 06/01/19 03:35 06/02/19 20:41 Normal Saline 0.9% IV 1,000 mls .Q10H GRIFFIN Administration Levofloxacin 500 mg/ Device 100 mls @ 100 mls/hr 06/02/19 16:00 06/02/19 17: 41 IVPB 100 mls Q24HR GRIFFIN Administration Morphine Sulfate 4 mg 06/01/19 14:57 06/02/19 17:41 Morphine SLOW IVP 4 mg Q4H PRN Administration Moderate to Severe Pain (6-10) Tramadol HCl 50 mg 05/31/19 21:19 06/02/19 11:09 Ultram PO 50 mg Q4H PRN Administration Moderate Pain (4-6) - Exam General - other findings: agitated, grimacing, laying in bed Eye: PERRL, anicteric sclera ENT: normocephalic atraumatic, no oropharyngeal lesions Neck: supple, symmetric, no JVD, no thyromegaly Heart: RRR, no murmur, no gallops, no rubs, normal peripheral pulses Respiratory: CTAB, no wheezes, no rales, no ronchi, normal chest expansion Gastrointestinal: soft, non-distended, normal bowel sounds Gastrointestinal - other findings: mild TTP diffusely Extremities: no cyanosis, no clubbing, no edema Skin: normal turgor, no lesions Neurological: cranial nerve grossly intact, no new deficit Musculoskeletal: normal tone, normal strength Psychiatric: A&O x 3 Hosp A/P (1) Sickle cell pain crisis Code(s): D57.00 - HB-SS DISEASE WITH CRISIS, UNSPECIFIED Status: Acute Plan: Suspected, continue Morphine Sulfate 4mg IV q4h prn, [place], IVF's, continue empiric Levaquin (2) Sickle cell anemia Code(s): D57.1 - SICKLE-CELL DISEASE WITHOUT CRISIS Status: Chronic Plan: Appears stable, continue to monitor trend, check Retic count in am (3) Chronic pain disorder Code(s): G89.4 - CHRONIC PAIN SYNDROME Status: Chronic Plan: Suspect large component of presentation (4) Tobacco abuse Code(s): Z72.0 - TOBACCO USE Status: Chronic - 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
[2019-06-03] MEDS: HYDROcodone/Acetaminophen 10/325 mg Tablet PO PRN ×3 (03:13→20:21)
[2019-06-03] MEDS: Morphine 4 MG/ML VIAL SLOW IVP PRN ×4 (05:04→23:19)
[2019-06-03] MEDS: diphenhydrAMINE 50 MG/ML VIAL IVP PRN ×4 (05:07→23:20)
[2019-06-03] MEDS: Sodium Chloride 0.9% 1,000 ML IV SCH ×3 (05:10→23:22)
[2019-06-03 05:32] LABS: Reticulocyte Count 2.2 % (0.5-1.5)
[2019-06-03 05:43] LABS: Eosinophils 4 % (0-10); Hemoglobin 10.7 g/dL (14.0-18.0); Lymphocytes 27 % (21-51); MDiff Complete? YES; Mean Corpuscular HGB CONC 34.6 g/dL (32.0-36.0); Mean Corpuscular Volume 89.5 fL (78.0-98.0); Mean Platelet Volume 7.2 fL (7.4-10.4); Microcytosis SLIGHT = 6-15 cells (100X) (0-5/hpf); Monocytes 18 % (0-10); Neutrophil 51 % (42-75); Nucleated RBC 3 % (0); Platelet Count 311 thou/uL (130-400); Platelet Morphology Comment Appears Adequate; RBC Distribution Width 14.8 % (11.5-14.5); Red Blood Cell (RBC) Count 3.46 mill/uL (4.70-6.10); Target Cells MODERATE= 6-15 cells (100X) (0-1/hpf)
[2019-06-03] MEDS: Folic Acid 1 MG TAB PO SCH (08:34)
[2019-06-03] MEDS: Famotidine/PF 20 mg/2ml Vial SLOW IVP SCH ×2 (08:35→20:21)
[2019-06-03] MEDS ORDERED: Cepastat Lozenges 1 LOZ PO PRN (15:18)
--- NOTE | 2019-06-03 15:20 | PDOC.HOSPP ---
- Subjective Encounter Date: 06/03/19 Encounter Time: 15:20 Subjective: f/u Sickle cell crisis with mild improvement in body aches. Appetite improved. No N/V. Low grade temp noted. - Objective Vital Signs & Weight: Vital Signs (12 hours) Temp Pulse Resp BP BP Pulse Ox 06/03/19 12:00 98.7 F 81 16 115/68 97 06/03/19 08:00 100.2 F H 81 16 101/63 97 Weight Weight 133 lb 12.8 oz I&O: 06/02/19 06/03/19 06/04/19 06:59 06:59 06:59 Intake Total 2100 240 Output Total 1100 Balance 1000 240 Result Diagrams: 06/03/19 05:08 06/02/19 05:03 Additional Labs: Microbiology 06/01/19 23:35 Nasopharyngeal swab Influenza Types A & B (LUCI) - Final 06/01/19 15:38 Throat Group A Streptococcus Culture - Final 06/01/19 15:05 Throat Group A Streptococcus Screen (CARLOS) - Final 05/31/19 11:15 Urine clean catch Urine Culture - Final 05/31/19 11:00 Nasal swab Influenza Types A,B Direct EIA - Final 06/01/19 20:01 Venous blood - Right Hand Blood Culture - Preliminary Specimen has been received and culture in progress. No Growth to date. 06/01/19 20:01 Venous blood - Left Arm Blood Culture - Preliminary Specimen has been received and culture in progress. No Growth to date. 05/31/19 11:15 Urine clean catch Urine Culture - Preliminary NO GROWTH AT 12 HOURS Laboratory Tests 05/31/19 05/31/19 05/31/19 11:15 11:15 11:15 WBC 15.4 H Hgb 12.0 L Neutrophils % 75.8 H Retic Count 2.2 H AST 93 H ALT 56 H Hospitalist ROS - Medication Medications: Active Medications Generic Name Dose Route Start Last Admin Trade Name Freq PRN Reason Stop Dose Admin Acetaminophen 650 mg 05/31/19 21:20 06/01/19 19:23 Tylenol PO 650 mg Q4H PRN Administration Headache/Fever/Mild Pain (1-3) Hydrocodone Bitart/Acetaminophen 2 tab 06/01/19 10:13 06/03/19 13:48 [place] 10/325 PO 2 tab Q6H PRN Administration Severe Pain (7-10) Diphenhydramine HCl 25 mg 06/01/19 16:12 06/03/19 10:59 Benadryl IVP 25 mg Q6H PRN Administration Allergies Famotidine 20 mg 06/01/19 09:00 06/03/19 08:35 Pepcid SLOW IVP 20 mg Q12HR GRIFFIN Administration Folic Acid 1 mg 06/02/19 09:00 06/03/19 08:34 Folvite PO 1 mg DAILY GRIFFIN Administration Sodium Chloride 1,000 mls @ 100 mls/hr 06/01/19 03:35 06/03/19 15:04 Normal Saline 0.9% IV Not Given .Q10H GRIFFIN Levofloxacin 500 mg/ Device 100 mls @ 100 mls/hr 06/02/19 16:00 06/02/19 17: 41 IVPB 100 mls Q24HR GRIFFIN Administration Morphine Sulfate 4 mg 06/01/19 14:57 06/03/19 10:58 Morphine SLOW IVP 4 mg Q4H PRN Administration Moderate to Severe Pain (6-10) Tramadol HCl 50 mg 05/31/19 21:19 06/02/19 11:09 Ultram PO 50 mg Q4H PRN Administration Moderate Pain (4-6) - Exam General Appearance: NAD, awake alert Eye: PERRL, anicteric sclera ENT: normocephalic atraumatic, no oropharyngeal lesions Neck: supple, symmetric, no JVD, no thyromegaly Heart: RRR, no murmur, no gallops, no rubs, normal peripheral pulses Respiratory: CTAB, no wheezes, no rales, no ronchi Gastrointestinal: soft, non-tender, non-distended, normal bowel sounds Extremities: no cyanosis, no clubbing, no edema Skin: normal turgor, no lesions Neurological: cranial nerve grossly intact, no new deficit Musculoskeletal: normal tone, normal strength Psychiatric: normal affect, A&O x 3 Hosp A/P (1) Sickle cell pain crisis Code(s): D57.00 - HB-SS DISEASE WITH CRISIS, UNSPECIFIED Status: Acute Plan: Suspected however H/H and retic counts stable, ? 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
[2019-06-04] MEDS: Morphine 4 MG/ML VIAL SLOW IVP PRN ×4 (05:05→21:01)
[2019-06-04] MEDS: diphenhydrAMINE 50 MG/ML VIAL IVP PRN ×4 (05:13→21:01)
[2019-06-04] MEDS: Famotidine/PF 20 mg/2ml Vial SLOW IVP SCH ×2 (08:11→21:01)
[2019-06-04] MEDS: Folic Acid 1 MG TAB PO SCH (08:11)
[2019-06-04] MEDS: Sodium Chloride 0.9% 1,000 ML IV SCH ×2 (11:43→19:06)
[2019-06-04] MEDS: HYDROcodone/Acetaminophen 10/325 mg Tablet PO PRN ×2 (13:38→19:02)
--- NOTE | 2019-06-04 14:13 | PDOC.HOSPP ---
- Subjective Encounter Date: 06/04/19 Encounter Time: 11:30 Subjective: pt states that he is doing so/so. wants freq dose of benadryl as pain meds makes nauseous. - Objective Vital Signs & Weight: Vital Signs (12 hours) Temp Pulse Resp BP Pulse Ox 06/04/19 11:19 99.8 F H 89 18 110/71 98 06/04/19 08:00 98 06/04/19 07:32 99.1 F 77 18 93/58 L 98 Weight Weight 133 lb 12.8 oz I&O: 06/03/19 06/04/19 06/05/19 06:59 06:59 06:59 Intake Total 2100 2100 720 Output Total 1100 1150 Balance 1000 950 720 Result Diagrams: 06/03/19 05:08 06/02/19 05:03 Hospitalist ROS - Medication Medications: Active Medications Generic Name Dose Route Start Last Admin Trade Name Freq PRN Reason Stop Dose Admin Acetaminophen 650 mg 05/31/19 21:20 06/01/19 19:23 Tylenol PO 650 mg Q4H PRN Administration Headache/Fever/Mild Pain (1-3) Hydrocodone Bitart/Acetaminophen 2 tab 06/01/19 10:13 06/04/19 13:38 [place] 10/325 PO 2 tab Q6H PRN Administration Severe Pain (7-10) Famotidine 20 mg 06/01/19 09:00 06/04/19 08:11 Pepcid SLOW IVP 20 mg Q12HR GRIFFIN Administration Folic Acid 1 mg 06/02/19 09:00 06/04/19 08:11 Folvite PO 1 mg DAILY GRIFFIN Administration Sodium Chloride 1,000 mls @ 100 mls/hr 06/01/19 03:35 06/04/19 11:43 Normal Saline 0.9% IV Not Given .Q10H GRIFFIN Levofloxacin 500 mg/ Device 100 mls @ 100 mls/hr 06/02/19 16:00 06/03/19 15: 35 IVPB 100 mls Q24HR GRIFFIN Administration Morphine Sulfate 4 mg 06/01/19 14:57 06/04/19 11:16 Morphine SLOW IVP 4 mg Q4H PRN Administration Moderate to Severe Pain (6-10) Tramadol HCl 50 mg 05/31/19 21:19 06/02/19 11:09 Ultram PO 50 mg Q4H PRN Administration Moderate Pain (4-6) - Exam General Appearance: NAD, awake alert Eye: PERRL ENT: normocephalic atraumatic Neck: supple, symmetric Heart: RRR, no murmur Respiratory: CTAB, no wheezes Gastrointestinal: soft, non-tender Extremities: no cyanosis Skin: normal turgor Neurological: no focal deficits Hosp A/P - Plan (1) Sickle cell pain crisis SS disease - retic counts stable, - chronic pain syndrome, continue IVF's, morphine, tramadol and hydrocodone -stool softener -LQ, empiric abx? -Continue supportive mgmt Continue IVF's (2) Sickle cell anemia -daily folate See above, consider initiation of Hydroxyurea prior to d/c-------pt had this in the past, adverse lan kelli HESS etc.. - follows dr. Zain middleton -daily folate. (3) Chronic pain disorder (4) Tobacco abuse out of bed/ambulate dispo 0 home when able.
[2019-06-05] MEDS: Morphine 4 MG/ML VIAL SLOW IVP PRN ×6 (01:02→21:09)
[2019-06-05] MEDS: diphenhydrAMINE 50 MG/ML VIAL IVP PRN ×6 (01:02→21:09)
[2019-06-05] MEDS: Sodium Chloride 0.9% 1,000 ML IV SCH ×2 (05:08→17:06)
[2019-06-05] MEDS: HYDROcodone/Acetaminophen 10/325 mg Tablet PO PRN ×2 (06:30→22:04)
[2019-06-05] MEDS: Famotidine/PF 20 mg/2ml Vial SLOW IVP SCH ×2 (09:07→21:09)
[2019-06-05] MEDS: Folic Acid 1 MG TAB PO SCH (09:09)
--- NOTE | 2019-06-05 14:13 | PDOC.HOSPP ---
- Subjective Encounter Date: 06/05/19 Encounter Time: 09:50 Subjective: pt c/o chest hurts. no tachy, normotensive. has BMs. - Objective Vital Signs & Weight: Vital Signs (12 hours) Temp Pulse Resp BP Pulse Ox 06/05/19 08:00 98.6 F 69 18 103/63 96 Weight Weight 133 lb 12.8 oz I&O: 06/04/19 06/05/19 06/06/19 06:59 06:59 06:59 Intake Total 2100 2470 480 Output Total 1150 1100 Balance 950 1370 480 Result Diagrams: 06/03/19 05:08 06/02/19 05:03 Hospitalist ROS - Medication Medications: Active Medications Generic Name Dose Route Start Last Admin Trade Name Freq PRN Reason Stop Dose Admin Acetaminophen 650 mg 05/31/19 21:20 06/01/19 19:23 Tylenol PO 650 mg Q4H PRN Administration Headache/Fever/Mild Pain (1-3) Hydrocodone Bitart/Acetaminophen 2 tab 06/01/19 10:13 06/05/19 06:30 [place] 10/325 PO 2 tab Q6H PRN Administration Severe Pain (7-10) Diphenhydramine HCl 25 mg 06/04/19 14:12 06/05/19 13:03 Benadryl IVP 25 mg Q4H PRN Administration Allergies Famotidine 20 mg 06/01/19 09:00 06/05/19 09:07 Pepcid SLOW IVP 20 mg Q12HR GRIFFIN Administration Folic Acid 1 mg 06/02/19 09:00 06/05/19 09:09 Folvite PO 1 mg DAILY GRIFFIN Administration Sodium Chloride 1,000 mls @ 100 mls/hr 06/01/19 03:35 06/05/19 05:08 Normal Saline 0.9% IV 1,000 mls .Q10H GRIFFIN Administration Levofloxacin 750 mg 06/04/19 16:00 06/04/19 15:32 Levaquin PO 750 mg 1600 GRIFFIN Administration Morphine Sulfate 4 mg 06/01/19 14:57 06/05/19 13:03 Morphine SLOW IVP 4 mg Q4H PRN Administration Moderate to Severe Pain (6-10) Tramadol HCl 50 mg 05/31/19 21:19 06/02/19 11:09 Ultram PO 50 mg Q4H PRN Administration Moderate Pain (4-6) - Exam General Appearance: NAD, awake alert Eye: PERRL, anicteric sclera ENT: normocephalic atraumatic Neck: supple, symmetric Heart: RRR Respiratory: CTAB Gastrointestinal: soft, non-tender, normal bowel sounds Extremities: no cyanosis Neurological: no focal deficits Hosp A/P - Plan (1) Sickle cell pain crisis SS disease - retic counts stable, - chronic pain syndrome, continue IVF's, morphine, tramadol and hydrocodone -stool softener -LQ, empiric abx? -Continue supportive mgmt Continue IVF's (2) Sickle cell anemia -daily folate See above, consider initiation of Hydroxyurea prior to d/c-------pt had this in the past, adverse lan kelli HESS etc.. - follows dr. Zain middleton -daily folate. (3) Chronic pain disorder (4) Tobacco abuse out of bed/ambulate advised against overuse of analgesics -pain scale been emphasized. dispo - home when able. 9th - continue the abve mgmt.
[2019-06-06] MEDS: diphenhydrAMINE 50 MG/ML VIAL IVP PRN ×6 (00:57→21:08)
[2019-06-06] MEDS: Morphine 4 MG/ML VIAL SLOW IVP PRN ×6 (00:57→21:09)
[2019-06-06] MEDS: Sodium Chloride 0.9% 1,000 ML IV SCH ×3 (05:12→16:57)
[2019-06-06] MEDS: HYDROcodone/Acetaminophen 10/325 mg Tablet PO PRN ×2 (06:01→15:31)
[2019-06-06] MEDS: Folic Acid 1 MG TAB PO SCH (09:04)
[2019-06-06] MEDS: Famotidine/PF 20 mg/2ml Vial SLOW IVP SCH ×2 (09:04→21:08)
--- NOTE | 2019-06-06 12:10 | PDOC.HOSPP ---
- Subjective Encounter Date: 06/06/19 Encounter Time: 10:00 Subjective: pt feels better, requesting whether he can stay one more day as pain still somewhat on and off. - Objective Vital Signs & Weight: Vital Signs (12 hours) Temp Pulse Resp BP Pulse Ox 06/06/19 08:00 98.6 F 73 18 108/68 98 06/06/19 00:48 98.9 F Weight Weight 133 lb 12.8 oz I&O: 06/05/19 06/06/19 06/07/19 06:59 06:59 06:59 Intake Total 2470 2470 Output Total 1100 1100 Balance 1370 1370 Result Diagrams: 06/03/19 05:08 06/02/19 05:03 Hospitalist ROS - Medication Medications: Active Medications Generic Name Dose Route Start Last Admin Trade Name Freq PRN Reason Stop Dose Admin Acetaminophen 650 mg 05/31/19 21:20 06/01/19 19:23 Tylenol PO 650 mg Q4H PRN Administration Headache/Fever/Mild Pain (1-3) Hydrocodone Bitart/Acetaminophen 2 tab 06/01/19 10:13 06/06/19 06:01 [place] 10/325 PO 2 tab Q6H PRN Administration Severe Pain (7-10) Diphenhydramine HCl 25 mg 06/04/19 14:12 06/06/19 09:06 Benadryl IVP 25 mg Q4H PRN Administration Allergies Famotidine 20 mg 06/01/19 09:00 06/06/19 09:04 Pepcid SLOW IVP 20 mg Q12HR GRIFFIN Administration Folic Acid 1 mg 06/02/19 09:00 06/06/19 09:04 Folvite PO 1 mg DAILY GRIFFIN Administration Sodium Chloride 1,000 mls @ 100 mls/hr 06/01/19 03:35 06/06/19 05:12 Normal Saline 0.9% IV 1,000 mls .Q10H GRIFFIN Administration Levofloxacin 750 mg 06/04/19 16:00 06/05/19 17:06 Levaquin PO 750 mg 1600 GRIFFIN Administration Morphine Sulfate 4 mg 06/01/19 14:57 06/06/19 09:04 Morphine SLOW IVP 4 mg Q4H PRN Administration Moderate to Severe Pain (6-10) Tramadol HCl 50 mg 05/31/19 21:19 06/02/19 11:09 Ultram PO 50 mg Q4H PRN Administration Moderate Pain (4-6) - Exam General Appearance: NAD, awake alert Eye: anicteric sclera ENT: normocephalic atraumatic Neck: supple, symmetric Heart: RRR Respiratory: CTAB Gastrointestinal: non-tender, normal bowel sounds Extremities: no cyanosis Neurological: no focal deficits Psychiatric: normal affect, normal behavior Hosp A/P - Plan (1) Sickle cell pain crisis SS disease - retic counts stable, - chronic pain syndrome, continue IVF's, morphine, tramadol and hydrocodone -stool softener -LQ, empiric abx? -Continue supportive mgmt Continue IVF's (2) Sickle cell anemia -daily folate See above, consider initiation of Hydroxyurea prior to d/c-------pt had this in the past, adverse lan wJulian HESS etc.. - follows dr. Zain middleton -daily folate. (3) Chronic pain disorder (4) Tobacco abuse out of bed/ambulate advised against overuse of analgesics -pain scale been emphasized. dispo - home when able. 9th - continue the abve mgmt. 10th - clinically stable. plan for dc in am as pt feels he would be ready more in am for dc. as mgmt in sickle cell pt predominantly based on pt's symptoms and clinical resolution.
[2019-06-07] MEDS: diphenhydrAMINE 50 MG/ML VIAL IVP PRN ×4 (00:52→12:37)
[2019-06-07] MEDS: Morphine 4 MG/ML VIAL SLOW IVP PRN ×4 (00:53→12:38)
[2019-06-07] MEDS: HYDROcodone/Acetaminophen 10/325 mg Tablet PO PRN ×2 (02:40→08:54)
[2019-06-07 07:52] VITALS: TEMP 98.4
[2019-06-07] MEDS: Famotidine/PF 20 mg/2ml Vial SLOW IVP SCH (08:54)
[2019-06-07] MEDS: Folic Acid 1 MG TAB PO SCH (08:55)
[2019-06-07 09:02] VITALS: BP 97/60
[2019-06-07] MEDS: Sodium Chloride 0.9% 1,000 ML IV SCH (12:39)
--- NOTE | 2019-06-08 08:17 | DIS ---
DATE OF ADMISSION: 06/01/2019 DATE OF DISCHARGE: 06/07/2019 DISCHARGE DIAGNOSES: 1. Sickle cell pain crisis. 2. Sickle cell anemia, on a daily supplement with folate. 3. Chronic pain disorder. 4. Tobacco abuse. DISCHARGE MEDICATIONS: 1. Folic acid 1 mg daily. 2. [place] 10/325 two tablets as needed as part of his previous home regimen. 3. Currently, Tylenol No.3, twenty tablets have been prescribed. PHYSICAL EXAMINATION: VITAL SIGNS: On the day of discharge, he is afebrile with a temp of 98.3, pulse 68, blood pressure 92/56, and saturating 98% in the room air. GENERAL: The patient is alert, oriented, did not have any major issues. He is comfortable. He did not have significant pain. He is ambulating without distress. CARDIOVASCULAR: Regular rate and rhythm without murmurs, rubs, or gallops. LUNGS: Clear to auscultation bilaterally without wheezing, rales, or rhonchi. ABDOMEN: Soft, nontender, nondistended. Good bowel sounds. EXTREMITIES: Did not appreciate any pitting edema or rash. There is no tenderness in the joints. HOSPITAL COURSE: The patient is admitted with sickle cell pain crisis. He had some subjective fever and chills on Thursday prior to admission. His son at home was diagnosed with pneumonia and had flu-like symptoms. The patient presented with productive cough and started with IV antibiotics, transitioned to Levaquin. Completed the course. Chest x-ray was negative. Urine culture is negative. CT angiogram of the chest, no pulmonary embolism. There is some atelectasis in the lung bases. After several courses of analgesic, the patient clinically improved. He is discharged hemodynamically in stable condition. DISCHARGE INSTRUCTIONS: Activity as tolerated. Healthy heart diet/regular diet. Follow up with Dr. Pittman in one week. TIME SPENT: Discharge time took over 30 minutes. Job ID: [id number] [facility]
--- NOTE | 2019-06-08 23:34 | PQF ---
BINTA BOYD GIO PALMA [id number] CLINICAL DOCUMENTATION CLARIFICATION FORM: POST DISCHARGE Addendum to original discharge summary date: ____ Late entry note date: __ DATE:06/08/2019 ATTN:GIO PALMA Please exercise your independent, professional judgment in responding to the clarification form. Clinical indicators are provided on the bottom of this form for your review Please check appropriate box(s) to clarify if the following diagnosis has been ruled in or ruled out: Pneumonia [ ] Ruled in diagnosis [ ] Continue to treat [ ] Resolved [ x ] Ruled out diagnosis [ ] Cannot rule out diagnosis [ ] Other diagnosis [ ] Unable to determine For continuity of documentation, please document condition throughout progress notes and discharge summary. Thank You. CLINICAL INDICATORS - SIGNS / SYMPTOMS / LABS WBC-15.4-Documented in ED on 06/01 by Cezar Mayberry Pneumonia-Documented in ED on 06/01 by Cezar Mayberry The patient presented with productive cough-Documented in Discharge summary on 06/07 by Gio Palma Chest x ray was negative , urine culture is negative-Documented in Discharge summary on 06/07 by Gio Palma RISK FACTORS His son at home was diagnosed with pneumonia and had flu-like symptoms- Documented in Discharge summary on 06/07 by Gio Palma TREATMENTS Started with IV antibiotics, Transitioned to Levaquin completed the course- Documented in Discharge summary on 06/07 by Gio Palma [employer] Win[employer] Viewer (This form is maintained as a part of the permanent medical record) 2014 [email or web address]. All Rights Reserved [email or web address] [phone] [email or web address]
== END 2019-06-07 14:03 | disposition home or self-care (01) | DRG 812 ==
LOC: ERS 10:35 → T4-B 17:50 → OBSVTOIN 06-01 14:59
PROVIDERS: ADMIT Emergency Medicine; ATTEND Internal Medicine
DX: D57.00 Hb-SS disease with crisis, unspecified (principal); N39.0 Urinary tract infection, site not specified; R04.2 Hemoptysis; G89.29 Other chronic pain; J06.9 Acute upper respiratory infection, unspecified; F32.9 Major depressive disorder, single episode, unspecified
CPT/HCPCS: 36415; 71045; 71275; 74177; 80048; 80053; 81003; 81015; 83605; 83690; 84484; 85007; 85025; 85027; 85046; 85379; 87040; 87081; 87086; 87430; 87631; 87804; 93005; 94760; 96361; 96365; 96375; J0456; J0696; J1200; J1956; J2270; J3490; Q9967; S0028

== ENCOUNTER 2019-06-17 18:04 | Emergency (ER) | payer MEDICARE, OTHER ==
[2019-06-17 19:30] LABS: Reticulocyte Count 4.7 % (0.5-1.5)
[2019-06-17 19:38] LABS: Hemoglobin 11.8 g/dL (14.0-18.0); Mean Corpuscular HGB CONC 36.6 g/dL (32.0-36.0); Mean Corpuscular Hemoglobin 32.6 pg (27.0-31.0); Mean Platelet Volume 6.1 fL (7.4-10.4); Platelet Count 643 thou/uL (130-400); RBC Distribution Width 17.1 % (11.5-14.5); Red Blood Cell (RBC) Count 3.61 mill/uL (4.70-6.10)
[2019-06-17 19:48] LABS: ALT (SGPT) 10 U/L (8-55); AST (SGOT) 17 U/L (5-34); Albumin 4.8 g/dL (3.5-5.0); Alkaline Phosphatase 86 U/L (40-110); Anion Gap 15 mmol/L (10-20); BUN (Urea Nitrogen) 5 mg/dL (8.9-20.6); Bilirubin, Total 1.1 mg/dL (0.2-1.2); Calc. Creatinine Clearance 0 mL/min (70-130); Calcium 10.4 mg/dL (7.8-10.44); Carbon Dioxide 24 mmol/L (22-29); Chloride 104 mmol/L (98-107); Estimated GFR-MDRD Greater than 90; Globulin 3.8 g/dL (2.4-3.5); Glucose 79 mg/dL (70-105); Potassium 4.3 mmol/L (3.5-5.1); Protein, Total 8.6 g/dL (6.0-8.3); Sodium 139 mmol/L (136-145)
[2019-06-17 19:57] LABS: Anisocytosis SLIGHT = 6-15 cells (100X) (0-5/hpf); Hemoglobin C Crystals SLIGHT (None Seen); Large Platelets SLIGHT; Lymphocytes 39 % (21-51); MDiff Complete? YES; Monocytes 11 % (0-10); Neutrophil 50 % (42-75); Nucleated RBC 1 % (0); Platelet Morphology Comment Appears Increased; Polychromasia SLIGHT = 2-3 cells (100X) (0-2/hpf); Spherocytes SLIGHT = 1-5 cells (100X) (None Seen); Target Cells MODERATE= 6-15 cells (100X) (0-1/hpf); Tear Drops SLIGHT = 2-5 cells (100X) (0-1/hpf); White Blood Cell (WBC) Count 9.9 thou/uL (4.8-10.8)
[2019-06-17] MEDS ORDERED: HYDROcodone/Acetaminophen 5/325 mg Tablet ONE (20:42)
== END 2019-06-17 20:50 | disposition home or self-care (01) ==
LOC: ERS 18:04
DX: D57.1 Sickle-cell disease without crisis (principal); G89.29 Other chronic pain; F32.9 Major depressive disorder, single episode, unspecified; F17.210 Nicotine dependence, cigarettes, uncomplicated; Z79.899 Other long term (current) drug therapy
CPT/HCPCS: 36415; 80053; 85025; 85046; 99284

== ENCOUNTER 2019-07-02 17:58 | Emergency (ER) | payer MEDICARE, OTHER ==
[2019-07-02 19:44] LABS: Reticulocyte Count 3.7 % (0.5-1.5)
[2019-07-02 19:45] LABS: ALT (SGPT) 9 U/L (8-55); AST (SGOT) 18 U/L (5-34); Albumin 4.5 g/dL (3.5-5.0); Alkaline Phosphatase 81 U/L (40-110); Anion Gap 12 mmol/L (10-20); BUN (Urea Nitrogen) 6 mg/dL (8.9-20.6); Calc. Creatinine Clearance 0 mL/min (70-130); Calcium 9.4 mg/dL (7.8-10.44); Carbon Dioxide 26 mmol/L (22-29); Chloride 105 mmol/L (98-107); Estimated GFR-MDRD Greater than 90; Globulin 3.3 g/dL (2.4-3.5); Glucose 78 mg/dL (70-105); Potassium 4.2 mmol/L (3.5-5.1); Protein, Total 7.8 g/dL (6.0-8.3); Sodium 139 mmol/L (136-145)
[2019-07-02 19:50] LABS: Hemoglobin 11.4 g/dL (14.0-18.0); Mean Corpuscular HGB CONC 34.6 g/dL (32.0-36.0); Mean Corpuscular Hemoglobin 31.1 pg (27.0-31.0); Mean Corpuscular Volume 89.8 fL (78.0-98.0); Mean Platelet Volume 6.6 fL (7.4-10.4); Platelet Count 317 thou/uL (130-400); RBC Distribution Width 16.3 % (11.5-14.5); Red Blood Cell (RBC) Count 3.66 mill/uL (4.70-6.10); White Blood Cell (WBC) Count 9.4 thou/uL (4.8-10.8)
[2019-07-02 20:04] LABS: Eosinophils 3 % (0-10); Lymphocytes 35 % (21-51); MDiff Complete? YES; Monocytes 6 % (0-10); Neutrophil 56 % (42-75); Platelet Morphology Comment Appears Adequate
[2019-07-02] MEDS ORDERED: HYDROcodone/Acetaminophen 10/325 mg Tablet ONE (21:21)
--- NOTE | 2019-07-02 21:21 | CT ---
CT Cervical Spine WO Con Indication: Neck pain with extension into both arms COMPARISON: CT cervical spine dated March 27, 2018 FINDINGS: Fracture: None. Spinal alignment: No acute malalignment. Craniocervical junction: Within normal limits. Vertebral body heights: Maintained. Cervical spine degenerative change: Stable mild spondylosis of the cervical spine most pronounced at C4-5 and C5-6. Lung apices: Clear. IMPRESSION: No acute osseous abnormality.
== END 2019-07-03 00:30 | disposition home or self-care (01) ==
LOC: ERS 17:58
DX: D57.1 Sickle-cell disease without crisis (principal); R10.9 Unspecified abdominal pain; M54.2 Cervicalgia; G35 Multiple sclerosis; F32.9 Major depressive disorder, single episode, unspecified; F17.210 Nicotine dependence, cigarettes, uncomplicated; Z79.899 Other long term (current) drug therapy
CPT/HCPCS: 36415; 72125; 80053; 85025; 85046

== ENCOUNTER 2019-07-03 08:58 | Emergency (ER) | payer MEDICARE, OTHER ==
[2019-07-03] MEDS ORDERED: Ondansetron PF 4 MG/2 ML Vial ONE (09:15)
[2019-07-03 10:25] LABS: Reticulocyte Count 3.3 % (0.5-1.5)
[2019-07-03 10:29] LABS: ALT (SGPT) 13 U/L (8-55); AST (SGOT) 24 U/L (5-34); Albumin 4.5 g/dL (3.5-5.0); Alkaline Phosphatase 79 U/L (40-110); Anion Gap 12 mmol/L (10-20); BUN (Urea Nitrogen) 6 mg/dL (8.9-20.6); Calc. Creatinine Clearance 0 mL/min (70-130); Calcium 9.8 mg/dL (7.8-10.44); Carbon Dioxide 28 mmol/L (22-29); Chloride 105 mmol/L (98-107); Estimated GFR-MDRD Greater than 90; Globulin 2.9 g/dL (2.4-3.5); Glucose 92 mg/dL (70-105); Lipase 21 U/L (8-78); Potassium 4.9 mmol/L (3.5-5.1); Protein, Total 7.4 g/dL (6.0-8.3); Sodium 140 mmol/L (136-145)
[2019-07-03 10:30] LABS: Hemoglobin 11.9 g/dL (14.0-18.0); Mean Corpuscular HGB CONC 35.1 g/dL (32.0-36.0); Mean Corpuscular Hemoglobin 31.3 pg (27.0-31.0); Mean Corpuscular Volume 89.2 fL (78.0-98.0); Mean Platelet Volume 7.2 fL (7.4-10.4); Platelet Count 329 thou/uL (130-400); RBC Distribution Width 16.5 % (11.5-14.5); Red Blood Cell (RBC) Count 3.81 mill/uL (4.70-6.10)
--- NOTE | 2019-07-03 10:30 | RAD ---
XR Chest Pa Lat STANDARD HISTORY: Body pain, abdominal pain COMPARISON: 05/31/2019 FINDINGS: The heart size is normal. The lungs are well expanded without focal areas of consolidation, pneumothorax or pleural effusions. IMPRESSION: No radiographic evidence of acute cardiopulmonary process.
[2019-07-03] MEDS ORDERED: HYDROcodone/Acetaminophen 5/325 mg Tablet ONE (10:42)
[2019-07-03 10:43] LABS: Anisocytosis SLIGHT = 6-15 cells (100X) (0-5/hpf); Burr Cells SLIGHT = 2-5 cells (100X) (0-1/hpf); Eosinophils 1 % (0-10); Large Platelets SLIGHT; Lymphocytes 26 % (21-51); MDiff Complete? YES; Monocytes 7 % (0-10); Neutrophil 66 % (42-75); Nucleated RBC 1 % (0); Platelet Morphology Comment Appears Adequate; Poikilocytosis SLIGHT = 6-15 cells (100X) (0-5/hpf); Polychromasia SLIGHT = 2-3 cells (100X) (0-2/hpf); Sickle Cells SLIGHT = 1-5 cells (100X) (None Seen); Target Cells SLIGHT = 2-5 cells (100X) (0-1/hpf)
== END 2019-07-03 11:21 | disposition home or self-care (01) ==
LOC: ERS 08:58
DX: D57.00 Hb-SS disease with crisis, unspecified (principal); F32.9 Major depressive disorder, single episode, unspecified; G35 Multiple sclerosis; F17.210 Nicotine dependence, cigarettes, uncomplicated
CPT/HCPCS: 71046; 80053; 83690; 85025; 85046; 96361; 96374; J2405